=== PATIENT | male | born 1970 | race Caucasian/White ===

== ENCOUNTER 2023-03-29 19:47 | Inpatient (IN) | payer OTHER, SELFPAY ==
[2023-03-29 19:48] VITALS: BP 173/104; PULSE 82; RESP 16; TEMP 36.4; O2SAT 97; BMI 35.6
--- NOTE | 2023-03-29 20:05 | RAD_ITS ---
STUDY: X-RAY CHEST REASON FOR EXAM: Male, 52 years old. MEDICAL CLEARANCE TECHNIQUE: Single AP portable view of the chest. COMPARISON: None. FINDINGS: The lungs are clear and expanded. There is no demonstrated pleural abnormality. Normal size heart. Normal mediastinum and benton. Normal visualized pulmonary arteries. Normal visualized aortic arch and descending thoracic aorta. Normal visualized thoracic spine. Normal visualized ribs, clavicles, and shoulders. There is no demonstrated abnormality of the visualized soft tissue structures of the upper abdomen. RAD/Chest 1 View IMPRESSION: Normal x-ray examination of the chest. Electronically Signed: Guru Justin MD at 20:23 EDT ,
[2023-03-29 20:11] LABS: Basophil# 0.14 X10^3/uL; Basophil% 1.6 % (0-1); Eosinophil# 0.24 X10^3/uL; Eosinophils% 2.8 % (0-5); Hemoglobin 15.6 g/dL (13.0-16.5); Lymphocyte % 28.8 % (19-41); Mean Corp Hgb Conc 33.9 g/dL (32-36); Mean Corpuscular Hgb 32.6 pg (27.0-32.0); Mean Corpuscular Volume 96.2 fL (80-94); Mean Platelet Vol. 8.5 fl (6.2-12.0); Monocyte# 0.79 X10^3/uL; Monocyte% 9.1 % (0-10); NRBC Flagged by Analyzer 0 % (0-5); Neutrophil # 4.98 X10^3/uL (2.7-7.7); Neutrophil % 57.2 % (47-70); Platelet Count 403 K/mm3 (150-450); RBC Distribution Width CV 11.8 % (11.6-14.6); RBC Distribution Width SD 41.3 fl (35.1-43.9); Red Blood Count 4.78 M/mm3 (4.6-6.2); White Blood Count 8.7 K/mm3 (4.4-11.0)
[2023-03-29 20:26] LABS: Anion Gap 5 (5-15); BUN 18 mg/dL (7-18); BUN/Creat Ratio 14.6 RATIO (10-20); Calcium,Total 9.3 mg/dL (8.5-10.1); Chloride 109 mmol/L (98-107); Creatinine, Serum 1.23 mg/dL (0.70-1.30); EST Glomerular Filtration Rate 66 mL/min (>60); Est Glom Filt Rate - Afr Amer 79 mL/min (>60); Estimated Creatinine Clearance 67.97 ml/min; Glucose 98 mg/dL (74-106); Potassium 3.9 mmol/L (3.5-5.1); Sodium Level 138 mmol/L (136-145)
[2023-03-29 20:47] LABS: Alcohol, Blood (Medical)-Serum < 3.0 mg/dL
--- NOTE | 2023-03-29 22:07 | CT_ITS ---
STUDY: CT BRAIN WITHOUT CONTRAST REASON FOR EXAM: Male, 52 years old. weakness RADIATION DOSAGE (If Supplied By Facility): CTDIvol = ( 44.99 ) mGy, DLP = ( 812.98 ) mGycm TECHNIQUE: Transaxial CT imaging of the brain was performed without administration of intravenous contrast material. Individualized dose optimization techniques were used for this CT. COMPARISON: No relevant priors. FINDINGS: Normal soft tissue structures. Normal calvarium. Normal size ventricles and extra-axial spaces for the patient''s age. There are areas of decreased attenuation within the white matter tracts of the supratentorial brain, consistent with microvascular disease changes. There are bilateral lacunar infarcts of the basal ganglia and thalami. Normal brainstem. Normal cerebellum. There is no intracranial hemorrhage. There are no findings of an acute ischemic infarction. There is mucoperiosteal inflammatory disease of the paranasal sinuses consistent with mild chronic sinusitis. CT/Brain/Head without Contrast IMPRESSION: No acute abnormality. White matter disease and lacunar infarcts, both advanced for age. Suggest evaluating for hypertension. Electronically Signed: Guru Justin MD at 22:32 EDT ,
--- NOTE | 2023-03-29 22:11 | EKG12_ITS ---
Test Reason : DYSRHYTHMIA Blood Pressure : / mmHG Vent. Rate : 064 BPM Atrial Rate : 064 BPM P-R Int : 128 ms QRS Dur : 084 ms QT Int : 424 ms P-R-T Axes : 055 018 014 degrees QTc Int : 437 ms Normal sinus rhythm Normal ECG No previous ECGs available Confirmed by SKYLAR LINDSAY, DEMETRIO ([id number]), scientific publications editor STELLA SINGH ([id number]) on 03/31/2023 2:37:53 PM Referred By: TASNEEM Confirmed By:DEMETRIO CHENG MD
--- NOTE | 2023-03-29 22:39 | EX.ED.DYSGE1 ---
HPI History of Present Illness Chief Complaint: General Illness Narrative Narrative: 52-year-old male with reported history of hypertension presenting with difficulty finding words and speaking. He states this lasted for just a short duration at his house. He states that prior to this he was trying to cut [place] and was having trouble controlling his hand and cutting them into symmetrical slices. He is never had symptoms like this before. He states he has no history of stroke. He does not have any numbness or tingling. He has been otherwise healthy. He denies chest pain or shortness of breath. When this was happening [facility] Medical History History of CVA (cerebrovascular accident) HTN (hypertension) Tobacco use Medical History no medical history Home Medications lisinopril 40 mg tablet 40 mg PO DAILY ##30 11/07/16 [Rx Last Taken Unknown] Allergy/AdvReac Type Severity Reaction Status Date / Time No Known Allergies Allergy Verified 03/29/23 19:52 Surgical History no surgical history Social History Smoking Status: Current every day smoker tobacco type: cigarettes EXAM Physical Exam Const Vital Signs: 03/29/23 19:48 Temperature 97.6 F L Temperature Source Temporal Pulse Rate 82 Respiratory Rate 16 Blood Pressure 173/104 H Blood Pressure Mean 127 Pulse Ox 97 Oxygen Delivery Method Room Air MDM MDM MDM Narrative Medical decision making narrative: Patient presenting with symptoms of difficulty finding words and speaking for short duration in his kitchen tonight prior to the police showing up in his house to serve a warrant on him for not showing up for court. He states that he was having trouble using his right hand and cutting [place] before this and then noted he was having trouble getting words out and his tongue felt like it was not moving right. This is all resolved. Initially he was taken out of residential but they wanted him to be checked out and by the time he got here he had no symptoms. Patient reports no history of TIA or CVA. CBC and BMP were obtained and are fairly unremarkable. High-sensitivity opponent is 15. EKG normal sinus rhythm with a rate of 64 bpm without sign of ischemic change or dysrhythmia. Chest x-ray on my interpretation shows no acute process and radiologist services and agrees. CT of the brain was obtained which shows white matter disease and lacunar infarcts which are old. Patient reports no history of TIAs therefore I have concern that he likely had 1 today given injuries. Eyes discussed with the hospitalist and the patient will be admitted for further work-up. His NIH has remained 0 here throughout his stay. Impression: 1 TIA Lab Data Labs: Laboratory Results - last 24 hr 03/29/23 20:01 WBC 8.7 RBC 4.78 Hgb 15.6 Hct 46.0 MCV 96.2 H MCH 32.6 H MCHC 33.9 RDW Std Deviation 41.3 RDW Coeff of Shayy 11.8 Plt Count 403 MPV 8.5 Immature Gran % (Auto) 0.500 Neut % (Auto) 57.2 Lymph % (Auto) 28.8 [place] % (Auto) 9.1 Eos % (Auto) 2.8 Baso % (Auto) 1.6 H Absolute Neuts (auto) 5.0 Absolute Lymphs (auto) 2.50 Nucleated RBC % 0 Sodium 138 Potassium 3.9 Chloride 109 H Carbon Dioxide 24.0 Anion Gap 5 BUN 18 Creatinine 1.23 Estim Creat Clear Calc 67.97 Est GFR (MDRD) Af Amer 79 Est GFR (MDRD) Non-Af 66 BUN/Creatinine Ratio 14.6 Glucose 98 Calcium 9.3 Troponin I High Sens 15 Ethyl Alcohol < 3.0 Radiography Diagnostic Testing: Clinical Impression(s) from Imaging Studies Chest X-Ray 03/29/23 20:05 IMPRESSION: Normal x-ray examination of the chest. Electronically Signed: Guru Justin MD at 20:23 EDT , Brain CT 03/29/23 22:07 IMPRESSION: No acute abnormality. White matter disease and lacunar infarcts, both advanced for age. Suggest evaluating for hypertension. Electronically Signed: Guru Justin MD at 22:32 EDT , Discharge Plan Triage Chief Complaint: General Illness ED Provider: López Serrato Dx/Rx/DC Orders Primary Care Provider: Care Physician,No Primary
--- NOTE | 2023-03-29 22:47 | HP.PCM.HOS_ITS ---
HPI - General General Date of Admission: 03/29/23 Date of Service: 03/29/23 Chief Complaint: Transient aphasia, difficult hand coordination. HPI Narrative The patient is a 52 y/o M w/ PMHx: Polysubstance abuse (methamphetamine, cannabis), History of EtOH abuse, HTN, Tobacco use who presents to the [facility] ED on 03/29/23 with history of transient difficulty finding his words and speaking as well as intermittently having difficulty controlling his hands with difficulty slicing food with no symptoms like this previously and no prior history of a stroke denying any concurrent other focal weakness or paresthesias prompting eventual ED evaluation. Currently patient status has returned back to baseline. Patient had a warrant being served and had police show up to serve him when this was occuring prompting them to bring him in for evaluation. Patient does report significant skin changes to his bilateral plantar feet, right greater than left as well as atypical skin changes/lesions to the palmar surface of his hands. He does report that he is occasionally not changed his socks and had significant sweat to his feet with concern for athlete's foot. In the ED NIHSS 0; however, per discussion with patient his voice currently is still altered from his baseline. Work-up in the ED included T97.6, heart rate 82, BP 173/104, respiratory rate 16, 97% room air, CBC with WBC 8.7, hemoglobin 15.6, platelet 4 3 without marked shift, BMP unremarkable aside chloride 109, alcohol less than 3, chest x-ray with no acute cardiopulmonary findings, CT of the brain with white matter disease and lacunar infarcts both advanced for age with no acute intracranial findings otherwise, EKG SR without acute evidence of ischemia, negative SARS COVID rapid antigen, troponin pending upon requested evaluation of patient. In the ED patient administered full-strength aspirin therapy. [facility] Medical History History of CVA (cerebrovascular accident) HTN (hypertension) Obesity Polysubstance abuse Tobacco use Medical History no medical history Home Medications lisinopril 40 mg tablet 40 mg PO DAILY ##30 11/07/16 [Rx Last Taken Unknown] Allergy/AdvReac Type Severity Reaction Status Date / Time No Known Allergies Allergy Verified 03/29/23 19:52 Family History (Updated 03/30/23 @ 03:[address] Kelli Wilcox MD) Mother CVA (cerebral vascular accident) Hypertension Diabetes Father COVID-19 following COVID-19 illness. Surgical History (Updated 03/30/23 @ 03:[address] Kelli Wilcox MD) S/P nasal surgery Surgical History no surgical history Social History (Updated 03/30/23 @ 03:[address] Kelli Wilcox MD) household members: friend(s) Smoking Status: Current every day smoker tobacco type: cigarettes Smoking packs per day: 1 Smoking cigarettes per day: 20.0 alcohol intake: former details: Sober x 5 years. substance use type: marijuana and amphetamines ROS ROS Narrative Admission Review of Systems: CONSTITUTIONAL: No weight loss, fever, chills, + weakness or fatigue. HEENT: + Altered voice, dysarthria. Eyes: No visual loss, blurred vision, double vision or yellow sclerae. Ears, Nose, Throat: No hearing loss, sneezing, congestion, runny nose or sore throat. SKIN: + Significant bilateral lower extremity right greater than left pedal plantar skin breakdown, maceration especially between the toes concerning for fungal infection as well as possible superimposed bacterial infection, additionally bilateral hand, left greater than right palmar skin lesions with some cracking. CARDIOVASCULAR: No chest pain, chest pressure or chest discomfort, palpitations, edema, orthopnea, syncopal events. RESPIRATORY: No shortness of breath, cough or sputum, wheezing, hemoptysis. GASTROINTESTINAL: No anorexia, nausea, vomiting or diarrhea, abdominal pain, melena, BRBPR. GENITOURINARY: No dysuria, frequency, urgency or retention. NEUROLOGICAL: + Dysarthria, discoordination bilateral upper extremity, transient. No headache, dizziness, syncope, paralysis, ataxia, change in bowel or bladder control, seizure. MUSCULOSKELETAL: + muscle, back pain, joint pain or stiffness. HEMATOLOGIC: No anemia, bleeding or bruising. LYMPHATICS: No enlarged nodes. No history of splenectomy. PSYCHIATRIC: No history of depression or anxiety. ENDOCRINOLOGIC: No reports of sweating, cold or heat intolerance. No polyuria or polydipsia. ALLERGIES: No history of asthma, hives, eczema or rhinitis. Vital Signs Vital Signs Vital Signs: 03/29/23 19:48 Temperature 97.6 F L Temperature Source Temporal Pulse Rate 82 Respiratory Rate 16 Blood Pressure 173/104 H Blood Pressure Mean 127 Pulse Ox 97 Oxygen Delivery Method Room Air Weight Weight: 234 lb Body Mass Index (BMI) 35.6 Physical Exam Narrative Physical Examination: General: Awake, alert, oriented x 3 and cooperative, seated upright in the ED bed, fatigued otherwise no acute distress. Skin: Normal color, normal turgor, no icterus, no cyanosis except bilateral lower extremity right greater than left pedal plantar skin breakdown, maceration especially between the toes concerning for fungal infection as well as possible superimposed bacterial infection, additionally bilateral hand, left greater than right palmar skin lesions with some cracking. HEENT: AT/NC, EOMI, PERRLA, moderately dry MM, no carotid bruits or JVD noted. Lungs: Mildly diminished greater bases, appropriate effort, no rales, ronchi or wheezing. Heart: Currently regular rate and rhythm; no gallop, rub audible. Abdomen: Soft, obese, NTTP, ND, mildly hyperactive BS, no HSM. Extremities: No cyanosis, no clubbing, no marked pitting edema, see skin. Neurological: Patient awake, alert, oriented as noted, cognitive function intact; pupils equally reactive to light and accommodation, cranial nerves II- XII grossly normal, moving all 4 extremities, no focal deficits, strength moderately globally decreased, finger-nose and [id number] appropriate, still ongoing dysarthria from discussion with patient as he states he is still not at his baseline, equivocal Babinski. Psychiatric: Affect appears fatigued otherwise normal, no acute evidence of depressive or anxiety feelings. Results Lab / Micro Data 03/29/23 20:01 03/29/23 20:01 Labs: Laboratory Results - last 24 hr 03/29/23 20:01: WBC 8.7, RBC 4.78, Hgb 15.6, Hct 46.0, MCV 96.2 H, MCH 32.6 H, MCHC 33.9, RDW Std Deviation 41.3, RDW Coeff of Shayy 11.8, Plt Count 403, MPV 8.5, Immature Gran % (Auto) 0.500, Neut % (Auto) 57.2, Lymph % (Auto) 28.8, [place] % (Auto) 9.1, Eos % (Auto) 2.8, Baso % (Auto) 1.6 H, Absolute Neuts (auto) 5.0, Absolute Lymphs (auto) 2.50, Nucleated RBC % 0, Sodium 138, Potassium 3.9, Chloride 109 H, Carbon Dioxide 24.0, Anion Gap 5, BUN 18, Creatinine 1.23, Estim Creat Clear Calc 67.97, Est GFR (MDRD) Af Amer 79, Est GFR (MDRD) Non-Af 66, BUN/Creatinine Ratio 14.6, Glucose 98, Calcium 9.3, Ethyl Alcohol < 3.0 Micro: Microbiology 03/29/23 20:01 Nasal Secretion SARS-CoV-2 Antigen (Rapid) - Final Radiology Impression Chest X-Ray 03/29/23 20:05 IMPRESSION: Normal x-ray examination of the chest. Electronically Signed: Guru Justin MD at 20:23 EDT , Brain CT 03/29/23 22:07 IMPRESSION: No acute abnormality. White matter disease and lacunar infarcts, both advanced for age. Suggest evaluating for hypertension. Electronically Signed: Guru Justin MD at 22:32 EDT , Assessment & Plan Assessment/Plan (1) TIA (transient ischemic attack): PLAN: Plan The patient is a 52 y/o M w/ PMHx: Polysubstance abuse (methamphetamine, cannabis), History of EtOH abuse, HTN, Tobacco use who presents to the [facility] ED on 03/29/23 with history of transient difficulty finding his words and speaking as well as intermittently having difficulty controlling his hands with difficulty slicing food with no symptoms like this previously and no prior history of a stroke denying any concurrent other focal weakness or paresthesias prompting eventual ED evaluation. #1. Recent aphasia as well as difficulty with upper extremity coordination, transient with incidentally noted evidence of prior bilateral lacunar infarcts of the basal ganglia and thalami concerning for now Acute TIA/CVA: Will admit to PCU especially given evidence of prior infarcts advanced for age per radiology review with acute symptom onset with concern for recurrent TIA/CVA, will obtain MRI Brain, obtain CTA head and Neck, ECHO, PT/OT/Speech/Nutrition evaluation per protocol. Will allow permissive HTN, maintain on asa, add high-dose statin w/ AM FLP, fall precautions. Mag, TSH, FLP, HgbA1c requested. Maintain on fall and aspiration precautions. Once work-up obtained low threshold to obtain Neurology consultation. Given age pending other findings may need to consider also hypercoagulable panel but given history of polysubstance abuse certainly would contribute. #2. Hypertension: We will maintain permissive hypertension with parent agents p er stroke protocol as noted. Add back oral regimen once appropriate. #3. Tobacco Abuse: Encouraged cessation, inpatient consultation per RT, NR if desired. #4. Obesity: Weight loss and lifestyle changes encouraged. #5. History of EtOH abuse: Encourage continued sobriety. He notes he quit hea vy alcohol intake approximately 5 years prior to current presentation. #6. Polysubstance abuse: Patient with history of methamphetamine and cannabis usage with most recent usage approximately 4 to 5 weeks prior to current presentation but significant prior polysubstance use history as well. Given patient presentation and examination to be cautious we will obtain HIV, hepatitis as well as RPR which patient was amenable to. #7. Bilateral hands and pedal palmar rashes, suspect some overlying tinea pedis and possible superimposed bacterial component but concern for possible syphilis given history: Will maintain on topical antifungal as well as bacterial agents with RPR pending as noted. #8. DVT prophylaxis: Lovenox. #9. CODE STATUS: Full code. Admission Evaluation Time spent evaluating chart, patient history, patient evaluation, care planning and discussion with specialists: 75 minutes. Charges/Coding Visit Charges Inpatient E&M: 14922 Init Hosp L3
[2023-03-29 23:03] LABS: Troponin-I HS 15 pg/mL (3.0-78.0)
[2023-03-29] MEDS: Aspirin 81 MG TAB.CHEW 324 MG PO (23:36)
[2023-03-29 23:48] VITALS: BP 160/100; PULSE 80; RESP 15; TEMP 36.5; O2SAT 98
--- NOTE | 2023-03-29 23:55 | CT_ITS ---
We are attempting to reach an attending provider to discuss findings. An addendum with communication details will be sent when the communication is complete. INDICATION: Neuro deficit, acute, stroke suspected EXAMINATION: CT HEAD AND NECK WITH CONTRAST - CTA Head and Neck W/ Contrast Injection (and W/O Contrast Images if performed) TECHNIQUE: Routine carotid CT angiogram protocol was performed with IV contrast. In addition, images were obtained of the [place]. Sagittal and coronal reconstructed images and 3D reconstructions were reviewed. Individualized dose optimization techniques were used for this CT. IV contrast dosage and agent: 100 mL of Isovue-370. COMPARISON: Noncontrast head CT from 03/29/2023. FINDINGS: --CTA HEAD: Atherosclerotic plaques of the cavernous ICAs with mild to moderate stenosis on the right and mild stenosis on the left. No evidence of large vessel occlusion. No aneurysm. [place] anatomy is unremarkable. Mucosal thickening of the frontal, ethmoid and sphenoid sinuses. --CTA NECK: AORTIC ARCH AND BRANCHES: No significant stenosis of the visualized portions. RIGHT CCA: Mild atherosclerotic plaque with no significant stenosis. No dissection. RIGHT ICA: No significant stenosis. No dissection. LEFT CCA: Mild atherosclerotic plaque with no significant stenosis. No dissection. LEFT ICA: No significant stenosis. No dissection. RIGHT VERTEBRAL ARTERY: No significant stenosis. No dissection. LEFT VERTEBRAL ARTERY: No significant stenosis. No dissection. NECK SOFT TISSUES: Unremarkable. CT/STROKE CTA Head AND Neck W/Con IMPRESSION: 1. No evidence of flow-limiting stenosis or dissection of the bilateral carotid or vertebral arteries. 2. Atherosclerotic plaques of the bilateral cavernous internal carotid arteries with [id number] stenosis on the right and mild stenosis on the left. 3. No evidence of intracranial arterial large vessel occlusion or aneurysm. Electronically Signed: Amado Holden DO at 2:06 EDT ,
[2023-03-30 00:10] VITALS: BP 172/104; PULSE 64; RESP 18; TEMP 36.6; O2SAT 100
[2023-03-30 00:11] LABS: Magnesium 2.1 mg/dL (1.6-2.6); Phosphorus 4.2 mg/dL (2.5-4.9)
--- NOTE | 2023-03-30 00:15 | ECHOCS_ITS ---
Reason For Study: CVA Procedure This was a 2D Doppler, Color Flow transthoracic echocardiogram. Contrast injection was performed. Exam performed portable in patient room. Left Ventricle Normal LV size. Mild concentric left ventricular hypertrophy. Left ventricular systolic function is normal. The estimated ejection fraction is 65 %. Right Ventricle Normal right ventricle. Normal systolic function. Atria Normal left atrium. Normal right atrium. Bubble contrast study negative for right to left interatrial shunt. Mitral Valve The mitral valve is structurally normal. No prolapse or stenosis seen. No mitral valve insufficiency. Tricuspid Valve Normal tricuspid valve. Trivial tricuspid valve insufficiency. Aortic Valve Trisinus/trileaflet aortic valve. No aortic valve insufficiency. Pulmonic Valve The pulmonic valve is not well visualized. Great Vessels Normal aortic root. Pericardium/Pleural No pericardial effusion. Medication Performed a rapid injection of agitated mix of 9 cc saline and 1cc air to assess for atrial septal defect. Diluted definity 1ml given slow IV push to enhance endocardial definition. MMode/2D Measurements & Calculations LVIDd: 4.1 cm IVSd: 1.3 cm Ao root diam: 3.1 cm LVIDs: 2.7 cm LVPWd: 1.3 cm RVDd: 3.2 cm FS: 35.4 % LAV(MOD-bp): 31.1 ml LVAd ap4: 34.9 cm2 SV(MOD-sp4): 74.1 ml LAV(MOD-bp) Indexed: 14.8 ml/m2 LVLd ap4: 9.1 cm LAV(MOD-sp2): 32.4 ml EDV(MOD-sp4): 108.0 ml LAV(MOD-sp4): 29.6 ml EDV(sp4-el): 113.7 ml LVAs ap4: 16.2 cm2 LVLs ap4: 6.8 cm ESV(MOD-sp4): 33.9 ml ESV(sp4-el): 32.6 ml EF(MOD-sp4): 68.6 % EF(sp4-el): 71.3 % SV(sp4-el): 81.1 ml LA A4 area: 13.8 cm2 LA dimension(2D): 3.7 cm RA A4 area: 13.6 cm2 Time Measurements MV dec time: 0.31 sec Doppler Measurements & Calculations MV E max leonardo: 53.4 cm/sec Lat Peak E' Leonardo: 8.1 cm/sec Med Peak E' Leonardo: 5.9 cm/sec MV A max leonardo: 80.6 cm/sec E/E' lat: 6.6 E/E' med: 9.1 MV E/A: 0.66 MV dec slope: 170.2 cm/sec2 Ao V2 max: 169.4 cm/sec LV V1 max: 132.9 cm/sec Ao max P.5 mmHg LV V1 max P.1 mmHg Ao V2 mean: 130.3 cm/sec Ao mean P.2 mmHg Ao V2 VTI: 28.8 cm PA V2 max: 104.3 cm/sec TR max leonardo: 234.3 cm/sec TR max P.0 mmHg ECHO/Echo Complete W/ Contrast Interpretation Summary The estimated ejection fraction is 65 %. Mild concentric left ventricular hypertrophy. Bubble contrast study negative for right to left interatrial s Anterior MV leaflets Elongated,Thickened anterior Mitral chordae Correlate with clinical presentation and consider SCOTT evaluation if clinically indiated Contrast injection was performed. The study was technica rita difficult. Ordering Physician: Kelli Wilcox Performed By: Shawna Haas RDCS, RVT
--- NOTE | 2023-03-30 00:15 | MRI_ITS ---
We are attempting to reach an attending provider to discuss findings. An addendum with communication details will be sent when the communication is complete. INDICATION: CVA EXAMINATION: MRI - MR Brain W/O Contrast COMPARISON: Head CT previous day. Findings: Multisequence multiplanar MRI images of the brain with and without contrast. Included is diffusion-weighted series with corresponding ADC map which demonstrate heterogeneous small clustered foci of increased signal, measuring up to 16 mm, within the central inferior cerebellum consistent with restricted diffusion. Associated small wedge-shaped increased T2 and FLAIR signal in this region as well. There may be additional tiny focus of restricted diffusion within the right frontotemporal deep white matter, just caudal to the level of the centrum semiovale, on axial image 18 of series 4. There are multiple periventricular areas of increased T2 and FLAIR signal most consistent with chronic periventricular white matter ischemic changes, other white matter disease is less likely. Mild volume loss present. Midline anatomy and craniocervical junction appear unremarkable. No significant blooming artifact on gradient echo imaging. Vascular structures/flow-voids are unremarkable. Pansinus mucosal thickening. MRI/Brain without Contrast IMPRESSION: Right cerebellar restricted diffusion consistent with acute/subacute ischemia. Multiple periventricular areas of increased T2 and FLAIR signal most consistent with chronic periventricular white matter ischemic changes, other white matter disease is less likely. Electronically Signed: Domenic Barfield MD at 1:32 EDT ,
[2023-03-30 00:20] VITALS: BMI 32.9
[2023-03-30 01:22] LABS: HIV - WCH Non-Reactive (Nonreactive); Hepatitis B Surface Antibody Non-Reactive; Hepatitis B Surface Antigen Non-Reactive (Nonreactive); Hepatitis C Antibody Non-Reactive (Nonreactive); Syphilis Antibodies Non-reactive
[2023-03-30] MEDS: 0.9% Normal Saline 1,000 ML 100 ML IV (01:37)
[2023-03-30] MEDS: 0.9% Saline Lock 10 ML Syringe IV (01:41)
[2023-03-30] MEDS: Clotrimazole 1 APPLIC Tube TOPICAL ×3 (01:42→21:48)
[2023-03-30] MEDS: Mupirocin Ointment 22gm Tube 1 APPLIC TOPICAL ×3 (01:42→21:48)
[2023-03-30 02:48] VITALS: BMI 32.9
[2023-03-30 04:34] VITALS: BP 171/101; PULSE 79; RESP 18; TEMP 36.7; O2SAT 96
[2023-03-30 06:00] VITALS: BMI 32.9
[2023-03-30 07:31] LABS: Absolute Lymphocyte Count 2.21 X10^3/uL (0.83-4.51); Absolute Neutrophil Count 4.2 X10^3/uL (2.0-7.7); Basophil# 0.12 X10^3/uL; Basophil% 1.6 % (0-1); Eosinophil# 0.28 X10^3/uL; Eosinophils% 3.8 % (0-5); Hematocrit 45.9 % (40-54); Hemoglobin 15.3 g/dL (13.0-16.5); Lymphocyte # 2.21 X10^3/ul (0.83-4.51); Lymphocyte % 29.7 % (19-41); Mean Corp Hgb Conc 33.3 g/dL (32-36); Mean Corpuscular Hgb 32.5 pg (27.0-32.0); Mean Corpuscular Volume 97.5 fL (80-94); Mean Platelet Vol. 8.7 fl (6.2-12.0); Monocyte# 0.61 X10^3/uL; Monocyte% 8.2 % (0-10); NRBC Flagged by Analyzer 0 % (0-5); Neutrophil # 4.19 X10^3/uL (2.7-7.7); Neutrophil % 56.4 % (47-70); Platelet Count 388 K/mm3 (150-450); RBC Distribution Width CV 11.7 % (11.6-14.6); RBC Distribution Width SD 42.3 fl (35.1-43.9); Red Blood Count 4.71 M/mm3 (4.6-6.2); White Blood Count 7.4 K/mm3 (4.4-11.0)
[2023-03-30 07:44] VITALS: BP 150/80; PULSE 57; RESP 18; TEMP 36.8; O2SAT 99
[2023-03-30] MEDS: Enoxaparin 40 MG/0.4 ML Syringe SC (07:49)
[2023-03-30] MEDS: Aspirin 81 MG TAB.CHEW PO (07:49)
[2023-03-30 07:57] LABS: ALB/GLOB Ratio 0.8 RATIO (0.9-2.4); AST(SGOT) 17 U/L (15-37); Alanine Aminotransfer ALT/SGPT 18 U/L (16-61); Albumin, Serum 3.1 g/dL (3.2-5.0); Alkaline Phosphatase 53 U/L (45-117); Anion Gap 4 (5-15); BUN 12 mg/dL (7-18); BUN/Creat Ratio 12.4 RATIO (10-20); Calcium,Total 8.4 mg/dL (8.5-10.1); Chloride 108 mmol/L (98-107); Cholesterol 159 mg/dL (200); Creatinine, Serum 0.97 mg/dL (0.70-1.30); EST Glomerular Filtration Rate 87 mL/min (>60); Est Glom Filt Rate - Afr Amer 105 mL/min (>60); Estimated Creatinine Clearance 83.29 ml/min; Globulin 3.8 g/dL (2.2-4.2); Glucose 95 mg/dL (74-106); High Density Lipoprotein 49 mg/dL; Potassium 3.8 mmol/L (3.5-5.1); Protein, Total 6.9 g/dL (6.4-8.2); Sodium Level 138 mmol/L (136-145); Thyroid Stim Hormone (TSH) 2.01 uIU/mL (0.358-3.74); Triglycerides 184 mg/dL; Very Low Density Lipoprotein 37 mg/dL (5-40)
[2023-03-30 08:19] LABS: Hemoglobin A1c 5.4 % (3.8-5.6)
--- NOTE | 2023-03-30 08:29 | PCM.PN.HOSP ---
Reason for Visit Reason for Visit: Diagnoses Transient cerebral ischemic attack, unspecified (03/29/23) Subjective Subjective Follow-up for dizziness vertigo. Patient states he has generalized weakness. No one-sided weakness paresthesia/numbness tingling. Objective Data Objective Data Vital Signs: Vital Signs Temp Pulse Resp BP Pulse Ox O2 Del Method 98.2 F 57 L 18 150/80 H 99 Room Air 03/30/23 07:44 03/30/23 07:44 03/30/23 07:44 03/30/23 07:44 03/30/23 07:44 03/30/23 07:44 Oxygen Delivery Method Room Air Weight: 213 lb 6.519 oz Body Mass Index (BMI) 32.9 Intake & Output: Intake and Output for Last 24 Hours 03/28/23 03/29/23 03/30/23 23:59 23:59 23:59 Intake Total 220 / 220 Balance 220 / 220 Lab / Micro Data 03/30/23 06:50 03/30/23 06:50 Labs: Laboratory Results - last 24 hr 03/29/23 20:01: WBC 8.7, RBC 4.78, Hgb 15.6, Hct 46.0, MCV 96.2 H, MCH 32.6 H, MCHC 33.9, RDW Std Deviation 41.3, RDW Coeff of Shayy 11.8, Plt Count 403, MPV 8.5, Immature Gran % (Auto) 0.500, Neut % (Auto) 57.2, Lymph % (Auto) 28.8, Douglas % (Auto) 9.1, Eos % (Auto) 2.8, Baso % (Auto) 1.6 H, Absolute Neuts (auto) 5.0, Absolute Lymphs (auto) 2.50, Nucleated RBC % 0, Sodium 138, Potassium 3.9, Chloride 109 H, Carbon Dioxide 24.0, Anion Gap 5, BUN 18, Creatinine 1.23, Estim Creat Clear Calc 67.97, Est GFR (MDRD) Af Amer 79, Est GFR (MDRD) Non-Af 66, BUN/Creatinine Ratio 14.6, Glucose 98, Calcium 9.3, Phosphorus 4.2, Magnesium 2.1, Troponin I High Sens 15, Ethyl Alcohol < 3.0 03/30/23 00:00: Syphilis Total Ab Non-reactive, Hep Bs Antigen Non-Reactive, Hep Bs Antibody Non-Reactive, Hepatitis C Antibody Non-Reactive, HIV 1&2 Antibody Non-Reactive 03/30/23 06:50: WBC 7.4, RBC 4.71, Hgb 15.3, Hct 45.9, MCV 97.5 H, MCH 32.5 H, MCHC 33.3, RDW Std Deviation 42.3, RDW Coeff of Shayy 11.7, Plt Count 388, MPV 8.7, Immature Gran % (Auto) 0.300, Neut % (Auto) 56.4, Lymph % (Auto) 29.7, Douglas % (Auto) 8.2, Eos % (Auto) 3.8, Baso % (Auto) 1.6 H, Absolute Neuts (auto) 4.2, Absolute Lymphs (auto) 2.21, Nucleated RBC % 0, Sodium 138, Potassium 3.8, Chloride 108 H, Carbon Dioxide 26.0, Anion Gap 4 L, BUN 12, Creatinine 0.97, Estim Creat Clear Calc 83.29, Est GFR (MDRD) Af Amer 105, Est GFR (MDRD) Non-Af 87, BUN/Creatinine Ratio 12.4, Glucose 95, Hemoglobin A1c 5.4, Calcium 8.4 L, Total Bilirubin 0.40, AST 17, ALT 18, Alkaline Phosphatase 53, Total Protein 6.9, Albumin 3.1 L, Globulin 3.8, Albumin/Globulin Ratio 0.8 L Triglycerides 184, Cholesterol 159, LDL Cholesterol 73, VLDL Cholesterol 37, HDL Cholesterol 49, TSH 2.01 Micro: Microbiology 03/29/23 20:01 Nasal Secretion SARS-CoV-2 Antigen (Rapid) - Final Radiography Diagnostic Testing: Radiology Impression Chest X-Ray 03/29/23 20:05 IMPRESSION: Normal x-ray examination of the chest. Electronically Signed: Guru Justin MD at 20:23 EDT , Brain CT 03/29/23 22:07 IMPRESSION: No acute abnormality. White matter disease and lacunar infarcts, both advanced for age. Suggest evaluating for hypertension. Electronically Signed: Guru Justin MD at 22:32 EDT , Head/Neck CTA 03/29/23 23:55 IMPRESSION: 1. No evidence of flow-limiting stenosis or dissection of the bilateral carotid or vertebral arteries. 2. Atherosclerotic plaques of the bilateral cavernous internal carotid arteries with [id number] stenosis on the right and mild stenosis on the left. 3. No evidence of intracranial arterial large vessel occlusion or aneurysm. Electronically Signed: Amado Holden DO at 2:06 EDT , Physical Exam Narrative PatientSeen and examined. Having dizziness and photophobia. No nausea or vomiting. Mild vertigo. No fever, diarrhea or abdominal pain. Denies dysuria. General: Alert, Oriented x3, Cooperative. Obesity grade 1 BMI 32.9 kg/m? HEENT: Atraumatic, PERRLA, EOMI, Normocephalic. No nystagmus. Oral: Oral mucosa moist. No Gingival or Mucosal Lesions/ Ulcerations Neck: Supple, No JVD, Negative Carotid Bruits Lungs: Air entry diminished in bilateral lung bases. No crepitation/rhonchi Cardiovascular: Regular rate, Regular Rhythm, Normal S1, Normal S2, No murmurs Abdomen: Bowel Sounds Present, Soft, Non Tender, Non-Distended : Denies acute [place] symptoms. No renal angle tenderness. No suprapubic tenderness. Extremities: No edema, Capillary Refill Less than 3 Seconds Skin: No rashes, No breakdown Musculoskeletal: No Tenderness to Palpation of Joints or Extremities Neurological: Cranial nerves II-XII grossly intact, DTR 2+/4 and Symmetrical, Neuro grossly intact Psych/Mental Status: Affect. Assessment & Plan Assessment/Plan (1) TIA (transient ischemic attack): PLAN: Plan The patient is a 52 y/o M is admitted for evaluation of transient difficulty finding his words and speaking as well as intermittently having difficulty controlling his hands with difficulty slicing food. No previous symptoms. #1. Recent aphasia as well as difficulty with upper extremity coordination, vertigo and dizziness: Patient is being in PCU. MRI brain is pending. CT head shows bilateral lacunar infarcts of basal ganglia and thalami with normal brainstem and cerebellum. No ICH and no acute ischemic infarction. CTA head and neck does not show evidence of stenosis or dissection of bilateral carotid or vertebral arteries. Atherosclerotic plaque of bilateral cavernous ICA with mild to moderate stenosis on the right and mild stenosis on the left. Vastly improved from within normal limit. Serum magnesium and phosphorus in normal limit. TSH normal. On baby aspirin and high intensity statin. #2. Hypertension: maintain permissive hypertension with parent agents per stroke protocol as noted. Add back oral regimen once appropriate. #3. Tobacco Abuse: Encouraged cessation. On nicotine patch #4. Obesity: Weight loss and lifestyle changes encouraged. #5. History of EtOH abuse: Encourage continued sobriety. He notes he quit heavy alcohol intake approximately 5 years prior to current presentation. #6. Polysubstance abuse: Patient with history of methamphetamine and cannabis usage with most recent usage approximately 4 to 5 weeks prior to current presentation but significant prior polysubstance use history as well. Syphilis Total Ab Non-reactive, Hep Bs Antigen Non-Reactive, Hep Bs Antibody Non-Reactive, Hepatitis C Antibody Non-Reactive, HIV 1&2 Antibody Non-Reactive #7. Bilateral hands and pedal palmar rashes, suspect some overlying tinea pedis and possible superimposed bacterial component but concern for possible syphilis given history: on topical antifungal as well as bacterial agents #8. DVT prophylaxis: Lovenox. #9. CODE STATUS: Full code. Charges/Coding Visit Charges Inpatient E&M: 79615 Subs Hosp L2
--- NOTE | 2023-03-30 08:30 | DCINST_ITS ---
Discharge Instructions Follow Up Care Test Results: Test results from this visit will be discussed in further detail at your follow- up appointment, if applicable. Discharge Plan Admission Admit Date/Time: 03/29/23 22:49 Primary Reason for Your Visit: Right cerebellar acute/subacute ischemia. Attending Provider: Carlos Palomares Primary Care Provider: Sandra Medina Primary Consulting Providers: Kelli Wilcox Discharge Orders/Prescriptions Prescriptions: New atorvastatin 80 mg Tablet 40 mg PO QHS 30 Days Qty: 30 2RF clopidogrel 75 mg Tablet 75 mg PO DAILY 21 Days Qty: 21 0RF nicotine 21 mg/24 hr Patch 24 Hour 21 mg transdermal DAILY 28 Days Qty: 28 0RF mupirocin 2 % Ointment 1 applic topical BID 7 Days Qty: 15 0RF Protocol: *Topical Application Instructions APPLICATION INSTRUCTIONS: BL feet Rx Instructions: Apply on bilateral feet clotrimazole [Antifungal (clotrimazole)] 1 % Cream 1 applic topical BID 10 Days Qty: 45 0RF Protocol: *Topical Application Instructions APPLICATION INSTRUCTIONS: Bl feet Rx Instructions: Apply on bilateral feet aspirin 81 mg Tablet,Chewable 81 mg PO BREAKFAST 30 Days Qty: 30 2RF Changed lisinopril 40 MG tablet 20 mg PO DAILY 30 Days Qty: 30 2RF Rx Instructions: Start 20 mg daily and if blood pressure is still elevated more than 130 mmHg, increased to 40 mg daily. Referrals / Follow Up: Care Physician,No Primary [Primary Care Provider] - Disposition Disposition (needs filled in before D/C Order can be placed): Home, Self Care
--- NOTE | 2023-03-30 09:59 | CASEMGMT ---
Addendum entered by Monica Rapp 03/30/23 11:16: Social Work Mai from the financial department called again. She states that the type of [employer] insurance pt has is not recognized. She asked if pt has his card here, SW will ask pt. She states it appears it is for doctor visits, not accepted by the hospital. SW attempted to speak w/pt, he is now asleep. SW will try again. MUKUND Beverly Addendum entered by Monica Rapp 03/30/23 10:59: Social Work SW did let pt know that his insurance came up as active. MUKUND Beverly Original Note: Social Work SW met w/pt due to being listed as self pay and also history of substance abuse. SW spoke w/pt initially about his self pay status, pt states he has [employer], has had it since October 20, he states [facility] has the information. SW explained will call the financial dept to have them look into it. SW spoke w/pt about substance abuse history. Pt vague in speaking w/SW about this. Pt states he is not using at this time, states used meth 5 weeks ago. SW asked pt about counseling resources for the substance abuse. Pt declined any referrals for counseling resources at this time. Pt states he is able to quit on his own. Pt states it has more to do with where he lives. Pt states he is working on moving. 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 He states he also has a car he is going to sell and once he sells the car also, then he will move. One of the nurses came in to complete the ECHO, SW will follow up w/pt if needed. SALVADOR called the financial dept, confirmed pt does indeed have [employer] insurance. MUKUND Beverly
[2023-03-30 10:11] VITALS: BMI 32.9
--- NOTE | 2023-03-30 12:07 | WOUNDNOTE ---
wound photo: right foot
--- NOTE | 2023-03-30 12:08 | WOUNDNOTE ---
was asked to see patient for laceration to right hand and foot. there is a small cracked area noted to the right pinky finger. no redness or drainage noted. appears to be from dry skin. patient has what appears to be athlete's foot to bilateral feet. right being greater than left. washed feet with soap and water. pat dry. applied the Lotrimin cream as ordered. no need for wound care at this time. see photo.
[2023-03-30] MEDS: Acetaminophen 325 MG Tablet 650 MG PO (12:50)
--- NOTE | 2023-03-30 12:57 | CASEMGMT ---
Patient does not have a copy of his insurance card. SW e-mailed [facility] to see if they could follow up with patient. Manju POTTER
[2023-03-30 14:00] VITALS: BP 150/90; PULSE 73; RESP 18; TEMP 36.8; O2SAT 98
[2023-03-30] MEDS: LORazepam 2 MG/ML Syringe 0.5 MG IV (15:15)
[2023-03-30 20:00] VITALS: BP 155/94; PULSE 63; RESP 18; TEMP 36.6; O2SAT 98
[2023-03-30 20:09] VITALS: BMI 32.9
[2023-03-30] MEDS: Atorvastatin Calcium 80 MG Tablet PO (21:48)
--- NOTE | 2023-03-31 01:55 | PCM.HOSP.N ---
Hospitalist Note MRI brain resulted with Right cerebellar restricted diffusion consistent with acute/subacute ischemia. Multiple periventricular areas of increased T2 and FLAIR signal most consistent with chronic periventricular white matter ischemic changes, other white matter disease is less likely.
[2023-03-31 06:00] VITALS: BMI 32.4
[2023-03-31 06:20] VITALS: RESP 18; O2SAT 98
[2023-03-31] MEDS: Aspirin 81 MG TAB.CHEW PO (08:19)
[2023-03-31] MEDS: Clopidogrel Bisulfate 75 MG Tablet PO (08:19)
[2023-03-31 10:00] VITALS: BP 163/101; PULSE 66; RESP 16; TEMP 36.8; O2SAT 100
--- NOTE | 2023-03-31 10:30 | CASEMGMT ---
SW completed a PHQ 9 with patient as he had a Stroke. Patient scored a 9 which indicates mild depression. Patient declined resources as he has no transportation. SW did get transportation, Medicaid, [facility], Ekaterina Morrow, and counseling resources together and will give them to patient. Manju Blunt [employer]
[2023-03-31] MEDS: Enoxaparin 40 MG/0.4 ML Syringe SC (10:47)
[2023-03-31] MEDS: Acetaminophen 325 MG Tablet 650 MG PO (10:57)
--- NOTE | 2023-03-31 11:22 | DS.PCM_ITS ---
Providers Date of Admission: 03/29/23 Primary Care Physician: No Primary Care Phys Consultations 03/30/23 00:15 Consult: Onc/Wound/paperhanger Routine Comment: Reason For Visit: TIA Diagnosis Discharge Diagnosis (1) Acute ischemic stroke: Status: Acute Code(s): I63.9 - Cerebral infarction, unspecified Plan The patient is a 52 y/o M is admitted for evaluation of transient difficulty finding his words and speaking as well as intermittently having difficulty controlling his hands with difficulty slicing food. No previous symptoms. #1. Recent aphasia as well as difficulty with upper extremity coordination, vertigo and dizziness: Patient is being in PCU. MRI brain is pending. CT head shows bilateral lacunar infarcts of basal ganglia and thalami with normal brainstem and cerebellum. No ICH and no acute ischemic infarction. CTA head and neck does not show evidence of stenosis or dissection of bilateral carotid or vertebral arteries. Atherosclerotic plaque of bilateral cavernous ICA with mild to moderate stenosis on the right and mild stenosis on the left. Serum magnesium and phosphorus in normal limit. TSH normal. On baby aspirin and high intensity statin. 03/31: MRI brain shows right cerebral acute/subacute ischemia. Plavix added. SOC consult. 2D echo bubble contrast study negative for [id number] interatrial shunt. EF 65%. Patient is being discharged on aspirin Plavix and high intensity statin. Fasting profile within normal limit. Follow-up with n eurology in 2 weeks. #2. Hypertension: maintain permissive hypertension with parent agents per [facility] protocol as noted. Add back oral regimen once appropriate. 03/31: Blood pressure in permissive hypertensive range. Start lisinopril 20 mg daily for 3 to 4 days with daily monitoring of BP. If SBP persistently more than 130 mmHg, increased to 40 mg daily. #3. Tobacco Abuse: Encouraged cessation. On nicotine patch #4. Obesity: Weight loss and lifestyle changes encouraged. #5. History of EtOH abuse: Encourage continued sobriety. He notes he quit heavy alcohol intake approximately 5 years prior to current presentation. #6. Polysubstance abuse: Patient with history of methamphetamine and cannabis usage with most recent usage approximately 4 to 5 weeks prior to current presentation but significant prior polysubstance use history as well. Syphilis Total Ab Non-reactive, Hep Bs Antigen Non-Reactive, Hep Bs Antibody Non-Reactive, Hepatitis C Antibody Non-Reactive, HIV 1&2 Antibody Non-Reactive. U tox is ordered #7. Bilateral hands and pedal palmar rashes, suspect some overlying tinea pedis and possible superimposed bacterial component but concern for possible syphilis given history: on topical antifungal as well as bacterial agents Prescription given for mupirocin and Lotrimin cream. #8. DVT prophylaxis: Lovenox. #9. CODE STATUS: Full code. Discharge medication reconciliation done. Discharge follow-up instructions completed. Discharge process discussed with the patient and all questions were answered to patient's satisfaction. Total time spent, exact 35 minutes on discharge meds reconciliation, exami nation, coordination of care with nurses and ancillary staff, review of imaging and blood test and discussion with the patient on follow-up instructions. Medications at Discharge Home Medications aspirin 81 mg chewable tablet 81 mg PO BREAKFAST 30 days #30 tabs 03/31/23 atorvastatin 80 mg tablet 40 mg (1/2 x 80 mg) PO QHS 30 days #30 tabs 03/31/23 clopidogrel 75 mg tablet 75 mg PO DAILY 21 days #21 tabs 03/31/23 clotrimazole 1 % topical cream (Antifungal (clotrimazole)) 1 applic topical BID 10 days #45 grams 03/31/23 lisinopril 40 mg tablet 20 mg (1/2 x 40 mg) PO DAILY 30 days #30 TABLETS 03/31/23 mupirocin 2 % topical ointment 1 applic topical BID 7 days #15 grams 03/31/23 nicotine 21 mg/24 hr daily transdermal patch 21 mg transdermal DAILY 28 days #28 ea 03/31/23 Physical Exam Narrative PatientSeen and examined. Having dizziness and photophobia. No nausea or vomiting. Mild vertigo. No fever, diarrhea or abdominal pain. Denies dysuria. General: Alert, Oriented x3, Cooperative. Obesity grade 1 BMI 32.9 kg/m? HEENT: Atraumatic, PERRLA, EOMI, Normocephalic. No nystagmus. Oral: Oral mucosa moist. No Gingival or Mucosal Lesions/ Ulcerations Neck: Supple, No JVD, Negative Carotid Bruits Lungs: Air entry diminished in bilateral lung bases. No crepitation/rhonchi Cardiovascular: Regular rate, Regular Rhythm, Normal S1, Normal S2, No murmurs Abdomen: Bowel Sounds Present, Soft, Non Tender, Non-Distended : Denies acute [place] symptoms. No renal angle tenderness. No suprapubic tenderness. Extremities: No edema, Capillary Refill Less than 3 Seconds Skin: Bilateral feet/plantar aspect skin cracks/maceration mainly interdigital s pace history of fungal infection with superimposed bacterial infection. Similar infection. Bilateral hand palmar aspect.. Musculoskeletal: No Tenderness to Palpation of Joints or Extremities. ROM i ntact. Ataxia resolved. Neurological: Cranial nerves II-XII grossly intact, DTR 2+/4. NIH stroke scale 0. Language function intact. No dysarthria or dysphagia. Psych/Mental Status: Flat affect. Sometimes gets frustrated and angry. Weight / BMI Weight Weight: 210 lb 1.608 oz Body Mass Index (BMI) 32.4 ABG / Lab / Microbiology Data 03/30/23 06:50 03/30/23 06:50 Microbiology: Microbiology 03/29/23 20:01 Nasal Secretion SARS-CoV-2 Antigen (Rapid) - Final Radiography Diagnostic Testing: Radiology Impression Brain MRI 03/30/23 00:15 IMPRESSION: Right cerebellar restricted diffusion consistent with acute/subacute ischemia. Multiple periventricular areas of increased T2 and FLAIR signal most consistent with chronic periventricular white matter ischemic changes, other white matter disease is less likely. Electronically Signed: Domenic Barfield MD at 1:32 EDT , ADDENDUM: 03/31/23 0205 IMPRESSION: Right cerebellar restricted diffusion consistent with acute/subacute ischemia. Multiple periventricular areas of increased T2 and FLAIR signal most consistent with chronic periventricular white matter ischemic changes, other white matter disease is less likely. N.B. : The above Results were Read Back by Domenic Barfield MD to Kelli Wilcox MD, and understanding confirmed on 03/31/2023 01:58:05 (ET). Electronically Signed: Domenic Barfield MD at 1:32 EDT , ADDENDUM: 03/31/23 0206 IMPRESSION: undefined Echocardiogram 03/30/23 00:15 Interpretation Summary The estimated ejection fraction is 65 %. Mild concentric left ventricular hypertrophy. Bubble contrast study negative for right to left interatrial s Anterior MV leaflets Elongated,Thickened anterior Mitral chordae Correlate with clinical presentation and consider SCOTT evaluation if clinically indiated Contrast injection was performed. The study was technically difficult. Ordering Physician: Kelli Wilcox Performed By: Shawna Haas RDCS, RVT Meaningful Use Info Meaningful Use Diagnoses (Choose all that apply): Ischemic CVA CVA Therapy Assessed for PT,OT and/or ST?: Yes Ischemic Stroke Antithrombotic order at d/c?: Yes Dx of Atrial fib/flutter?: No Anticoagulant at discharge?: Yes Statins at discharge?: Yes Primary Dx Acute Ischemic CVA?: Yes IV thrombolytic ordered during stay?: No Reason IV thrombolytic not ordered: Medical Contraindication and Procedure not Indicated Discharge Plan Admission Admit Date/Time: 03/29/23 22:49 Primary Reason for Your Visit: Right cerebellar acute/subacute ischemia. Attending Provider: Carlos Palomares Primary Care Provider: Care Physician,No Primary Consulting Providers: Kelli Wilcox Discharge Orders/Prescriptions Prescriptions: New atorvastatin 80 mg Tablet 40 mg PO QHS 30 Days Qty: 30 2RF clopidogrel 75 mg Tablet 75 mg PO DAILY 21 Days Qty: 21 0RF nicotine 21 mg/24 hr Patch 24 Hour 21 mg transdermal DAILY 28 Days Qty: 28 0RF mupirocin 2 % Ointment 1 applic topical BID 7 Days Qty: 15 0RF Protocol: *Topical Application Instructions APPLICATION INSTRUCTIONS: BL feet Rx Instructions: Apply on bilateral feet clotrimazole [Antifungal (clotrimazole)] 1 % Cream 1 applic topical BID 10 Days Qty: 45 0RF Protocol: *Topical Application Instructions APPLICATION INSTRUCTIONS: Bl feet Rx Instructions: Apply on bilateral feet aspirin 81 mg Tablet,Chewable 81 mg PO BREAKFAST 30 Days Qty: 30 2RF Changed lisinopril 40 MG tablet 20 mg PO DAILY 30 Days Qty: 30 2RF Rx Instructions: Start 20 mg daily and if blood pressure is still elevated more than 130 mmHg, increased to 40 mg daily. Other Ambulatory Orders: 30 Day Event Recorder Preventi (Urgent) Timeframe: 1 Day Facility: [facility] - Location: Cardiovascular Services Ordered By: Dr. Carlos Palomares Referrals / Follow Up: Care Physician,No Primary [Primary Care Provider] - Disposition Disposition (needs filled in before D/C Order can be placed): Home, Self Care Charges/Coding Visit Charges Inpatient E&M: 90798 Disch Hosp >30min
--- NOTE | 2023-03-31 12:17 | CASEMGMT ---
SW did use [facility] prescription assistance program for patient. Manju POTTER
[2023-03-31] MEDS: Lisinopril 20 MG Tablet PO ×2 (12:36→15:17)
--- NOTE | 2023-03-31 12:37 | PN.HOSP_ITS ---
Reason for Visit Reason for Visit: Diagnoses Transient cerebral ischemic attack, unspecified (03/29/23) Subjective Subjective Follow up for cerebellar stroke Objective Data Objective Data Vital Signs: Vital Signs Temp Pulse Resp BP Pulse Ox O2 Del Method 98.2 F 66 16 163/101 H 100 Room Air 03/31/23 10:00 03/31/23 10:00 03/31/23 10:00 03/31/23 10:00 03/31/23 10:00 03/31/23 10:00 Oxygen Delivery Method Room Air Weight: 210 lb 1.608 oz Body Mass Index (BMI) 32.4 Intake & Output: Intake and Output for Last 24 Hours 03/29/23 03/30/23 03/31/23 23:59 23:59 23:59 Intake Total 1220 / 1440 220 / 220 Output Total 150 / 150 Balance 1220 / 1290 70 / 70 Lab / Micro Data 03/30/23 06:50 03/30/23 06:50 Micro: Microbiology 03/29/23 20:01 Nasal Secretion SARS-CoV-2 Antigen (Rapid) - Final Radiography Diagnostic Testing: Radiology Impression Brain MRI 03/30/23 00:15 IMPRESSION: Right cerebellar restricted diffusion consistent with acute/subacute ischemia. Multiple periventricular areas of increased T2 and FLAIR signal most consistent with chronic periventricular white matter ischemic changes, other white matter disease is less likely. Electronically Signed: Domenic Barfield MD at 1:32 EDT , ADDENDUM: 03/31/23 0205 IMPRESSION: Right cerebellar restricted diffusion consistent with acute/subacute ischemia. Multiple periventricular areas of increased T2 and FLAIR signal most consistent with chronic periventricular white matter ischemic changes, other white matter disease is less likely. N.B. : The above Results were Read Back by Domenic Barfield MD to Kelli Wilcox MD, and understanding confirmed on 03/31/2023 01:58:05 (ET). Electronically Signed: Domenic Barfield MD at 1:32 EDT , ADDENDUM: 03/31/23 0206 IMPRESSION: undefined Echocardiogram 03/30/23 00:15 Interpretation Summary The estimated ejection fraction is 65 %. Mild concentric left ventricular hypertrophy. Bubble contrast study negative for right to left interatrial s Anterior MV leaflets Elongated,Thickened anterior Mitral chordae Correlate with clinical presentation and consider SCOTT evaluation if clinically indiated Contrast injection was performed. The study was technically difficult. Ordering Physician: Kelli Wilcox Performed By: Shawna Haas, RDCS, RVT Physical Exam Narrative Patient is Seen and examined. Dizziness for the few resolved. No nausea or vomiting. Mild vertigo. No fever, diarrhea or abdominal pain. Denies dysuria. General: Alert, Oriented x3, Cooperative. Obesity grade 1 BMI 32.9 kg/m? HEENT: Atraumatic, PERRLA, EOMI, Normocephalic. No nystagmus. Oral: Oral mucosa moist. No Gingival or Mucosal Lesions/ Ulcerations Neck: Supple, No JVD, Negative Carotid Bruits Lungs: Air entry diminished in bilateral lung bases. No crepitation/rhonchi Cardiovascular: Regular rate, Regular Rhythm, Normal S1, Normal S2, No murmurs Abdomen: Bowel Sounds Present, Soft, Non Tender, Non-Distended : Denies acute Chloratet symptoms. No renal angle tenderness. No suprapubic tenderness. Extremities: No edema, Capillary Refill Less than 3 Seconds Skin: Bilateral feet/plantar aspect skin cracks/maceration mainly interdigital space history of fungal infection with superimposed bacterial infection. Similar infection. Bilateral hand palmar aspect. Musculoskeletal: No Tenderness to Palpation of Joints or Extremities. ROM intact. Ataxia resolved. Neurological: Cranial nerves II-XII grossly intact, DTR 2+/4. NIH stroke scale 0. Language function intact. No dysarthria or dysphagia. Psych/Mental Status: Flat affect. Sometimes gets frustrated and angry. Assessment & Plan Assessment/Plan (1) Acute ischemic stroke: PLAN: Plan The patient is a 52 y/o M is admitted for evaluation of transient difficulty finding his words and speaking as well as intermittently having difficulty controlling his hands with difficulty slicing food. No previous symptoms. #1. Recent aphasia as well as difficulty with upper extremity coordination, vertigo and dizziness: Patient is being in PCU. MRI brain is pending. CT head shows bilateral lacunar infarcts of basal ganglia and thalami with normal brainstem and cerebellum. No ICH and no acute ischemic infarction. CTA head and neck does not show evidence of stenosis or dissection of bilateral carotid or vertebral arteries. Atherosclerotic plaque of bilateral cavernous ICA with mild to moderate stenosis on the right and mild stenosis on the left. Serum magnesium and phosphorus in normal limit. TSH normal. On baby aspirin and high intensity statin. 03/31: MRI brain shows right cerebral acute/subacute ischemia. Plavix added. 2D echo bubble contrast study negative for [id number] interatrial shunt. EF 65%. Fasting profile within normal limit. SOC consult recommended SCOTT. 30- day event monitor. Also recommended multiple blood test including ESR, CRP, B12, homocystine, PT/INR, PTT and D-dimer. COVID-19 rapid antigen screen. A1c 5.4. Prediabetes and diabetes mellitus ruled out. #2. Hypertension: maintain permissive hypertension with parent agents per stroke protocol as noted. Add back oral regimen once appropriate. 03/31: Blood pressure in permissive hypertensive range. Start lisinopril 20 mg daily for 3 to 4 days with daily monitoring of BP. If SBP persistently more than 130 mmHg, increased to 40 mg daily. #3. Tobacco Abuse: Encouraged cessation. On nicotine patch #4. Obesity: Weight loss and lifestyle changes encouraged. #5. History of EtOH abuse: Encourage continued sobriety. He notes he quit heavy alcohol intake approximately 5 years prior to current presentation. #6. Polysubstance abuse: Patient with history of methamphetamine and cannabis usage with most recent usage approximately 4 to 5 weeks prior to current presentation but significant prior polysubstance use history as well. Syphilis Total Ab Non-reactive, Hep Bs Antigen Non-Reactive, Hep Bs Antibody Non-Reactive, Hepatitis C Antibody Non-Reactive, HIV 1&2 Antibody Non-Reactive. U tox is ordered #7. Bilateral hands and pedal palmar rashes, suspect some overlying tinea pedis and possible superimposed bacterial component but concern for possible syphilis given history: on topical antifungal as well as bacterial agents Prescription given for mupirocin and Lotrimin cream. #8. DVT prophylaxis: Lovenox. #9. CODE STATUS: Full code. Charges/Coding Visit Charges Inpatient E&M: 17228 Subs Hosp L2
[2023-03-31 14:00] VITALS: BP 167/89; PULSE 77; RESP 16; TEMP 36.5; O2SAT 98
[2023-03-31] MEDS: Mupirocin Ointment 22gm Tube 1 APPLIC TOPICAL ×2 (14:28→23:38)
[2023-03-31] MEDS: Clotrimazole 1 APPLIC Tube TOPICAL ×2 (14:29→23:38)
[2023-03-31 15:01] LABS: Erythrocyte Sedimentation Rate 15 mm/hr (0-20)
[2023-03-31 15:07] LABS: Prothrombin Time (Protime)PT. 13.1 SECONDS (11.7-14.9)
[2023-03-31 15:08] LABS: Partial Thromboplast Time 34.6 Seconds (24.1-36.2)
[2023-03-31] MEDS: Pantoprazole Sodium 40 MG Tablet PO (15:16)
[2023-03-31 16:00] VITALS: BMI 32.4
[2023-03-31 16:00] LABS: Vitamin B12 232 pg/mL (211-911)
[2023-03-31 16:13] LABS: CRP < 2.90 mg/L (0.0-3.0)
[2023-03-31] MEDS: Morphine 2 MG/ML Syringe IV (17:28)
[2023-03-31] MEDS: 0.9% Saline Lock 10 ML Syringe IV (17:29)
[2023-03-31 17:37] VITALS: BP 128/93; PULSE 64; RESP 18; TEMP 36.7; O2SAT 99
[2023-03-31 18:31] LABS: Amphetamine Urine VISTA POSITIVE (<1000 ng/mL); Barbiturate Urine VISTA NEGATIVE (< 200 ng/mL); Benzodiazepine Urine VISTA NEGATIVE (< 200 ng/mL); Cocaine Urine VISTA NEGATIVE (< 300 ng/mL); Ecstacy Urine VISTA NEGATIVE (< 500 ng/mL); Methadone Urine VISTA NEGATIVE (< 300 ng/mL); PCP Urine VISTA NEGATIVE (< 25 ng/mL); THC Urine VISTA NEGATIVE (< 50 ng/mL); Vista UDS pH Range 5
[2023-03-31] MEDS: LORazepam 0.5 MG Tablet PO (18:41)
[2023-03-31] MEDS: QUEtiapine 25 MG Tablet PO (18:59)
[2023-03-31 20:00] VITALS: BP 152/85; PULSE 64; RESP 18; TEMP 36.7; O2SAT 99
[2023-03-31] MEDS: Atorvastatin Calcium 80 MG Tablet PO (23:39)
[2023-04-01] VITALS: BP 135/88; PULSE 64; RESP 18; TEMP 36.6; O2SAT 98
[2023-04-01 03:11] VITALS: BMI 32.6
[2023-04-01 04:13] VITALS: BMI 32.6
[2023-04-01 04:16] VITALS: BP 130/86; PULSE 64; RESP 18; TEMP 36.6; O2SAT 98
[2023-04-01 08:15] VITALS: BP 146/122; PULSE 81; RESP 18; TEMP 36.7; O2SAT 99
[2023-04-01] MEDS: QUEtiapine 25 MG Tablet PO (08:35)
[2023-04-01] MEDS: Clopidogrel Bisulfate 75 MG Tablet PO (08:35)
[2023-04-01] MEDS: Clotrimazole 1 APPLIC Tube TOPICAL (08:36)
[2023-04-01] MEDS: Mupirocin Ointment 22gm Tube 1 APPLIC TOPICAL (08:36)
[2023-04-01] MEDS: Lisinopril 20 MG Tablet PO (08:36)
[2023-04-01] MEDS: Aspirin 81 MG TAB.CHEW PO (08:36)
[2023-04-01] MEDS: Pantoprazole Sodium 40 MG Tablet PO (08:37)
[2023-04-01 08:56] VITALS: O2SAT 99
--- NOTE | 2023-04-01 09:30 | DCINST_ITS ---
Discharge Instructions Follow Up Care Test Results: Test results from this visit will be discussed in further detail at your follow- up appointment, if applicable. Discharge Plan Admission Admit Date/Time: 03/31/23 14:40 Primary Reason for Your Visit: Right cerebellar acute/subacute ischemia. Attending Provider: Carlos Palomares Primary Care Provider: Care Physician,No Primary Consulting Providers: Kelli Wilcox Discharge Orders/Prescriptions Prescriptions: New atorvastatin 80 mg Tablet 40 mg PO QHS 30 Days Qty: 30 2RF clopidogrel 75 mg Tablet 75 mg PO DAILY 21 Days Qty: 21 0RF nicotine 21 mg/24 hr Patch 24 Hour 21 mg transdermal DAILY 28 Days Qty: 28 0RF mupirocin 2 % Ointment 1 applic topical BID 7 Days Qty: 15 0RF Protocol: *Topical Application Instructions APPLICATION INSTRUCTIONS: BL feet Rx Instructions: Apply on bilateral feet clotrimazole [Antifungal (clotrimazole)] 1 % Cream 1 applic topical BID 10 Days Qty: 45 0RF Protocol: *Topical Application Instructions APPLICATION INSTRUCTIONS: Bl feet Rx Instructions: Apply on bilateral feet aspirin 81 mg Tablet,Chewable 81 mg PO BREAKFAST 30 Days Qty: 30 2RF Changed lisinopril 40 MG tablet 20 mg PO DAILY 30 Days Qty: 30 2RF Rx Instructions: Start 20 mg daily and if blood pressure is still elevated more than 130 mmHg, increased to 40 mg daily. Referrals / Follow Up: Vikas Nye MD [Non-Staff -Ordering Privileges] - Within 2 Weeks (For RIGHT Cerebellar stroke) Care Physician,No Primary [Primary Care Provider] - Disposition Disposition (needs filled in before D/C Order can be placed): Home, Self Care
--- NOTE | 2023-04-01 10:10 | PCM.DC.SUM ---
Providers Date of Admission: 03/31/23 Date of Discharge: 04/01/23 Primary Care Physician: No Primary Care Phys Consultations 03/30/23 00:15 Consult: Onc/Wound/dietitian assistant Routine Comment: Reason For Visit: TIA Diagnosis Discharge Diagnosis (1) Acute ischemic stroke: Status: Acute Code(s): I63.9 - Cerebral infarction, unspecified Plan The patient is a 52 y/o M is admitted for evaluation of transient difficulty finding his words and speaking as well as intermittently having difficulty controlling his hands with difficulty slicing food. No previous symptoms. #1. Recent aphasia as well as difficulty with upper extremity coordination, vertigo and dizziness: Patient is being in PCU. MRI brain is pending. CT head shows bilateral lacunar infarcts of basal ganglia and thalami with normal brainstem and cerebellum. No ICH and no acute ischemic infarction. CTA head and neck does not show evidence of stenosis or dissection of bilateral carotid or vertebral arteries. Atherosclerotic plaque of bilateral cavernous ICA with mild to moderate stenosis on the right and mild stenosis on the left. Serum magnesium and phosphorus in normal limit. TSH normal. On baby aspirin and high intensity statin. 03/31: MRI brain shows right cerebral acute/subacute ischemia. Plavix added. 2D echo bubble contrast study negative for ktvny-do-bcei interatrial shunt. EF 65%. Fasting profile within normal limit. SOC consult recommended SCOTT. 30-day event monitor. Also recommended multiple blood test including ESR, CRP, B12, homocystine, PT/INR, PTT and D-dimer. COVID-19 rapid antigen screen. A1c 5.4. Prediabetes and diabetes mellitus ruled out. 04/01: Patient refused for SCOTT. Initially yesterday when I discussed about the procedure he agreed and then was rescheduled for today after talking to the auto service station attendant. Today he refused to me and patient's nurse, [place]. Patient is discharged home on medications as described in discharge instruction. Advised to follow-up with neurologist. #2. Hypertension: maintain permissive hypertension with parent agents per stroke protocol as noted. Add back oral regimen once appropriate. 03/31: Blood pressure in permissive hypertensive range. Start lisinopril 20 mg daily for 3 to 4 days with daily monitoring of BP. If SBP persistently more than 130 mmHg, increased to 40 mg daily. #3. Tobacco Abuse: Encouraged cessation. On nicotine patch #4. Obesity: Weight loss and lifestyle changes encouraged. #5. History of EtOH abuse: Encourage continued sobriety. He notes he quit heavy alcohol intake approximately 5 years prior to current presentation. #6. Polysubstance abuse: Patient with history of methamphetamine and cannabis usage with most recent usage approximately 4 to 5 weeks prior to current presentation but significant prior polysubstance use history as well. Syphilis Total Ab Non-reactive, Hep Bs Antigen Non-Reactive, Hep Bs Antibody Non-Reactive, Hepatitis C Antibody Non-Reactive, HIV 1&2 Antibody Non-Reactive. U tox is ordered #7. Bilateral hands and pedal palmar rashes, suspect some overlying tinea pedis and possible superimposed bacterial component but concern for possible syphilis given history: on topical antifungal as well as bacterial agents Prescription given for mupirocin and Lotrimin cream. #8. DVT prophylaxis: Lovenox. #9. CODE STATUS: Full code. Discharge medication reconciliation done. Discharge follow-up instructions completed. Discharge process discussed with the patient and all questions were answered to patient's satisfaction. Patient charged home with notification to law enforcement agency Total time spent, exact 35 minutes on discharge meds reconciliation, examination, coordination of care with nurses and ancillary staff, review of imaging and blood test and discussion with the patient on follow-up instructions. Medications at Discharge Home Medications aspirin 81 mg chewable tablet 81 mg PO BREAKFAST 30 days #30 tabs 03/31/23 atorvastatin 80 mg tablet 40 mg (1/2 x 80 mg) PO QHS 30 days #30 tabs 03/31/23 clopidogrel 75 mg tablet 75 mg PO DAILY 21 days #21 tabs 03/31/23 clotrimazole 1 % topical cream (Antifungal (clotrimazole)) 1 applic topical BID 10 days #45 grams 03/31/23 lisinopril 40 mg tablet 20 mg (1/2 x 40 mg) PO DAILY 30 days #30 TABLETS 03/31/23 mupirocin 2 % topical ointment 1 applic topical BID 7 days #15 grams 03/31/23 nicotine 21 mg/24 hr daily transdermal patch 21 mg transdermal DAILY 28 days #28 ea 03/31/23 Physical Exam Narrative Patient is Seen and examined. Dizziness for the few resolved. No nausea or vomiting. Vertigo resolved. No fever, diarrhea or abdominal pain. Denies dysuria. General: Alert, Oriented x3, Cooperative. Obesity grade 1 BMI 32.9 kg/m? HEENT: Atraumatic, PERRLA, EOMI, Normocephalic. No nystagmus. Oral: Oral mucosa moist. No Gingival or Mucosal Lesions/ Ulcerations Neck: Supple, No JVD, Negative Carotid Bruits Lungs: Air entry diminished in bilateral lung bases. No crepitation/rhonchi Cardiovascular: Regular rate, Regular Rhythm, Normal S1, Normal S2, No murmurs Abdomen: Bowel Sounds Present, Soft, Non Tender, Non-Distended : Denies acute Chloratet symptoms. No renal angle tenderness. No suprapubic tenderness. Extremities: No edema, Capillary Refill Less than 3 Seconds Skin: Bilateral feet/plantar aspect skin cracks/maceration mainly interdigital space history of fungal infection with superimposed bacterial infection. Similar infection. Bilateral hand palmar aspect. Musculoskeletal: No Tenderness to Palpation of Joints or Extremities. ROM intact. Ataxia resolved. Neurological: Cranial nerves II-XII grossly intact, DTR 2+/4. NIH stroke scale 0. Language function intact. No dysarthria or dysphagia. Psych/Mental Status: Flat affect. Patient is still gets frustrated. Patient understands the description/discussion ends after anxieties status has not been told. Weight / BMI Weight Weight: 211 lb 13.828 oz Body Mass Index (BMI) 32.6 ABG / Lab / Microbiology Data 03/30/23 06:50 03/30/23 06:50 Laboratory: Laboratory Results - last 24 hr 03/31/23 14:30: ESR 15, PT 13.1, INR 1.0, APTT 34.6, D-Dimer Quant (PE/DVT) 0.60 H*, C-React Prot Ext Range < 2.90, Vitamin B12 232 03/31/23 17:25: Urine Opiates Screen NEGATIVE, Urine Methadone Screen NEGATIVE, Ur Barbiturates Screen NEGATIVE, Ur Phencyclidine Scrn NEGATIVE, Ur Amphetamines Screen POSITIVE H, MDMA (Ecstasy) Screen NEGATIVE, U Benzodiazepines Scrn NEGATIVE, Urine Cocaine Screen NEGATIVE, U Cannabinoids Screen NEGATIVE, Ur Drug Screen Comment Microbiology: Microbiology 03/31/23 14:20 Nasal Secretion SARS-CoV-2 Antigen (Rapid) - Final 03/29/23 20:01 Nasal Secretion SARS-CoV-2 Antigen (Rapid) - Final Meaningful Use Info Meaningful Use Diagnoses (Choose all that apply): Ischemic CVA CVA Therapy Assessed for PT,OT and/or ST?: Yes Ischemic Stroke Antithrombotic order at d/c?: Yes Dx of Atrial fib/flutter?: No Statins at discharge?: Yes Primary Dx Acute Ischemic CVA?: Yes Discharge Plan Admission Admit Date/Time: 03/31/23 14:40 Primary Reason for Your Visit: Right cerebellar acute/subacute ischemia. Attending Provider: Carlos Palomares Primary Care Provider: Care Physician,No Primary Consulting Providers: Kelli Wilcox Discharge Orders/Prescriptions Prescriptions: New atorvastatin 80 mg Tablet 40 mg PO QHS 30 Days Qty: 30 2RF clopidogrel 75 mg Tablet 75 mg PO DAILY 21 Days Qty: 21 0RF nicotine 21 mg/24 hr Patch 24 Hour 21 mg transdermal DAILY 28 Days Qty: 28 0RF mupirocin 2 % Ointment 1 applic topical BID 7 Days Qty: 15 0RF Protocol: *Topical Application Instructions APPLICATION INSTRUCTIONS: BL feet Rx Instructions: Apply on bilateral feet clotrimazole [Antifungal (clotrimazole)] 1 % Cream 1 applic topical BID 10 Days Qty: 45 0RF Protocol: *Topical Application Instructions APPLICATION INSTRUCTIONS: Bl feet Rx Instructions: Apply on bilateral feet aspirin 81 mg Tablet,Chewable 81 mg PO BREAKFAST 30 Days Qty: 30 2RF Changed lisinopril 40 MG tablet 20 mg PO DAILY 30 Days Qty: 30 2RF Rx Instructions: Start 20 mg daily and if blood pressure is still elevated more than 130 mmHg, increased to 40 mg daily. Referrals / Follow Up: Vikas Nye MD [Non-Staff -Ordering Privileges] - Within 2 Weeks (For RIGHT Cerebellar stroke) Care Physician,No Primary [Primary Care Provider] - Disposition Disposition (needs filled in before D/C Order can be placed): Home, Self Care Charges/Coding Visit Charges Inpatient E&M: 66417 Disch Hosp >30min
--- NOTE | 2023-04-01 10:45 | CASEMGMT ---
[facility] Face to Face with patient for initial transition planning/care coordination assessment. RN PIA introduced self and role at [facility]. Patient lying in bed, alert and oriented. Patient willing to participate in assessment and is able to answer all questions appropriately. Care providers, pharmacy, and demographics verified. Patient wishes to discharge home, denies need for home health at this time. Patient states he has no further needs or concerns at this time. CM to follow for discharge planning needs that may arise. PCP: No PCP, list provided Specialists: none Preferred Pharmacy: [facility] Insurance: none Prescription Benefit: none Living Will/HPOA: none LNOK: none listed has roommate Living Arrangements: Patient lives with roommate in a 3rd story apartment. Patient states he is independent and able to ambulate stairs. Transportation: public transportation DME/HHC: Patient denies DME or previous HHC. Disposition Plan: Patient has active warrant and will be taken to [facility] at discharge. Mai VELASCO, RN, CM
== END 2023-04-01 11:19 | DRG 66 ==
LOC: ED 21:38 → PCU 22:55
PROVIDERS: Admitting Provider Family Medicine; Emergency Provider Student in an Organized Health Care Education/Training Program; Visit Provider Internal Medicine
DX: I63.89 Other cerebral infarction (principal); I67.82 Cerebral ischemia; R47.01 Aphasia; F12.10 Cannabis abuse, uncomplicated; A53.9 Syphilis, unspecified; B35.3 Tinea pedis; F15.10 Other stimulant abuse, uncomplicated; F17.210 Nicotine dependence, cigarettes, uncomplicated; I10 Essential (primary) hypertension; I65.23 Occlusion and stenosis of bilateral carotid arteries; E66.9 Obesity, unspecified; Z68.32 Body mass index [BMI] 32.0-32.9, adult; R27.8 Other lack of coordination; R29.700 NIHSS score 0; R29.703 NIHSS score 3; Z65.3 Problems related to other legal circumstances; Z79.899 Other long term (current) drug therapy; Z87.898 Personal history of other specified conditions
CPT/HCPCS: 36415; 70450; 70496; 70498; 70551; 71045; 80048; 80053; 80061; 80307; 82077; 82607; 83036; 83735; 84100; 84443; 84484; 85025; 85379; 85610; 85652; 85730; 86140; 86703; 86706; 86780; 86803; 87340; 87426; 87811; 92523; 93005; 93306; 94667; 94668; 97162; 97166; 99252; 99283; J7030; Q9957; Q9967; A4216; C8929; G0463

== ENCOUNTER 2023-05-12 21:46 | Inpatient (IN) | payer OTHER, SELFPAY ==
[2023-05-12 21:49] VITALS: BP 164/95; PULSE 63; RESP 25; TEMP 36.8; O2SAT 97
--- NOTE | 2023-05-12 21:55 | CT_ITS ---
We are attempting to reach an attending provider to discuss findings. An addendum with communication details will be sent when the communication is complete. INDICATION: Neuro deficit, acute, stroke suspected EXAMINATION: CT Head Stroke Protocol W/O Contrast Injection TECHNIQUE: Multiple axial images were obtained of the head without intravenous contrast. A radiation dose optimization technique was used for this scan. IV Contrast dosage and agent: None. COMPARISON: Head CT from 03/29/2023 FINDINGS: BRAIN PARENCHYMA: No intra- or extra-axial hemorrhage. No evidence of acute major territorial infarct. Chronic bilateral thalamic and gangliocapsular lacunar infarcts again noted. Stable bilateral deep and subcortical cerebral white matter lucencies. No intracranial mass effect or midline shift. Chronic cerebral involutional changes. CSF SPACES: Prominent cerebral sulci and extraaxial spaces secondary to involutional changes. No hydrocephalus. Basal cisterns are patent. CALVARIUM, SKULL BASE, PARANASAL SINUSES AND MASTOID AIR CELLS: Calvarium is intact. Scattered sinus mucosal thickening again noted. Mastoid air cells are well-pneumatized. ORBITS: No acute findings, as visualized. ASPECTS Score for Acute Strokes: 10 CT/STROKE Brain/Head without Cont IMPRESSION: Stable exam with chronic small vessel ischemic changes and cerebral atrophy. No definitive evidence of acute intracranial abnormality. MRI would be more sensitive for detection of superimposed acute ischemia in setting of chronic disease. Electronically Signed: Rock Lawler MD at 22:13 EDT ,
[2023-05-12 21:57] VITALS: BMI 28.0
--- NOTE | 2023-05-12 21:57 | CT_ITS ---
We are attempting to reach an attending provider to discuss findings. An addendum with communication details will be sent when the communication is complete. INDICATION: Neuro deficit, acute, stroke suspected EXAMINATION: CTA CAROTIDS AND BRAIN - CTA Head and Neck Stroke W/ Contrast (and W/O if performed) TECHNIQUE: Routine CTA of the head and neck was performed with post processing of the angiographic images for volumetric reconstructions. In addition, images were obtained of the [place]. Nascet criteria using the distal ICAs for comparison were used for evaluation of stenoses. 2-D and 3-D reconstructions were reviewed. A radiation dose optimization technique was used for this scan. IV Contrast dosage and agent: 100 cc [id number] COMPARISON: CTA head and neck from 03/30/2023 FINDINGS: --NECK: AORTIC ARCH AND BRANCHES: Atherosclerotic plaque with no aneurysm, dissection, occlusion or significant stenosis. RIGHT CCA: No occlusion, significant stenosis or dissection. RIGHT ICA: Mild atherosclerotic plaque proximally but no occlusion, significant stenosis or dissection. LEFT CCA: No occlusion, significant stenosis or dissection. LEFT ICA: Mild atherosclerotic plaque proximally but no occlusion, significant stenosis or dissection. RIGHT VERTEBRAL ARTERY: No occlusion, significant stenosis or dissection. LEFT VERTEBRAL ARTERY: No occlusion, significant stenosis or dissection. NECK SOFT TISSUES: No acute findings. LUNG APICES: Clear. BONES: No acute findings. --HEAD: --Anterior circulation: ICAs: Calcified plaque bilaterally but no occlusion or high-grade stenosis. ACAs: No significant stenosis at the visualized segments. ACOM: Present. MCAs: No significant stenosis at the visualized segments. --Posterior circulation: PCOMs: Not visualized. clinical sales consultant: No significant stenosis at the visualized segments. BASILAR ARTERY: No significant stenosis. VERTEBRAL ARTERIES: No significant stenosis at the intradural/visualized segments. No evidence of intracranial aneurysm or vascular malformation. CT/STROKE CTA Head AND Neck W/Con IMPRESSION: Stable exam. CTA head and neck with no acute arterial occlusive disease or other acute abnormality. Electronically Signed: Rock Lawler MD at 22:26 EDT ,
--- NOTE | 2023-05-12 21:59 | EX.ED.DYSGE1 ---
HPI History of Present Illness Chief Complaint: Stroke Alert Informant: patient and EMS Narrative Narrative: Was seen in the [facility] with EMS. Initial history was obtained. Evidently this patient was in an argument about 1516 hrs. ago because he was being evicted. He ended up having problems moving his right side and he feels like he has a lazy eye on the right. He has never had this. He looks to me and cannot lift his eyelid but then moments later he is looking both sides and lifting his eyelid well. Therefore his exam is a little bit variable. He is a very poor informant for history. He states he might of been on medicines but he has been out of all medicines for somewhere between 2 weeks and 2 months. He states one of them might of been Coumadin. He then states he has had prior strokes. But he does not know the details about it. He cannot tell me any other medicines that he was on. But he is not taking anything now. History is severely limited although the patient is awake alert and very verbal. He does not need intubation arrival. He has had history of strokes. We will initiate CT at this time. When he comes back from CT will find a room for him as we have no rooms open that we can initially see him in. When patient gets back to the room we talked to him. He actually started symptoms last night. He started with some binocular double vision. He also felt weak and tingly on his right side although that has improved is not back to baseline. He states it was making him fall. He now states he has been off his medicines for a few days. But before it was a few weeks. [facility] Medical History Acute ischemic stroke History of CVA (cerebrovascular accident) HTN (hypertension) Obesity Polysubstance abuse Tobacco use Home Medications aspirin 81 mg chewable tablet 81 mg PO BREAKFAST 30 days #30 tabs 03/31/23 [Rx Last Taken Unknown] atorvastatin 80 mg tablet 40 mg (1/2 x 80 mg) PO QHS 30 days #30 tabs 03/31/23 [Rx Last Taken Unknown] clopidogrel 75 mg tablet 75 mg PO DAILY 21 days #21 tabs 03/31/23 [Rx Last Taken Unknown] lisinopril 40 mg tablet 20 mg (1/2 x 40 mg) PO DAILY 30 days #30 TABLETS 03/31/23 [Rx Last Taken Unknown] Allergy/AdvReac Type Severity Reaction Status Date / Time erythromycin base Allergy Hives Verified 05/12/23 22:06 Family History Mother CVA (cerebral vascular accident) Hypertension Diabetes Father COVID-19 following COVID-19 illness. Surgical History S/P nasal surgery Social History household members: friend(s) Smoking Status: Current every day smoker tobacco type: cigarettes alcohol intake: former details: Sober x 5 years. substance use type: marijuana and amphetamines ROS ROS ED Constitutional Constitutional ED: Denies chills or fever(s) Eyes Eyes: Reports change in vision ENT ENT ED: Denies sore throat Cardiovascular Cardiovascular: Denies chest pain or palpitations Respiratory/Chest Respiratory/Chest: Denies cough or dyspnea Gastrointestinal Gastrointestinal: Denies nausea or vomiting Musculoskeletal Musculoskeletal: Denies arthralgias, back pain, myalgias or neck pain Integumentary Denies rash Neurologic Neurologic: Reports paresthesias and weakness; Denies headache(s) Endocrine Endocrinology: Denies polydipsia or polyuria Hematologic/Lymphatic Hematologic/Lymphatic: Denies easy bleeding or easy bruising Allergic/Immunologic Allergic/Immunologic ED: Denies urticaria EXAM Physical Exam Narrative Exam Narrative: Patient is awake alert. He is very verbal smooth voice. No dysarthria or aphasia. HEENT shows really no sign of asymmetry. Occasionally his eyelid will seem to droop but then it resolves. Eyes: Visual jay seem grossly intact but he states that there is double vision. It is hard for him to state if the vision side to side or up and down but it seems to lean side to side. But I do not see any deviation of the eyes or limitation of motion. 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 Neck is supple. Lungs are clear bilaterally and oxygen saturation is normal at 99% on room air showing no hypoxia. Heart is regular. It sounds to be in a normal rhythm. Rate is about 70. Abdomen soft nontender. Extremities show no trauma or tenderness Neurologic: Patient is awake alert appropriate no disorientation or confusion. He is able to hold his hands up for 10 seconds equally. He feels his right leg is weaker than the left but he is able to hold both of them up for 5 seconds. He states that the sensation on his right especially on his legs seems to be less but he is able to feel both sides and he responds to double simultaneous stimulation. He has an NIH of 1 at this time. Const Vital Signs: 05/12/23 21:49 05/12/23 22:01 05/12/23 22:08 Temperature 98.2 F 98.2 F Temperature Source Temporal Temporal Pulse Rate 63 Respiratory Rate 25 H Blood Pressure 164/95 H Blood Pressure Mean 118 Pulse Ox 97 Oxygen Delivery Method Room Air Room Air 05/12/23 22:19 05/12/23 22:30 05/12/23 23:00 Temperature Temperature Source Pulse Rate 62 55 L 75 Respiratory Rate 14 20 H 18 Blood Pressure 166/103 H 175/97 H 144/86 H Blood Pressure Mean 124 123 105 Pulse Ox 99 97 99 Oxygen Delivery Method Room Air Room Air Room Air 05/13/23 00:00 Temperature Temperature Source Pulse Rate 61 Respiratory Rate 16 Blood Pressure 130/83 H Blood Pressure Mean 98 Pulse Ox 98 Oxygen Delivery Method Room Air MDM MDM MDM Narrative Medical decision making narrative: I have discussed with the radiologist twice on the patient's CT of the head and his CTA. Both of these show no acute process although there are chronic changes. My independent interpretation of the patient's CT of the head initially showed no sign of bleed. I also discussed the case with neurologist who did a telemetry evaluation. With the symptoms having started last night, recent stroke, off the meds and low NIH and improvement they recommend not tPA at this time. As long as the CTA does not show any acute process the patient should be admitted here for further work-up and reinitiation of medications. Patient's ABC shows no acute abnormality. Patient's electrolytes show minimally high chloride which is not the cause of his symptoms and no other marked changes. Glucose is normal. Troponin is negative. Alcohol was negative. This was checked due to a history of this. But both myself and the nurse thought we had smelled odor consistent with this. This patient is high risk. He did have a stroke back in early March. He may have finished his 21 days of Plavix. But he has been off statin aspirin and lisinopril. He is having new symptoms. They are improved from yesterday. He has subtle relative weakness of the right lower extremity but he does not have a point on NIH for weakness as he is able to lift this up and firmly hold it for over 5 seconds. He does have some subtle sensory changes of the right lower extremity. But with his high risk, off medication, new symptoms he will be brought back in the hospital for further evaluation. On his last admission he was offered but refused SCOTT. Lab Data Attestation: I reviewed the patient's lab results. Labs: Laboratory Results - last 24 hr 05/12/23 22:12 WBC 6.2 RBC 4.43 L Hgb 14.1 Hct 41.4 MCV 93.5 MCH 31.8 MCHC 34.1 RDW Std Deviation 43.4 RDW Coeff of Shayy 12.5 Plt Count 283 MPV 8.7 Immature Gran % (Auto) 0.200 Neut % (Auto) 54.9 Lymph % (Auto) 29.7 [place] % (Auto) 9.3 Eos % (Auto) 4.1 Baso % (Auto) 1.8 H Absolute Neuts (auto) 3.4 Absolute Lymphs (auto) 1.83 Nucleated RBC % 0 PT 13.4 INR 1.0 APTT 30.6 Sodium 138 Potassium 4.0 Chloride 108 H Carbon Dioxide 27.0 Anion Gap 3 L BUN 18 Creatinine 1.30 Estim Creat Clear Calc 64.31 Est GFR (MDRD) Af Amer 74 Est GFR (MDRD) Non-Af 61 BUN/Creatinine Ratio 13.8 Glucose 106 Calcium 8.4 L Troponin I High Sens 10 Ethyl Alcohol < 3.0 Radiography Diagnostic Testing: Clinical Impression(s) from Imaging Studies Brain CT 05/12/23 21:55 IMPRESSION: Stable exam with chronic small vessel ischemic changes and cerebral atrophy. No definitive evidence of acute intracranial abnormality. MRI would be more sensitive for detection of superimposed acute ischemia in setting of chronic disease. Electronically Signed: Rock Lawler MD at 22:13 EDT , ADDENDUM: 05/12/232 IMPRESSION: Stable exam with chronic small vessel ischemic changes and cerebral atrophy. No definitive evidence of acute intracranial abnormality. MRI would be more sensitive for detection of superimposed acute ischemia in setting of chronic disease. N.B. : The above Results were Read Back by Rock Lawler MD to Markus Gilmore MD, and understanding confirmed on 05/12/2023 22:15:10 (ET). Electronically Signed: Rock Lawler MD at 22:13 EDT , Head/Neck CTA 05/12/23 21:57 IMPRESSION: Stable exam. CTA head and neck with no acute arterial occlusive disease or other acute abnormality. Electronically Signed: Rock Lawler MD at 22:26 EDT , ADDENDUM: 05/12/23 2235 IMPRESSION: Stable exam. CTA head and neck with no acute arterial occlusive disease or other acute abnormality. N.B. : The above Results were Read Back by Rock Lawler MD to Markus Gilmore MD, and understanding confirmed on 05/12/2023 22:28:45 (ET). Electronically Signed: Rock Lawler MD at 22:26 EDT , Chest X-Ray 05/12/23 22:35 IMPRESSION: Normal x-ray examination of the chest. Electronically Signed: Guru Justin MD at 22:58 EDT , Management Discussion w/another healthcare provider: Hospitalist and Bundle Helper Discharge Plan Triage Chief Complaint: Stroke Alert ED Provider: Markus Gilmore Dx/Rx/DC Orders Clinical Impression: Diplopia, Acute CVA (cerebrovascular accident), Poor compliance with medication, Numbness in right leg Prescriptions: No Action atorvastatin 80 mg Tablet 40 mg PO QHS 30 Days Qty: 30 2RF clopidogrel 75 mg Tablet 75 mg PO DAILY 21 Days Qty: 21 0RF aspirin 81 mg Tablet,Chewable 81 mg PO BREAKFAST 30 Days Qty: 30 2RF lisinopril 40 MG tablet 20 mg PO DAILY 30 Days Qty: 30 2RF Rx Instructions: Start 20 mg daily and if blood pressure is still elevated more than 130 mmHg, increased to 40 mg daily. Primary Care Provider: Care Physician,No Primary Referrals: Care Physician,No Primary [Primary Care Provider] - Disposition Disposition: Acute Care Hospital [facility]
[2023-05-12 22:01] VITALS: TEMP 36.8
[2023-05-12 22:05] VITALS: BMI 33.8
[2023-05-12 22:07] VITALS: BMI 33.8
[2023-05-12 22:19] VITALS: BP 166/103; PULSE 62; RESP 14; O2SAT 99
[2023-05-12 22:23] LABS: Absolute Lymphocyte Count 1.83 X10^3/uL (0.83-4.51); Absolute Neutrophil Count 3.4 X10^3/uL (2.0-7.7); Basophil# 0.11 X10^3/uL; Basophil% 1.8 % (0-1); Eosinophil# 0.25 X10^3/uL; Eosinophils% 4.1 % (0-5); Hematocrit 41.4 % (40-54); Hemoglobin 14.1 g/dL (13.0-16.5); Lymphocyte # 1.83 X10^3/ul (0.83-4.51); Lymphocyte % 29.7 % (19-41); Mean Corp Hgb Conc 34.1 g/dL (32-36); Mean Corpuscular Hgb 31.8 pg (27.0-32.0); Mean Corpuscular Volume 93.5 fL (80-94); Mean Platelet Vol. 8.7 fl (6.2-12.0); Monocyte# 0.57 X10^3/uL; Monocyte% 9.3 % (0-10); NRBC Flagged by Analyzer 0 % (0-5); Neutrophil # 3.39 X10^3/uL (2.7-7.7); Neutrophil % 54.9 % (47-70); Platelet Count 283 K/mm3 (150-450); RBC Distribution Width CV 12.5 % (11.6-14.6); RBC Distribution Width SD 43.4 fl (35.1-43.9); Red Blood Count 4.43 M/mm3 (4.6-6.2); White Blood Count 6.2 K/mm3 (4.4-11.0)
[2023-05-12 22:30] VITALS: BP 175/97; PULSE 55; RESP 20; O2SAT 97
[2023-05-12 22:32] LABS: Prothrombin Time (Protime)PT. 13.4 SECONDS (11.7-14.9)
[2023-05-12 22:33] LABS: Partial Thromboplast Time 30.6 Seconds (24.1-36.2)
--- NOTE | 2023-05-12 22:35 | RAD_ITS ---
STUDY: X-RAY CHEST REASON FOR EXAM: Male, 52 years old. Neuro deficit, acute, stroke suspected TECHNIQUE: Single AP portable view of the chest. COMPARISON: 03/29/2023. FINDINGS: The lungs are clear and expanded. There is no demonstrated pleural abnormality. Normal size heart. Normal mediastinum and benton. Normal visualized pulmonary arteries. Normal visualized aortic arch and descending thoracic aorta. Normal visualized thoracic spine. Normal visualized ribs, clavicles, and shoulders. There is no demonstrated abnormality of the visualized soft tissue structures of the upper abdomen. RAD/Chest 1 View IMPRESSION: Normal x-ray examination of the chest. Electronically Signed: Guru Justin MD at 22:58 EDT ,
[2023-05-12 22:36] LABS: Alcohol, Blood (Medical)-Serum < 3.0 mg/dL
--- NOTE | 2023-05-12 22:40 | ED.RN ---
NIHSS DISCONTINUED PER ED .
[2023-05-12 22:41] LABS: Anion Gap 3 (5-15); BUN 18 mg/dL (7-18); BUN/Creat Ratio 13.8 RATIO (10-20); Calcium,Total 8.4 mg/dL (8.5-10.1); Chloride 108 mmol/L (98-107); EST Glomerular Filtration Rate 61 mL/min (>60); Est Glom Filt Rate - Afr Amer 74 mL/min (>60); Estimated Creatinine Clearance 64.31 ml/min; Glucose 106 mg/dL (74-106); Sodium Level 138 mmol/L (136-145); Troponin-I HS 10 pg/mL (3.0-78.0)
[2023-05-12 23:00] VITALS: BP 144/86; PULSE 75; RESP 18; O2SAT 99
[2023-05-13] VITALS (11 sets, daily range): BP systolic 129–145; BP diastolic 74–97; PULSE 53–72; RESP 14–18; TEMP 36.2–37.1; O2SAT 95–99; BMI 28.0
[2023-05-13] MEDS: Aspirin 325 MG Tablet PO (00:47)
--- NOTE | 2023-05-13 00:53 | MRI_ITS ---
We are attempting to reach an attending provider to discuss findings. An addendum with communication details will be sent when the communication is complete. EXAM: MR HEAD WITHOUT INTRAVENOUS CONTRAST CLINICAL INDICATION: Stroke TECHNIQUE: Multiplanar and multisequence MR images of the brain were obtained without intravenous contrast. COMPARISON: MRI brain without contrast 03/30/2023. FINDINGS: BRAIN AND EXTRA-AXIAL SPACES: Small dot of diffusion restriction in the right posterior putamen is confirmed on ADC map. This is also visible on the T2 FLAIR sequence and consistent with subacute ischemic infarct. T2 FLAIR hyperintensity foci in the white matter of both cerebral hemispheres are unchanged. No intra- or extra-axial hemorrhage. No intracranial mass or mass effect. Posterior fossa structures are unremarkable. Ventricles are appropriate for age. No hydrocephalus. Basal cisterns are patent. No other diffusion restriction throughout the brain parenchyma. SELLA: Unremarkable. Normal sella turcica, pituitary gland, infundibular stalk, optic chiasm and hypothalamus. AUDITORY SYSTEM: Unremarkable. The internal auditory canals are patent. BONES/JOINTS: Unremarkable. No discrete lytic or blastic abnormalities. SINUSES: Unremarkable as visualized. Clear. MASTOID AIR CELLS: Unremarkable as visualized. Clear. ORBITS: Unremarkable as visualized. Both globes, extraocular muscles, optic nerves and retrobulbar fat appear unremarkable. VASCULATURE: Unremarkable as visualized. Normal flow voids in the major intracranial circulation. MRI/Brain without Contrast IMPRESSION: 1. Subacute lacunar ischemic infarct in the right posterior putamen, new since 03/30/2023. 2. Previous subacute ischemic infarct in the inferior semilunar lobule of the right cerebellar hemisphere has resolved. In its place is a tiny old lacunar cystic infarct. 3. Chronic white matter ischemic changes in both cerebral hemispheres are unchanged. Electronically Signed: Alfredo Be MD at 14:29 EDT ,
--- NOTE | 2023-05-13 00:53 | RAD_ITS ---
INDICATION: R shoulder pain EXAMINATION/TECHNIQUE: X-RAY - RIGHT XR Shoulder Min 2 Views: AP and scapular Y views COMPARISON: None. FINDINGS: SOFT TISSUES: No significant soft tissue swelling. No radiopaque foreign body detected. BONES/JOINTS: No acute fracture or subluxation. Normal alignment. Acromioclavicular joint space narrowing and mild osteophytosis. No suspicious osseous lesion observed. RAD/Shoulder min 2 Views IMPRESSION: Right acromioclavicular osteoarthrosis Electronically Signed: Rock Lawler MD at 2:10 EDT ,
--- NOTE | 2023-05-13 00:54 | HP.PCM.HOS_ITS ---
HPI - General General Date of Admission: 05/13/23 Date of Service: 05/13/23 Chief Complaint: Right-sided weakness/paresthesias/diplopia HPI Narrative PALOMO CRAWLEY, is a 52 M who presented to the emergency department at [facility] with a chief complaint of diplopia, right-sided weakness and paresthesias that is worse from previous. The patient was recently admitted here from 03/29/2023 through 04/01/2023 for right-sided weakness and paresthesias as well as balance issues. He states that he has had ongoing weakness but his paresthesias and weakness got worse today and he had new onset of diplopia. He was seen by neuro and they recommended discharging him on aspirin and Plavix for 21 days and then continuing aspirin after. Patient completed his Plavix approximately 2 weeks ago but had stopped his aspirin as well. SCOTT was recommended at that time however the patient refused. Patient tells me in the emergency department that he was taken away by the police just before his SCOTT was to be done and that is why it was not performed however it appears he was discharged to the police as there was a warrant out for his arrest. Patient is a smoker and had previously smoked 3 packs a day and is currently smoking 1 pack a day. His compliance has been questionable with all of his medications. His exam on presentation has been inconsistent for both the emergency department physician and myself. NIH is 1 for sensory changes. Vital signs on presentation showed temperature of 98.2, heart rate 63, blood pressure was 164/95 with repeat at 130/95, respiratory rate has been between 14 and 25 and pulse ox is 97% on room air. His CBC was unremarkable. Coags were normal. Chemistry panel was unremarkable. Troponin was normal. Ethyl alcohol was less than 3. CT of the brain showed a stable exam with chronic small vessel ischemic changes and cerebral atrophy. CTA was unremarkable for any stenosis or LVO. Chest x-ray is unremarkable. EKG shows normal sinus rhythm without any ST-T wave changes concerning for acute ischemia. Stroke team was called on arrival and work-up was pursued in the emergency dep artment. Stroke neurologist evaluated the patient recommended further work-up for stroke/TIA. [facility] Medical History Acute ischemic stroke History of CVA (cerebrovascular accident) HTN (hypertension) Obesity Polysubstance abuse Tobacco use Home Medications aspirin 81 mg chewable tablet 81 mg PO BREAKFAST 30 days #30 tabs 07/13/23 [Rx Last Taken Unknown] atorvastatin 80 mg tablet 40 mg (1/2 x 80 mg) PO QHS 30 days #30 tabs 03/31/23 [Rx Last Taken Unknown] clopidogrel 75 mg tablet 75 mg PO DAILY 21 days #21 tabs 03/31/23 [Rx Last Taken Unknown] lisinopril 40 mg tablet 20 mg (1/2 x 40 mg) PO DAILY 30 days #30 TABLETS 03/31/23 [Rx Last Taken Unknown] Allergy/AdvReac Type Severity Reaction Status Date / Time erythromycin base Allergy Hives Verified 05/12/23 22:06 Family History Mother CVA (cerebral vascular accident) Hypertension Diabetes Father COVID-19 following COVID-19 illness. Surgical History S/P nasal surgery Social History household members: friend(s) Smoking Status: Current every day smoker tobacco type: cigarettes alcohol intake: former details: Sober x 5 years. substance use type: marijuana and amphetamines ROS Constitutional Constitutional: Denies anorexia, change in weight, chills, fatigue, fever(s), malaise, night sweats, weakness or other Eyes Eyes: Reports blurry vision and double vision; Denies change in eye color, change in vision, discharge from eye(s), erythema, eye pain, loss of vision or other ENT HEENT: Denies abnormal hearing, dysphagia, ear pain, epistaxis, headache(s), hearing loss, nasal congestion, nasal discharge, post nasal drip, sinus pressure, sore throat or other Cardiovascular Cardiovascular: Denies chest pain, claudication, dyspnea on exertion, edema, lightheadedness, orthopnea, palpitations, paroxysmal nocturnal dyspnea, rapid heart rate, syncope or other Respiratory/Chest Respiratory/Chest: Denies cough, dyspnea, excessive phlegm production, hemoptysis, productive cough, shortness of breath at rest, shortness of breath with exertion, wheezing or other Gastrointestinal Gastrointestinal: Denies abdominal pain, coffee ground emesis, constipation, diarrhea, dyspepsia, hematemesis, hematochezia, loose stools, melena, nausea, vomiting or other Genitourinary Genitourinary: Denies burning urination, difficulty urinating, dysuria, hematuria, nocturia, urinary frequency, urinary hesitancy, urinary incontinence, urinary urgency or other Musculoskeletal Musculoskeletal: Reports joint pain Neurologic Neurologic: Reports focal weakness and paresthesias; Denies abnormal gait, abnormal speech, confusion, disequilibrium, dizziness, headache(s), numbness, seizure-like activity, seizures, syncope, tingling, tremor(s) or other Psychiatric Psychiatric: Denies anxiety, depression, homicidal ideation, suicidal ideation or other Endocrine Endocrinology: Denies change in body appearance, cold intolerance, excessive sweating, heat intolerance, polydipsia, polyuria or other Hematologic/Lymphatic Hematologic/Lymphatic: Denies anemia, easy bleeding, easy bruising, lymphadenopathy or other Allergic/Immunologic Allergic/Immunologic: Denies rhinitis, hives, eczemia, asthma or other Vital Signs Vital Signs Vital Signs: 05/12/23 21:49 05/12/23 22:01 05/12/23 22:08 Temperature 98.2 F 98.2 F Temperature Source Temporal Temporal Pulse Rate 63 Respiratory Rate 25 H Blood Pressure 164/95 H Blood Pressure Mean 118 Pulse Ox 97 Oxygen Delivery Method Room Air Room Air 05/12/23 22:19 05/12/23 22:30 05/12/23 23:00 Temperature Temperature Source Pulse Rate 62 55 L 75 Respiratory Rate 14 20 H 18 Blood Pressure 166/103 H 175/97 H 144/86 H Blood Pressure Mean 124 123 105 Pulse Ox 99 97 99 Oxygen Delivery Method Room Air Room Air Room Air 05/13/23 00:00 05/13/23 00:40 Temperature 98.0 F Temperature Source Temporal Pulse Rate 61 53 L Respiratory Rate 16 16 Blood Pressure 130/83 H 130/95 H Blood Pressure Mean 98 106 Pulse Ox 98 98 Oxygen Delivery Method Room Air Room Air Weight Weight: 101 kg Body Mass Index (BMI) 33.8 Physical Exam Const alert, oriented x3, no apparent distress and well nourished Constitutional Narrative: Obese, agitated, middle-aged, white male, sitting up in bed, appears comfortable and nontoxic however patient is extremely agitated General Appearance: cooperative HEENT normocephalic, head/scalp atraumatic, hearing grossly normal bilaterally and hakan st oral mucous membranes HEENT Narrative: Dentition is poor, Mallampati is 2, no thrush Eyes PERRL, EOMs intact bilaterally and conjunctivae normal Eyes Narrative: No scleral icterus, no visual field cut Neck no lymphadenopathy and supple Neck Narrative: Trachea midline, no thyroid enlarged Resp normal respiratory effort, no retractions and no use of accessory muscles Resp Narrative: Diffusely diminished but clear Auscultation: Negative for crackles, rhonchi or wheezes Cardio regular rate, regular rhythm, S1 normal heart sound, S2 normal heart sound, no murmurs, no rub, no gallops and no clicks GI normal to inspection, nondistended, normoactive bowel sounds, soft to palpation and non-tender Extremity no clubbing, cyanosis or edema Neuro oriented x3, CN's II-XII intact bilaterally, moves all extremities and no focal motor deficits Neuro Narrative: Patient reports that he feels that his arm and leg are weak however he can move them in sustained position without any signs of weakness, reports paresthesias in right lower extremity with palpation Speech: speech normal Psych Psych Narrative: Extremely agitated Results Lab / Micro Data Attestation: I reviewed the patient's lab results. 05/12/23 22:12 05/12/23 22:12 Labs: Laboratory Results - last 24 hr 05/12/23 22:12: WBC 6.2, RBC 4.43 L, Hgb 14.1, Hct 41.4, MCV 93.5, MCH 31.8, MCHC 34.1, RDW Std Deviation 43.4, RDW Coeff of Shayy 12.5, Plt Count 283, MPV 8.7, Immature Gran % (Auto) 0.200, Neut % (Auto) 54.9, Lymph % (Auto) 29.7, [place] % (Auto) 9.3, Eos % (Auto) 4.1, Baso % (Auto) 1.8 H, Absolute Neuts (auto) 3.4, Absolute Lymphs (auto) 1.83, Nucleated RBC % 0, PT 13.4, INR 1.0, APTT 30.6, Sodium 138, Potassium 4.0, Chloride 108 H, Carbon Dioxide 27.0, Anion Gap 3 L, BUN 18, Creatinine 1.30, Estim Creat Clear Calc 64.31, Est GFR (MDRD) Af Amer 74, Est GFR (MDRD) Non-Af 61, BUN/Creatinine Ratio 13.8, Glucose 106, Calcium 8.4 L, Troponin I High Sens 10, Ethyl Alcohol < 3.[address] 05/12/23 21:55 IMPRESSION: Stable exam with chronic small vessel ischemic changes and cerebral atrophy. No definitive evidence of acute intracranial abnormality. MRI would be more sensitive for detection of superimposed acute ischemia in setting of chronic disease. Electronically Signed: Rock Lawler MD at 22:13 EDT , ADDENDUM: 05/12/23 2222 IMPRESSION: Stable exam with chronic small vessel ischemic changes and cerebral atrophy. No definitive evidence of acute intracranial abnormality. MRI would be more sensitive for detection of superimposed acute ischemia in setting of chronic disease. N.B. : The above Results were Read Back by Rock Lawler MD to Markus Gilmore MD, and understanding confirmed on 05/12/2023 22:15:10 (ET). Electronically Signed: Rock Lawler MD at 22:13 EDT , Head/Neck CTA 05/12/23 21:57 IMPRESSION: Stable exam. CTA head and neck with no acute arterial occlusive disease or other acute abnormality. Electronically Signed: Rock Lawler MD at 22:26 EDT , ADDENDUM: 05/12/23 2235 IMPRESSION: Stable exam. CTA head and neck with no acute arterial occlusive disease or other acute abnormality. N.B. : The above Results were Read Back by Rock Lawler MD to Markus Gilmore MD, and understanding confirmed on 05/12/2023 22:28:45 (ET). Electronically Signed: Rock Lawler MD at 22:26 EDT , Chest X-Ray 05/12/23 22:35 IMPRESSION: Normal x-ray examination of the chest. Electronically Signed: Guru Justin MD at 22:58 EDT , Assessment & Plan Assessment/Plan (1) Numbness in right leg: (2) Weakness of right arm: (3) Right shoulder pain: (4) Right leg weakness: (5) Diplopia: (6) Poor compliance with medication: PLAN: Plan Diplopia/right-sided weakness/paresthesias -Exam for diplopia and right-sided weakness was inconsistent -Check MRI -Stroke order set with NIH is -Restart home aspirin and Plavix -SCOTT as patient states he is now agreeable -No need to repeat surface echo or A1c/lipids as he previously had this done just over 1 month ago -Continue home statin -Check tox screen -Continue home lisinopril for blood pressure control -Strongly encouraged improved compliance with medication -PT/OT consultation Right shoulder pain -Check x-rays -Seems musculoskeletal -As needed Tylenol available Hypertension -Continue home lisinopril Hyperlipidemia -Continue atorvastatin Tobacco abuse -Recommend cessation -Nicotine patch available History of methamphetamine/THC abuse -Alcohol screen is unremarkable -Check tox screen DVT prophylaxis -Lovenox CODE STATUS -Full code Charges/Coding Visit Charges Inpatient E&M: 63346 Init Hosp L2
[2023-05-13 05:38] LABS: Absolute Lymphocyte Count 2.12 X10^3/uL (0.83-4.51); Absolute Neutrophil Count 4.6 X10^3/uL (2.0-7.7); Basophil# 0.09 X10^3/uL; Basophil% 1.2 % (0-1); Eosinophil# 0.17 X10^3/uL; Eosinophils% 2.3 % (0-5); Hematocrit 45.3 % (40-54); Hemoglobin 15.7 g/dL (13.0-16.5); Lymphocyte # 2.12 X10^3/ul (0.83-4.51); Lymphocyte % 28.5 % (19-41); Mean Corp Hgb Conc 34.7 g/dL (32-36); Mean Corpuscular Hgb 32.7 pg (27.0-32.0); Mean Corpuscular Volume 94.4 fL (80-94); Mean Platelet Vol. 8.7 fl (6.2-12.0); Monocyte% 6.7 % (0-10); NRBC Flagged by Analyzer 0 % (0-5); Neutrophil # 4.55 X10^3/uL (2.7-7.7); Neutrophil % 61.2 % (47-70); Platelet Count 320 K/mm3 (150-450); RBC Distribution Width CV 12.6 % (11.6-14.6); RBC Distribution Width SD 43.7 fl (35.1-43.9); White Blood Count 7.4 K/mm3 (4.4-11.0)
[2023-05-13 06:12] LABS: Anion Gap 5 (5-15); BUN 16 mg/dL (7-18); BUN/Creat Ratio 15.1 RATIO (10-20); Calcium,Total 8.8 mg/dL (8.5-10.1); Chloride 107 mmol/L (98-107); Cholesterol 167 mg/dL (200); Creatinine, Serum 1.06 mg/dL (0.70-1.30); EST Glomerular Filtration Rate 78 mL/min (>60); Est Glom Filt Rate - Afr Amer 94 mL/min (>60); Estimated Creatinine Clearance 81.52 ml/min; Glucose 110 mg/dL (74-106); High Density Lipoprotein 54 mg/dL; Magnesium 2.2 mg/dL (1.6-2.6); Phosphorus 3.1 mg/dL (2.5-4.9); Potassium 3.9 mmol/L (3.5-5.1); Sodium Level 139 mmol/L (136-145); Triglycerides 145 mg/dL; Very Low Density Lipoprotein 29 mg/dL (5-40)
--- NOTE | 2023-05-13 09:00 | PCM.PN.HOSP ---
Reason for Visit Reason for Visit: Diagnoses Diplopia (05/13/23) Pain in right shoulder (05/13/23) Anesthesia of skin (05/13/23) Other symptoms and signs involving the musculoskeletal system (05/13/23) Patient's other noncompliance with medication regimen for other reason (05/13/23) Subjective Subjective Patient is a 52-year-old gentleman admitted with diplopia right-sided weakness as well as paresthesia. Patient had apparently been on admission in mid March with similar presentation. MRI of the head obtained demonstrated some acute lacunar ischemic infarct in the right posterior putamen. Admitted to monitored bed for further management Objective Data Objective Data Vital Signs: Vital Signs Temp Pulse Resp BP Pulse Ox O2 Del Method 98.1 F 69 16 131/74 H 95 Room Air 05/13/23 06:00 05/13/23 06:00 05/13/23 06:00 05/13/23 06:00 05/13/23 08:41 05/13/23 08:41 Oxygen Delivery Method Room Air Weight: 86 kg Body Mass Index (BMI) 28.0 Intake & Output: Intake and Output for Last 24 Hours 05/11/23 05/12/23 05/13/23 23:59 23:59 23:59 Intake Total 110 / 110 Balance 110 / 110 Lab / Micro Data 05/13/23 05:13 05/13/23 05:13 Labs: Laboratory Results - last 24 hr 05/12/23 22:12: WBC 6.2, RBC 4.43 L, Hgb 14.1, Hct 41.4, MCV 93.5, MCH 31.8, MCHC 34.1, RDW Std Deviation 43.4, RDW Coeff of Shayy 12.5, Plt Count 283, MPV 8.7, Immature Gran % (Auto) 0.200, Neut % (Auto) 54.9, Lymph % (Auto) 29.7, [place] % (Auto) 9.3, Eos % (Auto) 4.1, Baso % (Auto) 1.8 H, Absolute Neuts (auto) 3.4, Absolute Lymphs (auto) 1.83, Nucleated RBC % 0, PT 13.4, INR 1.0, APTT 30.6, Sodium 138, Potassium 4.0, Chloride 108 H, Carbon Dioxide 27.0, Anion Gap 3 L, BUN 18, Creatinine 1.30, Estim Creat Clear Calc 64.31, Est GFR (MDRD) Af Amer 74, Est GFR (MDRD) Non-Af 61, BUN/Creatinine Ratio 13.8, Glucose 106, Calcium 8.4 L, Troponin I High Sens 10, Ethyl Alcohol < 3.0 05/13/23 05:13: WBC 7.4, RBC 4.80, Hgb 15.7, Hct 45.3, MCV 94.4 H, MCH 32.7 H, MCHC 34.7, RDW Std Deviation 43.7, RDW Coeff of Shayy 12.6, Plt Count 320, MPV 8.7, Immature Gran % (Auto) 0.100, Neut % (Auto) 61.2, Lymph % (Auto) 28.5, [place] % (Auto) 6.7, Eos % (Auto) 2.3, Baso % (Auto) 1.2 H, Absolute Neuts (auto) 4.6, Absolute Lymphs (auto) 2.12, Nucleated RBC % 0, Sodium 139, Potassium 3.9, Chloride 107, Carbon Dioxide 27.0, Anion Gap 5, BUN 16, Creatinine 1.06, Estim Creat Clear Calc 81.52, Est GFR (MDRD) Af Amer 94, Est GFR (MDRD) Non-Af 78, BUN/Creatinine Ratio 15.1, Glucose 110 H, Calcium 8.8, Phosphorus 3.1, Magnesium 2.2, Triglycerides 145, Cholesterol 167, LDL Cholesterol 84, VLDL Cholesterol 29, HDL Cholesterol 54 Radiography Diagnostic Testing: Radiology Impression Brain CT 05/12/23 21:55 IMPRESSION: Stable exam with chronic small vessel ischemic changes and cerebral atrophy. No definitive evidence of acute intracranial abnormality. MRI would be more sensitive for detection of superimposed acute ischemia in setting of chronic disease. Electronically Signed: Rock Lawler MD at 22:13 EDT , ADDENDUM: 05/12/233 IMPRESSION: Stable exam with chronic small vessel ischemic changes and cerebral atrophy. No definitive evidence of acute intracranial abnormality. MRI would be more sensitive for detection of superimposed acute ischemia in setting of chronic disease. N.B. : The above Results were Read Back by Rock Lawler MD to Markus Gilmore MD, and understanding confirmed on 05/12/2023 22:15:10 (ET). Electronically Signed: Rock Lawler MD at 22:13 EDT , Head/Neck CTA 05/12/23 21:57 IMPRESSION: Stable exam. CTA head and neck with no acute arterial occlusive disease or other acute abnormality. Electronically Signed: Rock Lawler MD at 22:26 EDT , ADDENDUM: 05/12/23 2235 IMPRESSION: Stable exam. CTA head and neck with no acute arterial occlusive disease or other acute abnormality. N.B. : The above Results were Read Back by Rock Lawler MD to Markus Gilmore MD, and understanding confirmed on 05/12/2023 22:28:45 (ET). Electronically Signed: Rock Lawler MD at 22:26 EDT , Chest X-Ray 05/12/23 22:35 IMPRESSION: Normal x-ray examination of the chest. Electronically Signed: Guru Justin MD at 22:58 EDT , Shoulder X-Ray 05/13/23 00:53 IMPRESSION: Right acromioclavicular osteoarthrosis Electronically Signed: Rock Lawler MD at 2:10 EDT , Physical Exam Narrative GENERAL: cooperative HEENT: Atraumatic; normocephalic EYES; Anicteric, Normal Conjunctiva NECK; supple, normal thyroid, RESPIRATORY: Diminished to auscultation CARDIOVASCULAR: Regular S1 S2, GI: soft, normoactive bowel sounds, : No Renal angle tenderness; EXTREMITIES: No edema, no clubbing, MUSCULOSKELETAL: no muscle wasting NEURO: Awake; no lateralizing signs. SKIN: No Rash PSYCH; Flat affect Assessment & Plan Assessment/Plan (1) CVA (cerebral vascular accident): PLAN: Plan Patient is a 52-year-old gentleman admitted with diplopia right-sided weakness as well as paresthesia. Patient had apparently been on admission in mid March with similar presentation. MRI of the head obtained demonstrated some acute lacunar ischemic infarct in the right posterior putamen. Admitted to monitored bed for further management 1. Acute CVA Patient presented with diplopia, paresthesias as well as subjective right-sided weakness. MRI of the head obtained demonstrated some acute lacunar ischemic infarct in the right posterior putamen. Patient admitted to monitored bed started on dual antiplatelet therapy with aspirin and Plavix in addition to statin therapy. Given the recurrent nature of his symptoms SCOTT ordered subsequent eval. Scheduled to be performed on 05/16/2023 2. Hypertension - Blood pressure controlled, home medications continued with dose adjustment as needed 3. Dyslipidemia -Patient is on statin therapy, continued at home dose 4. Tobacco dependence - Counseled on cessation, offered nicotine patch for tobacco cravings 5. History of polysubstance abuse ? Including THC and methamphetamine counseled on cessation 6. DVT prophylaxis - On enoxaparin Time spent in the patient's overall evaluation,decision-making process, review of diagnostic data, adjustment of management, discussion with other providers, nursing nursing and ancillary staff involved in patient's care documentation, 50 minutes Charges/Coding Visit Charges Inpatient E&M: 25145 [place] [id number]
[2023-05-13] MEDS: Acetaminophen 325 MG Tablet 650 MG PO (09:05)
[2023-05-13] MEDS: LORazepam 2 MG/ML Syringe 1 MG IV (09:32)
[2023-05-13] MEDS: Enoxaparin 40 MG/0.4 ML Syringe SC (09:33)
[2023-05-13] MEDS: Clopidogrel Bisulfate 75 MG Tablet PO (09:33)
[2023-05-13] MEDS: Aspirin 81 MG TAB.CHEW PO (09:33)
[2023-05-13] MEDS: Lisinopril 20 MG Tablet PO (09:33)
--- NOTE | 2023-05-13 12:06 | CASEMGMT ---
Social Work Referral source: SDOH triggered. Patient is homeless. This hospital social worker to patient room to complete assessment, patient sleeping and would not wake up to this hospital social worker prompting. Social Work to continue to follow. Medina HARE, MUKUND
--- NOTE | 2023-05-13 14:53 | CASEMGMT ---
Social Work See attached assessment for complete details on SDOH assessment. Patient reports to now believe to be homeless but then states I am not sure. This social work specialist inquired if patient has a plan for after being discharge from the hospital. Patient states plan to call patient brother and hope he will help me out when patient is discharged from the hospital. This social work specialist inquired if patient would like this social work specialist to reach out to [facility] to see if there are any open beds, patient states no I don't think so. Patient continues to talk about social stressors and not getting along with people. Patient states that roommate and patient are not getting along and are getting evicted. This social work specialist offered to call [facility] again, patient declined. This social work specialist provided local resources for patient. Patient states to have no support, but then declines for this social work specialist to explore options for local resources for patient. Patient laying in bed and not making eye contact the whole conversation. Patient appears to have limited motivation to engage in conversation with this social work specialist. This social work specialist provided active listening and support as much as possible throughout conversation. Patient open to this social work specialist providing resources. Patient declining for this social work specialist to make any referrals. Medina Ross MSW, MUKUND
--- NOTE | 2023-05-13 15:57 | NURSING ---
Pt rested and nurse into see and replace tele monitor due to his cussing and frustration with monitor and leads. Pt is not wanting it replaced. Dr. Allen paged and was notified that staff need to chart on his refusals with care and monitoring. Nurse return again to assess pt and inform him of the need for him to be on the tele monitor pt states I dont want it I don't care if i fucking . Pt refuses all care and assessments at this time. States ' I just want to fucking sleep and no one bother me
[2023-05-13] MEDS: Atorvastatin Calcium 40 MG Tablet PO (22:15)
[2023-05-14 00:25] VITALS: BMI 28.0
[2023-05-14 02:36] VITALS: BP 131/86; PULSE 70; RESP 18; TEMP 36.4; O2SAT 97
--- NOTE | 2023-05-14 08:50 | PCM.PN.HOSP ---
Reason for Visit Reason for Visit: Diagnoses Diplopia (05/13/23) Cerebral infarction, unspecified (05/13/23) Pain in right shoulder (05/13/23) Anesthesia of skin (05/13/23) Other symptoms and signs involving the musculoskeletal system (05/13/23) Patient's other noncompliance with medication regimen for other reason (05/13/23) Subjective Subjective Patient seen no change in condition plans for patient to undergo SCOTT on 05/16/2023 Objective Data Objective Data Vital Signs: Vital Signs Temp Pulse Resp BP Pulse Ox O2 Del Method 97.6 F L 70 18 131/86 H 97 Room Air 05/14/23 02:36 05/14/23 02:36 05/14/23 02:36 05/14/23 02:36 05/14/23 02:36 05/14/23 04:55 Oxygen Delivery Method Room Air Weight: 86 kg Body Mass Index (BMI) 28.0 Intake & Output: Intake and Output for Last 24 Hours 05/12/23 05/13/23 05/14/23 23:59 23:59 23:59 Intake Total 1060 / 1060 Balance 1060 / 1060 Medical Nutrition Assessment Dietitian: Malnutrition Criteria Met Start: 05/13/23 15:50 Freq: Status: Active Protocol: Document 05/13/23 15:50 ANAI (Rec: 05/13/23 15:50 ANAI [id number]) Nutrition Malnutrition Evidence of Malnutrition Exists Yes Malnutrition (severe): Acute Illness/Injury,Social/ Behavioral/Environmental Evidenced By Suboptimal Energy Intake ( Severe),Weight Loss (Severe) Clinical Problem Acute Disease or Injury Related Malnutrition Etiology related to inadequate energy intake Signs/Symptoms as evidenced by 8% unintended wt loss and pt meeting <50% of est nutritional needs x 1 mo. Status Active Problem Recommendation Dietitian Recommendations/Changes Continue Cardiac diet as ordered Will order 8 oz Ensure Plus High Protein w/ meals tid for increased nutrition if consumed. Lab / Micro Data 05/13/23 05:13 05/13/23 05:13 Radiography Diagnostic Testing: Radiology Impression Brain MRI 05/13/23 00:53 IMPRESSION: 1. Subacute lacunar ischemic infarct in the right posterior putamen, new since 03/30/2023. 2. Previous subacute ischemic infarct in the inferior semilunar lobule of the right cerebellar hemisphere has resolved. In its place is a tiny old lacunar cystic infarct. 3. Chronic white matter ischemic changes in both cerebral hemispheres are unchanged. Electronically Signed: Alfredo Be MD at 14:29 EDT , ADDENDUM: 05/13/23 1511 IMPRESSION: 1. Subacute lacunar ischemic infarct in the right posterior putamen, new since 03/30/2023. 2. Previous subacute ischemic infarct in the inferior semilunar lobule of the right cerebellar hemisphere has resolved. In its place is a tiny old lacunar cystic infarct. 3. Chronic white matter ischemic changes in both cerebral hemispheres are unchanged. N.B. : The above Results were Read Back by Alfredo Be MD to Erlinda Lawler RN, and understanding confirmed on 05/13/2023 15:04:48 (ET). Electronically Signed: Alfredo Be MD at 14:29 EDT , Physical Exam Narrative GENERAL: cooperative HEENT: Atraumatic; normocephalic EYES; Anicteric, Normal Conjunctiva NECK; supple, normal thyroid, RESPIRATORY: Diminished to auscultation CARDIOVASCULAR: Regular S1 S2, GI: soft, normoactive bowel sounds, : No Renal angle tenderness; EXTREMITIES: No edema, no clubbing, MUSCULOSKELETAL: no muscle wasting NEURO: Awake; no lateralizing signs. SKIN: No Rash PSYCH; Flat affect Assessment & Plan Assessment/Plan (1) CVA (cerebral vascular accident): PLAN: Plan Patient is a 52-year-old gentleman admitted with diplopia right-sided weakness as well as paresthesia. Patient had apparently been on admission in mid March with similar presentation. MRI of the head obtained demonstrated some acute lacunar ischemic infarct in the right posterior putamen. Admitted to monitored bed for further management 1. Acute CVA Patient presented with diplopia, paresthesias as well as subjective right-sided weakness. MRI of the head obtained demonstrated some acute lacunar ischemic infarct in the right posterior putamen. Patient admitted to monitored bed started on dual antiplatelet therapy with aspirin and Plavix in addition to statin therapy. Given the recurrent nature of his symptoms SCOTT ordered subsequent eval. Scheduled to be performed on 05/16/2023 2. Hypertension - Blood pressure controlled, home medications continued with dose adjustment as needed 3. Dyslipidemia -Patient is on statin therapy, continued at home dose 4. Tobacco dependence - Counseled on cessation, offered nicotine patch for tobacco cravings 5. History of polysubstance abuse ? Including THC and methamphetamine counseled on cessation 6. DVT prophylaxis - On enoxaparin Time spent in the patient's overall evaluation,decision-making process, review of diagnostic data, adjustment of management, discussion with other providers, nursing nursing and ancillary staff involved in patient's care documentation, 35 minutes Charges/Coding Visit Charges Inpatient E&M: 70315 Subs Hosp L2
[2023-05-14 10:29] VITALS: BP 178/93; PULSE 75; RESP 16; TEMP 36.7; O2SAT 100
[2023-05-14] MEDS: Lisinopril 20 MG Tablet PO (10:32)
[2023-05-14] MEDS: Acetaminophen 325 MG Tablet 650 MG PO ×2 (10:32→17:09)
[2023-05-14] MEDS: Aspirin 81 MG TAB.CHEW PO (10:33)
[2023-05-14] MEDS: Enoxaparin 40 MG/0.4 ML Syringe SC (10:33)
[2023-05-14] MEDS: Clopidogrel Bisulfate 75 MG Tablet PO (10:33)
[2023-05-14 15:03] VITALS: BP 139/91; PULSE 63; RESP 16; TEMP 36.4; O2SAT 98
[2023-05-14 17:00] VITALS: BMI 28.0
[2023-05-14] MEDS: oxyCODONE 5 MG Tablet PO (17:09)
[2023-05-14 17:15] VITALS: BP 125/85; PULSE 58; RESP 16; TEMP 36.1; O2SAT 98
[2023-05-14 20:42] VITALS: BMI 28.0
[2023-05-14 21:00] VITALS: BMI 28.0
[2023-05-14] MEDS: Atorvastatin Calcium 40 MG Tablet PO (22:12)
[2023-05-14 23:15] VITALS: BP 132/86; PULSE 60; RESP 16; TEMP 37.1; O2SAT 98
[2023-05-15] MEDS: oxyCODONE 5 MG Tablet PO ×4 (00:52→20:05)
--- NOTE | 2023-05-15 07:55 | PCM.PN.HOSP ---
Reason for Visit Reason for Visit: Diagnoses Diplopia (05/13/23) Cerebral infarction, unspecified (05/13/23) Pain in right shoulder (05/13/23) Anesthesia of skin (05/13/23) Other symptoms and signs involving the musculoskeletal system (05/13/23) Patient's other noncompliance with medication regimen for other reason (05/13/23) Subjective Subjective Patient was placed on Oxy IR for right shoulder pain. Patient appears depressed and tearful this AM. Objective Data Objective Data Vital Signs: Vital Signs Temp Pulse Resp BP Pulse Ox O2 Del Method 98.8 F 60 16 132/86 H 98 Room Air 05/14/23 23:15 05/14/23 23:15 05/14/23 23:15 05/14/23 23:15 05/14/23 23:15 05/15/23 03:51 Oxygen Delivery Method Room Air Weight: 86 kg Body Mass Index (BMI) 28.0 Intake & Output: Intake and Output for Last 24 Hours 05/13/23 05/14/23 05/15/23 23:59 23:59 23:59 Intake Total 1060 / 1060 240 / 240 Balance 1060 / 1060 240 / 240 Medical Nutrition Assessment Dietitian: Malnutrition Criteria Met Start: 05/13/23 15:50 Freq: Status: Active Protocol: Document 05/13/23 15:50 ANAI (Rec: 05/13/23 15:50 ANAI [id number]) Nutrition Malnutrition Evidence of Malnutrition Exists Yes Malnutrition (severe): Acute Illness/Injury,Social/ Behavioral/Environmental Evidenced By Suboptimal Energy Intake ( Severe),Weight Loss (Severe) Clinical Problem Acute Disease or Injury Related Malnutrition Etiology related to inadequate energy intake Signs/Symptoms as evidenced by 8% unintended wt loss and pt meeting <50% of est nutritional needs x 1 mo. Status Active Problem Recommendation Dietitian Recommendations/Changes Continue Cardiac diet as ordered Will order 8 oz Ensure Plus High Protein w/ meals tid for increased nutrition if consumed. Lab / Micro Data 05/13/23 05:13 05/13/23 05:13 Physical Exam Narrative GENERAL: cooperative HEENT: Atraumatic; normocephalic EYES; Anicteric, Normal Conjunctiva NECK; supple, normal thyroid, RESPIRATORY: Diminished to auscultation CARDIOVASCULAR: Regular S1 S2, GI: soft, normoactive bowel sounds, : No Renal angle tenderness; EXTREMITIES: No edema, no clubbing, MUSCULOSKELETAL: no muscle wasting NEURO: Awake; no lateralizing signs. SKIN: No Rash PSYCH; Flat affect Assessment & Plan Assessment/Plan (1) CVA (cerebral vascular accident): PLAN: Plan Patient is a 52-year-old gentleman admitted with diplopia right-sided weakness as well as paresthesia. Patient had apparently been on admission in mid March with similar presentation. MRI of the head obtained demonstrated some acute lacunar ischemic infarct in the right posterior putamen. Admitted to monitored bed for further management 1. Acute CVA Patient presented with diplopia, paresthesias as well as subjective right-sided weakness. MRI of the head obtained demonstrated some acute lacunar ischemic infarct in the right posterior putamen. Patient admitted to monitored bed started on dual antiplatelet therapy with aspirin and Plavix in addition to statin therapy. Given the recurrent nature of his symptoms SCOTT ordered subsequent eval. Scheduled to be performed on 05/16/2023 2. Hypertension - Blood pressure controlled, home medications continued with dose adjustment as needed 3. Dyslipidemia -Patient is on statin therapy, continued at home dose 4. Tobacco dependence - Counseled on cessation, offered nicotine patch for tobacco cravings 5. History of polysubstance abuse ? Including THC and methamphetamine counseled on cessation 6. DVT prophylaxis - On enoxaparin 7. Depression ? Patient started on SSRI Time spent in the patient's overall evaluation,decision-making process, review of diagnostic data, adjustment of management, discussion with other providers, nursing nursing and ancillary staff involved in patient's care documentation, 35 minutes Charges/Coding Visit Charges Inpatient E&M: 07125 Subs Hosp L2
[2023-05-15 08:56] VITALS: BP 137/98; PULSE 52; RESP 16; TEMP 36.8; O2SAT 99
[2023-05-15] MEDS: Lisinopril 20 MG Tablet PO (09:03)
[2023-05-15] MEDS: Clopidogrel Bisulfate 75 MG Tablet PO (09:04)
[2023-05-15] MEDS: Enoxaparin 40 MG/0.4 ML Syringe SC (09:04)
[2023-05-15] MEDS: Aspirin 81 MG TAB.CHEW PO (09:04)
[2023-05-15] MEDS: Escitalopram Oxalate 10 MG Tablet PO (09:12)
[2023-05-15 10:55] VITALS: O2SAT 94
[2023-05-15] MEDS: Acetaminophen 325 MG Tablet 650 MG PO ×2 (13:12→20:06)
[2023-05-15 13:17] VITALS: BP 134/83; PULSE 57; RESP 16; TEMP 36.7; O2SAT 97
[2023-05-15 14:15] VITALS: BMI 28.0
[2023-05-15 17:52] VITALS: BP 142/99; PULSE 62; RESP 16; TEMP 36.7; O2SAT 97
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
[2023-05-15] MEDS: Atorvastatin Calcium 40 MG Tablet PO (20:05)
[2023-05-15] MEDS: MELATONIN 3 MG TABLET PO (20:05)
[2023-05-15 22:15] VITALS: BP 145/90; PULSE 57; RESP 18; TEMP 36.7; O2SAT 97
[2023-05-15 23:10] VITALS: BMI 28.0
[2023-05-16] MEDS: oxyCODONE 5 MG Tablet PO ×4 (01:57→22:01)
[2023-05-16] MEDS: Acetaminophen 325 MG Tablet 650 MG PO ×4 (01:58→21:14)
[2023-05-16] MEDS: tiZANidine HCl 2 MG Tablet 4 MG PO ×2 (02:45→14:31)
[2023-05-16 04:15] VITALS: BP 140/90; PULSE 58; RESP 18; TEMP 36.6; O2SAT 98
[2023-05-16 10:15] VITALS: BP 175/104; PULSE 63; RESP 18; TEMP 36.3; O2SAT 98
[2023-05-16] MEDS: Enoxaparin 40 MG/0.4 ML Syringe SC (11:58)
[2023-05-16] MEDS: Lisinopril 20 MG Tablet PO (11:59)
[2023-05-16] MEDS: Escitalopram Oxalate 10 MG Tablet PO (11:59)
[2023-05-16] MEDS: Aspirin 81 MG TAB.CHEW PO (11:59)
[2023-05-16] MEDS: Clopidogrel Bisulfate 75 MG Tablet PO (11:59)
[2023-05-16 14:30] VITALS: BP 128/95; PULSE 68; RESP 18; TEMP 36.7; O2SAT 98
[2023-05-16 15:32] VITALS: BMI 28.0
--- NOTE | 2023-05-16 16:28 | PCM.PROGNOTE ---
Subjective Subjective Patient seen and examined. He was quite grumpy because he said the staff at the nurse's station had been laughing and talking, and that upset him. He was also upset because he claimed nobody had told him he had to be nPO for the SCOTT today. Also, he said he was upset he may have a sore throat after the SCOTT. He still having blurred vision in both eyes and states is better when he covers 1 eye. He denies any numbness or tingling or any weakness in any extremity. Review of systems otherwise negative. Objective Data Objective Data Vital Signs: Vital Signs Temp Pulse Resp BP Pulse Ox O2 Del Method 98.0 F 68 18 128/95 H 98 Room Air 05/16/23 14:30 05/16/23 14:30 05/16/23 14:30 05/16/23 14:30 05/16/23 14:30 05/16/23 15:28 Oxygen Delivery Method Room Air Weight: 189 lb 9.561 oz Body Mass Index (BMI) 28.0 Intake & Output: Intake and Output for Last 24 Hours 05/14/23 05/15/23 05/16/23 23:59 23:59 23:59 Intake Total 240 / 240 720 / 720 120 / 120 Balance 240 / 240 720 / 720 120 / 120 Medical Nutrition Assessment Dietitian: Malnutrition Criteria Met Start: 05/13/23 15:50 Freq: Status: Active Protocol: Document 05/13/23 15:50 SLA (Rec: 05/13/23 15:50 [facility] [id number]) Nutrition Malnutrition Evidence of Malnutrition Exists Yes Malnutrition (severe): Acute Illness/Injury,Social/ Behavioral/Environmental Evidenced By Suboptimal Energy Intake ( Severe),Weight Loss (Severe) Clinical Problem Acute Disease or Injury Related Malnutrition Etiology related to inadequate energy intake Signs/Symptoms as evidenced by 8% unintended wt loss and pt meeting <50% of est nutritional needs x 1 mo. Status Active Problem Recommendation Dietitian Recommendations/Changes Continue Cardiac diet as ordered Will order 8 oz Ensure Plus High Protein w/ meals tid for increased nutrition if consumed. Lab / Micro Data 05/13/23 05:13 05/13/23 05:13 Physical Exam Const alert, oriented x3 and no apparent distress General Appearance: cooperative HEENT normocephalic, head/scalp atraumatic, moist oral mucous membranes and oropharynx normal Neck no lymphadenopathy and supple Lymph Lymphatic: no lymphadenopathy noted and no lymphedema noted Resp normal respiratory effort, normal air movement and clear to auscultation bilaterally Cardio regular rate, regular rhythm, S1 normal heart sound, S2 normal heart sound and no murmurs GI normal to inspection, nondistended, normoactive bowel sounds, soft to palpation, non-tender and non-distended Extremity normal capillary refill, no clubbing, cyanosis or edema and no calf tenderness Skin General Skin Exam: no breakdown and turgor normal Neuro no focal motor deficits, no sensory deficits noted and deep tendon reflexes 2+ bilaterally Neuro Narrative: bilateral blurred vision and diplopia. other cranial nerves intact bilaterally Psych thought process normal and cooperative Assessment & Plan Assessment/Plan (1) CVA (cerebral vascular accident): QUALIFIERS: CVA mechanism: unspecified Qualified Code(s): I63.9 - Cerebral infarction, unspecified PLAN: #Acute recurrent CVA He was admitted with complaint of diplopia and paresthesias as well as right-sided weakness. MRI of the brain showed acute lacunar ischemic infarcts in the right posterior putamen Patient did have an acute CVA in March 2023 as well. There is concern that this could be an embolic phenomenon. SCOTT ordered. Cardiology reviewed him and reviewed his previous echo from March 2020. Did not think that he needed a SCOTT because he had had a TTE which showed negative bubble study. Cardiology recommended 30-day event monitor. On aspirin and Plavix as well as high intensity statin. Will ask neurology to review him in light of his recurrent CVA and concern for an embolic phenomenon to see if he should be started on an anticoagulant now. #Hypertension:on lisinopril #Hyperlipidemia: On statin #Nicotine dependence: Counseled to quit. On nicotine patch. #History of polysubstance abuse: Uses marijuana and methamphetamine. Counseled to quit. DVT prophylaxis: Lovenox Charges/Coding Visit Charges Inpatient E&M: 22138 Subs Hosp L2
[2023-05-16 20:28] VITALS: BP 132/85; PULSE 57; RESP 18; TEMP 36.6; O2SAT 98
[2023-05-16] MEDS: Atorvastatin Calcium 40 MG Tablet PO (21:14)
[2023-05-16 21:15] VITALS: BMI 28.0
[2023-05-16 22:00] VITALS: BP 141/87; PULSE 64; RESP 18; TEMP 36.3; O2SAT 97
[2023-05-17 02:55] VITALS: BP 149/89; PULSE 56; RESP 18; TEMP 36.4; O2SAT 100
[2023-05-17] MEDS: oxyCODONE 5 MG Tablet PO ×4 (03:12→22:28)
[2023-05-17 03:30] VITALS: BMI 28.0
[2023-05-17 06:41] LABS: Absolute Lymphocyte Count 2.15 X10^3/uL (0.83-4.51); Absolute Neutrophil Count 3.4 X10^3/uL (2.0-7.7); Basophil# 0.12 X10^3/uL; Basophil% 1.8 % (0-1); Eosinophil# 0.27 X10^3/uL; Eosinophils% 4.1 % (0-5); Hematocrit 46.8 % (40-54); Hemoglobin 16.5 g/dL (13.0-16.5); Lymphocyte # 2.15 X10^3/ul (0.83-4.51); Lymphocyte % 32.8 % (19-41); Mean Corp Hgb Conc 35.3 g/dL (32-36); Mean Corpuscular Hgb 32.5 pg (27.0-32.0); Mean Corpuscular Volume 92.3 fL (80-94); Mean Platelet Vol. 8.6 fl (6.2-12.0); Monocyte# 0.65 X10^3/uL; Monocyte% 9.9 % (0-10); NRBC Flagged by Analyzer 0 % (0-5); Neutrophil # 3.35 X10^3/uL (2.7-7.7); Neutrophil % 51.1 % (47-70); Platelet Count 309 K/mm3 (150-450); RBC Distribution Width CV 12.7 % (11.6-14.6); RBC Distribution Width SD 43.1 fl (35.1-43.9); Red Blood Count 5.07 M/mm3 (4.6-6.2); White Blood Count 6.6 K/mm3 (4.4-11.0)
[2023-05-17 07:01] LABS: Anion Gap 3 (5-15); BUN 18 mg/dL (7-18); BUN/Creat Ratio 20.5 RATIO (10-20); Calcium,Total 8.7 mg/dL (8.5-10.1); Chloride 108 mmol/L (98-107); Creatinine, Serum 0.88 mg/dL (0.70-1.30); EST Glomerular Filtration Rate 97 mL/min (>60); Est Glom Filt Rate - Afr Amer 117 mL/min (>60); Estimated Creatinine Clearance 98.19 ml/min; Glucose 96 mg/dL (74-106); Potassium 4.4 mmol/L (3.5-5.1); Sodium Level 139 mmol/L (136-145)
[2023-05-17 08:26] VITALS: BP 144/94; PULSE 57; RESP 16; TEMP 36.7; O2SAT 97
[2023-05-17] MEDS: Enoxaparin 40 MG/0.4 ML Syringe SC (08:48)
[2023-05-17] MEDS: Lisinopril 20 MG Tablet PO (08:49)
[2023-05-17] MEDS: tiZANidine HCl 2 MG Tablet 4 MG PO (08:49)
[2023-05-17] MEDS: Clopidogrel Bisulfate 75 MG Tablet PO (08:49)
[2023-05-17] MEDS: Aspirin 81 MG TAB.CHEW PO (08:50)
[2023-05-17] MEDS: Escitalopram Oxalate 10 MG Tablet PO (08:50)
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
[2023-05-17 13:48] VITALS: BP 143/83; PULSE 61; RESP 16; TEMP 36.6; O2SAT 97
[2023-05-17] MEDS: amLODIPine 10 MG Tablet PO (13:53)
[2023-05-17] MEDS: Acetaminophen 325 MG Tablet 650 MG PO ×2 (13:54→22:27)
--- NOTE | 2023-05-17 15:22 | PHA.DC.MC.R ---
Pharmacy [facility] Pharmacy Service has performed discharge medication reconciliation and counseling for this patient. The patient was counseled on the following discharge medications and changes in medications for homegoing were reviewed. 1. NORVASC The Reason for Use, instructions for use, and potential side effects were reviewed for all new medications. The patient's questions regarding all of their medications were answered. The patient was able to verbally demonstrate an understanding of their discharge medications. The patient's discharge medication list was reviewed for discrepancies and discrepancies were resolved. Patient was counselled by Swathi Cerda PharmD Candidate Medications at Discharge Home Medications aspirin 81 mg chewable tablet 81 mg PO BREAKFAST 30 days #30 tabs 03/31/23 atorvastatin 80 mg tablet 40 mg (1/2 x 80 mg) PO QHS 30 days #30 tabs 03/31/23 clopidogrel 75 mg tablet 75 mg PO DAILY 21 days #21 tabs 03/31/23 lisinopril 40 mg tablet 20 mg (1/2 x 40 mg) PO DAILY 30 days #30 TABLETS 03/31/23 amlodipine 10 mg tablet 10 mg PO DAILY #30 tabs 05/17/23
--- NOTE | 2023-05-17 15:27 | CASEMGMT ---
Patient has order for discharge. RN CM reviewed therapy notes, recommending outpatient therapy. Script received. [facility] CM in to discuss needs at discharge. Patient would like to decide later if he wants to attend outpatient therapy. Script provided to patient with [employer] information. Patient had no further questions or concerns.
[2023-05-17 17:00] VITALS: BMI 28.0
[2023-05-17 17:57] VITALS: BP 137/69; PULSE 58; RESP 16; TEMP 36.7; O2SAT 98
[2023-05-17 21:00] VITALS: BMI 28.0
[2023-05-17 21:30] VITALS: BP 141/74; PULSE 67; RESP 16; TEMP 36.8; O2SAT 97
[2023-05-17] MEDS: MELATONIN 3 MG TABLET PO (22:27)
[2023-05-17] MEDS: Atorvastatin Calcium 40 MG Tablet PO (22:27)
[2023-05-18] MEDS: oxyCODONE 5 MG Tablet PO (02:53)
[2023-05-18 03:22] VITALS: BMI 28.0
[2023-05-18 03:30] VITALS: BP 137/71; PULSE 65; RESP 16; TEMP 36.7; O2SAT 96
[2023-05-18 06:53] VITALS: BP 134/79; PULSE 64; RESP 18; TEMP 36.7; O2SAT 96
--- NOTE | 2023-05-19 16:13 | PCM.HOSP.N ---
Hospitalist Note Notified by nursing that patient did not receive a prescription for aspirin, Plavix, atorvastatin and lisinopril. I reviewed his records and patient did have a prescription for those back in March when he presented. He apparently told the nurse that he spoke to the progressive care unit that he does not have a primary care doctor. Also like the patient has not had this refilled. Will send prescription sent in for 21 days of clopidogrel as recommended by neurology, 30 days of lisinopril and atorvastatin. Aspirin is [id number] so that would not require prescription. Patient will need to get established with a primary care doctor.
== END 2023-05-18 06:30 | disposition home or self-care (01) | DRG 64 ==
LOC: ED 05-13 00:31 → PCU 05-13 01:43
PROVIDERS: Admitting Provider Internal Medicine; Emergency Provider Emergency Medicine; Visit Provider Student in an Organized Health Care Education/Training Program
DX: I63.431 Cerebral infarction due to embolism of right posterior cerebral artery (principal); E43 Unspecified severe protein-calorie malnutrition; G81.91 Hemiplegia, unspecified affecting right dominant side; F15.10 Other stimulant abuse, uncomplicated; I10 Essential (primary) hypertension; F32.A Depression, unspecified; F12.10 Cannabis abuse, uncomplicated; E78.5 Hyperlipidemia, unspecified; H53.2 Diplopia; F17.210 Nicotine dependence, cigarettes, uncomplicated; M25.511 Pain in right shoulder; R29.701 NIHSS score 1; R29.6 Repeated falls; Z65.3 Problems related to other legal circumstances; Z91.148 Patient's other noncompliance with medication regimen for other reason; Z68.28 Body mass index [BMI] 28.0-28.9, adult; Z79.02 Long term (current) use of antithrombotics/antiplatelets; Z79.82 Long term (current) use of aspirin; Z79.899 Other long term (current) drug therapy; Z86.73 Personal history of transient ischemic attack (TIA), and cerebral infarction without residual deficits; Z82.3 Family history of stroke
CPT/HCPCS: 36415; 70450; 70496; 70498; 70551; 71045; 73030; 80048; 80061; 82077; 83735; 84100; 84484; 85025; 85610; 85730; 93005; 94668; 97110; 97162; 97166; 97530; 97535; 97802; 97803; 99285; Q9967; A4216

== ENCOUNTER 2023-05-23 10:47 | Emergency (ER) | payer SELFPAY ==
[2023-05-23 10:47] VITALS: BP 148/102; PULSE 89; RESP 14; TEMP 36.2; O2SAT 99; BMI 29.6
--- NOTE | 2023-05-23 11:07 | RAD_ITS ---
EXAM: XR LEFT HAND COMPLETE, 3 OR MORE VIEWS CLINICAL INDICATION: 5th finger pain TECHNIQUE: Frontal, lateral and oblique views of the left hand. COMPARISON: No relevant prior studies available. FINDINGS: BONES/JOINTS: Complete dislocation of the left fifth PIP joint. No sclerotic or destructive changes observed. No obvious acute fracture lines. SOFT TISSUES: Unremarkable. No soft tissue swelling or gas. No radiopaque foreign body. RAD/Finger(s) Min 2 Views IMPRESSION: Complete dislocation of the left fifth PIP joint without obvious acute fracture lines. Electronically Signed: Alfredo Be MD at 11:44 EDT ,
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
[2023-05-23] MEDS: Lidocaine 1% (20 ml mdv) 20 ML Vial 5 ML INFILT (11:45)
--- NOTE | 2023-05-23 13:00 | RAD_ITS ---
EXAM: XR LEFT HAND COMPLETE, 3 OR MORE VIEWS CLINICAL INDICATION: post reduction TECHNIQUE: Frontal, lateral and oblique views of the left hand. COMPARISON: 05/23/2023 at 11:15 AM. FINDINGS: BONES/JOINTS: Successful closed reduction of the dislocated left fifth PIP joint. No sclerotic or destructive changes observed. No visible acute fractures. SOFT TISSUES: Unremarkable. No soft tissue swelling or gas. No radiopaque foreign body. RAD/Finger(s) Min 2 Views IMPRESSION: Successful closed reduction of the dislocated left fifth PIP joint and no visible acute fractures. Electronically Signed: Alfredo Be MD at 15:02 EDT ,
== END 2023-05-23 13:19 | disposition home or self-care (01) ==
PROVIDERS: Emergency Provider Emergency Medicine; Visit Provider Emergency Medicine
DX: S63.257A Unspecified dislocation of left little finger, initial encounter (principal); M25.511 Pain in right shoulder; F12.90 Cannabis use, unspecified, uncomplicated; F17.210 Nicotine dependence, cigarettes, uncomplicated; G89.29 Other chronic pain; Y04.8XXA Assault by other bodily force, initial encounter; Z86.73 Personal history of transient ischemic attack (TIA), and cerebral infarction without residual deficits
CPT/HCPCS: 73140; 99283

== ENCOUNTER 2024-01-25 09:45 | Observation (INO) | payer MEDICAID, SELFPAY ==
[2024-01-25] VITALS (7 sets, daily range): BP systolic 94–136; BP diastolic 60–90; PULSE 50–58; RESP 16–18; TEMP 36.4–36.7; O2SAT 98–100; BMI 34.0; BMI 33.5
--- NOTE | 2024-01-25 10:05 | RAD_ITS ---
STUDY: X-RAY CHEST REASON FOR EXAM: Male, 53 years old. Neuro deficit, acute, stroke suspected TECHNIQUE: Single AP portable view of the chest. COMPARISON: Comparison is made with prior chest radiograph dated May 12, 2023. FINDINGS: EKG electrodes are seen. The lungs are clear and expanded. There is no demonstrated pleural abnormality. Normal size heart. Normal mediastinum and benton. Normal visualized pulmonary arteries. Normal visualized aortic arch and descending thoracic aorta. Normal visualized thoracic spine. Normal visualized ribs, clavicles, and shoulders. There is no demonstrated abnormality of the visualized soft tissue structures of the upper abdomen. RAD/Chest 1 View IMPRESSION: Normal x-ray examination of the chest. Electronically Signed: Baltazar Rees MD at 11:26 EDT ,
--- NOTE | 2024-01-25 10:05 | EKG12_ITS ---
Test Reason : Blood Pressure : / mmHG Vent. Rate : 052 BPM Atrial Rate : 052 BPM P-R Int : 148 ms QRS Dur : 082 ms QT Int : 410 ms P-R-T Axes : 046 023 011 degrees QTc Int : 381 ms Sinus bradycardia Otherwise normal ECG Confirmed by SKYLAR LINDSAY, DEMETRIO ([id number]), order editor TASIA PETIT ([id number]) on 01/26/2024 10:13:25 AM Referred By: Confirmed By:DEMETRIO CHENG MD
--- NOTE | 2024-01-25 10:06 | ED.VIS.STROK ---
HPI History of Present Illness Chief Complaint: Dizziness Narrative Narrative: 53-year-old male presenting with dizziness. He states he has had dizziness since he had a stroke and he states that it occurs every morning. It usually goes away after couple hours. Yesterday the patient states he woke up at 8:00 and he had his typical dizziness but noted later in the day sometime he was having trouble word finding and difficulty talking. He also reports that both of his hands felt numb. He states that he was trying to get up the stairs which he usually does not have an issue doing but was using his whole upper body strength to pull himself up the stairs and by the time he got was on the top he was very short of breath. He denies having chest pain. No coughing or fevers. He states that today he called his neurologist at [place] and was told to come to the ER. Today he is dizzy and he states he feels as if he is having trouble finding his words although he is talking clearly and without slurred speech. He appears to be talking appropriately. Denies headache. [facility] Medical History Acute ischemic stroke CVA (cerebral vascular accident) Diplopia History of CVA (cerebrovascular accident) HTN (hypertension) Numbness in right leg Obesity Polysubstance abuse Poor compliance with medication Right leg weakness Right shoulder pain Tobacco use Weakness of right arm Home Medications amlodipine 10 mg tablet 10 mg PO DAILY BLOOD PRESSURE #30 tabs 05/17/23 [Rx Last Taken Unknown] aspirin 81 mg tablet,delayed release 81 mg PO DAILY HEART HEALTH 01/25/24 [History Last Taken 01/25/24] atorvastatin 80 mg tablet 80 mg PO QHS CHOLESTEROL 01/25/24 [History Last Taken Unknown] lisinopril 40 mg tablet 40 mg PO DAILY BLOOD PRESSURE 01/25/24 [History Last Taken 01/25/24] Allergy/AdvReac Type Severity Reaction Status Date / Time erythromycin base Allergy Hives Verified 01/25/24 09:46 Family History Mother CVA (cerebral vascular accident) Hypertension Diabetes Father COVID-19 following COVID-19 illness. Surgical History S/P nasal surgery Social History household members: friend(s) Smoking Status: Current every day smoker tobacco type: cigarettes alcohol intake: former details: Sober x 5 years. substance use type: marijuana and amphetamines ROS ROS ED Constitutional Constitutional ED: Denies chills, fever(s) or sweats Eyes Eyes: Denies blurry vision or change in vision ENT ENT ED: Denies ear pain or sore throat Cardiovascular Cardiovascular: Denies chest pain, palpitations or racing heartbeat Respiratory/Chest Respiratory/Chest: Reports dyspnea and dyspnea on exertion; Denies cough or sputum Gastrointestinal Gastrointestinal: Denies abdominal pain, constipation, diarrhea, nausea or vomiting Genitourinary Genitourinary ED: Denies dysuria, hematuria or urinary frequency Musculoskeletal Musculoskeletal: Denies arthralgias, myalgias or neck pain Integumentary Denies abscess, Abrasions or rash Neurologic Neurologic: Reports paresthesias RUE and LUE; Denies headache(s) or weakness Psychiatric Psychiatric: Denies anxiety, depression, suicidal ideation or suicidal thoughts Endocrine Endocrinology: Denies polydipsia or polyuria EXAM Physical Exam Const Vital Signs: 01/25/24 09:46 01/25/24 09:50 Temperature 98.1 F Temperature Source Oral Pulse Rate 55 L Respiratory Rate 17 Respiratory Effort Normal Non-Labored Blood Pressure 136/89 H Blood Pressure Mean 104 Pulse Ox 100 Oxygen Delivery Method Room Air Positive well nourished General Appearance ED: NAD HEENT Reports moist mucous membranes Eyes Eyes Narrative: Negative [place]-Hallpike. Neck no lymphadenopathy Chest Wall inspection of chest normal Resp normal respiratory effort and clear to auscultation bilaterally Auscultation: Negative for rales, rhonchi or wheezes Extremity normal to inspection Neuro oriented x3 and CN's II-XII intact bilaterally Sensorium / Orientation: alert Motor Exam: strength 5/5 throughout Psych mental status grossly normal Skin no wounds NIHSS NIHSS Initial: 1a Level of Consciousness: 0 1b LOC Questions (Score 2 if aphasic/stupor): 0 1c LOC Commands (Only score 1st attempt): 0 2 Best Gaze (If aphasic, use reflexive mvmts.): 0 3 Visual: 0 4 Facial Palsy: 0 5 Motor Arm Right (UN = amputation/fusion): 0 5 Motor Arm Left: 0 6 Motor Leg Right: 0 6 Motor Leg Left: 0 7 Limb ataxia (Only + if out of proportion): 0 8 Sensory (Aphasia/stupor=0 or 1, coma=2): 1 9 Best Language: 0 10 Dysarthria (mute, coma=2, intubated=UN): 0 11 Extinction and Inattention (only scored if +): 0 Total Score: 1 MDM MDM MDM Narrative Medical decision making narrative: Patient presenting with concern for TIA yesterday as he called his neurologist was referred to the ER. He states he has dizziness every day but yesterday it lasted longer and he had some word finding issues as well as some tingling in his bilateral hands. In addition to this he had shortness of breath and tried to climb stairs. Differential includes stroke, TIA, intracranial hemorrhage, ACS, CHF, pneumonia, dehydration, anemia, electrolyte abnormalities, his NIH stroke scale score is only 1 for the numbness in the right hand which is also not new and he states usually gets his left hand more than his right hand however his right hand appears to be more numb today. He is not in the window for tPA and his NIH stroke scale score is low. He states that he had an MRI 3 months ago and saw his neurologist and was told he has had multiple TIAs. Patient initially stated he was doing better after his strokes but has had some regression even doing that his physical therapy which he states he is still doing. CBC shows normal white blood cell count at 6.3. Hemoglobin 16.1. Platelets are normal at 281. PT and INR are normal. Renal function electrolytes within normal limits. High-sensitivity troponin is 5. BNP 11.1. Chest x-ray my interpretation shows no acute cardiopulmonary process. Radiologist interprets this and agrees. EKG on my interpretation shows a sinus bradycardia at 50 bpm without sign of ischemic change. I did not find a source for the patient's shortness of breath today. I am concerned he had a TIA. I discussed the patient with the hospitalist for admission. Impression: 1. TIA 2. Dyspnea Lab Data Attestation: I reviewed the patient's lab results. Labs: Laboratory Results - last 24 hr 01/25/24 01/25/24 10:00 10:20 WBC 6.3 RBC 4.99 Hgb 16.1 Hct 48.0 MCV 96.2 H MCH 32.3 H MCHC 33.5 RDW Std Deviation 44.9 H RDW Coeff of Shayy 12.7 Plt Count 281 MPV 8.8 Immature Gran % (Auto) 0.200 Neut % (Auto) 58.3 Lymph % (Auto) 25.7 [place] % (Auto) 11.2 H Eos % (Auto) 3.3 Baso % (Auto) 1.3 H Absolute Neuts (auto) 3.7 Absolute Lymphs (auto) 1.61 Nucleated RBC % 0 PT 13.2 INR 1.0 APTT 27.2 Sodium 135 L Potassium 4.3 Chloride 106 Carbon Dioxide 26.0 Anion Gap 3 L BUN 13 Creatinine 1.07 Estim Creat Clear Calc 89.37 Est GFR (MDRD) Af Amer 93 Est GFR (MDRD) Non-Af 77 BUN/Creatinine Ratio 12.1 Glucose 95 Calcium 9.2 Troponin I High Sens 5 B-Natriuretic Peptide 11.1 Radiography Diagnostic Testing: Clinical Impression(s) from Imaging Studies Chest X-Ray 01/25/24 10:05 IMPRESSION: Normal x-ray examination of the chest. Electronically Signed: Baltazar Rees MD at 11:26 EDT , Head/Neck CTA 01/25/24 10:40 IMPRESSION: Atherosclerotic plaque formation at the origin of the right internal carotid artery causing between 50 and 69% narrowing. Mild atherosclerotic plaque formation at the origin of the left internal carotid artery causing less than 50% stenosis. Electronically Signed: Baltazar Rees MD at 11:18 EDT , Discharge Plan Triage Chief Complaint: Dizziness ED Provider: López Serrato Dx/Rx/DC Orders Prescriptions: No Action amlodipine 10 mg Tablet 10 mg PO DAILY Qty: 30 2RF Patient Comments: PT STATES THAT THEY ARE UNSURE IF THEY ARE SUPPOSED TO BE TAKING THIS MEDICATION AT THIS TIME ( OF 01/25/24) aspirin 81 mg tablet,delayed release (DR/EC) 81 mg PO DAILY lisinopril 40 MG tablet 40 mg PO DAILY atorvastatin 80 mg Tablet 80 mg PO QHS Patient Comments: PT STATES THEY THINK THEY ARE SUPPOSED TO BE ON THIS BUT ARE UNSURE OF WHEN THEY LAST HAD THIS MEDICATION 9AS OF 01/25/24) Primary Care Provider: Scottie Yusuf Referrals: Care Physician,No Primary [Non-Staff] -
[2024-01-25 10:39] LABS: Absolute Lymphocyte Count 1.61 X10^3/uL (0.83-4.51); Absolute Neutrophil Count 3.7 X10^3/uL (2.0-7.7); Basophil# 0.08 X10^3/uL; Basophil% 1.3 % (0-1); Eosinophil# 0.21 X10^3/uL; Eosinophils% 3.3 % (0-5); Hemoglobin 16.1 g/dL (13.0-16.5); Lymphocyte # 1.61 X10^3/ul (0.83-4.51); Lymphocyte % 25.7 % (19-41); Mean Corp Hgb Conc 33.5 g/dL (32-36); Mean Corpuscular Hgb 32.3 pg (27.0-32.0); Mean Corpuscular Volume 96.2 fL (80-94); Mean Platelet Vol. 8.8 fl (6.2-12.0); Monocyte% 11.2 % (0-10); NRBC Flagged by Analyzer 0 % (0-5); Neutrophil # 3.66 X10^3/uL (2.7-7.7); Neutrophil % 58.3 % (47-70); Platelet Count 281 K/mm3 (150-450); RBC Distribution Width CV 12.7 % (11.6-14.6); RBC Distribution Width SD 44.9 fl (35.1-43.9); Red Blood Count 4.99 M/mm3 (4.6-6.2); White Blood Count 6.3 K/mm3 (4.4-11.0)
--- NOTE | 2024-01-25 10:40 | CT_ITS ---
STUDY: CTA HEAD AND NECK WITH CONTRAST REASON FOR EXAM: Male, 53 years old. Neuro deficit, acute, stroke suspected RADIATION DOSAGE (If Supplied By Facility): CTDIvol = ( 29.73 ) mGy, DLP = ( 1576.12 ) mGycm TECHNIQUE: CT angiography was performed with a multi-detector CT scanner. Data acquisition was obtained from the skull base through the vertex following intravenous administration of IV 100mL [id number]-370. MIP images were reconstructed from the axial data set. Post-processing of the angiographic images was performed, with multiplanar reformation and 3D reconstruction. Individualized dose optimization techniques were used for this CT. COMPARISON: Comparison is made with prior study dated May 12, 2023. FINDINGS: Normal bilateral petrous carotid arteries. There is calcified plaque formation of the right cavernous carotid artery, without a cross-sectional luminal stenosis. There is calcified plaque formation of the left cavernous carotid artery, without a cross-sectional luminal stenosis. Normal right A1 segments of the anterior cerebral artery. Normal left A1 segments of the anterior cerebral artery. Normal intact anterior communicating artery (ACOM). Normal bilateral A2 segments of the anterior cerebral arteries. Normal right M1 and M2 segments of the middle cerebral arteries, with a normal M1 bifurcation. Normal left M1 and M2 segments of the middle cerebral arteries, with a normal M1 bifurcation. Normal right posterior communicating artery (PCOM). Normal left posterior communicating artery (PCOM). Normal bilateral vertebral arteries. Normal basilar artery with a normal basilar bifurcation. The visualized bilateral superior cerebellar (SCA) arteries are normal. Normal bilateral P1, P2 and visualized P3 segments of the posterior cerebral arteries. There is no demonstrated aneurysm of the [place]. Mild degree of cerebral atrophy. Partial opacification of the ethmoid sinuses bilaterally. Mucosal thickening along the anterior medial aspect of the right sphenoid sinus. AORTIC ARCH: There is atherosclerotic calcific plaque formation of the aortic arch and great vessels arising from the aortic arch, without a hemodynamically significant stenosis. There is a normal origin of the brachiocephalic, left common carotid, and left subclavian arteries. RIGHT CAROTID ARTERIES: Normal right common carotid artery (CCA). Normal right common carotid bulb. There is moderate atherosclerotic plaque formation of the origin of the right internal carotid artery with an estimated stenosis of 50-69% stenosis. Normal visualized cervical portion of the right internal carotid artery. Normal origin of the right external carotid artery (ECA). LEFT CAROTID ARTERIES: Normal left common carotid artery (CCA). Normal left common carotid bulb. There is mild atherosclerotic plaque formation of the origin of the left internal carotid artery with less than 50% cross sectional diameter stenosis. Normal visualized cervical portion of the left internal carotid artery. Normal origin of the left external carotid artery (ECA). VERTEBRAL ARTERIES: Normal bilateral vertebral arteries. CT/CTA Head AND Neck W/ Contrast IMPRESSION: Atherosclerotic plaque formation at the origin of the right internal carotid artery causing between 50 and 69% narrowing. Mild atherosclerotic plaque formation at the origin of the left internal carotid artery causing less than 50% stenosis. Electronically Signed: Baltazar Rees MD at 11:18 EDT ,
[2024-01-25 10:43] LABS: Prothrombin Time (Protime)PT. 13.2 SECONDS (11.7-14.9)
[2024-01-25 10:44] LABS: Partial Thromboplast Time 27.2 Seconds (24.1-36.2)
[2024-01-25 10:54] LABS: Anion Gap 3 (5-15); BUN 13 mg/dL (7-18); BUN/Creat Ratio 12.1 RATIO (10-20); Calcium,Total 9.2 mg/dL (8.5-10.1); Chloride 106 mmol/L (98-107); Creatinine, Serum 1.07 mg/dL (0.70-1.30); EST Glomerular Filtration Rate 77 mL/min (>60); Est Glom Filt Rate - Afr Amer 93 mL/min (>60); Estimated Creatinine Clearance 89.37 ml/min; Glucose 95 mg/dL (74-106); Potassium 4.3 mmol/L (3.5-5.1); Sodium Level 135 mmol/L (136-145); Troponin-I HS 5 pg/mL (3.0-78.0)
[2024-01-25 11:23] LABS: BNP,B-Type NATRIURETIC PEPTIDE 11.1 pg/mL (0-100)
--- NOTE | 2024-01-25 13:30 | PCM.HP.STD ---
[facility] - General General Date of Admission: 01/25/24 Date of Service: 01/25/24 Chief Complaint: dizziness. HPI Narrative PALOMO CRAWLEY, is a 53 M who presents with dizziness. Since the patient's prior stroke, he has been having dizziness when he wakes in the morning. That resolves after period of time. Yesterday, he had more protracted dizziness that did not arturo until the evening and persisted until today. He notified his neurology office who directed him to the emergency room. Patient said that yesterday he was having some paresthesias in his hands. Said that he occasionally has paresthesias in his left hand after an injury to that but not in his right hand. Patient has had a history of stroke which she states that he had dizziness with those events as well. [facility] Medical History Acute ischemic stroke CVA (cerebral vascular accident) Diplopia History of CVA (cerebrovascular accident) HTN (hypertension) Numbness in right leg Obesity Polysubstance abuse Poor compliance with medication Right leg weakness Right shoulder pain Tobacco use Weakness of right arm Home Medications amlodipine 10 mg tablet 10 mg PO DAILY BLOOD PRESSURE #30 tabs 05/17/23 [Rx Last Taken Unknown] aspirin 81 mg tablet,delayed release 81 mg PO DAILY HEART HEALTH 01/25/24 [History Last Taken 01/25/24] atorvastatin 80 mg tablet 80 mg PO QHS CHOLESTEROL 01/25/24 [History Last Taken Unknown] lisinopril 40 mg tablet 40 mg PO DAILY BLOOD PRESSURE 01/25/24 [History Last Taken 01/25/24] Allergy/AdvReac Type Severity Reaction Status Date / Time erythromycin base Allergy Hives Verified 01/25/24 09:46 Family History Mother CVA (cerebral vascular accident) Hypertension Diabetes Father COVID-19 following COVID-19 illness. Surgical History S/P nasal surgery Social History household members: friend(s) Smoking Status: Current every day smoker tobacco type: cigarettes alcohol intake: former details: Sober x 5 years. substance use type: marijuana and amphetamines ROS ROS Narrative All review of systems were negative except as mentioned above in the history of present illness and the other review of systems. Vital Signs Vital Signs Vital Signs: 01/25/24 09:46 01/25/24 09:50 01/25/24 12:39 Temperature 36.7 C Temperature Source Oral Pulse Rate 55 L 53 L Respiratory Rate 17 17 Respiratory Effort Normal Non-Labored Blood Pressure 136/89 H 132/81 H Blood Pressure Mean 104 98 Pulse Ox 100 100 Oxygen Delivery Method Room Air Room Air Weight Weight: 98.7 kg Body Mass Index (BMI) 34.0 Physical Exam Const alert and no apparent distress HEENT normocephalic, head/scalp atraumatic, hearing grossly normal bilaterally and moist oral mucous membranes Eyes PERRL and EOMs intact bilaterally Eyes Narrative: Right lateral nystagmus that fatigued. Neck no lymphadenopathy, supple and no carotid bruits Resp normal respiratory effort, no retractions, no use of accessory muscles and clear to auscultation bilaterally Cardio regular rate, regular rhythm, S1 normal heart sound and S2 normal heart sound GI normal to inspection, nondistended, normoactive bowel sounds, soft to palpation, non-tender and non-distended Extremity normal to inspection and full ROM Neuro Sensorium / Orientation: awake and alert Psych affect normal Results Lab / Micro Data Attestation: I reviewed the patient's lab results. 01/25/24 10:20 01/25/24 10:20 Labs: Laboratory Results - last 24 hr 01/25/24 10:00: PT 13.2, INR 1.0, APTT 27.2 01/25/24 10:20: WBC 6.3, RBC 4.99, Hgb 16.1, Hct 48.0, MCV 96.2 H, MCH 32.3 H, MCHC 33.5, RDW Std Deviation 44.9 H, RDW Coeff of Shayy 12.7, Plt Count 281, MPV 8.8, Immature Gran % (Auto) 0.200, Neut % (Auto) 58.3, Lymph % (Auto) 25.7, Bell % (Auto) 11.2 H, Eos % (Auto) 3.3, Baso % (Auto) 1.3 H, Absolute Neuts (auto) 3.7, Absolute Lymphs (auto) 1.61, Nucleated RBC % 0, Sodium 135 L, Potassium 4.3, Chloride 106, Carbon Dioxide 26.0, Anion Gap 3 L, BUN 13, Creatinine 1.07, Estim Creat Clear Calc 89.37, Est GFR (MDRD) Af Amer 93, Est GFR (MDRD) Non-Af 77, BUN/Creatinine Ratio 12.1, Glucose 95, Calcium 9.2, Troponin I High Sens 5, B-Natriuretic Peptide 11.1 EKG Initial EKG: Attestation: I personally reviewed and interpreted this EKG as follows: EKG Rhythm Intrepretation: Sinus Rhythm Imaging Radiology Impression Chest X-Ray 01/25/24 10:05 IMPRESSION: Normal x-ray examination of the chest. Electronically Signed: Baltazar Rees MD at 11:26 EDT , Head/Neck CTA 01/25/24 10:40 IMPRESSION: Atherosclerotic plaque formation at the origin of the right internal carotid artery causing between 50 and 69% narrowing. Mild atherosclerotic plaque formation at the origin of the left internal carotid artery causing less than 50% stenosis. Electronically Signed: Baltazar Rees MD at 11:18 EDT , Assessment & Plan Assessment/Plan (1) Dizziness: PLAN: Plan Dizziness recurrent CVA v BPPV complete CVA work up with MRI brain (premedicate with lorazepam) continue ASA, atorvastatin PRN meclizine Right carotid stenosis 50-69% on CTA from 01/25/2024. Had been mild on 05/12/2023. Continue medical mgmt. Follow up with vascular surgery as outpt. HTN: hold lisinopril and amlopidine for 24 hours Tobacco abuse: nicotine patch VTE prophylaxis: LMWH. Charges/Coding Visit Charges Inpatient E&M: 49600 Init Hosp L3
--- NOTE | 2024-01-25 13:39 | ECHOCS_ITS ---
Reason For Study: TIA/CVA Procedure This was a 2D Doppler, Color Flow transthoracic echocardiogram. The study was technically difficult. Contrast injection was performed. Exam performed portable in patient room. Left Ventricle Normal LV size. Mild concentric left ventricular hypertrophy. The left ventricular ejection fraction is 65 %. No evidence for diastolic dysfunction. Right Ventricle Normal right ventricle. Atria The left and right atria are normal. Mitral Valve Trivial mitral valve insufficiency. Tricuspid Valve Trivial tricuspid valve insufficiency. Unable to estimate RV systolic pressure due to insufficient tricuspid regurgitant envelope. Aortic Valve The aortic valve is not well visualized in the short axis view. No aortic valve stenosis or regurgitation. Pulmonic Valve The pulmonic valve is not well visualized. Great Vessels The aortic root is not well visualized. Pericardium/Pleural No pericardial effusion. Medication Diluted definity 2ml given slow IV push to enhance endocardial definition. MMode/2D Measurements & Calculations LVIDd: 4.9 cm IVSd: 1.3 cm LAV(MOD-bp): 45.3 ml LVIDs: 3.1 cm LVPWd: 0.79 cm FS: 36.6 % LAV(MOD-bp) Indexed: 21.8 ml/m2 LAV(MOD-sp2): 55.7 ml LAV(MOD-sp4): 34.4 ml SV(MOD-sp4): 73.9 ml SV(sp4-el): 75.3 ml LVAd ap4: 38.4 cm2 LVLd ap4: 9.5 cm EDV(MOD-sp4): 128.1 ml EDV(sp4-el): 132.0 ml LVAs ap4: 22.1 cm2 LVLs ap4: 7.3 cm ESV(MOD-sp4): 54.3 ml ESV(sp4-el): 56.6 ml EF(MOD-sp4): 57.6 % EF(sp4-el): 57.1 % LA dimension(2D): 2.9 cm LA A4 area: 14.6 cm2 RA A4 area: 19.8 cm2 Time Measurements MV dec time: 0.29 sec Doppler Measurements & Calculations MV E max leonarod: 61.2 cm/sec Lat Peak E' Leonardo: 12.6 cm/sec Med Peak E' Leonardo: 9.7 cm/sec MV A max leonardo: 55.9 cm/sec E/E' lat: 4.9 E/E' med: 6.3 MV E/A: 1.1 MV V2 max: 74.6 cm/sec MV dec slope: 213.7 cm/sec2 Ao V2 max: 154.4 cm/sec MV max P.2 mmHg Ao max P.6 mmHg MV V2 mean: 37.3 cm/sec Ao V2 mean: 107.4 cm/sec MV mean P.72 mmHg Ao mean P.2 mmHg MV V2 VTI: 39.3 cm Ao V2 VTI: 29.7 cm AV (velocity ratio): 1.1 LV V1 max: 130.9 cm/sec LV V1 max P.9 mmHg LV V1 mean P.8 mmHg LV V1 mean: 90.9 cm/sec LV V1 VTI: 32.2 cm ECHO/Echo Complete W/ Contrast Interpretation Summary Mild concentric left ventricular hypertrophy. The left ventricular ejection fraction is 65 %. Technically difficult study. Ordering Physician: Kristian Burnham Referring Physician: CARLA ARREOLA Performed By: Brandy Schwab RCS
--- NOTE | 2024-01-25 13:39 | MRI_ITS ---
STUDY: MRI BRAIN WITHOUT CONTRAST REASON FOR EXAM: Male, 53 years old. Dizziness TECHNIQUE: Standardized multiplanar fat and water weighted pulse sequences were obtained. COMPARISON: May 13, 2023 FINDINGS: Normal size of the ventricles and extra-axial spaces for the patient''s age. There are multiple white matter hyperintensities, distributed throughout the deep white matter tracts of the cerebral hemispheres, consistent with moderate chronic white matter ischemic or demyelinating changes. Normal bilateral basal ganglia. Normal thalami. There is no extra-axial fluid accumulation. Normal flow voids within the major intracranial circulation suggesting patency by spin echo criteria. Normal sella turcica, pituitary gland, infundibular stalk, optic chiasm and hypothalamus. Normal tectal plate and pineal gland. There are chronic white matter ischemic changes of the [place]. The midbrain and medulla are otherwise normal. Normal cerebellum. Normal basal cisterns. Normal bilateral temporal bones. Normal bilateral internal auditory canals. No demonstrated orbital abnormality, within the constraints of a routine brain study. There is mild mucosal thickening of the visualized paranasal sinuses. Normal calvarium and skull base. Normal visualized soft tissue structures. Normal visualized upper cervical spine. MRI/Brain without Contrast IMPRESSION: Involutional changes of the brain, as described above. Electronically Signed: Timbo Castrejon MD at 18:40 EDT ,
[2024-01-25] MEDS: LORazepam 1 MG Tablet PO (14:17)
[2024-01-25] MEDS: Atorvastatin Calcium 80 MG Tablet PO (22:00)
[2024-01-26 03:30] VITALS: BP 90/60; PULSE 60; RESP 16; TEMP 36.6; O2SAT 99
[2024-01-26 05:30] VITALS: BP 100/64; PULSE 56; RESP 16; TEMP 36.6; O2SAT 99
[2024-01-26 07:44] VITALS: O2SAT 99
[2024-01-26 08:37] LABS: Cholesterol 208 mg/dL (200); High Density Lipoprotein 42 mg/dL; Triglycerides 137 mg/dL; Very Low Density Lipoprotein 27 mg/dL (5-40)
[2024-01-26 08:54] VITALS: BP 89/62; PULSE 53; RESP 14; TEMP 36.7; O2SAT 98
[2024-01-26] MEDS: Aspirin E.C. 81 MG Tablet PO (09:01)
[2024-01-26] MEDS: Enoxaparin 40 MG/0.4 ML Syringe SC (09:02)
[2024-01-26] MEDS: Acetaminophen 325 MG Tablet 650 MG PO ×2 (09:04→15:44)
--- NOTE | 2024-01-26 11:52 | STROKE.CONS ---
Assessment and Plan: Stroke Assessment/Plan PALOMO CRAWLEY, is a 53 year old ambidextrous male smoker with history of prior ischemic stroke x 2 (03/2023 MRI DWI + cerebellar infarct, 04/2023 MRI DWI + right BG infarct) with residual dizziness and HTN who presents with worsening dizziness since 01/24/2024. He presented to [facility]. Initial NIHSS-1. CTA head/neck shows 50-59% LIZ stenosis. MRI brain DWI negative. Neurological examination shows nonfocal exam, NIHSS-0. ASSESSMENT/PLAN: Intermittent vertigo Patient ruled out for new stroke with negative MRI brain. Could represent unmasking vs peripheral vertigo. Continue home Asa/lipitor for stroke prevention. Referral for outpatient vestibular therapy. Follow-up with neurologist as outpatient. Recommendations discussed with primary physician who was in the room. HPI Consult Data Date of Consult: 01/26/24 HPI Narrative HPI Narrative: PALOMO CRAWLEY, is a 53 year old ambidextrous male with history of prior ischemic stroke x 2 (03/2023 MRI DWI + cerebellar infarct, 04/2023 MRI DWI + right BG infarct) with residual dizziness who presents with worsening dizziness. Patient reports since his stroke, for the last several months, he has daily morning dizziness (vertigo) that usually self resolves. On 01/24/2024 the dizziness did not resolve and lasted to evening. He also felt his walking was worse (stumbling) with the dizziness. He called his neurologist who sent him to [facility]. Initial NIHSS-1. CTA head/neck shows 50-59% LIZ stenosis. He was admitted. This morning he feels back to baseline. This morning BP 89/71. [facility] Medical History Acute ischemic stroke CVA (cerebral vascular accident) Diplopia History of CVA (cerebrovascular accident) HTN (hypertension) Numbness in right leg Obesity Polysubstance abuse Poor compliance with medication Right leg weakness Right shoulder pain Tobacco use Weakness of right arm Home Medications amlodipine 10 mg tablet 10 mg PO DAILY BLOOD PRESSURE #30 tabs 05/17/23 [Rx Last Taken Unknown] aspirin 81 mg tablet,delayed release 81 mg PO DAILY HEART HEALTH 01/25/24 [History Last Taken 01/25/24] atorvastatin 80 mg tablet 80 mg PO QHS CHOLESTEROL 01/25/24 [History Last Taken Unknown] lisinopril 40 mg tablet 40 mg PO DAILY BLOOD PRESSURE 01/25/24 [History Last Taken 01/25/24] Allergy/AdvReac Type Severity Reaction Status Date / Time erythromycin base Allergy Hives Verified 01/25/24 09:46 Family History Mother CVA (cerebral vascular accident) Hypertension Diabetes Father COVID-19 following COVID-19 illness. Surgical History S/P nasal surgery Social History household members: friend(s) Smoking Status: Current every day smoker tobacco type: cigarettes alcohol intake: former details: Sober x 5 years. substance use type: marijuana and amphetamines Vital Signs Vital Signs Vital Signs: 01/25/24 12:39 01/25/24 13:32 01/25/24 13:46 Temperature 97.6 F L 97.6 F L Temperature Source Temporal Pulse Rate 53 L 52 L 50 L Respiratory Rate 17 16 18 Respiratory Effort Respiratory Depth Respiratory Pattern Blood Pressure 132/81 H 102/90 H 121/71 H Blood Pressure Mean 98 94 87 Blood Pressure Source Monitor Blood Pressure Position Semi-Fowlers Blood Pressure Location Right Arm Pulse Ox 100 100 100 Oxygen Delivery Method Room Air Room Air 01/25/24 14:10 01/25/24 15:13 01/25/24 16:42 Temperature 97.6 F L Temperature Source Temporal Pulse Rate 58 L Respiratory Rate 18 Respiratory Effort Normal Non-Labored Respiratory Depth Normal Respiratory Pattern Normal Blood Pressure 118/80 Blood Pressure Mean 92 Blood Pressure Source Monitor Blood Pressure Position Semi-Fowlers Blood Pressure Location Left Arm Pulse Ox 100 98 Oxygen Delivery Method Room Air Room Air Room Air 01/25/24 21:56 01/25/24 22:00 01/26/24 03:30 Temperature 97.7 F L 98 F Temperature Source Oral Oral Pulse Rate 56 L 60 Respiratory Rate 16 16 Respiratory Effort Normal Non-Labored Respiratory Depth Normal Respiratory Pattern Normal Blood Pressure 94/60 90/60 Blood Pressure Mean 71 70 Blood Pressure Source Monitor Blood Pressure Position Semi-Fowlers Blood Pressure Location Right Arm Pulse Ox 98 99 Oxygen Delivery Method Room Air Room Air Room Air 01/26/24 05:30 01/26/24 08:54 01/26/24 07:44 Temperature 98 F 98.1 F Temperature Source Oral Oral Pulse Rate 56 L 53 L Respiratory Rate 16 14 Respiratory Effort Respiratory Depth Respiratory Pattern Blood Pressure 100/64 89/62 L Blood Pressure Mean 76 71 Blood Pressure Source Monitor Monitor Blood Pressure Position Supine Semi-Fowlers Blood Pressure Location Right Arm Left Arm Pulse Ox 99 98 99 Oxygen Delivery Method Room Air Room Air Room Air 01/26/24 08:55 Temperature Temperature Source Pulse Rate Respiratory Rate Respiratory Effort Normal Non-Labored Respiratory Depth Normal Respiratory Pattern Normal Blood Pressure Blood Pressure Mean Blood Pressure Source Blood Pressure Position Blood Pressure Location Pulse Ox Oxygen Delivery Method Room Air Weight Weight: 97 kg Body Mass Index (BMI) 33.5 NIHSS NIHSS Nursing Documentation NIHSS Nursing Documentation: NIH Stroke Scale Start: 01/25/24 09:51 Freq: Status: Discharge Protocol: Activity Type Activity Date Activity User E-sign Co-sign Detail Recorded Client Recorded Date Recorded By Document 01/25/24 09:52 DK Desktop 01/25/24 09:52 DKM 01/25/24 09:52 NIH Stroke Scale [NIHSS] A score of 0 is normal or asymptomatic . Total possible score is 42. Inpatient: RN or Physician to activate a stroke alert for onset of new stroke symptoms or with NIHSS increase >/= 3 points. Following change in neurological status, NIHSS will be performed per physician order or more frequently PRN. -1a. Level of Consciousness Alert; keenly responsive -1b. LOC Questions Answers BOTH questions correctly. -1c. LOC Commands Performs both tasks correctly . -2. Best Gaze Normal -3. Visual No visual loss -4. Facial Palsy Normal symmetrical movements -5a. Left Arm No drift; arm holds 90 (or 45 ) degrees for full 10 seconds -5b. Right Arm No drift; arm holds 90 (or 45 ) degrees for full 10 seconds -6a. Left Leg No drift; leg holds 30-degree position for full 5 seconds -7. Limb Ataxia Absent -8. Sensory Normal; no sensory loss -9. Best Language No aphasia; normal -10. Dysarthria Normal -11. Extinction and Inattention No abnormality -Total 0 Query Text:A score of 0 is normal or asymptomatic. Total possible score is 42 . ED: Notify Physician for NIHSS increase by > / = 3 points. Inpatient: RN or Physician to activate a stroke alert for NIHSS increase of > / = 3 points. NIHSS: Ischemic Stroke/TIA Start: 01/25/24 13:39 Text: For PCU Patients: NIH and Neuro Check every 4 Status: Complete hours, PRN and with change in RN caregiver. Freq: [id number] Protocol: Activity Type Activity Date Activity User E-sign Co-sign Detail Recorded Client Recorded Date Recorded By Document 01/25/24 16:42 KS Desktop 01/25/24 16:42 KS 01/25/24 16:42 -1a. Level of Consciousness Alert; keenly responsive -1b. LOC Questions Answers BOTH questions correctly. -1c. LOC Commands Performs both tasks correctly . -2. Best Gaze Normal -3. Visual No visual loss -4. Facial Palsy Normal symmetrical movements -5a. Left Arm No drift; arm holds 90 (or 45 ) degrees for full 10 seconds -5b. Right Arm No drift; arm holds 90 (or 45 ) degrees for full 10 seconds -6a. Left Leg No drift; leg holds 30-degree position for full 5 seconds -6b. Right Leg No drift; leg holds 30-degree position for full 5 seconds -7. Limb Ataxia Absent -8. Sensory Normal; no sensory loss -9. Best Language No aphasia; normal -10. Dysarthria Normal -11. Extinction and Inattention No abnormality -Total 0 Query Text:A score of 0 is normal or asymptomatic. Total possible score is 42 . ED: Notify Physician for NIHSS increase by > / = 3 points. Inpatient: RN or Physician to activate a stroke alert for NIHSS increase of > / = 3 points. Coma Scale [Assess] -Eye Opening Spontaneous -Motor Obeys Commands -Verbal Oriented [Total] -Coma Scale Total 15 NIHSS 1a. Level of Consciousness: Alert; keenly responsive 1b. LOC Questions: Answers BOTH questions correctly. 1c. LOC Commands: Performs both tasks correctly. 2. Best Gaze: Normal 3. Visual: No visual loss 4. Facial Palsy: Normal symmetrical movements 5a. Left Arm: No drift; arm holds 90 (or 45) degrees for full 10 seconds 5b. Right Arm: No drift; arm holds 90 (or 45) degrees for full 10 seconds 6a. Left Leg: No drift; leg holds 30-degree position for full 5 seconds 6b. Right Leg: No drift; leg holds 30-degree position for full 5 seconds 7. Limb Ataxia: Absent 8. Sensory: Normal; no sensory loss 9. Best Language: No aphasia; normal 10. Dysarthria: Normal 11. Extinction and Inattention: No abnormality Total: 0 Physical Exam Neuro Neuro Narrative: Neurological examination: General: The patient appears nutritionally appropriate, well-groomed, and appears comfortable in no acute distress. Mental Status:? The patient?s mental status was normal including orientation.? Language was intact.? Cranial nerves:? Visual jay full, and extra-ocular motion was intact. Face motion were symmetric.? Bilateral shoulder shrug was intact. Tongue was midline. There was no dysarthria. Motor: Normal strength and tone in all four extremities. No pronator drift. Sensation: Intact light touch bilaterally.? Coordination:? Bilateral finger to nose was normal.? There was no dysmetria. Gait:? deferred Lab / Micro Data 01/25/24 10:20 01/25/24 10:20 Labs: Laboratory Results - last 24 hr 01/26/24 06:30: Triglycerides 137, Cholesterol 208 H, LDL Cholesterol 139 H, VLDL Cholesterol 27, HDL Cholesterol 42 Imaging Radiology Impression Brain MRI 01/25/24 13:39 IMPRESSION: Involutional changes of the brain, as described above. Electronically Signed: Timbo Castrejon MD at 18:40 EDT , Active Medications Active Medications Active Medications: Current Medications Generic Name Dose Route Start Last Admin Trade Name Freq PRN Reason Stop Dose Admin Acetaminophen 650 mg 01/25/24 13:39 01/26/24 09:04 Acetaminophen 325 Mg Tablet PO 650 mg Q6H PRN PRN Administration Pain 1-10 Or Fever>100.7 Aspirin 81 mg 01/26/24 08:00 01/26/24 09:01 Aspirin E.C. 81 Mg Tablet PO 81 mg DAILYCM RAYA Administration Atorvastatin Calcium 80 mg 01/25/24 22:00 01/25/24 22:00 Atorvastatin Calcium 80 Mg Tablet PO 80 mg QHS RAYA Administration Enoxaparin Sodium 40 mg 01/26/24 10:00 01/26/24 09:02 Enoxaparin 40 Mg/0.4 Ml Syringe SC 40 mg DAILY ARYA Administration Sodium Chloride 500 mls @ 15 mls/hr 01/25/24 13:41 IV PRN PRN Blood Transfusion Sodium Chloride 250 mls @ 15 mls/hr 01/25/24 13:41 IV .[id number] PRN Additional IVPB Infusion Sodium Chloride 250 mls @ 15 mls/hr 01/25/24 13:41 IV .[id number] PRN Saline Flush Meclizine HCl 12.5 mg 01/25/24 13:39 Meclizine 12.5 Mg Tablet PO TID PRN PRN DIZZINESS Nicotine 21 mg 01/26/24 10:00 01/26/24 09:02 Nicotine 21 Mg Patch TD 21 mg DAILY RAYA Administration Ondansetron HCl 4 mg 01/25/24 13:39 Ondansetron 4 Mg/2 Ml Vial IV Q8H PRN PRN NAUSEA/VOMITING Sodium Chloride 10 - 40 ml 01/25/24 13:41 0.9% Saline Lock 10 Ml Syringe IV UD PRN SALINE FLUSH
[2024-01-26 12:16] VITALS: BP 106/75; BP 115/82; BP 117/79; PULSE 50; PULSE 53; PULSE 54
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
--- NOTE | 2024-01-26 13:46 | CASEMGMT ---
Addendum entered by Susanne Carrera 01/26/24 17:12: Script was provided to pt for OP PT/vestibular therapy and instructed on use. Original Note: [facility] NOTE: PT/OT evals reviewed. PT recommends additional therapy, OT states no additional therapy needed. [facility] to room. Introduced self and role. Pt sitting up in bed. Pt states he has been going to OP PT in [place] for a couple of months and has one more therapy session remaining, although he does not feel he has reached his baseline yet and he would like to continue w/more OP PT appts. [facility] advised him to inform PT about this @ his next appt so they can re-eval and look into seeing if more PT sessions can get approved. He voices understanding. He states he is also supposed to be starting OP OT tomorrow @ [place] for his thumb and plans to cancel that if he is not discharged by time of the appt. He states his roommate will be able to take him home @ discharge and denies having other discharge planning needs/concerns. He states he sees a neurologist in [place]. Pt would like to get any new medications @ discharge from [facility] retail pharmacy. [employer] updated. Kristan VELASCO RN, CM
--- NOTE | 2024-01-26 14:58 | CHAPLAIN ---
Type of Pastoral Visit _x__ Initial Visit ___ Follow-up Visit ___ On-call Visit ___ General Patient Visit ___ Spiritual Assessment ___ Family Conference ___ Bereavement ___ Rapid Response ___ Code Blue ___ Other (describe below) Pastoral Care Referral From _x__ Patient ___ Family ___ Nurse ___ Physician ___ Machine Stripper Cutter ___ Automotive Brake Technician ___ Other (describe below) Sacrament/Intervention _x__ Active listening ___ Anointing ___ Sikh ___ Bereavement ___ Communion ___ Ruht exploration ___ _x__ Life review _x__ Prayer ___ Reconciliation ___ Sacrament of Sick _x__ Supportive presence ___ Wedding ___ Other (describe below) Pastoral Comments patient began by complaining about the wrong food items on lunch tray and how the same thing happened for breakfast; pt then launches into a long review of grievances by people in his recent life and how he is dependent on others now for living arrangements; pt believes he may lose possession of his vehicles and expresses anxiety and worry; pt believes that maybe his life issues have contributed to his physical illness; pt apologizes for his angry tone and frustrations but is given permission to be expressive and talk through his disappointments and frustrations; turned the discussion to what he counts as positives in his life and how he can find support, hope, and peace; pt admits that he has turned away from any spiritual life as an adult; offer to pray for pt and he becomes tearful; as prayer is given the patient weeps; time of silent supportive presence given and assurance of care,
--- NOTE | 2024-01-26 14:59 | PCM.DC.SUM ---
Providers Date of Admission: 01/25/24 Primary Care Physician: Dr. Carla Arreola MD Consultations 01/25/24 13:39 Consult: Tele-Neurology Routine Consulting Provider: [facility] Reason for Consult: Acute Ischemic Stroke/TIA EMERGENT Consult: No MD Notified: Yes Date Notified: 01/25/24 Time Notified: 12:37 Method of Notification: ED Physician Initiated Nursing Unit Staff Notify [facility] of Tele-Neurology Consult: Yes Reason For Visit: TIA Diagnosis Discharge Diagnosis (1) Dizziness: Status: Acute Code(s): R42 - Dizziness and giddiness Plan Dizziness Secondary to BPPV MRI of the brain was negative for stroke. continue ASA, atorvastatin PRN meclizine Recommend patient follow-up with vestibular rehab. Patient had orthostatic vital signs and his blood pressure did drop with standing only 11 points. Heart rate remained stable. So does not appear the patient is orthostatic but would recommend holding off on his lisinopril and amlodipine for now. Right carotid stenosis 50-69% on CTA from 01/25/2024. Had been mild on 05/12/2023. Continue medical mgmt. Follow up with vascular surgery as outpt. HTN: hold lisinopril and amlopidine for 24 hours Tobacco abuse: nicotine patch VTE prophylaxis: LMWH. Medications at Discharge Home Medications aspirin 81 mg tablet,delayed release 81 mg PO DAILY [facility] 01/25/24 atorvastatin 80 mg tablet 80 mg PO QHS CHOLESTEROL #30 tabs 01/26/24 meclizine 12.5 mg tablet 12.5 mg PO TID PRN PRN Dizziness #30 tabs 01/26/24 Hospital Course Operations None Summary of Care Provided Minutes Spent on Discharge: 40 Hospital Course: Patient presents with dizziness particular when he wakes up which has been ongoing since his stroke but that was more pronounced over the past couple days so he sought attention. Patient underwent a stroke workup that was unremarkable with exception of bilateral carotid stenosis more prominent on the right. That was not felt to be contributing to his dizziness but rather likely due to benign paroxysmal positional vertigo. Patient can take Meclizine as needed and is recommend follow-up with vestibular rehab. Blood pressure has been on the lower of normal and continue to hold his amlodipine and lisinopril moving forward. Patient will be resumed back on his atorvastatin as he does have hypercholesterolemia. This will need to be treated aggressively given his history of stroke. Physical Exam Const alert and no apparent distress General Appearance: cooperative and comfortable HEENT normocephalic and head/scalp atraumatic Extremity normal to inspection Weight / BMI Weight Weight: 97 kg Body Mass Index (BMI) 33.5 ABG / Lab / Microbiology Data 01/25/24 10:20 01/25/24 10:20 Laboratory: Laboratory Results - last 24 hr 01/26/24 06:30: Triglycerides 137, Cholesterol 208 H, LDL Cholesterol 139 H, VLDL Cholesterol 27, HDL Cholesterol 42 Radiography Diagnostic Testing: Radiology Impression Brain MRI 01/25/24 13:39 IMPRESSION: Involutional changes of the brain, as described above. Electronically Signed: Timbo Castrejon MD at 18:40 EDT , Echocardiogram 01/25/24 13:39 Interpretation Summary Mild concentric left ventricular hypertrophy. The left ventricular ejection fraction is 65 %. Technically difficult study. Ordering Physician: Kristian Burnham Referring Physician: CARLA ARREOLA Performed By: Brandy Schwab RCS D/C Instructions Discharge Diet: Low fat / Low cholesterol Meaningful Use Info Meaningful Use Meaningful Use Diagnoses (Choose all that apply): None applicable Ischemic Stroke Statin Dosing Therapy Reference: STATIN DOSE THERAPY REFERENCE: * Patients > 75 years receive moderate or high dose statin therapy. * Patients 75 years or YOUNGER should receive HIGH intensity statin dose unless contraindicated. You will be required to document reason for non-treatment if statin daily dose does not meet guidelines. HIGH DOSE STATIN THERAPY DAILY Atorvastatin > than or = to 40 mg Rosuvastatin > than or = to 20 mg Amlodipine + Atorvastatin > than or = to 2.5/40 mg Ezetimibe + Simvastatin 10/80 mg Simvastatin 80mg Discharge Plan Admission Admit Date/Time: 01/25/24 12:03 Primary Reason for Your Visit: Vertigo Attending Provider: Kristian Burnham Primary Care Provider: Carla Arreola Consulting Providers: Wander Jamil; Nathanael Wilson; Kimberly Kauffman; Andria Zarate; Kimberlee Cox; Moshe Bragg; Olivia Palmer; Froy Penaloza; Nasir Webb; Hyun Schmitz; Adis Duffy; Petrona Tillman; Irene See; Garettsondra Tommie; Markus Polanco; Radha Lugo; Ayo Deluca; Amy Santos; Aj Tran Instructions Additional Instructions / Restrictions: You had vertigo. Your MRI did not show stroke. So treatment for vertigo is certainly at gets better on its own but you can take meclizine (also known as Antivert) to help with the symptoms. The meclizine does not fix the problem but it can make it more tolerable. I would recommend that you follow-up with physical therapy for vestibular rehab which can help with vertigo. In the process of doing your neurology workup it was noted also that you have some carotid stenosis (narrowing of your carotid arteries, which are in your neck) on both sides. The left side is mild more so on the right side. Nothing to do about that at this point in time other than the medication you are taking but I would recommend that you follow-up with a vascular surgeon in the next several months just to keep tabs on that. Your blood pressure here has been on the lower side so I am going to recommend that you stop your lisinopril and amlodipine for the time being. Discharge Orders/Prescriptions Prescriptions: New meclizine 12.5 mg Tablet 12.5 mg PO TID PRN PRN (Reason: Dizziness) Qty: 30 0RF Continued aspirin 81 mg tablet,delayed release (DR/EC) 81 mg PO DAILY Changed atorvastatin 80 mg Tablet 80 mg PO QHS Qty: 30 0RF Discontinued amlodipine 10 mg Tablet 10 mg PO DAILY Qty: 30 2RF Patient Comments: PT STATES THAT THEY ARE UNSURE IF THEY ARE SUPPOSED TO BE TAKING THIS MEDICATION AT THIS TIME ( OF 01/25/24) lisinopril 40 MG tablet 40 mg PO DAILY Other Ambulatory Orders: Physical Therapy Evaluation (Routine) Location: None Selected Ordered By: Dr. Kristian Burnham Referrals / Follow Up: [facility] [Provider Group] - Within 3 Months Carla Arreola MD [Primary Care Provider] - Within 2 Weeks Care Physician,No Primary [Non-Staff] - Disposition Disposition (needs filled in before D/C Order can be placed): Home, Self Care Charges/Coding Visit Charges Inpatient E&M: 28364 Disch Hosp >30min
--- NOTE | 2024-01-26 16:12 | CASEMGMT ---
Patient is being discharged. Per RN patient does not have a ride home. [facility] and scheduled a ride home for patient. SALVADOR was informed that Lianna will be at [facility] to supervisor opening and picking patient. The confirmation number is [id number]. SALVADOR let patient know that SW arranged transportation with his insurance. Patient stated he got a ride home. SALVADOR called [facility] back and canceled the trip. Manju POTTER
[2024-01-26 16:23] VITALS: BMI 33.5
== END 2024-01-26 15:09 | disposition home or self-care (01) ==
LOC: ED 10:17 → PCU 01-26 08:25
PROVIDERS: Emergency Provider Student in an Organized Health Care Education/Training Program; PCP Family Medicine
DX: H81.10 Benign paroxysmal vertigo, unspecified ear (principal); I10 Essential (primary) hypertension; F17.210 Nicotine dependence, cigarettes, uncomplicated; Z79.82 Long term (current) use of aspirin; R06.00 Dyspnea, unspecified; I69.322 Dysarthria following cerebral infarction; Z79.899 Other long term (current) drug therapy; E66.9 Obesity, unspecified; Z68.34 Body mass index [BMI] 34.0-34.9, adult; I65.21 Occlusion and stenosis of right carotid artery; E78.00 Pure hypercholesterolemia, unspecified
CPT/HCPCS: 36415; 70496; 70498; 70551; 71045; 80048; 80061; 83880; 84484; 85025; 85610; 85730; 93005; 93306; 94762; 96372; 97162; 97166; 99221; 99285; 99406; Q9957; Q9967; A4216; C8929; G0378

== ENCOUNTER 2024-04-02 13:40 | Observation (INO) | payer MEDICAID, SELFPAY ==
[2024-04-02] VITALS (24 sets, daily range): BP systolic 84–127; BP diastolic 56–86; PULSE 48–84; RESP 14–55; TEMP 36.2–37; O2SAT 95–100; BMI 34.9; BMI 33.3
--- NOTE | 2024-04-02 14:16 | CT_ITS ---
STUDY: CT BRAIN WITHOUT CONTRAST REASON FOR EXAM: Male, 53 years old. Neuro deficit, acute, stroke suspected RADIATION DOSAGE (If Supplied By Facility): CTDIvol = ( 44.99 ) mGy, DLP = ( 762.36 ) mGycm TECHNIQUE: Transaxial CT imaging of the brain was performed without administration of intravenous contrast material. Individualized dose optimization techniques were used for this CT. COMPARISON: Comparison is made with prior study May 12, 2023. FINDINGS: Normal soft tissue structures. Normal calvarium. Normal size ventricles and extra-axial spaces for the patient''s age. There are areas of decreased attenuation within the white matter tracts of the supratentorial brain, consistent with microvascular disease changes. Normal basal ganglia and thalami. Normal brainstem. Normal cerebellum. There is no intracranial hemorrhage. There are no findings of an acute ischemic infarction. Partial opacification of the ethmoid sinuses bilaterally. Because of thickening of the right sphenoid sinus. CT/Brain/Head without Contrast IMPRESSION: Chronic involutional changes of the brain. Electronically Signed: Baltzaar Rees MD at 14:49 EDT ,
--- NOTE | 2024-04-02 14:16 | EKG12_ITS ---
Test Reason : CP Blood Pressure : / mmHG Vent. Rate : 051 BPM Atrial Rate : 051 BPM P-R Int : 156 ms QRS Dur : 090 ms QT Int : 428 ms P-R-T Axes : 041 026 018 degrees QTc Int : 394 ms Sinus bradycardia Low voltage QRS Borderline ECG Confirmed by DEE LINDSAY, GUILLERMINA ([id number]), editor managing director TASIA PETIT ([id number]) on 04/04/2024 9:59:10 AM Referred By: Confirmed By:CHEYANNE PRICE MD
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
[2024-04-02] MEDS: 0.9% Normal Saline (1000mL) 1,000 ML 100 ML IV (14:30)
[2024-04-02 14:31] LABS: Absolute Lymphocyte Count 2.82 X10^3/uL (0.83-4.51); Absolute Neutrophil Count 5.6 X10^3/uL (2.0-7.7); Basophil# 0.13 X10^3/uL; Basophil% 1.4 % (0-1); Eosinophil# 0.32 X10^3/uL; Eosinophils% 3.3 % (0-5); Hemoglobin 15.8 g/dL (13.0-16.5); Lymphocyte # 2.82 X10^3/ul (0.83-4.51); Lymphocyte % 29.3 % (19-41); Mean Corp Hgb Conc 34.3 g/dL (32-36); Mean Corpuscular Hgb 32.4 pg (27.0-32.0); Mean Corpuscular Volume 94.3 fL (80-94); Mean Platelet Vol. 9.5 fl (6.2-12.0); Monocyte# 0.75 X10^3/uL; Monocyte% 7.8 % (0-10); NRBC Flagged by Analyzer 0 % (0-5); Neutrophil # 5.56 X10^3/uL (2.7-7.7); Neutrophil % 57.9 % (47-70); Platelet Count 338 K/mm3 (150-450); RBC Distribution Width CV 12.7 % (11.6-14.6); RBC Distribution Width SD 44.4 fl (35.1-43.9); Red Blood Count 4.88 M/mm3 (4.6-6.2); White Blood Count 9.6 K/mm3 (4.4-11.0)
--- NOTE | 2024-04-02 14:35 | RAD_ITS ---
STUDY: X-RAY CHEST REASON FOR EXAM: Male, 53 years old. Neuro deficit, acute, stroke suspected TECHNIQUE: Single AP portable view of the chest. COMPARISON: Comparison is made with prior study of January 25, 2024. FINDINGS: EKG electrodes are seen. The lungs are clear and expanded. There is no demonstrated pleural abnormality. Normal size heart. Normal mediastinum and benton. Normal visualized pulmonary arteries. Normal visualized aortic arch and descending thoracic aorta. Normal visualized thoracic spine. Normal visualized ribs, clavicles, and shoulders. Small hiatal hernia. RAD/Chest 1 View IMPRESSION: No acute abnormality is seen. Electronically Signed: Baltazar Rees MD at 14:50 EDT ,
[2024-04-02 14:42] LABS: International Normalized Ratio 1.1; Partial Thromboplast Time 27.3 Seconds (24.1-36.2); Prothrombin Time (Protime)PT. 14.4 SECONDS (11.7-14.9)
[2024-04-02 14:57] LABS: Anion Gap 10 (5-15); BUN 16 mg/dL (7-18); BUN/Creat Ratio 14.3 RATIO (10-20); Calcium,Total 9.3 mg/dL (8.5-10.1); Chloride 107 mmol/L (98-107); Creatinine, Serum 1.12 mg/dL (0.70-1.30); EST Glomerular Filtration Rate 73 mL/min (>60); Est Glom Filt Rate - Afr Amer 88 mL/min (>60); Estimated Creatinine Clearance 86.46 ml/min; Glucose 120 mg/dL (74-106); Potassium 3.5 mmol/L (3.5-5.1); Sodium Level 138 mmol/L (136-145); Troponin-I HS 6 pg/mL (3.0-78.0)
--- NOTE | 2024-04-02 15:32 | ED.RN ---
I CALLED LAB ABOUT PROLONGED ETOH LAB READ TIME, SPOKE W/ FELIX. THEY ARE RUNNING IT NOW. THE TUBE WAS MISPLACED PER CABLE INSTALLER REPAIRER
[2024-04-02 15:43] LABS: Bacteria 0 SEEN /hpf (None Seen); Red Blood Cells-Urine 0 SEEN /hpf (0-5); Squamous Epithelial Cells - UA 0 SEEN /hpf (0-5)
[2024-04-02 15:46] LABS: Color, Urine Yellow (Yellow); Glucose, Dipstick Normal (Normal); Ketone-Dipstick 5 mg/dl (Negative); Leukocyte Esterase-Dipstick 25 /ul (Negative); Nitrite-Dipstick Negative (Negative); Occult Blood-Urine Negative /ul (Negative); Protein-Dipstick 30 mg/dl (Negative); Specific Gravity, Urine 1.015 (1.002-1.030); Urine Bilirubin Dipstick Negative (Negative); Urine Clarity Clear (Clear); Urine Urobilinogen Normal (Normal)
[2024-04-02 15:49] LABS: Alcohol, Blood (Medical)-Serum < 3.0 mg/dL
[2024-04-02 16:00] LABS: Mucous, Urine 1+ /hpf (<or=2+); White Blood Cells 0-5 SEEN /hpf (0-5)
[2024-04-02 16:50] LABS: Amphetamine Urine VISTA NEGATIVE (<1000 ng/mL); Barbiturate Urine VISTA NEGATIVE (< 200 ng/mL); Benzodiazepine Urine VISTA NEGATIVE (< 200 ng/mL); Cocaine Urine VISTA NEGATIVE (< 300 ng/mL); Ecstacy Urine VISTA NEGATIVE (< 500 ng/mL); Methadone Urine VISTA NEGATIVE (< 300 ng/mL); PCP Urine VISTA NEGATIVE (< 25 ng/mL); THC Urine VISTA NEGATIVE (< 50 ng/mL); Vista UDS pH Range 5
[2024-04-02] MEDS: Aspirin 325 MG Tablet PO (17:12)
--- NOTE | 2024-04-02 17:43 | CT_ITS ---
EXAM: CT ANGIOGRAPHY HEAD AND NECK WITH INTRAVENOUS CONTRAST CLINICAL INDICATION: L sided weakness TECHNIQUE: [place] [employer] [place]/head and neck CT angiography protocol performed with intravenous contrast. This CT exam was performed using one or more of the following dose reduction techniques: automated exposure control, adjustment of the mA and/or kV according to patient size, and/or use of iterative reconstruction technique. MIP reconstructed images were created and reviewed. CONTRAST: IV 100mL [id number] COMPARISON: No relevant prior studies available. FINDINGS: HEAD: RIGHT ANTERIOR CEREBRAL ARTERY: Unremarkable. No occlusion or significant stenosis. Anterior communicating artery is present. No aneurysm. RIGHT MIDDLE CEREBRAL ARTERY: Unremarkable. No occlusion or significant stenosis. No aneurysm. RIGHT POSTERIOR CEREBRAL ARTERY: Unremarkable. No occlusion or significant stenosis. No aneurysm. RIGHT INTRACRANIAL INTERNAL CAROTID ARTERY: Unremarkable. No significant stenosis. No dissection or occlusion. RIGHT INTRACRANIAL VERTEBRAL ARTERY: Unremarkable. No significant stenosis. No dissection or occlusion. LEFT ANTERIOR CEREBRAL ARTERY: Unremarkable. No occlusion or significant stenosis. No aneurysm. LEFT MIDDLE CEREBRAL ARTERY: Unremarkable. No occlusion or significant stenosis. No aneurysm. LEFT POSTERIOR CEREBRAL ARTERY: Unremarkable. No occlusion or significant stenosis. No aneurysm. LEFT INTRACRANIAL INTERNAL CAROTID ARTERY: Unremarkable. No significant stenosis. No dissection or occlusion. LEFT INTRACRANIAL VERTEBRAL ARTERY: Unremarkable. No significant stenosis. No dissection or occlusion. BASILAR ARTERY: Unremarkable. No occlusion or significant stenosis. No aneurysm. OTHER VASCULATURE: No vascular malformation. NECK: RIGHT COMMON CAROTID ARTERY: Unremarkable. No significant stenosis. No dissection or occlusion. RIGHT EXTRACRANIAL INTERNAL CAROTID ARTERY: Unremarkable. No significant stenosis. No dissection or occlusion. RIGHT EXTERNAL CAROTID ARTERY: Unremarkable. No occlusion. RIGHT EXTRACRANIAL VERTEBRAL ARTERY: Unremarkable. No significant stenosis. No dissection or occlusion. LEFT COMMON CAROTID ARTERY: Unremarkable. No significant stenosis. No dissection or occlusion. LEFT EXTRACRANIAL INTERNAL CAROTID ARTERY: Unremarkable. No significant stenosis. No dissection or occlusion. LEFT EXTERNAL CAROTID ARTERY: Unremarkable. No occlusion. LEFT EXTRACRANIAL VERTEBRAL ARTERY: Unremarkable. No significant stenosis. No dissection or occlusion. BRACHIOCEPHALIC AND SUBCLAVIAN ARTERIES: Unremarkable as visualized. No occlusion or significant stenosis. LUNG APICES: Unremarkable as visualized. HEAD and NECK: BONES/JOINTS: Unremarkable. No discrete lytic or blastic abnormalities. SOFT TISSUES: Unremarkable. CAROTID STENOSIS REFERENCE USING NASCET CRITERIA: % ICA stenosis = (1 - narrowest ICA diameter/diameter of distal cervical ICA) x 100. Mild - <50% stenosis. Moderate - 50-69% stenosis. Severe - 70-94% stenosis. Near occlusion - 95-99% stenosis. Occluded - 100% stenosis. CT/CTA Head AND Neck W/ Contrast IMPRESSION: Negative CTA carotid and CTA brain. Electronically Signed: Royal Clifford MD at 19:19 EDT ,
--- NOTE | 2024-04-02 17:52 | ECHOCS_ITS ---
Reason For Study: CVA/TIA Procedure This was a 2D Doppler, Color Flow transthoracic echocardiogram. Contrast injection was performed. Previous NEGATIVE Bubble study done (03/2023). Exam performed portable in patient room. Left Ventricle Normal LV size. The estimated ejection fraction is 65 %. No evidence for diastolic dysfunction. No regional wall motion abnormalities noted. Right Ventricle Normal RV size. Normal systolic function. Atria Normal left atrium. Normal right atrium. No doppler evidence for ASD. Mitral Valve There is no mitral valve stenosis. No mitral valve insufficiency. Tricuspid Valve There is no tricuspid stenosis. Trivial tricuspid valve insufficiency. Pulmonary artery systolic pressure is 25 mmHg. Aortic Valve Trisinus/trileaflet aortic valve. There is no aortic stenosis. No aortic valve insufficiency. Pulmonic Valve There is no pulmonic valvular stenosis. No pulmonic valve insufficiency. Great Vessels Normal aortic root. Pericardium/Pleural No pericardial effusion. Medication Diluted definity 2ml given slow IV push to enhance endocardial definition. MMode/2D Measurements & Calculations LVIDd: 5.0 cm IVSd: 1.4 cm Ao root diam: 3.0 cm LVIDs: 3.3 cm LVPWd: 0.90 cm LA dimension: 4.1 cm RVDd: 4.2 cm FS: 34.6 % LAV(MOD-bp): 64.5 ml LVAd ap4: 34.5 cm2 SV(MOD-sp4): 68.6 ml LAV(MOD-bp) Indexed: 31.1 ml/m2 LVLd ap4: 8.9 cm LAV(MOD-sp2): 61.0 ml EDV(MOD-sp4): 108.8 ml LAV(MOD-sp4): 57.9 ml EDV(sp4-el): 113.8 ml LVAs ap4: 18.6 cm2 LVLs ap4: 7.2 cm ESV(MOD-sp4): 40.1 ml ESV(sp4-el): 40.8 ml EF(MOD-sp4): 63.1 % EF(sp4-el): 64.1 % SV(sp4-el): 72.9 ml LA A4 area: 21.0 cm2 RA A4 area: 20.1 cm2 Time Measurements MV dec time: 0.25 sec Doppler Measurements & Calculations MV E max leonardo: 68.4 cm/sec Lat Peak E' Leonardo: 13.6 cm/sec Med Peak E' Leonardo: 10.8 cm/sec MV A max leonardo: 71.0 cm/sec E/E' lat: 5.0 E/E' med: 6.3 MV E/A: 0.96 MV V2 max: 92.6 cm/sec MV P1/2t max leonardo: 92.6 cm/sec Ao V2 max: 174.4 cm/sec MV max P.4 mmHg MV P1/2t: 97.9 msec Ao max P.2 mmHg MV V2 mean: 48.2 cm/sec Ao V2 mean: 115.9 cm/sec MV mean P.1 mmHg MV dec slope: 277.0 cm/sec2 Ao mean P.2 mmHg MV V2 VTI: 34.4 cm MVA(P1/2t): 2.2 cm2 Ao V2 VTI: 35.3 cm LV V1 max: 151.4 cm/sec PA V2 max: 118.4 cm/sec TR max leonardo: 287.6 cm/sec LV V1 max P.2 mmHg PA max PG (full): 3.0 mmHg TR max P.1 mmHg PA V2 mean: 73.2 cm/sec PA mean PG (full): 1.2 mmHg ECHO/Echo Complete W/ Contrast Interpretation Summary The estimated ejection fraction is 65 %. No evidence for diastolic dysfunction. Ordering Physician: Polina Santos Performed By: Lucian Foster RCS
--- NOTE | 2024-04-02 17:53 | HP.PCM.HOS_ITS ---
HPI - General General Date of Admission: 04/02/24 Date of Service: 04/02/24 Chief Complaint: Left arm paresthesias and weakness HPI Narrative PALOMO CRAWLEY, is a 53 M who presented to the emergency department at [facility] on 04/02/2024 with left-sided paresthesias and arm weakness in his left arm. He has a history of stroke and TIA remotely. 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 He indicated he had been feeling fine previously. He indicated he then became diaphoretic and nauseated and did not really recall much of the ride back. He stated he felt like he was in and out of consciousness. They stopped at a fire station on the way home and reported that his arm felt limp and numb for about 10 minutes. At the time of arrival his symptoms had resolved and his NIH was 0. He does have a history of tobacco abuse and currently still smoking however is cut back from 3 packs of cigarettes daily to about half a pack daily. He also has a history of methamphetamine abuse which she states he has not used in about a year and alcohol abuse which she is reported it has been at least a year or longer since he had a drink. He had a recent admission here for some dizziness and was evaluated with an echocardiogram however bubble study was not done at that time and an MRI which showed remote infarct but no acute event. By the time I evaluated emergency department he was completely back to baseline. He states he is compliant with his home medications. Vital signs on presentation showed temperature of 97.2, heart rate 52, blood pressure 119/80, pulse ox was 98% on room air. His CBC was completely unremarkable. His coags were normal. Chemistry panel was unremarkable other than a glucose of 120. We obtained a hemoglobin A1c and it was 5.4. Troponin was 6. He had recent lipid panel done on 01/26/2024 and showed a total cholesterol of 2 8/LDL 139/HDL 42 and triglyceride level of 137. He is on atorvastatin 80 daily for this. His UA was unremarkable. Toxicology screen was obtained and was negative for alcohol and any other substances. CT of the brain showed only chronic emotional changes. Chest x-ray was unremarkable. EKG was unremarkable and showed no acute findings. CTA of the head and neck was unremarkable. PFSH Medical History Extensor tendon rupture of hand CVA (cerebral vascular accident) Right leg weakness Right shoulder pain Weakness of right arm Numbness in right leg Poor compliance with medication Diplopia Acute ischemic stroke Polysubstance abuse Obesity Tobacco use HTN (hypertension) History of CVA (cerebrovascular accident) Home Medications ?Medication ?Instructions ?Recorded ?Last Taken ?Type aspirin 81 mg tablet,delayed 81 mg PO DAILY HEART HEALTH 01/25/24 04/02/24 History release atorvastatin 80 mg tablet 80 mg PO QHS CHOLESTEROL #30 tabs 01/26/24 04/02/24 Rx buspirone 5 mg tablet 5 mg PO TID 04/02/24 04/02/24 History lisinopril 20 mg tablet 20 mg PO DAILY 04/02/24 04/02/24 History Allergy/AdvReac Type Severity Reaction Status Date / Time erythromycin base Allergy Hives Verified 04/02/24 13:47 Family History Mother CVA (cerebral vascular accident) Hypertension Diabetes Father COVID-19 following COVID-19 illness. Surgical History S/P nasal surgery Social History household members: friend(s) Smoking Status: Current every day smoker tobacco type: cigarettes alcohol intake: former details: Sober x 5 years. substance use type: marijuana and amphetamines ROS Constitutional Constitutional: Reports other Details: Diaphoresis ; Denies anorexia, change in weight, chills, fatigue, fever(s), malaise, night sweats or weakness Eyes Eyes: Denies blurry vision, change in eye color, change in vision, discharge from eye(s), double vision, erythema, eye pain, loss of vision or other ENT HEENT: Denies abnormal hearing, dysphagia, ear pain, epistaxis, headache(s), hearing loss, nasal congestion, nasal discharge, post nasal drip, sinus pressure, sore throat or other Cardiovascular Cardiovascular: Denies chest pain, claudication, dyspnea on exertion, edema, lightheadedness, orthopnea, palpitations, paroxysmal nocturnal dyspnea, rapid heart rate, syncope or other Respiratory/Chest Respiratory/Chest: Denies cough, dyspnea, excessive phlegm production, hemoptysis, productive cough, shortness of breath at rest, shortness of breath with exertion, wheezing or other Gastrointestinal Gastrointestinal: Reports nausea; Denies abdominal pain, coffee ground emesis, constipation, diarrhea, dyspepsia, hematemesis, hematochezia, loose stools, melena, vomiting or other Genitourinary Genitourinary: Denies burning urination, difficulty urinating, dysuria, hematuria, nocturia, urinary frequency, urinary hesitancy, urinary incontinence, urinary urgency or other Musculoskeletal Musculoskeletal: Denies arthralgias, back pain, joint pain, joint stiffness, joint swelling, myalgias, neck pain or other Neurologic Neurologic: Reports focal weakness and paresthesias; Denies abnormal gait, abnormal speech, confusion, disequilibrium, dizziness, headache(s), numbness, seizure-like activity, seizures, syncope, tingling, tremor(s) or other Psychiatric Psychiatric: Reports anxiety; Denies depression, homicidal ideation, suicidal ideation or other Endocrine Endocrinology: Denies change in body appearance, cold intolerance, excessive sweating, heat intolerance, polydipsia, polyuria or other Hematologic/Lymphatic Hematologic/Lymphatic: Denies anemia, easy bleeding, easy bruising, lymphadenopathy or other Allergic/Immunologic Allergic/Immunologic: Denies rhinitis, hives, eczemia, asthma or other Vital Signs Vital Signs Vital Signs: 04/02/24 13:44 04/02/24 14:08 04/02/24 14:15 Temperature 97.2 F L Temperature Source Temporal Pulse Rate 52 L 56 L 64 Respiratory Rate 16 14 19 H Blood Pressure 119/80 84/56 L Blood Pressure Mean 93 65 Pulse Ox 98 96 97 Oxygen Delivery Method Room Air 04/02/24 14:16 04/02/24 14:30 04/02/24 14:45 Temperature Temperature Source Pulse Rate 55 L 60 Respiratory Rate 14 16 Blood Pressure 104/72 99/69 Blood Pressure Mean 83 79 Pulse Ox 99 98 Oxygen Delivery Method Room Air Room Air Room Air 04/02/24 14:45 04/02/24 14:47 04/02/24 15:00 Temperature Temperature Source Pulse Rate 64 53 L Respiratory Rate 19 H 16 Blood Pressure 99/69 109/75 Blood Pressure Mean 81 86 Pulse Ox 95 97 Oxygen Delivery Method Room Air 04/02/24 15:00 04/02/24 15:02 04/02/24 15:15 Temperature Temperature Source Pulse Rate 56 L 53 L 53 L Respiratory Rate 17 18 18 Blood Pressure 109/75 106/75 106/77 Blood Pressure Mean 87 85 86 Pulse Ox 99 97 96 Oxygen Delivery Method Room Air 04/02/24 15:30 04/02/24 15:30 04/02/24 15:36 Temperature Temperature Source Pulse Rate 52 L 72 Respiratory Rate 16 31 H Blood Pressure 101/70 100/66 Blood Pressure Mean 80 77 Pulse Ox 98 Oxygen Delivery Method Room Air 04/02/24 15:45 04/02/24 16:00 04/02/24 16:00 Temperature Temperature Source Pulse Rate 50 L 54 L Respiratory Rate 55 H 16 17 Blood Pressure 101/65 105/65 105/70 Blood Pressure Mean 76 78 81 Pulse Ox 98 98 98 Oxygen Delivery Method Room Air Room Air 04/02/24 16:30 04/02/24 17:00 04/02/24 17:00 Temperature 98.6 F Temperature Source Pulse Rate 57 L 54 L 84 Respiratory Rate 18 19 H 19 H Blood Pressure 96/57 L 117/72 117/72 Blood Pressure Mean 70 87 87 Pulse Ox 99 96 98 Oxygen Delivery Method Room Air Room Air Weight Weight: 101.2 kg Body Mass Index (BMI) 34.9 Physical Exam Const alert, oriented x3, no apparent distress and well nourished; Negative for average body habitus or healthy appearing Constitutional Narrative: Obese, middle-aged, white male, sitting up in bed in the emergency department, appears comfortable, nontoxic, does appear older than stated age General Appearance: cooperative HEENT normocephalic, head/scalp atraumatic, hearing grossly normal bilaterally and moist oral mucous membranes HEENT Narrative: Edentulous, Mallampati 2, no thrush Eyes PERRL, EOMs intact bilaterally and conjunctivae normal Eyes Narrative: No scleral icterus Neck no lymphadenopathy and supple Neck Narrative: Trachea midline, no thyroid enlargement Resp normal respiratory effort, no retractions, no use of accessory muscles and clear to auscultation bilaterally Resp Narrative: Diminished diffusely but clear Auscultation: Negative for rales, rhonchi or wheezes Cardio regular rate, regular rhythm, S1 normal heart sound, S2 normal heart sound, no murmurs, no rub, no gallops and no clicks GI normal to inspection, nondistended, normoactive bowel sounds, soft to palpation and non-tender Extremity no clubbing, cyanosis or edema Neuro oriented x3, CN's II-XII intact bilaterally, moves all extremities and no focal motor deficits Speech: speech normal Psych affect normal Psych Narrative: Pleasant, eye contact is good, patient interacts appropriately, slightly agitated due to nicotine Results Lab / Micro Data 04/02/24 13:45 04/02/24 13:45 Labs: Laboratory Results - last 24 hr 04/02/24 13:45: WBC 9.6, RBC 4.88, Hgb 15.8, Hct 46.0, MCV 94.3 H, MCH 32.4 H, MCHC 34.3, RDW Std Deviation 44.4 H, RDW Coeff of Shayy 12.7, Plt Count 338, MPV 9.5, Immature Gran % (Auto) 0.300, Neut % (Auto) 57.9, Lymph % (Auto) 29.3, [place] % (Auto) 7.8, Eos % (Auto) 3.3, Baso % (Auto) 1.4 H, Absolute Neuts (auto) 5.6, Absolute Lymphs (auto) 2.82, Nucleated RBC % 0, PT 14.4, INR 1.1, APTT 27.3, Sodium 138, Potassium 3.5, Chloride 107, Carbon Dioxide 21.0, Anion Gap 10, BUN 16, Creatinine 1.12, Estim Creat Clear Calc 86.46, Est GFR (MDRD) Af Amer 88, Est GFR (MDRD) Non-Af 73, BUN/Creatinine Ratio 14.3, Glucose 120 H, Calcium 9.3, Troponin I High Sens 6 04/02/24 15:20: Ethyl Alcohol < 3.0 04/02/24 15:29: Urine Color Yellow, Urine Clarity Clear, Urine pH 6.0, Ur Specific [place] 1.015, Urine Protein 30 H, Urine Glucose (UA) Normal, Urine Ketones 5 H, Urine Occult Blood Negative, Urine Nitrite Negative, Urine Bilirubin Negative, Urine Urobilinogen Normal, Ur Leukocyte Esterase 25 H, Urine RBC 0 SEEN, Urine WBC 0-5 SEEN, Ur Squamous Epith Cells 0 SEEN, Urine Bacteria 0 SEEN, Urine Mucus 1+, Urine Opiates Screen NEGATIVE, Urine Methadone Screen NEGATIVE, Ur Barbiturates Screen NEGATIVE, Ur Phencyclidine Scrn NEGATIVE, Ur Amphetamines Screen NEGATIVE, MDMA (Ecstasy) Screen NEGATIVE, U Benzodiazepines Scrn NEGATIVE, Urine Cocaine Screen NEGATIVE, U Cannabinoids Screen NEGATIVE, Ur Drug Screen Comment Imaging Radiology Impression Brain CT 04/02/24 14:16 IMPRESSION: Chronic involutional changes of the brain. Electronically Signed: Baltazar Rees MD at 14:49 EDT , Chest X-Ray 04/02/24 14:35 IMPRESSION: No acute abnormality is seen. Electronically Signed: Baltazar Rees MD at 14:50 EDT , Assessment & Plan Assessment/Plan (1) Arm paresthesia, left: (2) Left arm weakness: (3) Hyperglycemia: PLAN: Plan Linezolid for UTI Zyvox for -CT head unremarkable -CTA head and neck unremarkable -Check MRI -Premedication ordered with Ativan 30 minutes prior to procedure -Patient with recent lipids showing a total cholesterol 208/HDL 42/LDL 139/triglycerides 137 -Continue atorvastatin -Continue aspirin -Hold lisinopril and allow for some permissive hypertension with as needed medications available for blood pressure parameters based on stroke order set -Will check echocardiogram since no bubble study was noted on previous exam -NIH as per protocol with current NIH is 0 -Neurology consult pending Hyperglycemia -Patient without history of diabetes -A1c obtained and 5.4 History of stroke/TIA -Continue aspirin -Risk factor modification Essential hypertension -Hold home lisinopril and allow for permissive hypertension at this point -PRNs available -Restart lisinopril when appropriate Hyperlipidemia -Continue home atorvastatin Anxiety -Continue home buspirone Tobacco abuse -Patient has cut down but still is smoking about half a pack of cigarettes a day -Previously was using 3 packs of cigarettes daily -Nicotine patch available -Recommend cessation History of methamphetamine abuse/alcohol abuse -Patient has been sober from alcohol for 5 years and methamphetamines for at least 1 year -Toxicology and alcohol negative DVT prophylaxis -Subcu Lovenox daily CODE STATUS -Full code as verified at admission Charges/Coding Visit Charges Inpatient E&M: 18880 Init Hosp L2
[2024-04-02 20:09] LABS: Hemoglobin A1c 5.4 % (3.8-5.6)
[2024-04-02] MEDS: busPIRone 5 MG Tablet PO (22:21)
[2024-04-02] MEDS: Atorvastatin Calcium 80 MG Tablet PO (22:21)
[2024-04-03] VITALS (13 sets, daily range): BP systolic 96–133; BP diastolic 69–93; PULSE 48–64; RESP 14–18; TEMP 36.6–36.8; O2SAT 93–99; BMI 33.3
[2024-04-03 06:07] LABS: Absolute Lymphocyte Count 2.51 X10^3/uL (0.83-4.51); Absolute Neutrophil Count 4.2 X10^3/uL (2.0-7.7); Basophil% 1.3 % (0-1); Eosinophil# 0.36 X10^3/uL; Eosinophils% 4.6 % (0-5); Hematocrit 43.7 % (40-54); Hemoglobin 14.7 g/dL (13.0-16.5); Lymphocyte # 2.51 X10^3/ul (0.83-4.51); Lymphocyte % 31.7 % (19-41); Mean Corp Hgb Conc 33.6 g/dL (32-36); Mean Corpuscular Hgb 32.4 pg (27.0-32.0); Mean Corpuscular Volume 96.3 fL (80-94); Mean Platelet Vol. 9.2 fl (6.2-12.0); Monocyte# 0.77 X10^3/uL; Monocyte% 9.7 % (0-10); NRBC Flagged by Analyzer 0 % (0-5); Neutrophil # 4.15 X10^3/uL (2.7-7.7); Neutrophil % 52.4 % (47-70); Platelet Count 303 K/mm3 (150-450); RBC Distribution Width CV 12.8 % (11.6-14.6); RBC Distribution Width SD 45.3 fl (35.1-43.9); Red Blood Count 4.54 M/mm3 (4.6-6.2); White Blood Count 7.9 K/mm3 (4.4-11.0)
[2024-04-03 06:36] LABS: ALB/GLOB Ratio 1.1 RATIO (0.9-2.4); AST(SGOT) 10 U/L (15-37); Alanine Aminotransfer ALT/SGPT 23 U/L (16-61); Albumin, Serum 3.4 g/dL (3.2-5.0); Alkaline Phosphatase 44 U/L (45-117); Anion Gap 5 (5-15); BUN 13 mg/dL (7-18); BUN/Creat Ratio 13.6 RATIO (10-20); Calcium,Total 8.5 mg/dL (8.5-10.1); Chloride 110 mmol/L (98-107); Creatinine, Serum 0.95 mg/dL (0.70-1.30); EST Glomerular Filtration Rate 88 mL/min (>60); Est Glom Filt Rate - Afr Amer 106 mL/min (>60); Estimated Creatinine Clearance 99.59 ml/min; Glucose 102 mg/dL (74-106); Magnesium 1.9 mg/dL (1.6-2.6); Phosphorus 3.4 mg/dL (2.5-4.9); Potassium 3.8 mmol/L (3.5-5.1); Protein, Total 6.4 g/dL (6.4-8.2); Sodium Level 139 mmol/L (136-145)
[2024-04-03] MEDS: busPIRone 5 MG Tablet PO ×4 (06:51→21:23)
--- NOTE | 2024-04-03 07:30 | PN.HOSP_ITS ---
Reason for Visit Reason for Visit: Diagnoses Paresthesia of skin (04/02/24) Other symptoms and signs involving the musculoskeletal system (04/02/24) Hyperglycemia, unspecified (04/02/24) Subjective Subjective Said he was in a car and felt really hot and sweaty and diaphoretic. Loss consciousness and when he came to he was in the fire station and someone with sternal rubbing him stating that he could not open his eyes. He does not recall any, unilateral weakness. Objective Data Objective Data Vital Signs: Vital Signs Temp Pulse Resp BP Pulse Ox O2 Del Method 36.6 C 48 L 16 106/86 H 99 Room Air 04/03/24 06:00 04/03/24 06:00 04/03/24 06:00 04/03/24 06:00 04/03/24 06:00 04/03/24 06:00 Oxygen Delivery Method Room Air Weight: 96.6 kg Body Mass Index (BMI) 33.3 Intake & Output: Intake and Output for Last 24 Hours 04/01/24 04/02/24 04/03/24 23:59 23:59 23:59 Intake Total 800 / 1125 1650 / 1650 Balance 800 / 1125 1650 / 1650 Lab / Micro Data 04/03/24 05:36 04/03/24 05:36 Labs: Laboratory Results - last 24 hr 04/02/24 13:45: WBC 9.6, RBC 4.88, Hgb 15.8, Hct 46.0, MCV 94.3 H, MCH 32.4 H, MCHC 34.3, RDW Std Deviation 44.4 H, RDW Coeff of Shayy 12.7, Plt Count 338, MPV 9.5, Immature Gran % (Auto) 0.300, Neut % (Auto) 57.9, Lymph % (Auto) 29.3, [place] % (Auto) 7.8, Eos % (Auto) 3.3, Baso % (Auto) 1.4 H, Absolute Neuts (auto) 5.6, Absolute Lymphs (auto) 2.82, Nucleated RBC % 0, PT 14.4, INR 1.1, APTT 27.3, Sodium 138, Potassium 3.5, Chloride 107, Carbon Dioxide 21.0, Anion Gap 10, BUN 16, Creatinine 1.12, Estim Creat Clear Calc 86.46, Est GFR (MDRD) Af Amer 88, Est GFR (MDRD) Non-Af 73, BUN/Creatinine Ratio 14.3, Glucose 120 H, Hemoglobin A1c 5.4, Calcium 9.3, Troponin I High Sens 6 04/02/24 15:20: Ethyl Alcohol < 3.0 04/02/24 15:29: Urine Color Yellow, Urine Clarity Clear, Urine pH 6.0, Ur Specific [place] 1.015, Urine Protein 30 H, Urine Glucose (UA) Normal, Urine Ketones 5 H, Urine Occult Blood Negative, Urine Nitrite Negative, Urine Bilirubin Negative, Urine Urobilinogen Normal, Ur Leukocyte Esterase 25 H, Urine RBC 0 SEEN, Urine WBC 0-5 SEEN, Ur Squamous Epith Cells 0 SEEN, Urine Bacteria 0 SEEN, Urine Mucus 1+, Urine Opiates Screen NEGATIVE, Urine Methadone Screen NEGATIVE, Ur Barbiturates Screen NEGATIVE, Ur Phencyclidine Scrn NEGATIVE, Ur Amphetamines Screen NEGATIVE, MDMA (Ecstasy) Screen NEGATIVE, U Benzodiazepines Scrn NEGATIVE, Urine Cocaine Screen NEGATIVE, U Cannabinoids Screen NEGATIVE, Ur Drug Screen Comment 04/03/24 05:36: WBC 7.9, RBC 4.54 L, Hgb 14.7, Hct 43.7, MCV 96.3 H, MCH 32.4 H, MCHC 33.6, RDW Std Deviation 45.3 H, RDW Coeff of Shayy 12.8, Plt Count 303, MPV 9.2, Immature Gran % (Auto) 0.300, Neut % (Auto) 52.4, Lymph % (Auto) 31.7, [place] % (Auto) 9.7, Eos % (Auto) 4.6, Baso % (Auto) 1.3 H, Absolute Neuts (auto) 4.2, Absolute Lymphs (auto) 2.51, Nucleated RBC % 0, Sodium 139, Potassium 3.8, C hloride 110 H, Carbon Dioxide 24.0, Anion Gap 5, BUN 13, Creatinine 0.95, Estim Creat Clear Calc 99.59, Est GFR (MDRD) Af Amer 106, Est GFR (MDRD) Non-Af 88, BUN/Creatinine Ratio 13.6, Glucose 102, Calcium 8.5, Phosphorus 3.4, Magnesium 1.9, Total Bilirubin 0.60, AST 10 L, ALT 23, Alkaline Phosphatase 44 L, Total Protein 6.4, Albumin 3.4, Globulin 3.0, Albumin/Globulin Ratio 1.1 Radiography Diagnostic Testing: Radiology Impression Brain CT 04/02/24 14:16 IMPRESSION: Chronic involutional changes of the brain. Electronically Signed: Baltazar Rees MD at 14:49 EDT , Chest X-Ray 04/02/24 14:35 IMPRESSION: No acute abnormality is seen. Electronically Signed: Baltazar Rees MD at 14:50 EDT , Head/Neck CTA 04/02/24 17:43 IMPRESSION: Negative CTA carotid and CTA brain. Electronically Signed: Royal Clifford MD at 19:19 EDT , Physical Exam Const alert and no apparent distress HEENT head/scalp atraumatic and moist oral mucous membranes Resp normal respiratory effort, no retractions, no use of accessory muscles and clear to auscultation bilaterally Cardio regular rate, regular rhythm, S1 normal heart sound and S2 normal heart sound GI normal to inspection, nondistended, normoactive bowel sounds and soft to palpation Extremity normal to inspection Neuro Sensorium / Orientation: awake and alert Assessment & Plan Assessment/Plan (1) Arm paresthesia, left: (2) Left arm weakness: (3) Hyperglycemia: PLAN: Plan Syncope * It was noted the patient had some left-sided weakness but from the patient's description that he was confused with this. Is unclear as patient had no demonstratable weakness when he presented here but this was when he was at the fire station. Unclear if this is actually true left-sided weakness or if he was just so profoundly confused and unable to follow commands properly. * CT head unremarkable, CTA head and neck unremarkable. Check MRI brain (Premedication ordered with lorazepam). * Reviewed the patient's telemetry and showed that he had a SARS-CoV-2 is in regards to his QRSs last about 2.5 seconds. There were P waves noted. Is unclear if that was just compensatory or not. I have asked for cardiology to see and for their insight. Previous to that, patient was bradycardic but since then has been in the 70s. * Continue atorvastatin, Continue aspirin * Will check echocardiogram since no bubble study was noted on previous exam * Neurology consult pending Chronic conditions: * Essential hypertension: Hold home lisinopril and allow for permissive hypertension at this point. Restart lisinopril when appropriate * Hyperlipidemia. Continue home atorvastatin * Anxiety. Continue home buspirone * Tobacco abuse-Patient has cut down but still is smoking about half a pack of cigarettes a day-Previously was using 3 packs of cigarettes daily-Nicotine patch available-Recommend cessation * History of methamphetamine abuse/alcohol abuse-Patient has been sober from alcohol for 5 years and methamphetamines for at least 1 year-Toxicology and alcohol negative DVT prophylaxis-Subcu Lovenox daily Full Code. Charges/Coding Visit Charges Inpatient E&M: 55841 Subs Hosp L3
[2024-04-03] MEDS: Aspirin E.C. 81 MG Tablet PO (09:39)
[2024-04-03] MEDS: Enoxaparin 40 MG/0.4 ML Syringe SC (09:39)
[2024-04-03] MEDS: 0.9% Saline Lock 10 ML Syringe IV (09:41)
--- NOTE | 2024-04-03 11:00 | CASEMGMT ---
Social Work As per admitting RN, pt does not have LW/POA and declined further information at this time. MUKUND [place]
--- NOTE | 2024-04-03 12:15 | CON.PCM.NE_ITS ---
Assessment and Plan: Stroke Assessment/Plan PALOMO CRAWLEY is a 53 M with a history of stroke, HTN, HLD who presents for evaluation of tranesient weakness and paresthesias in the left upper extremity. Not a TNK or IR candidate. Likely had a TIA. Neurological examination shows nonfocal examination Neuroimaging shows normal CT, CTA. Plan 1. MRI Brain. If unable to tolerate can do repeat CT 2. Continue ASA, statin 3. Smoking cessation 4. 30 Day cardiac event monitor upon discharge 4. Aggressive control of stroke risk factors Thanks for the consultation. I spent 75 minutes in evaluation and management of this patient. HPI Consult Data Date of Consult: 04/03/24 HPI Narrative HPI Narrative: PALOMO CRAWLEY, is a 53 M who resented to the emergency department at [facility] on 04/02/2024 with left-sided paresthesias and arm weakness in his left arm. He has a history of prior ischemic stroke x 2 (03/2023 MRI DWI + cerebellar infarct, 04/2023 MRI DWI + right BG infarct) and TIA remotely. 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 He indicated he had been feeling fine previously. He indicated he then became diaphoretic and nauseated and did not really recall much of the ride back. He stated he felt like he was in and out of consciousness. They stopped at a fire station on the way home and reported that his arm felt limp and numb for about 10 minutes. At the time of arrival his symptoms had resolved and his NIH was 0. He does have a history of tobacco abuse and currently still smoking however is cut back from 3 packs of cigarettes daily to about half a pack daily. He also has a history of methamphetamine abuse which she states he has not used in about a year and alcohol abuse which she is reported it has been at least a year or longer since he had a drink. He had a recent admission here for some dizziness and was evaluated with an echocardiogram however bubble study was not done at that time and an MRI which showed remote infarct but no acute event. By the time I evaluated emergency department he was completely back to baseline. He states he is compliant with his home medications. hemoglobin A1c and it was 5.4. Recent lipid panel LDL 139 He is on atorvastatin [address] of the brain showed only chronic emotional changes. Chest x-ray was unremarkable. EKG was unremarkable and showed no acute findings. CTA of the head and neck was unremarkable. ECHO: EF 65% PFSH Medical History Extensor tendon rupture of hand CVA (cerebral vascular accident) Right leg weakness Right shoulder pain Weakness of right arm Numbness in right leg Poor compliance with medication Diplopia Acute ischemic stroke Polysubstance abuse Obesity Tobacco use HTN (hypertension) History of CVA (cerebrovascular accident) Home Medications ?Medication ?Instructions ?Recorded ?Last Taken ?Type aspirin 81 mg tablet,delayed 81 mg PO DAILY [facility] 01/25/24 04/02/24 History release atorvastatin 80 mg tablet 80 mg PO QHS CHOLESTEROL #30 tabs 01/26/24 04/02/24 Rx buspirone 5 mg tablet 5 mg PO TID 04/02/24 04/02/24 History lisinopril 20 mg tablet 20 mg PO DAILY 04/02/24 04/02/24 History Allergy/AdvReac Type Severity Reaction Status Date / Time erythromycin base Allergy Hives Verified 04/02/24 13:47 Family History Mother CVA (cerebral vascular accident) Hypertension Diabetes Father COVID-19 following COVID-19 illness. Surgical History S/P nasal surgery Social History household members: friend(s) Smoking Status: Current some day smoker tobacco type: cigarettes alcohol intake: former details: Sober x 5 years. substance use type: marijuana and amphetamines Vital Signs Vital Signs Vital Signs: 04/02/24 13:44 04/02/24 14:08 04/02/24 14:15 Temperature 97.2 F L Temperature Source Temporal Pulse Rate 52 L 56 L 64 Pulse Strength Respiratory Rate 16 14 19 H Blood Pressure 119/80 84/56 L Blood Pressure Mean 93 65 Blood Pressure Source Blood Pressure Position Blood Pressure Location Pulse Ox 98 96 97 Oxygen Delivery Method Room Air 04/02/24 14:16 04/02/24 14:30 04/02/24 14:45 Temperature Temperature Source Pulse Rate 55 L 60 Pulse Strength Respiratory Rate 14 16 Blood Pressure 104/72 99/69 Blood Pressure Mean 83 79 Blood Pressure Source Blood Pressure Position Blood Pressure Location Pulse Ox 99 98 Oxygen Delivery Method Room Air Room Air Room Air 04/02/24 14:45 04/02/24 14:47 04/02/24 15:00 Temperature Temperature Source Pulse Rate 64 53 L Pulse Strength Respiratory Rate 19 H 16 Blood Pressure 99/69 109/75 Blood Pressure Mean 81 86 Blood Pressure Source Blood Pressure Position Blood Pressure Location Pulse Ox 95 97 Oxygen Delivery Method Room Air 04/02/24 15:00 04/02/24 15:02 04/02/24 15:15 Temperature Temperature Source Pulse Rate 56 L 53 L 53 L Pulse Strength Respiratory Rate 17 18 18 Blood Pressure 109/75 106/75 106/77 Blood Pressure Mean 87 85 86 Blood Pressure Source Blood Pressure Position Blood Pressure Location Pulse Ox 99 97 96 Oxygen Delivery Method Room Air 04/02/24 15:30 04/02/24 15:30 04/02/24 15:36 Temperature Temperature Source Pulse Rate 52 L 72 Pulse Strength Respiratory Rate 16 31 H Blood Pressure 101/70 100/66 Blood Pressure Mean 80 77 Blood Pressure Source Blood Pressure Position Blood Pressure Location Pulse Ox 98 Oxygen Delivery Method Room Air 04/02/24 15:45 04/02/24 16:00 04/02/24 16:00 Temperature Temperature Source Pulse Rate 50 L 54 L Pulse Strength Respiratory Rate 55 H 16 17 Blood Pressure 101/65 105/65 105/70 Blood Pressure Mean 76 78 81 Blood Pressure Source Blood Pressure Position Blood Pressure Location Pulse Ox 98 98 98 Oxygen Delivery Method Room Air Room Air 04/02/24 16:30 04/02/24 17:00 04/02/24 17:00 Temperature 98.6 F Temperature Source Pulse Rate 57 L 54 L 84 Pulse Strength Respiratory Rate 18 19 H 19 H Blood Pressure 96/57 L 117/72 117/72 Blood Pressure Mean 70 87 87 Blood Pressure Source Blood Pressure Position Blood Pressure Location Pulse Ox 99 96 98 Oxygen Delivery Method Room Air Room Air 04/02/24 17:30 04/02/24 18:00 04/02/24 18:30 Temperature Temperature Source Pulse Rate 48 L 52 L 50 L Pulse Strength Respiratory Rate 16 16 16 Blood Pressure 117/76 110/70 127/81 H Blood Pressure Mean 89 83 96 Blood Pressure Source Blood Pressure Position Blood Pressure Location Pulse Ox 98 97 97 Oxygen Delivery Method Room Air Room Air Room Air 04/02/24 19:20 04/02/24 19:35 04/02/24 19:50 Temperature 98.1 F 98 F 98.1 F Temperature Source Oral Oral Oral Pulse Rate 48 L 54 L 49 L Pulse Strength Respiratory Rate 18 18 16 Blood Pressure 108/86 H 107/78 108/77 Blood Pressure Mean 93 87 87 Blood Pressure Source Monitor Monitor Monitor Blood Pressure Position Semi-Fowlers Semi-Fowlers Semi-Fowlers Blood Pressure Location Right Arm Right Arm Right Arm Pulse Ox 100 100 100 Oxygen Delivery Method Room Air Room Air Room Air 04/02/24 20:05 04/02/24 20:32 04/02/24 22:00 Temperature 97.9 F 97.9 F 97.9 F Temperature Source Oral Oral Oral Pulse Rate 56 L 55 L 55 L Pulse Strength Respiratory Rate 16 18 15 Blood Pressure 115/76 112/77 112/77 Blood Pressure Mean 89 88 88 Blood Pressure Source Monitor Monitor Monitor Blood Pressure Position Semi-Fowlers Semi-Fowlers Semi-Fowlers Blood Pressure Location Right Arm Right Arm Right Arm Pulse Ox 99 99 99 Oxygen Delivery Method Room Air Room Air Room Air 04/03/24 00:32 04/03/24 01:43 04/03/24 02:20 Temperature 98 F 98 F Temperature Source Oral Oral Pulse Rate 55 L 56 L 56 L Pulse Strength Respiratory Rate 16 14 Blood Pressure 96/69 102/69 Blood Pressure Mean 78 80 Blood Pressure Source Monitor Monitor Blood Pressure Position Semi-Fowlers Semi-Fowlers Blood Pressure Location Right Arm Right Arm Pulse Ox 99 99 Oxygen Delivery Method Room Air Room Air 04/03/24 04:00 04/03/24 06:00 04/03/24 08:00 Temperature 98 F 97.9 F 97.9 F Temperature Source Oral Oral Temporal Pulse Rate 53 L 48 L 56 L Pulse Strength Respiratory Rate 14 16 18 Blood Pressure 97/70 106/86 H 111/76 Blood Pressure Mean 79 92 87 Blood Pressure Source Monitor Monitor Monitor Blood Pressure Position Semi-Fowlers Semi-Fowlers Semi-Fowlers Blood Pressure Location Right Arm Right Arm Right Arm Pulse Ox 99 99 99 Oxygen Delivery Method Room Air Room Air Room Air 04/03/24 08:00 04/03/24 10:00 Temperature 97.9 F Temperature Source Temporal Pulse Rate 56 L Pulse Strength Normal (2+) Respiratory Rate 18 Blood Pressure 111/76 Blood Pressure Mean 87 Blood Pressure Source Monitor Blood Pressure Position Semi-Fowlers Blood Pressure Location Right Arm Pulse Ox 99 Oxygen Delivery Method Room Air Weight Weight: 96.6 kg Body Mass Index (BMI) 33.3 EEG Results Procedure Details EEG Procedure Details: PALOMO CRAWLEY is a 53 year old M with a past medical history of , who presents for evaluation of Electroencephalogram on DATE at TIME NIHSS NIHSS Nursing Documentation NIHSS Nursing Documentation: NIHSS: Ischemic Stroke/TIA Start: 04/02/24 19:20 Text: For ICU Patients: NIH sroke scale at Status: Active presentation and every 2 hours or with change in RN caregiver Freq: Q4H Protocol: Activity Type Activity Date Activity User E-sign Co-sign Detail Recorded Client Recorded Date Recorded By Document 04/03/24 08:00 BS desktop 04/03/24 11:00 BS 04/03/24 08:00 NIH Stroke Scale [NIHSS] A score of 0 is normal or asymptomatic . Total possible score is 42. Inpatient: RN or Physician to activate a stroke alert for onset of new stroke symptoms or with NIHSS increase >/= 3 points. Following change in neurological status, NIHSS will be performed per physician order or more frequently PRN. -1a. Level of Consciousness Alert; keenly responsive -1b. LOC Questions Answers BOTH questions correctly. -1c. LOC Commands Performs both tasks correctly . -2. Best Gaze Normal -3. Visual No visual loss -4. Facial Palsy Normal symmetrical movements -5a. Left Arm No drift; arm holds 90 (or 45 ) degrees for full 10 seconds -5b. Right Arm No drift; arm holds 90 (or 45 ) degrees for full 10 seconds -6a. Left Leg No drift; leg holds 30-degree position for full 5 seconds -6b. Right Leg No drift; leg holds 30-degree position for full 5 seconds -7. Limb Ataxia Absent -8. Sensory Normal; no sensory loss -9. Best Language No aphasia; normal -10. Dysarthria Normal -11. Extinction and Inattention No abnormality -Total 0 Query Text:A score of 0 is normal or asymptomatic. Total possible score is 42 . ED: Notify Physician for NIHSS increase by > / = 3 points. Inpatient: RN or Physician to activate a stroke alert for NIHSS increase of > / = 3 points. Coma Scale [Assess] -Eye Opening Spontaneous -Motor Obeys Commands -Verbal Oriented [Total] -Coma Scale Total 15 NIHSS: Ischemic Stroke/TIA Start: 04/02/24 19:20 Text: For PCU Patients: NIH and Neuro Check every 4 Status: Active hours, PRN and with change in RN caregiver. Freq: [id number] Protocol: Activity Type Activity Date Activity User E-sign Co-sign Detail Recorded Client Recorded Date Recorded By Document 04/03/24 06:00 GRV [id number] 04/03/24 06:40 GRV 04/03/24 06:00 NIH Stroke Scale [NIHSS] A score of 0 is normal or asymptomatic . Total possible score is 42. Inpatient: RN or Physician to activate a stroke alert for onset of new stroke symptoms or with NIHSS increase >/= 3 points. Following change in neurological status, NIHSS will be performed per physician order or more frequently PRN. -1a. Level of Consciousness Alert; keenly responsive -1b. LOC Questions Answers BOTH questions correctly. -1c. LOC Commands Performs both tasks correctly . -2. Best Gaze Normal -3. Visual No visual loss -4. Facial Palsy Normal symmetrical movements -5a. Left Arm No drift; arm holds 90 (or 45 ) degrees for full 10 seconds -5b. Right Arm No drift; arm holds 90 (or 45 ) degrees for full 10 seconds -6a. Left Leg No drift; leg holds 30-degree position for full 5 seconds -6b. Right Leg No drift; leg holds 30-degree position for full 5 seconds -7. Limb Ataxia Absent -8. Sensory Normal; no sensory loss -9. Best Language No aphasia; normal -10. Dysarthria Normal -11. Extinction and Inattention No abnormality -Total 0 Query Text:A score of 0 is normal or asymptomatic. Total possible score is 42 . ED: Notify Physician for NIHSS increase by > / = 3 points. Inpatient: RN or Physician to activate a stroke alert for NIHSS increase of > / = 3 points. Coma Scale [Assess] -Eye Opening Spontaneous -Motor Obeys Commands -Verbal Oriented [Total] -Coma Scale Total 15 NIHSS 1a. Level of Consciousness: Alert; keenly responsive 1b. LOC Questions: Answers BOTH questions correctly. 1c. LOC Commands: Performs both tasks correctly. 2. Best Gaze: Normal 3. Visual: No visual loss 4. Facial Palsy: Normal symmetrical movements 5a. Left Arm: No drift; arm holds 90 (or 45) degrees for full 10 seconds 5b. Right Arm: No drift; arm holds 90 (or 45) degrees for full 10 seconds 6a. Left Leg: No drift; leg holds 30-degree position for full 5 seconds 6b. Right Leg: No drift; leg holds 30-degree position for full 5 seconds 7. Limb Ataxia: Absent 8. Sensory: Normal; no sensory loss 9. Best Language: No aphasia; normal 10. Dysarthria: Normal 11. Extinction and Inattention: No abnormality Total: 0 Physical Exam HEENT Head and Scalp: atraumatic Eyes EOMs intact bilaterally Resp normal respiratory effort Neuro Neuro Narrative: Awake, alert, oriented X3 Cranial nerves: 2-12 intact Motor: Power 5/5 Sensory: intact No ataxia Lab / Micro Data 04/03/24 05:36 04/03/24 05:36 Labs: Laboratory Results - last 24 hr 04/02/24 13:45: WBC 9.6, RBC 4.88, Hgb 15.8, Hct 46.0, MCV 94.3 H, MCH 32.4 H, MCHC 34.3, RDW Std Deviation 44.4 H, RDW Coeff of Shayy 12.7, Plt Count 338, MPV 9.5, Immature Gran % (Auto) 0.300, Neut % (Auto) 57.9, Lymph % (Auto) 29.3, [place] % (Auto) 7.8, Eos % (Auto) 3.3, Baso % (Auto) 1.4 H, Absolute Neuts (auto) 5.6, Absolute Lymphs (auto) 2.82, Nucleated RBC % 0, PT 14.4, INR 1.1, APTT 27.3, Sodium 138, Potassium 3.5, Chloride 107, Carbon Dioxide 21.0, Anion Gap 10, BUN 16, Creatinine 1.12, Estim Creat Clear Calc 86.46, Est GFR (MDRD) Af Amer 88, Est GFR (MDRD) Non-Af 73, BUN/Creatinine Ratio 14.3, Glucose 120 H, Hemoglobin A1c 5.4, Calcium 9.3, Troponin I High Sens 6 04/02/24 15:20: Ethyl Alcohol < 3.0 07/15/24 15:29: Urine Color Yellow, Urine Clarity Clear, Urine pH 6.0, Ur Specific [place] 1.015, Urine Protein 30 H, Urine Glucose (UA) Normal, Urine Ketones 5 H, Urine Occult Blood Negative, Urine Nitrite Negative, Urine Bilirubin Negative, Urine Urobilinogen Normal, Ur Leukocyte Esterase 25 H, Urine RBC 0 SEEN, Urine WBC 0-5 SEEN, Ur Squamous Epith Cells 0 SEEN, Urine Bacteria 0 SEEN, Urine Mucus 1+, Urine Opiates Screen NEGATIVE, Urine Methadone Screen NEGATIVE, Ur Barbiturates Screen NEGATIVE, Ur Phencyclidine Scrn NEGATIVE, Ur Amphetamines Screen NEGATIVE, MDMA (Ecstasy) Screen NEGATIVE, U Benzodiazepines Scrn NEGATIVE, Urine Cocaine Screen NEGATIVE, U Cannabinoids Screen NEGATIVE, Ur Drug Screen Comment 04/03/24 05:36: WBC 7.9, RBC 4.54 L, Hgb 14.7, Hct 43.7, MCV 96.3 H, MCH 32.4 H, MCHC 33.6, RDW Std Deviation 45.3 H, RDW Coeff of Shayy 12.8, Plt Count 303, MPV 9.2, Immature Gran % (Auto) 0.300, Neut % (Auto) 52.4, Lymph % (Auto) 31.7, [place] % (Auto) 9.7, Eos % (Auto) 4.6, Baso % (Auto) 1.3 H, Absolute Neuts (auto) 4.2, Absolute Lymphs (auto) 2.51, Nucleated RBC % 0, Sodium 139, Potassium 3.8, C hloride 110 H, Carbon Dioxide 24.0, Anion Gap 5, BUN 13, Creatinine 0.95, Estim Creat Clear Calc 99.59, Est GFR (MDRD) Af Amer 106, Est GFR (MDRD) Non-Af 88, BUN/Creatinine Ratio 13.6, Glucose 102, Calcium 8.5, Phosphorus 3.4, Magnesium 1.9, Total Bilirubin 0.60, AST 10 L, ALT 23, Alkaline Phosphatase 44 L, Total Protein 6.4, Albumin 3.4, Globulin 3.0, Albumin/Globulin Ratio 1.1 Imaging Radiology Impression Brain CT 04/02/24 14:16 IMPRESSION: Chronic involutional changes of the brain. Electronically Signed: Baltazar Rees MD at 14:49 EDT , Chest X-Ray 04/02/24 14:35 IMPRESSION: No acute abnormality is seen. Electronically Signed: Baltazar Rees MD at 14:50 EDT , Head/Neck CTA 04/02/24 17:43 IMPRESSION: Negative CTA carotid and CTA brain. Electronically Signed: Royal Clifford MD at 19:19 EDT , Active Medications Active Medications Active Medications: Current Medications Generic Name Dose Route Start Last Admin Trade Name Freq PRN Reason Stop Dose Admin Acetaminophen 650 mg 04/02/24 19:20 Acetaminophen 325 Mg Tablet PO Q4H PRN PRN Pain 1-10 Or Fever>99.6 Albuterol Sulfate 2.5 mg 04/02/24 19:20 Albuterol 2.5 Mg/3 Ml Vial.Neb. INHALATION Q2H PRN PRN SOB &/OR WHEEZING Aspirin 81 mg 04/03/24 10:00 04/03/24 09:39 Aspirin E.C. 81 Mg Tablet PO 81 mg DAILY RAYA Administration Atorvastatin Calcium 80 mg 04/02/24 22:00 04/02/24 22:21 Atorvastatin Calcium 80 Mg Tablet PO 80 mg QHS RAYA Administration Buspirone HCl 5 mg 04/02/24 22:00 04/03/24 06:51 Buspirone 5 Mg Tablet PO 5 mg TID RAYA Administration Enoxaparin Sodium 40 mg 04/03/24 10:00 04/03/24 09:39 Enoxaparin 40 Mg/0.4 Ml Syringe SC 40 mg DAILY RAYA Administration Hydralazine HCl 5 mg 04/02/24 19:20 Hydralazine 20 Mg/Ml Vial IV 04/03/24 19:20 Q30M PRN maintain BP parameters with HR <60 Sodium Chloride 250 mls @ 15 mls/hr 04/02/24 20:25 IV .[id number] PRN Additional IVPB Infusion Sodium Chloride 250 mls @ 15 mls/hr 04/02/24 20:25 IV .[id number] PRN Saline Flush Lorazepam 0.5 mg 04/03/24 09:00 Lorazepam 0.5 Mg Tablet PO X1 PRN X1 PRN MRI Nicotine 21 mg 04/03/24 10:00 04/02/24 20:34 Nicotine 21 Mg Patch TD 21 mg DAILY RAYA Administration Ondansetron HCl 4 mg 04/02/24 19:20 Ondansetron 4 Mg/2 Ml Vial IV Q8H PRN PRN NAUSEA/VOMITING Senna/Docusate Sodium 2 tablet 04/02/24 19:20 Senna/Docusate Sodium 1 Tablet PO BID PRN PRN Constipation Sodium Chloride 10 - 40 ml 04/02/24 20:25 04/03/24 09:41 0.9% Saline Lock 10 Ml Syringe IV 20 ml UD PRN Administration SALINE FLUSH
--- NOTE | 2024-04-03 14:00 | MRI_ITS ---
STUDY: MRI BRAIN WITHOUT CONTRAST REASON FOR EXAM: Male, 53 years old. stroke TECHNIQUE: Standardized multiplanar fat and water weighted pulse sequences were obtained. COMPARISON: None. FINDINGS: There is mild cerebral atrophy with widening of the extra-axial spaces and ventricular dilatation. There are a limited number of small white matter hyperintensities, distributed throughout the deep white matter tracts of the cerebral hemispheres, consistent with mild chronic white matter ischemic changes. There is no evidence for recent intracranial ischemia or other cause of cytotoxic edema on diffusion weighted imaging (DWI). Normal T2* images of the brain without demonstrated susceptibility artifact. There is no demonstrated hemosiderin stain. Normal bilateral basal ganglia. Normal thalami. There is no extra-axial fluid accumulation. Normal flow voids within the major intracranial circulation suggesting patency by spin echo criteria. Normal sella turcica, pituitary gland, infundibular stalk, optic chiasm and hypothalamus. Normal tectal plate and pineal gland. Normal midbrain, jakob and medulla. Normal cerebellum. Normal basal cisterns. Normal bilateral temporal bones. Normal bilateral internal auditory canals. No demonstrated orbital abnormality, within the constraints of a routine brain study. There is mucoperiosteal inflammatory disease of the paranasal sinuses consistent with mild chronic sinusitis. Normal calvarium and skull base. Normal visualized soft tissue structures. Normal visualized upper cervical spine. MRI/Brain without Contrast IMPRESSION: Involutional changes of the brain, as described above. No acute infarct. Electronically Signed: Manuel Mueller MD at 16:20 EDT ,
[2024-04-03] MEDS: LORazepam 0.5 MG Tablet PO (14:07)
[2024-04-03] MEDS: Pantoprazole Sodium 40 MG Tablet PO (14:33)
--- NOTE | 2024-04-03 16:06 | PCM.CONS.C ---
Assessment & Plan Assessment/Plan (1) Near syncope: PLAN: Does not appear cardiac at this time going by patient's vitals when he was having symptoms and was in the fire department. He does give history of orthostatic hypotension. Possible that patient was volume depleted. (2) Atrial tachycardia: PLAN: Brief episode. At this point we are not able to start him on a beta-daisha due to resting sinus bradycardia. Discussed sleep study with the patient. Patient did not tolerate it in the past. Will monitor on telemetry. (3) Sinus bradycardia: PLAN: Will try to walk patient on the treadmill (regular stress test or submaximal stress test) to check for chronotropic incompetence. HPI Consult Data Date of Consult: 04/03/24 HPI Narrative Reason for Consultation: Sinus bradycardia, abnormal telemetry, near syncope HPI Narrative: PALOMO CRAWLEY, is a 53 M with history of TIAs, stroke who had gone out with his friend. When he tried to get out of the car after reaching the destination he felt profusely diaphoretic, lightheaded and weak. His friend helped him back into the car and drove to the nearest fire department. He was then brought to the emergency room. When he was evaluated in the fire department he was still having altered mental status, was pale and diaphoretic. His heart rate was in the high 40s to low 50s. His blood pressure was between 90-100 systolic. Patient was given IV fluids and started feeling better. He has not had any further near syncopal events while in the hospital. Telemetry revealed episodes of sinus bradycardia with a heart rate in the 40s and 1 episode of what appears to be about 6 beats of atrial tachycardia followed by conversion to sinus rhythm. At the time of conversion there were 3 atrial beats that were not followed by ventricular response. This happened at around 4:20 AM and patient was asymptomatic at that time. When I mentioned that he may need event monitoring, patient mentions that he has 3 monitors at home but does not know who ordered them for him and has not used them. Upon mentioning that someone can bring it here and we can teach him, patient states that there is no one at home who can bring the monitors to him at this time. Review of systems: All systems reviewed. All else is negative except that in [facility] Medical History Extensor tendon rupture of hand CVA (cerebral vascular accident) Right leg weakness Right shoulder pain Weakness of right arm Numbness in right leg Poor compliance with medication Diplopia Acute ischemic stroke Polysubstance abuse Obesity Tobacco use HTN (hypertension) History of CVA (cerebrovascular accident) Home Medications ?Medication ?Instructions ?Recorded ?Last Taken ?Type aspirin 81 mg tablet,delayed 81 mg PO DAILY [facility] 01/25/24 04/02/24 History release atorvastatin 80 mg tablet 80 mg PO QHS CHOLESTEROL #30 tabs 01/26/24 04/02/24 Rx buspirone 5 mg tablet 5 mg PO TID 04/02/24 04/02/24 History lisinopril 20 mg tablet 20 mg PO DAILY 04/02/24 04/02/24 History Allergy/AdvReac Type Severity Reaction Status Date / Time erythromycin base Allergy Hives Verified 04/02/24 13:47 Family History Mother CVA (cerebral vascular accident) Hypertension Diabetes Father COVID-19 following COVID-19 illness. Surgical History S/P nasal surgery Social History household members: friend(s) Smoking Status: Current every day smoker tobacco type: cigarettes alcohol intake: former details: Sober x 5 years. substance use type: marijuana and amphetamines Physical Exam Const alert and oriented x3 HEENT normocephalic Eyes no scleral icterus Resp normal respiratory effort Cardio regular rate Skin no rashes or lesions noted Psych mental status grossly normal Risk Stratification Risk Stratification Applicable: No Charges/Coding Visit Charges Inpatient E&M: 88673 Init Hosp L2 Objective Data Vital Signs: Vital Signs Temp Pulse Resp BP Pulse Ox O2 Del Method 97.8 F 54 L 18 112/70 99 Room Air 04/03/24 14:00 04/03/24 14:00 04/03/24 14:00 04/03/24 14:00 04/03/24 14:00 04/03/24 14:00 Oxygen Delivery Method Room Air Weight: 212 lb 15.465 oz Body Mass Index (BMI) 33.3 Intake & Output: Intake and Output for Last 24 Hours 04/01/24 04/02/24 04/03/24 23:59 23:59 23:59 Intake Total 800 / 1125 1650 / 1650 Balance 800 / 1125 1650 / 1650 Lab / Micro Data 04/03/24 05:36 04/03/24 05:36 Labs: Laboratory Results - last 24 hr 04/02/24 13:45: Hemoglobin A1c 5.4 04/02/24 15:29: Urine Opiates Screen NEGATIVE, Urine Methadone Screen NEGATIVE, Ur Barbiturates Screen NEGATIVE, Ur Phencyclidine Scrn NEGATIVE, Ur Amphetamines Screen NEGATIVE, MDMA (Ecstasy) Screen NEGATIVE, U Benzodiazepines Scrn NEGATIVE, Urine Cocaine Screen NEGATIVE, U Cannabinoids Screen NEGATIVE 04/03/24 05:36: WBC 7.9, RBC 4.54 L, Hgb 14.7, Hct 43.7, MCV 96.3 H, MCH 32.4 H, MCHC 33.6, RDW Std Deviation 45.3 H, RDW Coeff of Shayy 12.8, Plt Count 303, MPV 9.2, Immature Gran % (Auto) 0.300, Neut % (Auto) 52.4, Lymph % (Auto) 31.7, Chilton % (Auto) 9.7, Eos % (Auto) 4.6, Baso % (Auto) 1.3 H, Absolute Neuts (auto) 4.2, Absolute Lymphs (auto) 2.51, Nucleated RBC % 0, Sodium 139, Potassium 3.8, Chloride 110 H, Carbon Dioxide 24.0, Anion Gap 5, BUN 13, Creatinine 0.95, Estim Creat Clear Calc 99.59, Est GFR (MDRD) Af Amer 106, Est GFR (MDRD) Non-Af 88, BUN/Creatinine Ratio 13.6, Glucose 102, Calcium 8.5, Phosphorus 3.4, Magnesium 1.9, Total Bilirubin 0.60, AST 10 L, ALT 23, Alkaline Phosphatase 44 L, Total Protein 6.4, Albumin 3.4, Globulin 3.0, Albumin/Globulin Ratio 1.1 Cardiology Labs/Tests 04/02/24 13:45: Hemoglobin A1c 5.4 04/03/24 05:36: WBC 7.9, RBC 4.54 L, Hgb 14.7, Hct 43.7, MCV 96.3 H, MCH 32.4 H, MCHC 33.6, Plt Count 303, MPV 9.2, Immature Gran % (Auto) 0.300, Neut % (Auto) 52.4, Lymph % (Auto) 31.7, Chilton % (Auto) 9.7, Eos % (Auto) 4.6, Baso % (Auto) 1.3 H, Absolute Neuts (auto) 4.2, Nucleated RBC % 0, Sodium 139, Potassium 3.8, Chloride 110 H, Carbon Dioxide 24.0, Anion Gap 5, BUN 13, Creatinine 0.95, Est GFR (MDRD) Af Amer 106, Est GFR (MDRD) Non-Af 88, BUN/Creatinine Ratio 13.6, Glucose 102, Calcium 8.5, Phosphorus 3.4, Magnesium 1.9, Total Bilirubin 0.60 Rhythm: EKG: ECHO: Stress Test: Cardiac Cath: PCI: CT Surgery: Holter monitor: EPS: PPM: CXR: Chest CT Scan: Radiography Diagnostic Testing: Radiology Impression Head/Neck CTA 04/02/24 17:43 IMPRESSION: Negative CTA carotid and CTA brain. Electronically Signed: Royal Clifford MD at 19:19 EDT , Echocardiogram 04/02/24 17:52 Interpretation Summary The estimated ejection fraction is 65 %. No evidence for diastolic dysfunction. Ordering Physician: Polina Santos Performed By: Lucian Foster RCS
--- NOTE | 2024-04-03 17:15 | NURSING ---
This RN took over patient care at this time.
[2024-04-03] MEDS: Atorvastatin Calcium 80 MG Tablet PO (21:23)
[2024-04-04 02:36] VITALS: BMI 33.3
[2024-04-04 03:20] VITALS: BP 117/80; PULSE 51; RESP 14; TEMP 36.5; O2SAT 96
--- NOTE | 2024-04-04 05:55 | EKG12_ITS ---
Test Reason : AM EKG Blood Pressure : / mmHG Vent. Rate : 047 BPM Atrial Rate : 047 BPM P-R Int : 150 ms QRS Dur : 084 ms QT Int : 422 ms P-R-T Axes : 044 039 014 degrees QTc Int : 373 ms Sinus bradycardia Otherwise normal ECG When compared with ECG of 02-APR-2024 13:45, MANUAL COMPARISON REQUIRED, DATA IS UNCONFIRMED Confirmed by DEE LINDSAY, GUILLERMINA ([id number]), art editor STELLA SINGH ([id number]) on 04/05/2024 10:38:30 A M Referred By: Confirmed By:CHEYANNE PRICE MD
[2024-04-04 06:54] VITALS: O2SAT 95
[2024-04-04] MEDS: Pantoprazole Sodium 40 MG Tablet PO (10:31)
[2024-04-04] MEDS: Aspirin E.C. 81 MG Tablet PO (10:31)
[2024-04-04 10:40] VITALS: BP 128/76; PULSE 50; RESP 16; TEMP 36.7; O2SAT 100
--- NOTE | 2024-04-04 12:12 | CASEMGMT ---
SW did not complete a PHQ 9 as per physician patient did not have a Stroke or TIA. Manju POTTER
--- NOTE | 2024-04-04 12:19 | STROKE.CONS ---
Assessment and Plan: Stroke Assessment/Plan PALOMO CRAWLEY is a 53 M with a history of stroke, HTN, HLD who presents for evaluation of tranesient weakness and paresthesias in the left upper extremity. Not a TNK or IR candidate. Likely had a TIA like symptoms from syncope Neurological examination shows nonfocal examination Neuroimaging shows normal CT, CTA, MRI. Plan 1.. Continue ASA, statin 2. Smoking cessation 3. 30 Day cardiac event monitor upon discharge 4. Aggressive control of stroke risk factors 5. Management of bradycardia and hypotension per cardiology Thanks for the consultation. I spent 35 minutes in evaluation and management of this patient. HPI Consult Data Date of Consult: 04/04/24 HPI Narrative HPI Narrative: PALOMO CRAWLEY, is a 53 M who presents to the emergency department at [facility] on 04/02/2024 with left-sided paresthesias and arm weakness in his left arm. He has a history of prior ischemic stroke x 2 (03/2023 MRI DWI + cerebellar infarct, 04/2023 MRI DWI + right BG infarct) and TIA remotely. 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 He indicated he had been feeling fine previously. He indicated he then became diaphoretic and nauseated and did not really recall much of the ride back. He stated he felt like he was in and out of consciousness. They stopped at a fire station on the way home and reported that his arm felt limp and numb for about 10 minutes. At the time of arrival his symptoms had resolved and his NIH was 0. He does have a history of tobacco abuse and currently still smoking however is cut back from 3 packs of cigarettes daily to about half a pack daily. He also has a history of methamphetamine abuse which she states he has not used in about a year and alcohol abuse which she is reported it has been at least a year or longer since he had a drink. He had a recent admission here for some dizziness and was evaluated with an echocardiogram however bubble study was not done at that time and an MRI which showed remote infarct but no acute event. By the time I evaluated emergency department he was completely back to baseline. He states he is compliant with his home medications. hemoglobin A1c and it was 5.4. Recent lipid panel LDL 139 He is on atorvastatin [address] of the brain showed only chronic emotional changes. Chest x-ray was unremarkable. EKG was unremarkable and showed no acute findings. CTA of the head and neck was unremarkable. ECHO: EF 65% MRI brain negative [facility] Medical History Extensor tendon rupture of hand CVA (cerebral vascular accident) Right leg weakness Right shoulder pain Weakness of right arm Numbness in right leg Poor compliance with medication Diplopia Acute ischemic stroke Polysubstance abuse Obesity Tobacco use HTN (hypertension) History of CVA (cerebrovascular accident) Home Medications ?Medication ?Instructions ?Recorded ?Last Taken ?Type aspirin 81 mg tablet,delayed 81 mg PO DAILY [facility] 01/25/24 04/02/24 History release atorvastatin 80 mg tablet 80 mg PO QHS CHOLESTEROL #30 tabs 01/26/24 04/02/24 Rx buspirone 5 mg tablet 5 mg PO TID 04/02/24 04/02/24 History lisinopril 20 mg tablet 20 mg PO DAILY 04/02/24 04/02/24 History Allergy/AdvReac Type Severity Reaction Status Date / Time erythromycin base Allergy Hives Verified 04/02/24 13:47 Family History Mother CVA (cerebral vascular accident) Hypertension Diabetes Father COVID-19 following COVID-19 illness. Surgical History S/P nasal surgery Social History household members: friend(s) Smoking Status: Current every day smoker tobacco type: cigarettes alcohol intake: former details: Sober x 5 years. substance use type: marijuana and amphetamines Vital Signs Vital Signs Vital Signs: 04/03/24 14:00 04/03/24 16:00 04/03/24 18:10 Temperature 97.8 F 97.8 F 98.2 F Temperature Source Temporal Temporal Oral Pulse Rate 54 L 64 60 Pulse Strength Respiratory Rate 18 18 18 Respiratory Effort Respiratory Depth Respiratory Pattern Blood Pressure 112/70 112/76 126/81 H Blood Pressure Mean 84 88 96 Blood Pressure Source Monitor Monitor Monitor Blood Pressure Position Semi-Fowlers Semi-Fowlers Semi-Fowlers Blood Pressure Location Right Arm Right Arm Right Arm Pulse Ox 99 96 97 Oxygen Delivery Method Room Air Room Air Room Air 04/03/24 20:09 04/03/24 21:21 04/03/24 22:00 Temperature 98.2 F Temperature Source Temporal Pulse Rate 54 L Pulse Strength Normal (2+) Respiratory Rate 16 Respiratory Effort Respiratory Depth Respiratory Pattern Blood Pressure 133/93 H Blood Pressure Mean 106 Blood Pressure Source Monitor Blood Pressure Position Semi-Fowlers Blood Pressure Location Right Arm Pulse Ox 97 98 Oxygen Delivery Method Room Air Room Air 04/03/24 22:00 04/04/24 03:20 04/04/24 09:00 Temperature 97.7 F L Temperature Source Temporal Pulse Rate 51 L Pulse Strength Respiratory Rate 14 Respiratory Effort Normal Non-Labored Normal Non-Labored Respiratory Depth Normal Normal Respiratory Pattern Normal Normal Blood Pressure 117/80 Blood Pressure Mean 92 Blood Pressure Source Monitor Blood Pressure Position Semi-Fowlers Blood Pressure Location Right Arm Pulse Ox 96 Oxygen Delivery Method Room Air Room Air Room Air 04/04/24 10:40 Temperature 98.1 F Temperature Source Temporal Pulse Rate 50 L Pulse Strength Respiratory Rate 16 Respiratory Effort Respiratory Depth Respiratory Pattern Blood Pressure 128/76 H Blood Pressure Mean 93 Blood Pressure Source Monitor Blood Pressure Position Semi-Fowlers Blood Pressure Location Right Forearm Pulse Ox 100 Oxygen Delivery Method Room Air Weight Weight: 96.6 kg Body Mass Index (BMI) 33.3 EEG Results Procedure Details EEG Procedure Details: PALOMO CRAWLEY is a 53 year old M with a past medical history of , who presents for evaluation of Electroencephalogram on DATE at TIME NIHSS NIHSS Nursing Documentation NIHSS Nursing Documentation: NIHSS: Ischemic Stroke/TIA Start: 04/02/24 19:20 Text: For ICU Patients: NIH sroke scale at Status: Complete presentation and every 2 hours or with change in RN caregiver Freq: Q4H Protocol: Activity Type Activity Date Activity User E-sign Co-sign Detail Recorded Client Recorded Date Recorded By Document 04/03/24 16:00 BS desktop 04/03/24 19:52 BS 04/03/24 16:00 NIH Stroke Scale [NIHSS] A score of 0 is normal or asymptomatic . Total possible score is 42. Inpatient: RN or Physician to activate a stroke alert for onset of new stroke symptoms or with NIHSS increase >/= 3 points. Following change in neurological status, NIHSS will be performed per physician order or more frequently PRN. -1a. Level of Consciousness Alert; keenly responsive -1b. LOC Questions Answers BOTH questions correctly. -1c. LOC Commands Performs both tasks correctly . -2. Best Gaze Normal -3. Visual No visual loss -4. Facial Palsy Normal symmetrical movements -5a. Left Arm No drift; arm holds 90 (or 45 ) degrees for full 10 seconds -5b. Right Arm No drift; arm holds 90 (or 45 ) degrees for full 10 seconds -6a. Left Leg No drift; leg holds 30-degree position for full 5 seconds -6b. Right Leg No drift; leg holds 30-degree position for full 5 seconds -7. Limb Ataxia Absent -8. Sensory Normal; no sensory loss -9. Best Language No aphasia; normal -10. Dysarthria Normal -11. Extinction and Inattention No abnormality -Total 0 Query Text:A score of 0 is normal or asymptomatic. Total possible score is 42 . ED: Notify Physician for NIHSS increase by > / = 3 points. Inpatient: RN or Physician to activate a stroke alert for NIHSS increase of > / = 3 points. Coma Scale [Assess] -Eye Opening Spontaneous -Motor Obeys Commands -Verbal Oriented [Total] -Coma Scale Total 15 NIHSS: Ischemic Stroke/TIA Start: 04/02/24 19:20 Text: For PCU Patients: NIH and Neuro Check every 4 Status: Complete hours, PRN and with change in RN caregiver. Freq: [id number] Protocol: Activity Type Activity Date Activity User E-sign Co-sign Detail Recorded Client Recorded Date Recorded By Document 04/03/24 06:00 GRV [id number] 04/03/24 06:40 GRV 04/03/24 06:00 NIH Stroke Scale [NIHSS] A score of 0 is normal or asymptomatic . Total possible score is 42. Inpatient: RN or Physician to activate a stroke alert for onset of new stroke symptoms or with NIHSS increase >/= 3 points. Following change in neurological status, NIHSS will be performed per physician order or more frequently PRN. -1a. Level of Consciousness Alert; keenly responsive -1b. LOC Questions Answers BOTH questions correctly. -1c. LOC Commands Performs both tasks correctly . -2. Best Gaze Normal -3. Visual No visual loss -4. Facial Palsy Normal symmetrical movements -5a. Left Arm No drift; arm holds 90 (or 45 ) degrees for full 10 seconds -5b. Right Arm No drift; arm holds 90 (or 45 ) degrees for full 10 seconds -6a. Left Leg No drift; leg holds 30-degree position for full 5 seconds -6b. Right Leg No drift; leg holds 30-degree position for full 5 seconds -7. Limb Ataxia Absent -8. Sensory Normal; no sensory loss -9. Best Language No aphasia; normal -10. Dysarthria Normal -11. Extinction and Inattention No abnormality -Total 0 Query Text:A score of 0 is normal or asymptomatic. Total possible score is 42 . ED: Notify Physician for NIHSS increase by > / = 3 points. Inpatient: RN or Physician to activate a stroke alert for NIHSS increase of > / = 3 points. Coma Scale [Assess] -Eye Opening Spontaneous -Motor Obeys Commands -Verbal Oriented [Total] -Coma Scale Total 15 NIHSS 1a. Level of Consciousness: Alert; keenly responsive 1b. LOC Questions: Answers BOTH questions correctly. 1c. LOC Commands: Performs both tasks correctly. 2. Best Gaze: Normal 3. Visual: No visual loss 4. Facial Palsy: Normal symmetrical movements 5a. Left Arm: No drift; arm holds 90 (or 45) degrees for full 10 seconds 5b. Right Arm: No drift; arm holds 90 (or 45) degrees for full 10 seconds 6a. Left Leg: No drift; leg holds 30-degree position for full 5 seconds 6b. Right Leg: No drift; leg holds 30-degree position for full 5 seconds 7. Limb Ataxia: Absent 8. Sensory: Normal; no sensory loss 9. Best Language: No aphasia; normal 10. Dysarthria: Normal 11. Extinction and Inattention: No abnormality Total: 0 Lab / Micro Data 04/03/24 05:36 04/03/24 05:36 Imaging Radiology Impression Echocardiogram 04/02/24 17:52 Interpretation Summary The estimated ejection fraction is 65 %. No evidence for diastolic dysfunction. Ordering Physician: Polina Santos Performed By: Lucian Foster RCS Brain MRI 04/03/24 14:00 IMPRESSION: Involutional changes of the brain, as described above. No acute infarct. Electronically Signed: Manuel Mueller MD at 16:20 EDT , Active Medications Active Medications Active Medications: Current Medications Generic Name Dose Route Start Last Admin Trade Name Freq PRN Reason Stop Dose Admin Acetaminophen 650 mg 04/02/24 19:20 Acetaminophen 325 Mg Tablet PO Q4H PRN PRN Pain 1-10 Or Fever>99.6 Albuterol Sulfate 2.5 mg 04/02/24 19:20 Albuterol 2.5 Mg/3 Ml Vial.Neb. INHALATION Q2H PRN PRN SOB &/OR WHEEZING Aspirin 81 mg 04/03/24 10:00 04/04/24 10:31 Aspirin E.C. 81 Mg Tablet PO 81 mg DAILY RAYA Administration Atorvastatin Calcium 80 mg 04/02/24 22:00 04/03/24 21:23 Atorvastatin Calcium 80 Mg Tablet PO 80 mg QHS RAYA Administration Buspirone HCl 5 mg 04/02/24 22:00 04/03/24 21:23 Buspirone 5 Mg Tablet PO 5 mg TID RAYA Administration Enoxaparin Sodium 40 mg 04/03/24 10:00 04/03/24 09:39 Enoxaparin 40 Mg/0.4 Ml Syringe SC 40 mg DAILY RAYA Administration Sodium Chloride 250 mls @ 15 mls/hr 04/02/24 20:25 IV .[id number] PRN Additional IVPB Infusion Sodium Chloride 250 mls @ 15 mls/hr 04/02/24 20:25 IV .[id number] PRN Saline Flush Lorazepam 0.5 mg 04/03/24 09:00 04/03/24 14:07 Lorazepam 0.5 Mg Tablet PO 0.5 mg X1 PRN Administration X1 PRN MRI Nicotine 21 mg 04/03/24 10:00 04/04/24 10:31 Nicotine 21 Mg Patch TD 21 mg DAILY RAYA Administration Ondansetron HCl 4 mg 04/02/24 19:20 Ondansetron 4 Mg/2 Ml Vial IV Q8H PRN PRN NAUSEA/VOMITING Pantoprazole Sodium 40 mg 04/03/24 14:10 04/04/24 10:31 Pantoprazole Sodium 40 Mg Tablet PO 40 mg DAILY RAYA Administration Senna/Docusate Sodium 2 tablet 04/02/24 19:20 Senna/Docusate Sodium 1 Tablet PO BID PRN PRN Constipation Sodium Chloride 10 - 40 ml 04/02/24 20:25 04/03/24 09:41 0.9% Saline Lock 10 Ml Syringe IV 20 ml UD PRN Administration SALINE FLUSH
[2024-04-04 14:00] VITALS: BMI 33.3
[2024-04-04] MEDS: Enoxaparin 40 MG/0.4 ML Syringe SC (14:01)
[2024-04-04] MEDS: busPIRone 5 MG Tablet PO ×2 (14:02→21:06)
[2024-04-04 14:31] VITALS: BMI 33.3
--- NOTE | 2024-04-04 14:43 | STRESSREP ---
Stress Test Report Date: 04/04/2024 Procedure: Exercise tolerance test Indications: To assess chronotropic incompetence Consent: Per the patient Procedure: The patient exercised on a Scot protocol for 48 seconds achieving a peak heart rate of 71 bpm (42% predicted maximal heart rate) with a peak blood pressure 130/72 mmHg and a peak MET capacity of approximately 3.8 MET's. The baseline ECG demonstrated sinus bradycardia. The peak exercise ECG demonstrated normal sinus rhythm. [There were no cardiac dysrhythmias pretest, during exercise, or recovery]. The functional capacity was considered significantly decreased. The patient had no complaint of chest discomfort during exercise or recovery. The examination was discontinued secondary to dizziness. Treadmill exercise test was stopped after 48 seconds as patient felt dizzy and felt like he was about to pass out. His heart rate had gone up to 71 bpm. Due to dizziness the test was stopped and patient was moved to his bed. His blood pressure immediately after the test was 74/50 and it came up to 118/80 after a few minutes. Patient had orthostatic drop in blood pressure. His blood pressure in the lying position was 118/80, heart rate was 54, sitting blood pressure was 104/70 with a heart rate of 56 and standing blood pressure was 92/58 with a heart rate of 54. Impression: 1. Test was stopped after 48 seconds as patient became dizzy with drop in blood pressure. His heart rate went from 50 bpm to 71 bpm at peak exercise 2. Patient had orthostatic drop in blood pressure as described above. This note was generated with [employer] software. It may contain incorrect words, spelling, and punctuation that were not noted in checking the note before signing.
--- NOTE | 2024-04-04 15:36 | NURSING ---
therapy came to [facility] after working with pt and concerned over pt comments of possible suicide ideation. discharge planner bethany and miguel wilhelm in to talk with pt further to see if needs suicide precautions and or crisis eval.
[2024-04-04 16:00] VITALS: BP 128/79; PULSE 53; RESP 19; TEMP 36.3; O2SAT 97
[2024-04-04] MEDS: 0.9% Normal Saline (1000mL) 1,000 ML 100 ML IV ×2 (16:00→23:30)
--- NOTE | 2024-04-04 16:07 | CASEMGMT ---
SYRUP MIXER HELPER notified SW that patient expressed that he wants to . SW is familiar with patient from previous visits. SW met with patient. Introduced self and role at [facility]. Patient was lying in the hospital bed with blinds closed so room was dark. SW explained to patient that SW was informed he expressed he wants to . Patient's response was, Doesn't everyone have those thoughts sometimes? SALVADOR then told patient SW was going to ask him some questions and patient was okay with this. SW completed the [place]-Suicide Severity Rating Scale with patient. Patient did answer yes to wishing you were and that he has had thoughts of killing himself. Patient then answered no to thinking about how he would do it, he denied having thoughts and that he had intention on acting on them, and he has never started to work out or worked out details of how he would kill himself. Patient denied ever doing anything, started anything, or prepared to do anything to end his life. Patient continued to express frustration with his life. Patient repeatedly said no one ever helps him. Patient is convinced that no one cares about anyone else. Patient resides in a house with several other people. Patient does not pay rent as he has no income so his landlord expects him to do things to pay for his stay. Per patient he cleans the whole house, buys the food, and cooks all of the meals. Patient feels he is doing way more than what he should be doing and that is why he ended up in the hospital. Patient does not feel appreciated for what he does at the home. Patient is convinced that what is going on with him medically is not natural it is from other people's lack of help and causing him stress. 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 Patient has a semi that he is trying to sell. Several people have offered to help him sell the semi, but no one has done anything. Patient has applied for disability with some company un [place]. Patient said he has not been able to talk with anyone from the company. Patient said there was a lady from [employer] for [place] [employer] that tried to help him contact the agency. Patient is frustrated that he has no income and cannot get his disability to go through. Patient was seeing a counselor at [facility], but he did not feel this was helpful. Patient said he does not believe in medication helping with mental health. Patient also stated he does not know if talking about the issues actually helps him or makes him more agitated. Patient does admit he has an anger problem, but it is only because of what other people do to him. Patient said he is just in a bad mood. He was upset because he couldn't eat for so long and he didn't get his medication. SW asked patient if SW can do anything for him right now to help him relax. Patient told SW no. SW did tell patient if he would like to talk again he is welcome to ask for SW. Patient again said he doesn't know if it helps to talk or if it makes him more upset. At this time SW does not feel patient needs a sitter. SW will check back in with patient tomorrow as he is not being discharged today. SALVADOR updated foam charger and physician. Manju Blunt MSW TARIQ
--- NOTE | 2024-04-04 16:35 | PCM.PN.CARD ---
Subjective Subjective Patient is stable. He had an exercise stress test today to evaluate for chronotropic incompetence. Please see the results of the stress test for details. He walked only for 48 seconds and became dizzy. His blood pressure dropped to the 70s systolic. After his blood pressure returned to baseline orthostatic blood pressure measurements were performed and patient had orthostatic drop in systolic blood pressure. His heart rate remained in the 50s. During the stress test his heart rate went up to 71 bpm. Patient states that in the prior admission his lisinopril was held as he was having dizziness and low blood pressure. His blood pressure apparently then went up significantly. Currently his lisinopril is on hold. Objective Data Vital Signs: Vital Signs Temp Pulse Resp BP Pulse Ox O2 Del Method 98.1 F 50 L 16 128/76 H 100 Room Air 04/04/24 10:40 04/04/24 10:40 04/04/24 10:40 04/04/24 10:40 04/04/24 10:40 04/04/24 14:00 Oxygen Delivery Method Room Air Weight: 212 lb 15.465 oz Body Mass Index (BMI) 33.3 Intake & Output: Intake and Output for Last 24 Hours 04/02/24 04/03/24 04/04/24 23:59 23:59 23:59 Intake Total 800 / 1125 2790 / 3050 680 / 680 Balance 800 / 1125 2790 / 3050 680 / 680 Lab / Micro Data 04/03/24 05:36 04/03/24 05:36 Cardiology Labs/Tests Rhythm: EKG: ECHO: Stress Test: Cardiac Cath: PCI: CT Surgery: Holter monitor: EPS: PPM: CXR: Chest CT Scan: Physical Exam Const alert and oriented x3 HEENT normocephalic Eyes no scleral icterus Resp normal respiratory effort Cardio regular rate Assessment & Plan Assessment/Plan (1) Near syncope: PLAN: Patient has orthostatic hypotension. Recommend continuing to hold lisinopril. Check orthostatic vitals again tomorrow. If patient continues to have orthostatic hypotension then we may have to start him on midodrine at a low dose. If patient does not have orthostatic hypotension tomorrow and if his blood pressure goes up over 160 mmHg systolic then we can consider starting him on low-dose amlodipine to see if he responds better to this than the lisinopril. (2) Sinus bradycardia: (3) Atrial tachycardia: Charges/Coding Visit Charges Inpatient E&M: 68597 Subs Hosp L2
--- NOTE | 2024-04-04 16:52 | PCM.PN.HOSP ---
Subjective Subjective Had a stress test today however it had to be stopped in less than a minute due to dizziness. He was found to be orthostatic. He also endorsed some feelings of worthlessness so he was evaluated by social work for possible crisis Objective Data Objective Data Vital Signs: Vital Signs Temp Pulse Resp BP Pulse Ox O2 Del Method 98.1 F 50 L 16 128/76 H 100 Room Air 04/04/24 10:40 04/04/24 10:40 04/04/24 10:40 04/04/24 10:40 04/04/24 10:40 04/04/24 14:00 Oxygen Delivery Method Room Air Weight: 212 lb 15.465 oz Body Mass Index (BMI) 33.3 Intake & Output: Intake and Output for Last 24 Hours 04/03/24 04/04/24 04/05/24 03:59 03:59 03:59 Intake Total 2124 1725 / 1725 420 / 420 Balance 2124 1725 / 1725 420 / 420 Lab / Micro Data 04/03/24 05:36 04/03/24 05:36 Physical Exam Narrative General: Alert, Oriented x3, Cooperative, No apparent distress HEENT: Atraumatic, PERRLA, EOMI, Normocephalic Oral: Moist Mucosa Neck: Supple, No JVD Lungs: Diminished, Normal air movement, No rhonchi, No wheeze, No rales Cardiovascular: Regular rate, Regular Rhythm, Normal S1, Normal S2, No murmurs Abdomen: Soft, Non Tender, Non-Distended, No Hepato-splenomegaly Extremities: No edema, Capillary Refill Less than 3 Seconds Skin: No rashes, No breakdown Musculoskeletal: No Tenderness to Palpation of Joints or Extremities Neurological: No focal neurological deficits, Motor Exam 5/5 strength throughout, Sensory exam intact to light touch and pain Psych/Mental Status: Normal Affect, Appropriate Assessment & Plan Assessment/Plan (1) Arm paresthesia, left: (2) Left arm weakness: (3) Hyperglycemia: PLAN: Plan 1. Syncope with orthostatic hypotension ? Initially thought to possibly be due to CVA however MRI was unremarkable ? He did have abnormal telemetry was post to have a stress test today however he only walked for about 48 seconds before having dizziness and was found to be orthostatic ? Will start him on IV fluids as he states that he does not drink water and when this all happened he was working outside in staying hydrated or eating very well ? Appreciate cardiology's assistance will recheck orthostatic vital signs in the morning 2. Essential HTN/HLD ? Continue to hold his home lisinopril given his hypotension ? Continue with Lipitor and aspirin ? Echo with an EF of 65% and no diastolic dysfunction ? Will monitor make adjustments as necessary 3. Anxiety/depression ? He was endorsing feelings of hopelessness and worthlessness today no suicidal ideation but he made passive statements that it would be okay if he were to the psychosocial rehabilitation counselor ? Discussed with social work about the possible need for crisis though he is not a self-harm risk at the moment ? Continue with Nancy would benefit from outpatient mental health though he has significant financial concerns as he states that his disability has not gone through yet going on 9 months DVT: Lovenox Charges/Coding Visit Charges Inpatient E&M: 58846 Subs Hosp L2
[2024-04-04 21:00] VITALS: BP 108/77; PULSE 54; RESP 18; TEMP 36.6; O2SAT 98
[2024-04-04] MEDS: diazePAM 2 MG Tablet PO (21:06)
[2024-04-04] MEDS: Atorvastatin Calcium 80 MG Tablet PO (21:06)
[2024-04-05] MEDS: busPIRone 5 MG Tablet PO ×2 (04:51→13:15)
[2024-04-05 05:00] VITALS: BP 113/86; BP 117/72; BP 125/68; PULSE 45; PULSE 46; PULSE 50; PULSE 54; RESP 18; TEMP 37; O2SAT 99
[2024-04-05 07:32] LABS: Anion Gap 5 (5-15); BUN 10 mg/dL (7-18); BUN/Creat Ratio 9.5 RATIO (10-20); Calcium,Total 8.7 mg/dL (8.5-10.1); Chloride 109 mmol/L (98-107); Creatinine, Serum 1.05 mg/dL (0.70-1.30); EST Glomerular Filtration Rate 78 mL/min (>60); Est Glom Filt Rate - Afr Amer 95 mL/min (>60); Estimated Creatinine Clearance 90.11 ml/min; Glucose 104 mg/dL (74-106); Sodium Level 141 mmol/L (136-145)
[2024-04-05 09:42] VITALS: BP 133/79; PULSE 53; RESP 18; TEMP 36.4; O2SAT 100
[2024-04-05] MEDS: Morphine 2 MG/ML Syringe IV (09:44)
[2024-04-05] MEDS: Enoxaparin 40 MG/0.4 ML Syringe SC (09:45)
[2024-04-05] MEDS: Pantoprazole Sodium 40 MG Tablet PO (09:46)
[2024-04-05] MEDS: Aspirin E.C. 81 MG Tablet PO (09:46)
[2024-04-05] MEDS: 0.9% Normal Saline (1000mL) 1,000 ML 100 ML IV (09:46)
--- NOTE | 2024-04-05 10:09 | CASEMGMT ---
SW called crisis at [facility] and they would be able to do a well check on patient since he does not have a working phone. SW met with patient. Patient's blind was again closed so room was dark. Patient seemed a little more positive today, but still frustrated and feeling trapped in his situation. Patient apologized for yesterday stating he was in a bad mood. SW reassured patient he does not need to apologize. SW approached him and asked how he was doing so he was just letting SW know how he was doing. Patient is aware he is being discharged today. SW asked patient if he would like SW to try and get a hold of someone in [place] regarding his disability. Patient was accepting of SW's help. Patient stated the name of the agency is, [employer]. Patient did sign a release of information for Social Work. SW also asked patient if he would be open to SW having someone from the crisis team at [facility] come out to his home and check on him. Patient was agreeable to this also. SW had patient sign a release for [facility]. SALVADOR called [facility] and left a voice mail for team 4 at extension [phone]. SW spoke with patient letting him know this information. SW asked patient if he would be open to someone from [facility] coming and talking with him while he is in the hospital. Patient was okay with this. SW notified physician, RN, and supercharger repair supervisor. SW also called crisis and made the referral as well as faxed information. Patient stated he will need a ride home. SALVADOR can check with [facility] van depending on d/c time and patient's insurance. Manju POTTER
--- NOTE | 2024-04-05 11:48 | CASEMGMT ---
Jillian from crisis is at [facility] to talk with patient. Manju Blunt PATIENT TRANSPORTER MANUAL MACHINIST
--- NOTE | 2024-04-05 13:18 | PCM.DC ---
Discharge Instructions Diet Discharge Diet: Low fat / Low cholesterol Activity Discharge Activity: Return to Normal Activity Dressing / Incision Call your doctor if you observe: Fever of 101 or Higher, Shortness of breath, Dizziness, Fainting spells, Swelling in the ankles, Chest pain and Increased palpitations (irregular heartbeat) Follow Up Care Test Results: Test results from this visit will be discussed in further detail at your follow-up appointment, if applicable. Discharge Plan Admission Admit Date/Time: 04/02/24 17:45 Attending Provider: Jose Frances Primary Care Provider: Scottie Yusuf Consulting Providers: Wander Jamil; Nathanael Wilson; Kimberly Kauffman; Andria Zarate; Kimberlee Cox; Moshe Bragg; Olivia Palmer; Froy Penaloza; Nasir Webb; Yeison Kearns; Hyun Schmitz; Adis Duffy; Petrona Tillmna; Irene See; Genevieve Bajwa; Markus Polanco; Radha Lugo; Ayo Deluca; Amy Santos; Aj Tran; Polina Santos; Burak Landers; Kristian Burnham Discharge Orders/Prescriptions Prescriptions: Continued buspirone 5 mg tablet 5 mg PO TID aspirin 81 mg tablet,delayed release (DR/EC) 81 mg PO DAILY atorvastatin 80 mg Tablet 80 mg PO QHS Qty: 30 0RF Held lisinopril 20 mg tablet 20 mg PO DAILY Hold Instructions: Resume on 04/08/24. Referrals / Follow Up: Scottie Yusuf MD [Primary Care Provider] - Within 1 Week Disposition Disposition (needs filled in before D/C Order can be placed): Home, Self Care
--- NOTE | 2024-04-05 13:55 | CASEMGMT ---
SALVADOR called [facility] hospital van and they had no availability today. SALVADOR called patient's insurance and arranged for patient to get picked up at 230 at main entrance. SALVADOR notified ELECTRIC LOCOMOTIVE CRANE OPERATOR and foam charger. RN was unavailable. Jillian from crisis completed a safety plan with patient and she will also go see patient at his home next week. This was passed along to the physician, RN, and foam charger. Manju Blunt SOCIOLOGY TEACHER TARIQ
[2024-04-05 14:00] VITALS: BP 107/76; PULSE 56; RESP 18; TEMP 36.7; O2SAT 99
--- NOTE | 2024-04-05 14:19 | PHA.DC.MR.R ---
Pharmacy [place] Med Reconciliation Pharmacy Service has performed discharge medication reconciliation for this patient. No new medications at time of discharge. Medications reviewed are from previously reported home medications. The patient's discharge medication list was reviewed for discrepancies and discrepancies were resolved. Medications at Discharge Home Medications aspirin 81 mg tablet,delayed release 81 mg PO DAILY HEART HEALTH 01/25/24 atorvastatin 80 mg tablet 80 mg PO QHS CHOLESTEROL #30 tabs 01/26/24 buspirone 5 mg tablet 5 mg PO TID anxiety 04/02/24 lisinopril 20 mg tablet 20 mg PO DAILY blood pressure 04/02/24
--- NOTE | 2024-04-05 15:04 | DS.PCM_ITS ---
Providers Date of Admission: 04/02/24 Primary Care Physician: Dr. Scottie Yusuf MD Consultations 04/02/24 19:20 Consult: Tele-Neurology Routine Consulting Provider: [facility] Reason for Consult: Acute Ischemic Stroke/TIA EMERGENT Consult: No Notified: Yes Date Notified: 04/02/24 Time Notified: 17:47 Method of Notification: Answering Service Nursing Unit Staff Notify [facility] of Tele-Neurology Consult: Yes 04/03/24 10:15 Consult: Cardiology Routine Consulting Provider: Burak Landers Reason for Consult: sinus bradycardia, pause, syncope. EMERGENT Consult: No Notified: Yes Date Notified: 04/03/24 Time Notified: 10:15 Method of Notification: Verbal Reason For Visit: L UE WEAKNESS, PARASTHESIAS Diagnosis Discharge Diagnosis (1) Arm paresthesia, left: Status: Acute Code(s): R20.2 - Paresthesia of skin (2) Left arm weakness: Status: Acute Code(s): R29.898 - Other symptoms and signs involving the musculoskeletal system (3) Hyperglycemia: Status: Acute Code(s): R73.9 - Hyperglycemia, unspecified Medications at Discharge Home Medications aspirin 81 mg tablet,delayed release 81 mg PO DAILY HEART HEALTH 01/25/24 atorvastatin 80 mg tablet 80 mg PO QHS CHOLESTEROL #30 tabs 01/26/24 buspirone 5 mg tablet 5 mg PO TID anxiety 04/02/24 lisinopril 20 mg tablet 20 mg PO DAILY blood pressure 04/02/24 Hospital Course Operations None Procedures 2-D Echocardiogram (The estimated ejection fraction is 65 %. No evidence for diastolic dysfunction.) and Stress test (Terminated early for orthostatic hypotension) Summary of Care Provided Minutes Spent on Discharge: 37 Hospital Course: Per HPI: PALOMO CRAWLEY, is a 53 M who presented to the emergency department at [facility] on 04/02/2024 with left-sided paresthesias and arm weakness in his left arm. He has a history of stroke and TIA remotely. 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 He indicated he had been feeling fine previously. He indicated he then became diaphoretic and nauseated and did not really recall much of the ride back. He stated he felt like he was in and out of consciousness. They stopped at a fire station on the way home and reported that his arm felt limp and numb for about 10 minutes. At the time of arrival his symptoms had resolved and his NIH was 0. He does have a history of tobacco abuse and currently still smoking however is cut back from 3 packs of cigarettes daily to about half a pack daily. He also has a history of methamphetamine abuse which she states he has not used in about a year and alcohol abuse which she is reported it has been at least a year or longer since he had a drink. He had a recent admission here for some dizziness and was evaluated with an echocardiogram however bubble study was not done at that time and an MRI which showed remote infarct but no acute event. By the time I evaluated emergency department he was completely back to baseline. He states he is compliant with his home medications. Vital signs on presentation showed temperature of 97.2, heart rate 52, blood pressure 119/80, pulse ox was 98% on room air. His CBC was completely unremarkable. His coags were normal. Chemistry panel was unremarkable other than a glucose of 120. We obtained a hemoglobin A1c and it was 5.4. Troponin was 6. He had recent lipid panel done on 01/26/2024 and showed a total cholesterol of 2 8/LDL 139/HDL 42 and triglyceride level of 137. He is on atorvastatin 80 daily for this. His UA was unremarkable. Toxicology screen was obtained and was negative for alcohol and any other substances. CT of the brain showed only chronic emotional changes. Chest x-ray was unremarkable. EKG was unremarkable and showed no acute findings. CTA of the head and neck was unremarkable. Hospital Course: 1. Syncope with orthostatic hypotension ? Initially thought to possibly be due to CVA however MRI was unremarkable ? He did have abnormal telemetry was post to have a stress test today however he only walked for about 48 seconds before having dizziness and was found to be orthostatic ? Will start him on IV fluids as he states that he does not drink water and when this all happened he was working outside in staying hydrated or eating very well ? Appreciate cardiology's assistance will recheck orthostatic vital signs in the morning ? He is feeling much better today and without any dizziness after IV fluids. Orthostatic vital signs were negative this morning I discussed with him the plan for discharge today he feels understanding of the risk benefits of going home and would like to go home today. Will hold his lisinopril for couple of days until he can get his p.o. intake back on track. 2. Essential HTN/HLD ? Continue to hold his home lisinopril given his hypotension ? Continue with Lipitor and aspirin ? Echo with an EF of 65% and no diastolic dysfunction ? Will monitor make adjustments as necessary 3. Anxiety/depression ? He was endorsing feelings of hopelessness and worthlessness today no suicidal ideation but he made passive statements that it would be okay if he were to the marriage and family social worker ? Discussed with social work about the possible need for crisis though he is not a self-harm risk at the moment ? Continue with Nancy would benefit from outpatient mental health though he has significant financial concerns as he states that his disability has not gone through yet going on 9 months ? He was evaluated by crisis and they will follow-up with him as an outpatient for his mental health Physical Exam Narrative General: Alert, Oriented x3, Cooperative, No apparent distress HEENT: Atraumatic, PERRLA, EOMI, Normocephalic Oral: Moist Mucosa Neck: Supple, No JVD Lungs: Diminished, Normal air movement, No rhonchi, No wheeze, No rales Cardiovascular: Regular rate, Regular Rhythm, Normal S1, Normal S2, No murmurs Abdomen: Soft, Non Tender, Non-Distended, No Hepato-splenomegaly Extremities: No edema, Capillary Refill Less than 3 Seconds Skin: No rashes, No breakdown Musculoskeletal: No Tenderness to Palpation of Joints or Extremities Neurological: No focal neurological deficits, Motor Exam 5/5 strength throughout, Sensory exam intact to light touch and pain Psych/Mental Status: Normal Affect, Appropriate Weight / BMI Weight Weight: 212 lb 15.465 oz Body Mass Index (BMI) 33.3 ABG / Lab / Microbiology Data 04/03/24 05:36 04/05/24 06:41 Laboratory: Laboratory Results - last 24 hr 04/05/24 06:41: Sodium 141, Potassium 4.0, Chloride 109 H, Carbon Dioxide 27.0, Anion Gap 5, BUN 10, Creatinine 1.05, Estim Creat Clear Calc 90.11, Est GFR (MDRD) Af Amer 95, Est GFR (MDRD) Non-Af 78, BUN/Creatinine Ratio 9.5 L, Glucose 104, Calcium 8.7 D/C Instructions Discharge Diet: Low fat / Low cholesterol Call your doctor if you observe: Fever of 101 or Higher, Shortness of breath, Dizziness, Fainting spells, Swelling in the ankles, Chest pain and Increased palpitations (irregular heartbeat) Meaningful Use Info Meaningful Use Meaningful Use Diagnoses (Choose all that apply): None applicable Ischemic Stroke Statin Dosing Therapy Reference: STATIN DOSE THERAPY REFERENCE: * Patients > 75 years receive moderate or high dose statin therapy. * Patients 75 years or YOUNGER should receive HIGH intensity statin dose unless contraindicated. You will be required to document reason for non-treatment if statin daily dose does not meet guidelines. HIGH DOSE STATIN THERAPY DAILY Atorvastatin > than or = to 40 mg Rosuvastatin > than or = to 20 mg Amlodipine + Atorvastatin > than or = to 2.5/40 mg Ezetimibe + Simvastatin 10/80 mg Simvastatin 80mg Discharge Plan Admission Admit Date/Time: 04/02/24 17:45 Attending Provider: Jose Frances Primary Care Provider: Scottie Yusuf Consulting Providers: Wander Jamil; Nathanael Wilson; Kimberly Kauffman; Andria Zaraet; Kimberlee Cox; Moshe Bragg; Olivia Palmre; Froy Penaloza; Nasir Webb; Yeison Kearns; Hyun Schmitz; Adis Duffy; Petrona Tillman; Irene See; Genevieve Bajwa; Markus Polanco; Radha Lugo; Ayo Deluca; Amy Santos; Aj Tran; Polina Santos; Burak Landers; Kristian Burnham Discharge Orders/Prescriptions Prescriptions: Continued buspirone 5 mg tablet 5 mg PO TID aspirin 81 mg tablet,delayed release (DR/EC) 81 mg PO DAILY atorvastatin 80 mg Tablet 80 mg PO QHS Qty: 30 0RF Held lisinopril 20 mg tablet 20 mg PO DAILY Hold Instructions: Resume on 04/08/24. Referrals / Follow Up: Scottie Yusuf MD [Primary Care Provider] - Within 1 Week Disposition Disposition (needs filled in before D/C Order can be placed): Home, Self Care Charges/Coding Visit Charges Inpatient E&M: 35884 Disch Hosp >30min
== END 2024-04-05 14:21 | disposition home or self-care (01) ==
LOC: ED 14:58 → PCU 04-03 06:52
PROVIDERS: Admitting Provider Internal Medicine; Emergency Provider Student in an Organized Health Care Education/Training Program; PCP Family Medicine; Visit Provider Family Medicine
DX: I95.1 Orthostatic hypotension (principal); Z79.82 Long term (current) use of aspirin; R29.898 Other symptoms and signs involving the musculoskeletal system; R00.1 Bradycardia, unspecified; F41.9 Anxiety disorder, unspecified; Z86.73 Personal history of transient ischemic attack (TIA), and cerebral infarction without residual deficits; R73.9 Hyperglycemia, unspecified; R11.0 Nausea; I10 Essential (primary) hypertension; F17.210 Nicotine dependence, cigarettes, uncomplicated; R20.2 Paresthesia of skin; E78.5 Hyperlipidemia, unspecified; Z79.899 Other long term (current) drug therapy; R06.02 Shortness of breath; F32.A Depression, unspecified
CPT/HCPCS: 36415; 70450; 70496; 70498; 70551; 71045; 80048; 80053; 80307; 81001; 82077; 83036; 83735; 84100; 84484; 85025; 85610; 85730; 93005; 93017; 93306; 94668; 94762; 96361; 96372; 96374; 97110; 97162; 97166; 97530; 97802; 99221; 99285; 99406; J7030; Q9957; Q9967; A4216; C8929; G0378

== ENCOUNTER 2024-06-10 09:06 | Observation (INO) | payer MEDICAID, SELFPAY ==
[2024-06-10] VITALS (13 sets, daily range): BP systolic 108–141; BP diastolic 61–81; PULSE 47–60; RESP 15–18; TEMP 36.3–36.8; O2SAT 96–99; BMI 33.5; BMI 34.2
--- NOTE | 2024-06-10 09:26 | CT_ITS ---
STUDY: CT BRAIN WITHOUT CONTRAST REASON FOR EXAM: Male, 53 years old. Neuro deficit, acute, stroke suspected RADIATION DOSAGE (If Supplied By Facility): CTDIvol = ( ) mGy, DLP = ( ) mGycm TECHNIQUE: Transaxial CT imaging of the brain was performed without administration of intravenous contrast material. Individualized dose optimization techniques were used for this CT. COMPARISON: MRI brain from 04/03/2024. CT from 04/02/2024 FINDINGS: Normal soft tissue structures. Normal calvarium. Normal size ventricles and extra-axial spaces for the patient''s age. There are areas of decreased attenuation within the white matter tracts of the supratentorial brain, consistent with microvascular disease changes. Normal basal ganglia and thalami. Normal brainstem. Normal cerebellum. There is no intracranial hemorrhage. There are no findings of an acute ischemic infarction. Normal visualized paranasal sinuses. ASPECTS Score for Acute Strokes: 10 CT/STROKE Brain/Head without Cont IMPRESSION: Chronic involutional changes of the brain. No acute hemorrhage or significant interval change N.B. : The above Results were Read Back by Tanvir Harris MD to Josiah Chow MD, and understanding confirmed on 06/10/2024 09:40:09 (ET). Electronically Signed: Tanvir Harris MD at 9:41 EDT ,
--- NOTE | 2024-06-10 09:26 | EKG12_ITS ---
Test Reason : WEAKNESS Blood Pressure : / mmHG Vent. Rate : 048 BPM Atrial Rate : 048 BPM P-R Int : 160 ms QRS Dur : 086 ms QT Int : 414 ms P-R-T Axes : 064 060 039 degrees QTc Int : 369 ms Sinus bradycardia Otherwise normal ECG Confirmed by Jeffery Tai ([id number]), editor farm journal TASIA PETIT ([id number]) on 06/12/2024 9:26:47 AM Referred By: TB Confirmed By:Jeffery Tai
--- NOTE | 2024-06-10 09:27 | CT_ITS ---
STUDY: CTA HEAD AND NECK WITH CONTRAST REASON FOR EXAM: Male, 53 years old. Neuro deficit, acute, stroke suspected RADIATION DOSAGE (If Supplied By Facility): CTDIvol = ( 21.33 ) mGy, DLP = ( 810.13 ) mGycm TECHNIQUE: CT angiography was performed with a multi-detector CT scanner. Data acquisition was obtained from the skull base through the vertex following intravenous administration of IV 100mL [id number]-[id number]. MIP images were reconstructed from the axial data set. Post-processing of the angiographic images was performed, with multiplanar reformation and 3D reconstruction. Individualized dose optimization techniques were used for this CT. COMPARISON: No relevant priors. FINDINGS: Normal bilateral petrous carotid arteries. Normal right cavernous carotid artery with a normal supraclinoid bifurcation. Normal left cavernous carotid artery with a normal supraclinoid bifurcation. Normal right A1 segments of the anterior cerebral artery. Normal left A1 segments of the anterior cerebral artery. Normal intact anterior communicating artery (ACOM). Normal bilateral A2 segments of the anterior cerebral arteries. Normal right M1 and M2 segments of the middle cerebral arteries, with a normal M1 bifurcation. Normal left M1 and M2 segments of the middle cerebral arteries, with a normal M1 bifurcation. Normal right posterior communicating artery (PCOM). Normal left posterior communicating artery (PCOM). Normal bilateral vertebral arteries. Normal basilar artery with a normal basilar bifurcation. The visualized bilateral superior cerebellar (SCA) arteries are normal. Normal bilateral P1, P2 and visualized P3 segments of the posterior cerebral arteries. There is no demonstrated aneurysm of the [place]. There is no demonstrated abnormality of the visualized brain. AORTIC ARCH: Normal visualized aortic arch. Normal origins of the brachiocephalic, left common carotid, and left subclavian arteries. RIGHT CAROTID ARTERIES: Normal right common carotid artery (CCA). There is mild atherosclerotic plaque formation with minimal narrowing of the right carotid bulb. Normal origin of the right internal carotid (ICA) artery without a hemodynamically significant stenosis. Normal visualized cervical portion of the right internal carotid artery. Normal origin of the right external carotid artery (ECA). LEFT CAROTID ARTERIES: Normal left common carotid artery (CCA). There is mild atherosclerotic plaque formation with minimal narrowing of the left carotid bulb. Normal origin of the left internal carotid (ICA) artery without a hemodynamically significant stenosis. Normal visualized cervical portion of the left internal carotid artery. Normal origin of the left external carotid artery (ECA). VERTEBRAL ARTERIES: Normal bilateral vertebral arteries. No suspicious enhancing lesion, no airway narrowing or deviation. CT/STROKE CTA Head AND Neck W/Con IMPRESSION: Normal CTA Head and neck with contrast. N.B. : The above Results were Read Back by Tanvir Harris MD to Josiah Chow, , , and understanding confirmed on 06/10/2024 10:01:54 (ET). Electronically Signed: Tanvir Harris MD at 10:02 EDT ,
--- NOTE | 2024-06-10 09:37 | NURSING ---
STROKE ALERT 0928
--- NOTE | 2024-06-10 09:41 | EDS_ITS ---
HPI History of Present Illness Chief Complaint: Weakness Narrative Narrative: Patient is a 53-year-old male with past medical history of CVA, right leg weakness, diplopia, hypertension, tobacco use who presented to the emergency department with a chief complaint of tongue numbness, right lower extremity weakness as well as inability to walk today. Patient states that yesterday his roommate in the afternoon told him that he was dragging his right leg he states that he did not think anything of this prior to his roommate saying something but noted that after this discussion he noted that he was walking abnormally from self as he does usually walk with a limp but this was changed. He states that today he noted that he had tongue and mouth numbness and tingling as well as difficulty with getting up and walking. He states that he stood up and attempted to walk he states that he fell backwards into his bed. He states that he attempt to get up again he states that he struggled with this eventually was able to get up but had significant difficulty. He states that his legs feel very heavy and weak and noted that he had bilateral lower extremity shaking as well with this. Patient that his roommate is sick currently with some respiratory symptoms which she notes that he has as of cough as well. Patient denies any alcohol use, drug use states that he does still smoke. [facility] Medical History Extensor tendon rupture of hand CVA (cerebral vascular accident) Right leg weakness Right shoulder pain Weakness of right arm Numbness in right leg Poor compliance with medication Diplopia Acute ischemic stroke Polysubstance abuse Obesity Tobacco use HTN (hypertension) History of CVA (cerebrovascular accident) Home Medications ?Medication ?Instructions ?Recorded ?Last Taken ?Type aspirin 81 mg tablet,delayed 81 mg PO DAILY HEART HEALTH 01/25/24 06/10/24 History release buspirone 5 mg tablet 5 mg PO TID anxiety 04/02/24 06/10/24 History lisinopril 20 mg tablet 20 mg PO DAILY blood pressure 04/02/24 06/10/24 History atorvastatin 80 mg tablet 80 mg PO DAILY CHOLESTEROL 06/10/24 06/10/24 History omeprazole magnesium 20 mg 20 mg PO DAILY 06/10/24 06/10/24 History tablet,delayed release (Prilosec OTC) Allergy/AdvReac Type Severity Reaction Status Date / Time erythromycin base Allergy Hives Verified 06/10/24 09:12 Family History Mother CVA (cerebral vascular accident) Hypertension Diabetes Father COVID-19 following COVID-19 illness. Surgical History S/P nasal surgery Social History household members: friend(s) Smoking Status: Current every day smoker tobacco type: cigarettes alcohol intake: former details: Sober x 5 years. substance use type: marijuana and amphetamines ROS ROS ED ROS Narrative Constitutional: Denies fevers, chills, headaches, lightness, dizziness Eyes: Denies any new changes in vision states that he has residual deficits from his previous stroke Cardiovascular: Denies chest pain or palpitations Respiratory: Complains of cough denies shortness of breath or wheezing Abdomen: Denies abdominal pain nausea vomit diarrhea : Denies any urinary symptoms Neurological: Complains of numbness in his tongue as well as his bilateral lower extremities as noted above and complains of generalized weakness in his legs Skin: Denies rashes lesions EXAM Physical Exam Narrative Exam Narrative: General: Patient lying in bed rest comfortably did not appear to be in acute distress Head: Atraumatic, normocephalic Eyes: PERRL bilateral, EOMI bilateral, no conjunctival injection noted Neck: Soft, supple and trachea midline Cardiovascular: Regular rate and rhythm no murmurs gallops rubs noted Respiratory: Clear to auscultation bilaterally Abdomen: Soft, nondistended, nontender to palpation Extremities: +4/5 strength noted in the bilateral upper extremities, radial pulses +2/4 in the bilateral extremities, +3/5 strength noted in the bilateral lower extremities, no pedal edema on exam, DP pulses +2/4 in the bilateral lower extremities Neurological: Patient following commands knew that he was at [facility] there is 2023. Patient completed finger-nose test and [id number] test bilaterally, NIH is 3 GCS 15 Skin: Warm, dry, intact Const Vital Signs: 06/10/24 09:06 06/10/24 09:11 06/10/24 09:45 Temperature 97.4 F L Temperature Source Oral Pulse Rate 49 L Respiratory Rate 16 Respiratory Effort Normal Non-Labored Respiratory Pattern Normal Blood Pressure 124/80 H Blood Pressure Mean 94 Pulse Ox 98 Oxygen Delivery Method Room Air Room Air 06/10/24 09:45 06/10/24 09:56 06/10/24 09:58 Temperature 97.5 F L Temperature Source Oral Pulse Rate 49 L 47 L 48 L Respiratory Rate 17 17 16 Respiratory Effort Respiratory Pattern Blood Pressure 141/65 H 119/80 124/80 H Blood Pressure Mean 90 93 94 Pulse Ox 99 99 99 Oxygen Delivery Method Room Air Room Air Room Air 06/10/24 10:26 06/10/24 10:27 Temperature Temperature Source Pulse Rate 47 L 48 L Respiratory Rate 18 18 Respiratory Effort Respiratory Pattern Blood Pressure 108/80 108/80 Blood Pressure Mean 89 89 Pulse Ox 99 97 Oxygen Delivery Method Room Air Room Air MDM MDM MDM Narrative Medical decision making narrative: Patient is a 53-year-old male who presented to the emergency department with chief complaint of numbness and tingling in his mouth feels like he got shot with Novocain as well as right lower extremity weakness started yesterday and then progressed today with left lower extremity weakness. Patient blood work performed here on the differential diagnose includes but not limited to ischemic stroke, large vessel occlusion, hemorrhagic stroke, COVID, UTI, generalized weakness. Once workup is obtained reviewed he will be reevaluated. Patient is not a tenecteplase candidate as last known well is unknown his symptoms per the patient seem to start sometime yesterday afternoon although he is not sure exactly when his symptoms started as his roommate pointed out that he had been dragging his right lower extremity more than he normally does. Patient CBC reviewed showed no evidence leukocytosis white blood count normal at 7.5, hemoglobin stable at 16.2, platelet count normal at 298. Patient's INR normal at 1, sodium normal 140, potassium normal at 4, creatinine was normal at 1.10. Patient troponin normal at 8 with EKG reviewed showed sinus bradycardia with a rate of 48 bpm. Patient's urinalysis did not reveal any evidence of i nfection. Patient's CT head and brain without contrast reviewed and showed chronic involutional changes of the brain no acute hemorrhage or significant interval change noted. Patient's CTA head and neck reviewed and showed no acute evidence of large vessel occlusion. Patient's chest x-ray reviewed showed no acute cardiopulmonary processes. Did discuss the case with telehealth neurologist at [facility] Dr. Duffy who states that he may have a right frontal lobe cortical infarct and recommending admission for further stroke workup. No acute intervention at this point time per him. Discussed case with hospitalist Dr. Buitrago who accept patient for admission. Patient was notified that he be admitted with all question concerns answered bedside. Critical care time 35 minutes Lab Data Labs: Laboratory Results - last 24 hr 06/10/24 06/10/24 09:15 10:35 WBC 7.5 RBC 4.87 Hgb 16.2 Hct 47.2 MCV 96.9 H MCH 33.3 H MCHC 34.3 RDW Std Deviation 45.3 H RDW Coeff of Shayy 12.7 Plt Count 298 MPV 9.0 Immature Gran % (Auto) 0.100 Neut % (Auto) 59.0 Lymph % (Auto) 26.5 [place] % (Auto) 8.7 Eos % (Auto) 4.5 Baso % (Auto) 1.2 H Absolute Neuts (auto) 4.4 Absolute Lymphs (auto) 1.98 Nucleated RBC % 0 PT 13.6 INR 1.0 APTT 25.4 Sodium 140 Potassium 4.0 Chloride 107 Carbon Dioxide 28.0 Anion Gap 5 BUN 12 Creatinine 1.10 Estim Creat Clear Calc 86.23 Est GFR (MDRD) Af Amer 90 Est GFR (MDRD) Non-Af 74 BUN/Creatinine Ratio 10.9 Glucose 104 Calcium 9.6 Troponin I High Sens 8 Urine Color Yellow Urine Clarity Clear Urine pH 7.0 Ur Specific [place] 1.005 Urine Protein 15 H Urine Glucose (UA) Normal Urine Ketones Negative Urine Occult Blood Negative Urine Nitrite Negative Urine Bilirubin Negative Urine Urobilinogen Normal Ur Leukocyte Esterase Negative Urine RBC 0 SEEN Urine WBC 0 SEEN Ur Squamous Epith Cells 0 SEEN Urine Bacteria 0 SEEN Urine Mucus 0 SEEN Radiography Diagnostic Testing: Clinical Impression(s) from Imaging Studies Brain CT 06/10/24 09:26 IMPRESSION: Chronic involutional changes of the brain. No acute hemorrhage or significant interval change N.B. : The above Results were Read Back by Tanvir Harris MD to Josiah Chow MD, and understanding confirmed on 06/10/2024 09:40:09 (ET). Electronically Signed: Tanvir Harris MD at 9:41 EDT , ADDENDUM: 06/10/24 0948 IMPRESSION: Chronic involutional changes of the brain. No acute hemorrhage or significant interval change N.B. : The above Results were Read Back by Tanvir Harris MD to Josiah Chow MD, and understanding confirmed on 06/10/2024 09:40:09 (ET). Electronically Signed: Tanvir Harris MD at 9:41 EDT , Head/Neck CTA 06/10/24 09:27 IMPRESSION: Normal CTA Head and neck with contrast. N.B. : The above Results were Read Back by Tanvir Harris MD to Josiah Chow, DO, and understanding confirmed on 06/10/2024 10:01:54 (ET). Electronically Signed: Tanvir Harris MD at 10:02 EDT , ADDENDUM: 06/10/24 1009 IMPRESSION: Normal CTA Head and neck with contrast. N.B. : The above Results were Read Back by Tanvir Harris MD to Josiah Chow, DO, and understanding confirmed on 06/10/2024 10:01:54 (ET). Electronically Signed: Tanvir Harris MD at 10:02 EDT , Chest X-Ray 06/10/24 10:15 IMPRESSION: No acute pulmonary process Electronically Signed: Tanvir Harris MD at 10:46 EDT , Discharge Plan Triage Chief Complaint: Weakness ED Provider: Josiah Chow Dx/Rx/DC Orders Clinical Impression: Right leg weakness, CVA (cerebrovascular accident) Primary Care Provider: Scottie Yusuf
[2024-06-10] MEDS: 0.9% Normal Saline (1000mL) 1,000 ML 999 ML IV (09:51)
[2024-06-10 09:53] LABS: Absolute Lymphocyte Count 1.98 X10^3/uL (0.83-4.51); Absolute Neutrophil Count 4.4 X10^3/uL (2.0-7.7); Basophil# 0.09 X10^3/uL; Basophil% 1.2 % (0-1); Eosinophil# 0.34 X10^3/uL; Eosinophils% 4.5 % (0-5); Hematocrit 47.2 % (40-54); Hemoglobin 16.2 g/dL (13.0-16.5); Lymphocyte # 1.98 X10^3/ul (0.83-4.51); Lymphocyte % 26.5 % (19-41); Mean Corp Hgb Conc 34.3 g/dL (32-36); Mean Corpuscular Hgb 33.3 pg (27.0-32.0); Mean Corpuscular Volume 96.9 fL (80-94); Monocyte# 0.65 X10^3/uL; Monocyte% 8.7 % (0-10); NRBC Flagged by Analyzer 0 % (0-5); Neutrophil # 4.41 X10^3/uL (2.7-7.7); Platelet Count 298 K/mm3 (150-450); RBC Distribution Width CV 12.7 % (11.6-14.6); RBC Distribution Width SD 45.3 fl (35.1-43.9); Red Blood Count 4.87 M/mm3 (4.6-6.2); White Blood Count 7.5 K/mm3 (4.4-11.0)
--- NOTE | 2024-06-10 09:53 | ED.RN ---
Pt continues to complain about BL arm and leg weakness. NIH 1 for facial numbness. Stroke alert not called initially due to negative CINN from squad and BL extremity weakness.
[2024-06-10 10:00] LABS: Prothrombin Time (Protime)PT. 13.6 SECONDS (11.7-14.9)
[2024-06-10 10:01] LABS: Partial Thromboplast Time 25.4 Seconds (24.1-36.2)
[2024-06-10 10:10] LABS: Anion Gap 5 (5-15); BUN 12 mg/dL (7-18); BUN/Creat Ratio 10.9 RATIO (10-20); Calcium,Total 9.6 mg/dL (8.5-10.1); Chloride 107 mmol/L (98-107); EST Glomerular Filtration Rate 74 mL/min (>60); Est Glom Filt Rate - Afr Amer 90 mL/min (>60); Estimated Creatinine Clearance 86.23 ml/min; Glucose 104 mg/dL (74-106); Sodium Level 140 mmol/L (136-145); Troponin-I HS 8 pg/mL (3.0-78.0)
--- NOTE | 2024-06-10 10:15 | RAD_ITS ---
STUDY: X-RAY CHEST REASON FOR EXAM: Male, 53 years old. Chest pain/pressure TECHNIQUE: Single AP portable view of the chest. COMPARISON: 04/02/2024 FINDINGS: EKG leads overlie the chest The lungs are clear and expanded. There is no demonstrated pleural abnormality. Normal size heart. Normal mediastinum and [place]. Normal visualized pulmonary arteries. Normal visualized aortic arch and descending thoracic aorta. Normal visualized thoracic spine. Normal visualized ribs, clavicles, and shoulders. There is no demonstrated abnormality of the visualized soft tissue structures of the upper abdomen. RAD/Chest 1 View IMPRESSION: No acute pulmonary process Electronically Signed: Tanvir Harris MD at 10:46 EDT ,
[2024-06-10 10:41] LABS: Bacteria 0 SEEN /hpf (None Seen); Mucous, Urine 0 SEEN /hpf (<or=2+); Red Blood Cells-Urine 0 SEEN /hpf (0-5); Squamous Epithelial Cells - UA 0 SEEN /hpf (0-5); White Blood Cells 0 SEEN /hpf (0-5)
[2024-06-10 10:55] LABS: Color, Urine Yellow (Yellow); Glucose, Dipstick Normal (Normal); Ketone-Dipstick Negative (Negative); Leukocyte Esterase-Dipstick Negative /ul (Negative); Nitrite-Dipstick Negative (Negative); Occult Blood-Urine Negative /ul (Negative); Protein-Dipstick 15 mg/dl (Negative); Specific Gravity, Urine 1.005 (1.002-1.030); Urine Bilirubin Dipstick Negative (Negative); Urine Clarity Clear (Clear); Urine Urobilinogen Normal (Normal)
--- NOTE | 2024-06-10 11:05 | HP.PCM.HOS_ITS ---
HPI - General General Date of Admission: 06/10/24 Date of Service: 06/10/24 Chief Complaint: RLE weakness and tongue numbness HPI Narrative PALOMO CRAWLEY, is a 53 M who presented to [facility] ED on 06/10/2024 with right lower extremity weakness and tongue numbness. Patient has remote history of stroke with mild right lower extremity weakness. He typically walks with a limp but apparently has remained noted that his limp was worsening yesterday. Patient then noticed tongue and mouth numbness/tingling and worsening right lower extremity weakness. He was unable to get up and walk due to the weakness and fell back in bed when he tried, so he called EMS and they brought him in for further evaluation. Patient notes that his remain is sick currently with some respiratory symptoms. Patient himself does not have any respiratory symptoms or other infectious symptoms. Patient is a current smoker but denies any alcohol use or other drug use. CT brain and CTA head/neck were unremarkable. Per ED physician, he appeared mildly dry on exam with borderline low blood pressures and labs were slightly hemoconcentrated. Was given a 1 L IV fluid bolus in the ED with some improvement. Given concern for stroke, hospitalist was then contacted for admission. On my encounter, patient was sitting up comfortably in bed and in no acute distress. Nurse was completing orthostatics for him when I saw him. Patient told me the same story that he had told the ER physician and stated that his right leg continued to feel weaker than his normal. He denied any other acute pain or discomfort. Stated the tongue numbness was similar to this morning. No other acute concerns at this time. On chart review, patient was hospitalized here for stroke rule outs in January and March of this year. MRI brain has been negative each time. In March, patient was noted to have persistent sinus bradycardia and there was concern that inappropriate chronotropic response could be contributing to his symptoms. Treadmill stress test was attempted but patient only completed 48 seconds of this and became very dizzy and lightheaded. He was found to have positive orthostatics at that time. He was given significant IV fluid resuscitation and orthostatic vitals the next day were negative. He did continue to have sinus bradycardia on discharge. Was discharged on lisinopril 20 mg daily at that time. [facility] Medical History Extensor tendon rupture of hand CVA (cerebral vascular accident) Right leg weakness Right shoulder pain Weakness of right arm Numbness in right leg Poor compliance with medication Diplopia Acute ischemic stroke Polysubstance abuse Obesity Tobacco use HTN (hypertension) History of CVA (cerebrovascular accident) Home Medications ?Medication ?Instructions ?Recorded ?Last Taken ?Type aspirin 81 mg tablet,delayed 81 mg PO DAILY HEART HEALTH 01/25/24 06/10/24 History release buspirone 5 mg tablet 5 mg PO TID anxiety 04/02/24 06/10/24 History lisinopril 20 mg tablet 20 mg PO DAILY blood pressure 04/02/24 06/10/24 History atorvastatin 80 mg tablet 80 mg PO DAILY CHOLESTEROL 06/10/24 06/10/24 History omeprazole magnesium 20 mg 20 mg PO DAILY 06/10/24 06/10/24 History tablet,delayed release (Prilosec OTC) Allergy/AdvReac Type Severity Reaction Status Date / Time erythromycin base Allergy Hives Verified 06/10/24 09:12 Family History Mother CVA (cerebral vascular accident) Hypertension Diabetes Father COVID-19 following COVID-19 illness. Surgical History S/P nasal surgery Social History household members: friend(s) Smoking Status: Current every day smoker tobacco type: cigarettes alcohol intake: former details: Sober x 5 years. substance use type: marijuana and amphetamines ROS Constitutional Constitutional: Reports fatigue; Denies chills or fever(s) Eyes Eyes: Denies change in vision Cardiovascular Cardiovascular: Denies chest pain Respiratory/Chest Respiratory/Chest: Denies shortness of breath at rest Gastrointestinal Gastrointestinal: Denies abdominal pain Genitourinary Genitourinary: Denies dysuria Musculoskeletal Musculoskeletal: Denies arthralgias or myalgias Neurologic Neurologic: Reports focal weakness and numbness; Denies dizziness or headache(s) Vital Signs Vital Signs Vital Signs: 06/10/24 09:06 06/10/24 09:11 06/10/24 09:45 Temperature 97.4 F L Temperature Source Oral Pulse Rate 49 L Respiratory Rate 16 Respiratory Effort Normal Non-Labored Respiratory Pattern Normal Blood Pressure 124/80 H Blood Pressure Mean 94 Pulse Ox 98 Oxygen Delivery Method Room Air Room Air 06/10/24 09:45 06/10/24 09:56 06/10/24 09:58 Temperature 97.5 F L Temperature Source Oral Pulse Rate 49 L 47 L 48 L Respiratory Rate 17 17 16 Respiratory Effort Respiratory Pattern Blood Pressure 141/65 H 119/80 124/80 H Blood Pressure Mean 90 93 94 Pulse Ox 99 99 99 Oxygen Delivery Method Room Air Room Air Room Air 06/10/24 10:26 06/10/24 10:27 Temperature Temperature Source Pulse Rate 47 L 48 L Respiratory Rate 18 18 Respiratory Effort Respiratory Pattern Blood Pressure 108/80 108/80 Blood Pressure Mean 89 89 Pulse Ox 99 97 Oxygen Delivery Method Room Air Room Air Weight Weight: 97.1 kg Body Mass Index (BMI) 33.5 Physical Exam Const alert, oriented x3 and no apparent distress Constitutional Narrative: Middle-age male, appears older than stated age, fatigued and unkempt appearing, flat affect, otherwise sitting up comfortably in bed, answering questions appropriately, in no acute distress. General Appearance: cooperative and comfortable HEENT normocephalic, head/scalp atraumatic, hearing grossly normal bilaterally, nasal mucous membranes and turbinates normal and moist oral mucous membranes Eyes PERRL, EOMs intact bilaterally and conjunctivae normal Neck full ROM Chest inspection of chest normal Resp normal respiratory effort, normal air movement, no use of accessory muscles and clear to auscultation bilaterally Cardio no murmurs and peripheral pulses 2+ throughout Cardio Narrative: Bradycardic, regular rhythm. GI normal to inspection, nondistended, normoactive bowel sounds, soft to palpation, non-tender and non-distended Back/Spine normal ROM Extremity normal to inspection and no pedal edema Skin no rashes or lesions noted Neuro oriented x3 and moves all extremities Neuro Narrative: Mild right lower extremity weakness noted. No other concerning findings. Sensorium / Orientation: awake and alert Speech: speech normal Psych mental status grossly normal Results Lab / Micro Data 06/10/24 09:15 06/10/24 09:15 Labs: Laboratory Results - last 24 hr 06/10/24 09:15: WBC 7.5, RBC 4.87, Hgb 16.2, Hct 47.2, MCV 96.9 H, MCH 33.3 H, MCHC 34.3, RDW Std Deviation 45.3 H, RDW Coeff of Shayy 12.7, Plt Count 298, MPV 9.0, Immature Gran % (Auto) 0.100, Neut % (Auto) 59.0, Lymph % (Auto) 26.5, [place] % (Auto) 8.7, Eos % (Auto) 4.5, Baso % (Auto) 1.2 H, Absolute Neuts (auto) 4.4, Absolute Lymphs (auto) 1.98, Nucleated RBC % 0, PT 13.6, INR 1.0, APTT 25.4, Sodium 140, Potassium 4.0, Chloride 107, Carbon Dioxide 28.0, Anion Gap 5, BUN 12, Creatinine 1.10, Estim Creat Clear Calc 86.23, Est GFR (MDRD) Af Amer 90, Est GFR (MDRD) Non-Af 74, BUN/Creatinine Ratio 10.9, Glucose 104, Calcium 9.6, Troponin I High Sens 8 06/10/24 10:35: Urine Color Yellow, Urine Clarity Clear, Urine pH 7.0, Ur Specific [place] 1.005, Urine Protein 15 H, Urine Glucose (UA) Normal, Urine Ketones Negative, Urine Occult Blood Negative, Urine Nitrite Negative, Urine Bilirubin Negative, Urine Urobilinogen Normal, Ur Leukocyte Esterase Negative, Urine RBC 0 SEEN, Urine WBC 0 SEEN, Ur Squamous Epith Cells 0 SEEN, Urine Bacteria 0 SEEN, Urine Mucus 0 SEEN Micro: Microbiology 06/10/24 09:51 Mucosa - Nose SARS-CoV-2, Influenza & RSV (PCR) - Final Imaging Radiology Impression Brain CT 06/10/24 09:26 IMPRESSION: Chronic involutional changes of the brain. No acute hemorrhage or significant interval change N.B. : The above Results were Read Back by Tanvir Harris MD to Josiah Chow MD, and understanding confirmed on 06/10/2024 09:40:09 (ET). Electronically Signed: Tanvir Harris MD at 9:41 EDT , ADDENDUM: 06/10/24 0948 IMPRESSION: Chronic involutional changes of the brain. No acute hemorrhage or significant interval change N.B. : The above Results were Read Back by Tanvir Harris MD to Josiah Chow MD, and understanding confirmed on 06/10/2024 09:40:09 (ET). Electronically Signed: Tanvir Harris MD at 9:41 EDT , Head/Neck CTA 06/10/24 09:27 IMPRESSION: Normal CTA Head and neck with contrast. N.B. : The above Results were Read Back by Tanvir Harris MD to Josiah Chow DO, and understanding confirmed on 06/10/2024 10:01:54 (ET). Electronically Signed: Tanvir Harris MD at 10:02 EDT , ADDENDUM: 06/10/24 1009 IMPRESSION: Normal CTA Head and neck with contrast. N.B. : The above Results were Read Back by Tanvir Harris MD to Josiah Chow DO, and understanding confirmed on 06/10/2024 10:01:54 (ET). Electronically Signed: Tanvir Harris MD at 10:02 EDT , Chest X-Ray 06/10/24 10:15 IMPRESSION: No acute pulmonary process Electronically Signed: Tanvir Harris MD at 10:46 EDT , Assessment & Plan Assessment/Plan (1) Right leg weakness: (2) Sinus bradycardia: PLAN: Plan Patient is a 53-year-old male who presented to [facility] ED on 06/10/2024 with strokelike symptoms. 1. Worsening RLE weakness and tongue numbness, CVA rule out; history of stroke/TIA ? Admit under observation status to PCU. Neurology consulted. Orders placed per stroke protocol order set. Notably this is patient's third stroke workup since January. Workups in January and March were unremarkable. Had cardiac workup in March and will pursue that further as noted below. CT brain and CTA head/neck negative. MRI brain ordered. Echo in March was unremarkable, no need for repeat. PT/OT/case management consulted. Lipid panel ordered. Continue home aspirin and statin. 2. Sinus bradycardia ? Persistent sinus bradycardia in 40s to low 50s. Had treadmill stress test done in March to assess chronotropic response but patient discontinued after less than a minute due to dizziness; was found to have positive orthostatics. Improved with IV fluid resuscitation, negative orthostatics the next day. Discussed with Dr. Landers with Cardiology on 06/10 and will repeat treadmill stress test on 06/11. 3. Anxiety/depression ? Noted during previous hospitalization in March that he was endorsing feelings of hopelessness and worthlessness. No suicidal ideation but he apparently made passive statements that would be okay if he were to the high school social science teacher. Crisis evaluated at that time and recommended outpatient follow-up but he was okay for discharge home. Will have social work see the patient tomorrow. Continue home BuSpar. 4. Hypertension, recent history of orthostatic hypotension ? On home lisinopril 20 mg daily. Noted to have positive orthostatics during previous admission in March. Lisinopril was held during the hospitalization but was restarted shortly after discharge. Blood pressure borderline low in ED today. Orthostatic vitals however were negative. Holding home lisinopril for now. Chronic medical conditions: ? Obesity: BMI 34 on admit. Complicates hospital course, care and prognosis. ? Tobacco abuse: Nicotine patch provided per patient request. Strongly encouraged cessation. ? History of methamphetamine abuse and alcohol abuse: UDS and alcohol level negative on admit back in March. Patient denies any alcohol or drug use on this admission. Encouraged continued cessation. DVT prophylaxis: SCDs CODE STATUS: Full code, verified Expected disposition: Home, 1 to 2 days Total clinical time spent by myself addressing the patient's medical issues, reviewing all the data, and collaborating with patient's care team: 55 minutes. Charges/Coding Visit Charges Inpatient E&M: 09533 Init Hosp L2
[2024-06-10] MEDS: busPIRone 5 MG Tablet PO ×2 (14:25→22:12)
[2024-06-10] MEDS: Atorvastatin Calcium 80 MG Tablet PO (22:12)
[2024-06-10] MEDS: 0.9% Saline Lock 10 ML Syringe IV (22:13)
[2024-06-11] VITALS (10 sets, daily range): BP systolic 98–117; BP diastolic 64–79; PULSE 48–59; RESP 13–19; TEMP 36.1–36.5; O2SAT 93–98; BMI 34.2
[2024-06-11 05:55] LABS: Hematocrit 46.3 % (40-54); Hemoglobin 15.6 g/dL (13.0-16.5); Mean Corp Hgb Conc 33.7 g/dL (32-36); Mean Corpuscular Hgb 32.6 pg (27.0-32.0); Mean Corpuscular Volume 96.9 fL (80-94); Mean Platelet Vol. 9.1 fl (6.2-12.0); Platelet Count 278 K/mm3 (150-450); RBC Distribution Width CV 12.6 % (11.6-14.6); RBC Distribution Width SD 45.7 fl (35.1-43.9); Red Blood Count 4.78 M/mm3 (4.6-6.2)
--- NOTE | 2024-06-11 05:55 | EKG12_ITS ---
Test Reason : AM EKG Blood Pressure : / mmHG Vent. Rate : 047 BPM Atrial Rate : 047 BPM P-R Int : 156 ms QRS Dur : 086 ms QT Int : 436 ms P-R-T Axes : 050 041 022 degrees QTc Int : 385 ms Sinus bradycardia Otherwise normal ECG When compared with ECG of 10-JUN-2024 09:14, MANUAL COMPARISON REQUIRED, DATA IS UNCONFIRMED Confirmed by Jeffery Tai ([id number]), assistant editor STELLA SINGH ([id number]) on 06/11/2024 1:24:29 PM Referred By: Confirmed By:Jeffery Tai
[2024-06-11] MEDS: Aspirin E.C. 81 MG Tablet PO (06:12)
[2024-06-11] MEDS: busPIRone 5 MG Tablet PO ×3 (06:12→20:38)
[2024-06-11 06:47] LABS: Anion Gap 8 (5-15); BUN 10 mg/dL (7-18); BUN/Creat Ratio 10.5 RATIO (10-20); Calcium,Total 8.9 mg/dL (8.5-10.1); Chloride 109 mmol/L (98-107); Creatinine, Serum 0.95 mg/dL (0.70-1.30); EST Glomerular Filtration Rate 88 mL/min (>60); Est Glom Filt Rate - Afr Amer 106 mL/min (>60); Estimated Creatinine Clearance 100.98 ml/min; Glucose 102 mg/dL (74-106); Potassium 4.2 mmol/L (3.5-5.1); Sodium Level 141 mmol/L (136-145)
[2024-06-11 07:07] LABS: Cholesterol 113 mg/dL (200); High Density Lipoprotein 50 mg/dL; Triglycerides 88 mg/dL; Very Low Density Lipoprotein 18 mg/dL (5-40)
--- NOTE | 2024-06-11 09:58 | PCM.CONS.C ---
Assessment & Plan Assessment/Plan (1) Sinus bradycardia: PLAN: Patient's heart rate when hospitalized here in March and then again this admission has been in the 40 to 50 bpm range. The patient is on no significant rate modulating drugs. The patient tried to walk a treadmill in March and only went 48 seconds due to orthostatic changes. At this point time the patient is weaker than he was back in March. The patient will be evaluated by physical therapy and then have him ambulate in the halls while monitored. If we are unable to document bradycardia induced symptoms consideration may be given for implanting a loop recorder to document and correlate his bradycardia with symptoms in the home environment. If with ambulation his heart rate falls or fails to increase then this would be considered an indication for possible permanent pacemaker implantation. (2) Right leg weakness: PLAN: Patient reports that his right lower extremity weakness increases when he is bradycardic and creates an ambulatory issues for him. (3) Near syncope: PLAN: The patient denies any samir syncope but does report that he was so weak with his low heart rate he was unable to really get out of bed and had to slide down the stairs to get to the lower level of his house yesterday. I am not certain that this qualifies as near syncope there he denies any other samir near syncopal spells. PLAN: Plan 1. Determine chronotropic competence by ambulating in the halls in a monitored environment. 2. If unable to document and correlate bradycardia with symptoms would consider implanting a loop recorder. This will need to be done in the ambulatory setting. 3. We will follow-up with you in the next 24 hours as we need to get him up and ambulating and rule out orthostatic issues as well as prove his chronotropic competence. HPI Consult Data Date of Consult: 06/11/24 HPI Narrative Reason for Consultation: Bradycardia HPI Narrative: PALOMO CRAWLEY, is a 53 M who presents presents with increasing weakness and inability to ambulate. The patient has a history of chronic right lower extremity weakness secondary to a remote CVA. He was also evaluated in January 2024 in March 2024 at [facility] for possible TIA/CVAs which were ruled out. The patient now returns with progressive bilateral hand numbness and weakness in his arms as well as bilateral lower extremity weakness right much worse than the left. The patient is able to tell when his heart rate gets in the 40s by a change in his strength and ability to move around. This actually was correlated in the emergency department on this admission. Since admission the patient's heart rates been in the mid to upper 40s in sinus rhythm. He has a previous history of bradycardia down into the 30s at times he denies any samir syncope. He does have what appears to be dizziness and near syncope but has also been documented be orthostatic at those times. With fluid hydration his symptoms resolved in March but he remained bradycardic in the upper 40s. The patient denies any chest pain denies any history of cardiac events. Echocardiogram done April 03, 2024 showed normal LV function ejection fraction of 65% normal right-sided heart structures and no significant valvular heart disease with a pulmonary artery pressure estimated 25. [facility] Medical History Extensor tendon rupture of hand CVA (cerebral vascular accident) Right leg weakness Right shoulder pain Weakness of right arm Numbness in right leg Poor compliance with medication Diplopia Acute ischemic stroke Polysubstance abuse Obesity Tobacco use HTN (hypertension) History of CVA (cerebrovascular accident) Home Medications ?Medication ?Instructions ?Recorded ?Last Taken ?Type aspirin 81 mg tablet,delayed 81 mg PO DAILY HEART HEALTH 01/25/24 06/10/24 History release buspirone 5 mg tablet 5 mg PO TID anxiety 04/02/24 06/10/24 History lisinopril 20 mg tablet 20 mg PO DAILY blood pressure 04/02/24 06/10/24 History atorvastatin 80 mg tablet 80 mg PO DAILY CHOLESTEROL 06/10/24 06/10/24 History omeprazole magnesium 20 mg 20 mg PO DAILY 06/10/24 06/10/24 History tablet,delayed release (Prilosec OTC) Allergy/AdvReac Type Severity Reaction Status Date / Time erythromycin base Allergy Hives Verified 06/10/24 09:12 Family History Mother CVA (cerebral vascular accident) Hypertension Diabetes Father COVID-19 following COVID-19 illness. Surgical History S/P nasal surgery Social History household members: friend(s) Smoking Status: Current every day smoker tobacco type: cigarettes alcohol intake: former details: Sober x 5 years. substance use type: marijuana and amphetamines ROS Constitutional Constitutional: Reports as per HPI Eyes Eyes: Reports systems reviewed and no addt'l complaints, except as documented ENT HEENT: Reports systems reviewed and no addt'l complaints, except as documented Cardiovascular Cardiovascular: Reports as per HPI Respiratory/Chest Respiratory/Chest: Reports systems reviewed and no addt'l complaints, except as documented Gastrointestinal Gastrointestinal: Reports systems reviewed and no addt'l complaints, except as documented Genitourinary Genitourinary: Reports systems reviewed and no addt'l complaints, except as documented Musculoskeletal Musculoskeletal: Reports as per HPI Integumentary Integumentary: Reports systems reviewed and no addt'l complaints, except as documented Neurologic Neurologic: Reports as per HPI Psychiatric Psychiatric: Reports systems reviewed and no addt'l complaints, except as documented Endocrine Endocrinology: Reports systems reviewed and no addt'l complaints, except as documented Hematologic/Lymphatic Hematologic/Lymphatic: Reports systems reviewed and no addt'l complaints, except as documented Allergic/Immunologic Allergic/Immunologic: Reports systems reviewed and no addt'l complaints, except as documented Physical Exam Narrative Patient examined resting flat in bed. Const alert and oriented x3 HEENT normocephalic Eyes EOMs intact bilaterally Neck no JVD and no carotid bruits Chest inspection of chest normal Resp normal respiratory effort and clear to auscultation bilaterally Cardio Rate: bradycardia Rhythm: regular rhythm Heart Sounds: S1 normal and S2 normal; Negative for click, gallop, murmur or rub Bruits: Negative for carotid bruit Peripheral Pulses: pulses 2+ throughout GI normal to inspection, nondistended, normoactive bowel sounds Extremity no pedal edema Skin no rashes or lesions noted Psych mental status grossly normal Risk Stratification Risk Stratification Applicable: No Charges/Coding Visit Charges Inpatient E&M: 80498 Init Hosp L3 Objective Data Vital Signs: Vital Signs Temp Pulse Resp BP Pulse Ox O2 Del Method 97.6 F L 50 L 16 101/73 97 Room Air 06/11/24 05:59 06/11/24 05:59 06/11/24 05:59 06/11/24 05:59 06/11/24 05:59 06/11/24 05:59 Oxygen Delivery Method Room Air Weight: 219 lb Body Mass Index (BMI) 34.2 Intake & Output: Intake and Output for Last 24 Hours 06/09/24 06/10/24 06/11/24 23:59 23:59 23:59 Intake Total 1000 / 1250 250 / 250 Balance 1000 / 1250 250 / 250 Lab / Micro Data Attestation: I reviewed the patient's lab results. 06/11/24 05:20 06/11/24 05:20 Labs: Laboratory Results - last 24 hr 06/10/24 09:15: PT 13.6, INR 1.0, APTT 25.4, Sodium 140, Potassium 4.0, Chloride 107, Carbon Dioxide 28.0, Anion Gap 5, BUN 12, Creatinine 1.10, Estim Creat Clear Calc 86.23, Est GFR (MDRD) Af Amer 90, Est GFR (MDRD) Non-Af 74, BUN/Creatinine Ratio 10.9, Glucose 104, Calcium 9.6, Troponin I High Sens 8, TSH 1.030 06/10/24 10:35: Urine Color Yellow, Urine Clarity Clear, Urine pH 7.0, Ur Specific [place] 1.005, Urine Protein 15 H, Urine Glucose (UA) Normal, Urine Ketones Negative, Urine Occult Blood Negative, Urine Nitrite Negative, Urine Bilirubin Negative, Urine Urobilinogen Normal, Ur Leukocyte Esterase Negative, Urine RBC 0 SEEN, Urine WBC 0 SEEN, Ur Squamous Epith Cells 0 SEEN, Urine Bacteria 0 SEEN, Urine Mucus 0 SEEN 06/11/24 05:20: WBC 8.0, RBC 4.78, Hgb 15.6, Hct 46.3, MCV 96.9 H, MCH 32.6 H, MCHC 33.7, RDW Std Deviation 45.7 H, RDW Coeff of Shayy 12.6, Plt Count 278, MPV 9.1, Sodium 141, Potassium 4.2, Chloride 109 H, Carbon Dioxide 24.0, Anion Gap 8, BUN 10, Creatinine 0.95, Estim Creat Clear Calc 100.98, Est GFR (MDRD) Af Amer 106, Est GFR (MDRD) Non-Af 88, BUN/Creatinine Ratio 10.5, Glucose 102, Calcium 8.9, Triglycerides 88, Cholesterol 113, LDL Cholesterol 45, VLDL Cholesterol 18, HDL Cholesterol 50 Micro: Microbiology 06/10/24 09:51 Mucosa - Nose SARS-CoV-2, Influenza & RSV (PCR) - Final Rhythm Strip Rhythm Strip: Sinus Rhythm Rate: 45 Cardiology Labs/Tests 06/10/24 09:15: PT 13.6, INR 1.0, APTT 25.4, Sodium 140, Potassium 4.0, Chloride 107, Carbon Dioxide 28.0, Anion Gap 5, BUN 12, Creatinine 1.10, Est GFR (MDRD) Af Amer 90, Est GFR (MDRD) Non-Af 74, BUN/Creatinine Ratio 10.9, Glucose 104, Calcium 9.6 06/10/24 10:35: Urine Color Yellow, Urine Clarity Clear, Urine pH 7.0, Ur Specific [place] 1.005, Urine Protein 15 H, Urine Glucose (UA) Normal, Urine Ketones Negative, Urine Occult Blood Negative, Urine Nitrite Negative, Urine Bilirubin Negative, Urine Urobilinogen Normal, Ur Leukocyte Esterase Negative, Urine RBC 0 SEEN, Urine WBC 0 SEEN 06/11/24 05:20: WBC 8.0, RBC 4.78, Hgb 15.6, Hct 46.3, MCV 96.9 H, MCH 32.6 H, MCHC 33.7, Plt Count 278, MPV 9.1, Sodium 141, Potassium 4.2, Chloride 109 H, Carbon Dioxide 24.0, Anion Gap 8, BUN 10, Creatinine 0.95, Est GFR (MDRD) Af Amer 106, Est GFR (MDRD) Non-Af 88, BUN/Creatinine Ratio 10.5, Glucose 102, Calcium 8.9, Triglycerides 88, Cholesterol 113, LDL Cholesterol 45, VLDL Cholesterol 18, HDL Cholesterol 50 Rhythm: EKG: ECHO: Stress Test: Cardiac Cath: PCI: CT Surgery: Holter monitor: EPS: PPM: CXR: Chest CT Scan: Radiography Diagnostic Testing: Radiology Impression Head/Neck CTA 06/10/24 09:27 IMPRESSION: Normal CTA Head and neck with contrast. N.B. : The above Results were Read Back by Tanvir Harris MD to Josiah Chow, DO, and understanding confirmed on 06/10/2024 10:01:54 (ET). Electronically Signed: Tanvir Harris MD at 10:02 EDT Reading Location ID and State: [facility] / [place] , Service support , ADDENDUM: 06/10/24 1009 IMPRESSION: Normal CTA Head and neck with contrast. N.B. : The above Results were Read Back by Tanvir Harris MD to Josiah Chow, DO, and understanding confirmed on 06/10/2024 10:01:54 (ET). Electronically Signed: Tanvir Harris MD at 10:02 EDT , Chest X-Ray 06/10/24 10:15 IMPRESSION: No acute pulmonary process Electronically Signed: Tanvir Harris MD at 10:46 EDT , EKG Initial EKG: Attestation: I personally reviewed and interpreted this EKG as follows: (Sinus bradycardia at 47 otherwise unremarkable)
[2024-06-11] MEDS: LORazepam 2 MG/ML Syringe 0.5 MG IV (10:11)
--- NOTE | 2024-06-11 11:09 | MRI_ITS ---
STUDY: MRI BRAIN WITHOUT CONTRAST REASON FOR EXAM: Male, 53 years old. CVA rule out tongue,mouth numb, difficulty ambulating TECHNIQUE: Standardized multiplanar fat and water weighted pulse sequences were obtained. COMPARISON: MRI of the brain dated April 03, 2024. Head CT dated June 10, 2024. FINDINGS: Redemonstration of multiple small demyelinating plaques in the bilateral periventricular white matter regions, chowdhury radiata, and extending up to the centrum semiovale. Mild central cystic change/vacuolization is present in the dominant plaque in the posterior superior aspect of the right frontal lobe measuring 7 mm in diameter. No active diffusion weighted signal is present in either plaque to suggest active demyelination. Multiple small plaques and conglomerate fashion are present in the left splenium of the corpus callosum as well. Scattered callosal body demyelinating plaques also noted. There is mild cerebral atrophy with widening of the extra-axial spaces and ventricular dilatation. Normal remaining white matter tracts of the supratentorial brain. There is no evidence for recent intracranial ischemia or other cause of cytotoxic edema on diffusion weighted imaging (DWI). Normal T2* images of the brain without demonstrated susceptibility artifact. There is no demonstrated hemosiderin stain. Normal bilateral basal ganglia. Normal thalami. There is no extra-axial fluid accumulation. Normal flow voids within the major intracranial circulation suggesting patency by spin echo criteria. Normal sella turcica, pituitary gland, infundibular stalk, optic chiasm and hypothalamus. Normal tectal plate and pineal gland. Normal midbrain, jakob and medulla. Normal cerebellum. Normal basal cisterns. Normal bilateral temporal bones. Normal bilateral internal auditory canals. No demonstrated orbital abnormality, within the constraints of a routine brain study. Normal visualized paranasal sinuses. Normal calvarium and skull base. Normal visualized soft tissue structures. Normal visualized upper cervical spine. MRI/Brain without Contrast IMPRESSION: 1. Demyelinating plaques consistent with multiple sclerosis 2. No demonstrated acute infarct or intracranial hemorrhage. Electronically Signed: Rufino Coffman MD at 11:16 EDT ,
--- NOTE | 2024-06-11 15:23 | CHAPLAIN ---
Type of Pastoral Visit ___ Initial Visit ___ Follow-up Visit ___ On-call Visit ___ General Patient Visit ___ Spiritual Assessment ___ Family Conference ___ Bereavement ___ Rapid Response ___ Code Blue ___ Other (describe below) Pastoral Care Referral From ___ Patient ___ Family ___ Nurse ___ Physician ___ Supervisor [facility] ___ Qa Tech ___ Other (describe below) Sacrament/Intervention ___ Active listening ___ Anointing ___ Quaker ___ Bereavement ___ Communion ___ Ruth exploration ___ ___ Life review ___ Prayer ___ Reconciliation ___ Sacrament of Sick ___ Supportive presence ___ Wedding ___ Other (describe below) Pastoral Comments patient was sleeping and thus not disturbed
--- NOTE | 2024-06-11 15:30 | CON.PCM.NE_ITS ---
Assessment and Plan: Stroke Assessment/Plan #Bilateral LE weakness, bilateral upper extremity paresthesia. Broad differential including stroke recrudescence, myelopathy (compressive, demyelinating), peripheral nerve disease (CIDP, AIDP, nutritional). Radiology read of brain MRI feels lesions are concerning for demylination, althout appears more consisstent with CSVD. Will obtain further work up with gadolinum enhanced imaging of brain and spinal cord. -MRI brain shows no evidence of acute infarct. Chronic changes currently being read as demyelinating but could be due to chronic small vessel disease. -recommend brain MRI with contrast and ?MRI spine (cervical, thoracici, lumbar) with/without contrast -send B12, folate, homocysteine, MMA, copper, cryoglobulin, SSA, SSB, TSH, T4, chronic hepatitis profile, HbA1c, HIV, symphillis, celiac disease, -may need to consider EMG/NCS as an outpatient if no other explanation found as PND may also explain previous autonomic complaints -may continue home ASA and statin. No need for additional stroke work up at this time. -general neruology will follow up -PT/OT HPI Consult Data Date of Consult: 06/11/24 HPI Narrative HPI Narrative: 53 M w PMH of ischemic stroke, tobacco abuse, obesity, HTN,? who is presenting with LE weakness. At baseline patient has paresthesia in finger tips and drags his RLE. He has noted over the past several days [employer] that this paresthesia were extending in the his hands. Awoke in the morning on 06/10 and tried to get up but couldn?t get up. His RLE>LLE felt weak and tongue was numb. Described numbness as a Novocaine feeling in the left. States the day before he was doing physical activity around the house and was walking normally. Did fall down the stairs last week. Denies bowel bladder dysfunction. Denies vision changes, difficulty speaking, back pain. On chart review, patient was hospitalized here for stroke rule outs in January and March of this year. MRI brain has been negative each time. In March, patient was noted to have persistent sinus bradycardia and there was concern that inappropriate chronotropic response could be contributing to his symptoms. Treadmill stress test was attempted but patient only completed 48 seconds of this and became very dizzy and lightheaded. He was found to have positive orthostatics at that time. He was given significant IV fluid resuscitation and orthostatic vitals the next day were negative. He did continue to have sinus bradycardia on discharge. Was discharged on lisinopril 20 mg daily at that time. [facility], [facility] Medical History Extensor tendon rupture of hand CVA (cerebral vascular accident) Right leg weakness Right shoulder pain Weakness of right arm Numbness in right leg Poor compliance with medication Diplopia Acute ischemic stroke Polysubstance abuse Obesity Tobacco use HTN (hypertension) History of CVA (cerebrovascular accident) Home Medications ?Medication ?Instructions ?Recorded ?Last Taken ?Type aspirin 81 mg tablet,delayed 81 mg PO DAILY HEART HEALTH 01/25/24 06/10/24 History release buspirone 5 mg tablet 5 mg PO TID anxiety 04/02/24 06/10/24 History lisinopril 20 mg tablet 20 mg PO DAILY blood pressure 04/02/24 06/10/24 History atorvastatin 80 mg tablet 80 mg PO DAILY CHOLESTEROL 06/10/24 06/10/24 History omeprazole magnesium 20 mg 20 mg PO DAILY 06/10/24 06/10/24 History tablet,delayed release (Prilosec OTC) Allergy/AdvReac Type Severity Reaction Status Date / Time erythromycin base Allergy Hives Verified 06/10/24 09:12 Family History Mother CVA (cerebral vascular accident) Hypertension Diabetes Father COVID-19 following COVID-19 illness. Surgical History S/P nasal surgery Social History household members: friend(s) Smoking Status: Current every day smoker tobacco type: cigarettes alcohol intake: former details: Sober x 5 years. substance use type: marijuana and amphetamines Vital Signs Vital Signs Vital Signs: 06/10/24 15:34 06/10/24 18:00 06/10/24 18:00 Temperature 98.2 F Temperature Source Temporal Pulse Rate 55 L Pulse Rate [Lying] Pulse Rate [Sitting (for 1 minute prior to obtaining)] Pulse Rate [Standing (for 1 minute prior to obtaining)] Respiratory Rate 16 Blood Pressure 109/65 Blood Pressure [Lying] Blood Pressure [Sitting (for 1 minute prior to obtaining)] Blood Pressure [Standing (for 1 minute prior to obtaining)] Blood Pressure Mean 79 Blood Pressure Mean [Lying] Blood Pressure Mean [Sitting (for 1 minute prior to obtaining)] Blood Pressure Mean [Standing (for 1 minute prior to obtaining)] Blood Pressure Source Monitor Blood Pressure Position Supine Blood Pressure Location Left Arm Pulse Ox 96 96 Oxygen Delivery Method Room Air Room Air Room Air 06/10/24 22:00 06/11/24 02:00 06/11/24 05:59 Temperature 98.3 F 97.7 F L 97.6 F L Temperature Source Oral Oral Oral Pulse Rate 56 L 52 L 50 L Pulse Rate [Lying] Pulse Rate [Sitting (for 1 minute prior to obtaining)] Pulse Rate [Standing (for 1 minute prior to obtaining)] Respiratory Rate 16 16 16 Blood Pressure 115/80 108/78 101/73 Blood Pressure [Lying] Blood Pressure [Sitting (for 1 minute prior to obtaining)] Blood Pressure [Standing (for 1 minute prior to obtaining)] Blood Pressure Mean 91 88 82 Blood Pressure Mean [Lying] Blood Pressure Mean [Sitting (for 1 minute prior to obtaining)] Blood Pressure Mean [Standing (for 1 minute prior to obtaining)] Blood Pressure Source Monitor Monitor Monitor Blood Pressure Position Semi-Fowlers Semi-Fowlers Supine Blood Pressure Location Right Arm Right Forearm Left Arm Pulse Ox 97 98 97 Oxygen Delivery Method Room Air Room Air Room Air 06/11/24 09:58 06/11/24 10:00 06/11/24 10:00 Temperature 97.7 F L Temperature Source Oral Pulse Rate 50 L Pulse Rate [Lying] 50 L Pulse Rate [Sitting (for 1 minute prior to obtaining)] 59 L Pulse Rate [Standing (for 1 minute prior to obtaining)] 55 L Respiratory Rate 16 Blood Pressure 109/76 Blood Pressure [Lying] 109/76 Blood Pressure [Sitting (for 1 minute prior to obtaining)] 109/79 Blood Pressure [Standing (for 1 minute prior to obtaining)] 98/68 Blood Pressure Mean 87 Blood Pressure Mean [Lying] 87 Blood Pressure Mean [Sitting (for 1 minute prior to obtaining)] 89 Blood Pressure Mean [Standing (for 1 minute prior to obtaining)] 78 Blood Pressure Source Monitor Blood Pressure Position Supine Blood Pressure Location Left Arm Pulse Ox 96 Oxygen Delivery Method Room Air Room Air 06/11/24 10:14 06/11/24 10:30 06/11/24 10:35 Temperature Temperature Source Pulse Rate 48 L 48 L Pulse Rate [Lying] Pulse Rate [Sitting (for 1 minute prior to obtaining)] Pulse Rate [Standing (for 1 minute prior to obtaining)] Respiratory Rate 16 13 Blood Pressure 107/64 113/71 Blood Pressure [Lying] Blood Pressure [Sitting (for 1 minute prior to obtaining)] Blood Pressure [Standing (for 1 minute prior to obtaining)] Blood Pressure Mean 78 85 Blood Pressure Mean [Lying] Blood Pressure Mean [Sitting (for 1 minute prior to obtaining)] Blood Pressure Mean [Standing (for 1 minute prior to obtaining)] Blood Pressure Source Monitor Monitor Blood Pressure Position Supine Supine Blood Pressure Location Left Arm Left Arm Pulse Ox 96 94 97 Oxygen Delivery Method Room Air Room Air Room Air 06/11/24 10:45 Temperature Temperature Source Pulse Rate 53 L Pulse Rate [Lying] Pulse Rate [Sitting (for 1 minute prior to obtaining)] Pulse Rate [Standing (for 1 minute prior to obtaining)] Respiratory Rate 16 Blood Pressure 117/78 Blood Pressure [Lying] Blood Pressure [Sitting (for 1 minute prior to obtaining)] Blood Pressure [Standing (for 1 minute prior to obtaining)] Blood Pressure Mean 91 Blood Pressure Mean [Lying] Blood Pressure Mean [Sitting (for 1 minute prior to obtaining)] Blood Pressure Mean [Standing (for 1 minute prior to obtaining)] Blood Pressure Source Monitor Blood Pressure Position Supine Blood Pressure Location Left Arm Pulse Ox 93 Oxygen Delivery Method Room Air Weight Weight: 99.337 kg Body Mass Index (BMI) 34.2 EEG Results Procedure Details EEG Procedure Details: PALOMO CRAWLEY is a 53 year old M with a past medical history of , who presents for evaluation of Electroencephalogram on DATE at TIME NIHSS NIHSS Nursing Documentation NIHSS Nursing Documentation: NIHSS: Ischemic Stroke/TIA Start: 06/10/24 12:02 Text: For PCU Patients: NIH and Neuro Check every 4 Status: Active hours, PRN and with change in RN caregiver. Freq: [id number] Protocol: Activity Type Activity Date Activity User E-sign Co-sign Detail Recorded Client Recorded Date Recorded By Document 06/11/24 10:00 NB desktop 06/11/24 10:28 NB 06/11/24 10:00 NIH Stroke Scale [NIHSS] A score of 0 is normal or asymptomatic . Total possible score is 42. Inpatient: RN or Physician to activate a stroke alert for onset of new stroke symptoms or with NIHSS increase >/= 3 points. Following change in neurological status, NIHSS will be performed per physician order or more frequently PRN. -1a. Level of Consciousness Alert; keenly responsive -1b. LOC Questions Answers BOTH questions correctly. -1c. LOC Commands Performs both tasks correctly . -2. Best Gaze Normal -3. Visual No visual loss -4. Facial Palsy Normal symmetrical movements -5a. Left Arm No drift; arm holds 90 (or 45 ) degrees for full 10 seconds -5b. Right Arm No drift; arm holds 90 (or 45 ) degrees for full 10 seconds -6a. Left Leg No drift; leg holds 30-degree position for full 5 seconds -6b. Right Leg Drift; leg falls by the end of 5- seconds, but does not hit bed -7. Limb Ataxia Absent -8. Sensory Mild-to- moderate sensory loss; -9. Best Language No aphasia; normal -10. Dysarthria Normal -11. Extinction and Inattention No abnormality -Total 2 Query Text:A score of 0 is normal or asymptomatic. Total possible score is 42 . ED: Notify Physician for NIHSS increase by > / = 3 points. Inpatient: RN or Physician to activate a stroke alert for NIHSS increase of > / = 3 points. Coma Scale [Assess] -Eye Opening Spontaneous -Motor Obeys Commands -Verbal Oriented [Total] -Coma Scale Total 15 Physical Exam Narrative MS: awake, alert, oriented x 3, follows commands, able to name, no aphasia, no dysarthria CN: VFF, EOMI , no facial weakness, nml facial sensation M:? Antigravity in all extremities, no drift. Subjectively feels LEs are weak S: nml to LT in all extremities Subjective paresthesia in b/l hands C: ?No gross ataxia Lab / Micro Data 06/11/24 05:20 06/11/24 05:20 Labs: Laboratory Results - last 24 hr 06/11/24 05:20: WBC 8.0, RBC 4.78, Hgb 15.6, Hct 46.3, MCV 96.9 H, MCH 32.6 H, MCHC 33.7, RDW Std Deviation 45.7 H, RDW Coeff of Shayy 12.6, Plt Count 278, MPV 9.1, Sodium 141, Potassium 4.2, Chloride 109 H, Carbon Dioxide 24.0, Anion Gap 8, BUN 10, Creatinine 0.95, Estim Creat Clear Calc 100.98, Est GFR (MDRD) Af Amer 106, Est GFR (MDRD) Non-Af 88, BUN/Creatinine Ratio 10.5, Glucose 102, Calcium 8.9, Triglycerides 88, Cholesterol 113, LDL Cholesterol 45, VLDL Cholesterol 18, HDL Cholesterol 50 Rhythm Strip Rhythm Strip: Sinus Rhythm Rate: 45 Imaging Radiology Impression Brain MRI 06/11/24 11:09 IMPRESSION: 1. Demyelinating plaques consistent with multiple sclerosis 2. No demonstrated acute infarct or intracranial hemorrhage. Electronically Signed: Rufino Coffman MD at 11:16 EDT , Active Medications Active Medications Active Medications: Current Medications Generic Name Dose Route Start Last Admin Trade Name Freq PRN Reason Stop Dose Admin Acetaminophen 650 mg 06/10/24 12:02 Acetaminophen 325 Mg Tablet PO Q6H PRN PRN Pain 1-10 Or Fever>100.7 Aspirin 81 mg 06/11/24 08:00 06/11/24 06:12 Aspirin E.C. 81 Mg Tablet PO 81 mg DAILYCM RAYA Administration Atorvastatin Calcium 80 mg 06/10/24 22:00 06/10/24 22:12 Atorvastatin Calcium 80 Mg Tablet PO 80 mg QHS RAYA Administration Buspirone HCl 5 mg 06/10/24 14:00 06/11/24 15:05 Buspirone 5 Mg Tablet PO 5 mg TID RAYA Administration Melatonin 3 mg 06/10/24 12:02 Melatonin 3 Mg Tablet PO QHS PRN PRN INSOMNIA Nicotine 21 mg 06/10/24 12:35 06/11/24 13:19 Nicotine 21 Mg Patch TD 21 mg DAILY RAYA Administration Ondansetron HCl 4 mg 06/10/24 12:02 Ondansetron 4 Mg/2 Ml Vial IV Q8H PRN PRN NAUSEA/VOMITING Sodium Chloride 10 - 40 ml 06/10/24 12:12 06/10/24 22:13 0.9% Saline Lock 10 Ml Syringe IV 10 ml UD PRN Administration SALINE FLUSH
--- NOTE | 2024-06-11 15:47 | MRI_ITS ---
STUDY: MRI CERVICAL SPINE WITHOUT CONTRAST REASON FOR EXAM: Male, 53 years old. Multiple sclerosis TECHNIQUE: Standardized fat and water weighted pulse sequences were obtained in the sagittal and axial planes. Technologist Notes: patient ordered w/wo complete spine/brain but unable to do entire scan with meds given,,, claustrophobic. Mild motion artifact is present on several sequences. COMPARISON: MRI of the thoracic and lumbar spine dated June 11, 2024. FINDINGS: Normal foramen magnum and brainstem-cervical cord junction. Normal craniovertebral junction. Normal anterior atlantoaxial articulation. Normal odontoid process. Small cystic area of bright signal in the central jakob is either related to an old pontine infarct, demyelinating plaque, or chronic ischemic signal; referred MRI of the brain dated June 11, 2024. There is reversal of the normal cervical lordosis. No marrow edema or fracture or compression deformity is present. C2-3: Normal endplates. Diffuse disc desiccation. Normal disc height and morphology. Normal central canal. Moderate to severe right foraminal stenosis with nerve root compression due to significant facet joint and mild uncovertebral hypertrophy. Mild left foraminal stenosis. C3-4: Normal endplates. Diffuse disc desiccation with mild posterior disc space narrowing and annular bulging in addition to a superimposed midline disc protrusion causing compression anterior aspect of the cord and mild central canal stenosis. Mild left foraminal stenosis secondary to uncovertebral facet joint hypertrophy. Normal right neural foramen. C4-5: Normal endplates. Diffuse disc desiccation with mild disc space narrowing in addition to a shallow midline disc protrusion causing compression anterior aspect of the cord and mild central canal stenosis. Moderate bilateral foraminal stenosis with nerve root compression due to combined uncovertebral facet joint hypertrophy. C5-6: Normal endplates. Diffuse disc desiccation with mild disc space narrowing and posterior annular bulging causing mild central canal stenosis and compression on anterior aspect of the cord. Normal intervertebral neural foramina. C6-7: Moderate disc space narrowing with a diffuse disc bulge/disc osteophyte complex causing compression on the anterior aspect of the cord and [id number] central canal stenosis. Moderate bilateral foraminal stenosis with nerve root compression due to uncovertebral and facet joint hypertrophy, right greater than left. C7-T1: Severe disc space narrowing with a diffuse disc spur complex causing mild central canal stenosis. Superimposed right paracentral shallow disc protrusion with compression of the exiting nerve root. Severe right foraminal stenosis with nerve root compression due to uncovertebral hypertrophy. Mild to moderate left foraminal stenosis with nerve root compression due to uncovertebral hypertrophy. Normal cervical cord. There is no demonstrated cervical cord demyelinating process or syrinx formation or edema or expansion of the cord. No intrathecal or intramedullary lesions are seen. Normal visualized soft tissue structures. MRI/Spine Cervical (Routine) IMPRESSION: 1. Multilevel degenerative changes, as described above. Electronically Signed: Rufino Coffman MD at 11:01 EDT Reading Location ID and State: [facility] / [place] , Service support ,
--- NOTE | 2024-06-11 15:47 | MRI_ITS ---
STUDY: MRI THORACIC SPINE WITHOUT CONTRAST REASON FOR EXAM: Male, 53 years old. [place] TECHNIQUE: Standardized fat and water weighted pulse sequences were obtained in the sagittal and axial planes. Technologist note: patient ordered w/wo complete spine/brain but unable to do entire scan with meds given,,, claustrophobic. Mild motion artifact is present on several sequences. COMPARISON: None. FINDINGS: Normal kyphosis of the thoracic spine. There is no substantial scoliosis. Small posterior simple cortical based cyst of the midpole of the right kidney measures 3.58 cm and does not requiring additional imaging or assessment. No marrow edema or fracture or compression deformity is present. No aggressive abnormalities are seen. T1-2, T2-3, T3-4, T4-5, T5-6, T6-7, T7-8, T8-9, T9-10, T10-11, T11-12: Normal endplates. Mild disc desiccation at all visualized levels. Mild endplate spurring and small Schmorl''s nodes throughout the thoracic spine. No posterior disc herniation or significant bulging or disc extrusions. No cord compression is present. Mild asymmetric levoscoliosis is present. Normal central canal and intervertebral neural foramina at the remaining corresponding levels. Mild central canal stenosis is present at T10-T11 and T11-T12 due to hypertrophy of the ligamenta flava and facet joints. Normal visualized thoracic cord. No demyelinating lesions or syrinx formation or edema is seen in the spinal cord. No demonstrated cord atrophy or enlargement. No intrathecal lesions are present. Normal conus medullaris that terminates below T12. The soft tissue structures are unremarkable. MRI/Spine Thoracic (Routine) IMPRESSION: 1. Mild degenerative changes of the thoracic spine. 2. Normal visualized thoracic cord. No demyelinating lesions or syrinx formation or edema is seen in the spinal cord. No demonstrated cord atrophy or enlargement. No intrathecal lesions are present. Electronically Signed: Rufino Coffman MD at 10:42 EDT ,
--- NOTE | 2024-06-11 16:34 | CASEMGMT ---
SW did not complete a PHQ 9 as per physician patient did not have a Stroke or TIA. KAREN Alex
[2024-06-11] MEDS: LORazepam 1 MG Tablet PO (17:14)
[2024-06-11 17:19] LABS: HIV - WCH Non-Reactive (Nonreactive); Hepatitis B Surface Antigen Non-Reactive (Nonreactive); Syphilis Antibodies Non-reactive; Vitamin B12 301 pg/mL (211-911)
[2024-06-11 17:30] LABS: Hepatitis B Surface Antibody Non-Reactive; Hepatitis C Antibody Non-Reactive (Nonreactive)
--- NOTE | 2024-06-11 17:30 | CASEMGMT ---
Social Work SW met with pt to complete SDOH assessment. Pt admits to depression and feeling like he wishes his heart would stop beating. Pt does state he thinks about harming himself but has no plans, no lethal means and no prior attempts. SW explored pt's stressors with pt and pt repeating same stressors as reported on hospital visit on 04/04/24 (see SW note for that date). Pt states he does have a counselor at [facility], but indicates he does not talk to him often and that it is not helpful. SALVADOR collaberated with bedside nurse who confirms pt has made states to her today about being better off . Nursing to notify physician for possible need for evaluation by Crisis. KAREN Cox
[2024-06-11] MEDS: Atorvastatin Calcium 80 MG Tablet PO (20:39)
--- NOTE | 2024-06-11 20:41 | PN.HOSP_ITS ---
Reason for Visit Reason for Visit: Diagnoses Bradycardia, unspecified (06/10/24) Other symptoms and signs involving the musculoskeletal system (06/10/24) Syncope and collapse (06/10/24) Subjective Subjective Patient states that he is unclear on why his legs are weak. It has been happening more frequently and he reports marked fatigue. He states he pushes himself but feels like he is just not able to do as much as he used to do. 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 It does seem that he is a bit surprised by this and he has expressed suicidal ideation to nursing. Objective Data Objective Data Vital Signs: Vital Signs Temp Pulse Resp BP Pulse Ox O2 Del Method 97.6 F L 51 L 19 H 111/66 98 Room Air 06/11/24 14:00 06/11/24 14:00 06/11/24 14:00 06/11/24 14:00 06/11/24 14:00 06/11/24 14:00 Oxygen Delivery Method Room Air Weight: 99.337 kg Body Mass Index (BMI) 34.2 Intake & Output: Intake and Output for Last 24 Hours 06/09/24 06/10/24 06/11/24 23:59 23:59 23:59 Intake Total 1000 / 1250 1050 / 1050 Balance 1000 / 1250 1050 / 1050 Lab / Micro Data 06/11/24 05:20 06/11/24 05:20 Labs: Laboratory Results - last 24 hr 06/11/24 05:20: WBC 8.0, RBC 4.78, Hgb 15.6, Hct 46.3, MCV 96.9 H, MCH 32.6 H, MCHC 33.7, RDW Std Deviation 45.7 H, RDW Coeff of Shayy 12.6, Plt Count 278, MPV 9.1, Sodium 141, Potassium 4.2, Chloride 109 H, Carbon Dioxide 24.0, Anion Gap 8, BUN 10, Creatinine 0.95, Estim Creat Clear Calc 100.98, Est GFR (MDRD) Af Amer 106, Est GFR (MDRD) Non-Af 88, BUN/Creatinine Ratio 10.5, Glucose 102, Calcium 8.9, Triglycerides 88, Cholesterol 113, LDL Cholesterol 45, VLDL Cholesterol 18, HDL Cholesterol 50, Folate 8.20, TSH 1.190 06/11/24 16:17: Vitamin B12 301, Syphilis Total Ab Non-reactive, Hep Bs Antigen Non-Reactive, Hep Bs Antibody Non-Reactive, Hepatitis C Antibody Non-Reactive, HIV 1&2 Antibody Non-Reactive Micro: Microbiology 06/10/24 09:51 Mucosa - Nose SARS-CoV-2, Influenza & RSV (PCR) - Final Radiography Diagnostic Testing: Radiology Impression Brain MRI 06/11/24 11:09 IMPRESSION: 1. Demyelinating plaques consistent with multiple sclerosis 2. No demonstrated acute infarct or intracranial hemorrhage. Electronically Signed: Rufino Coffman MD at 11:16 EDT Reading Location ID and State: [facility] / [place] , Service support , Rhythm Strip Rhythm Strip: Sinus Rhythm Rate: 45 Physical Exam Const alert, oriented x3, no apparent distress and well nourished; Negative for healthy appearing Constitutional Narrative: Obese, very pleasant, middle-aged, white male, appears older than stated age, sitting up in bed watching television, does not appear toxic HEENT head/scalp atraumatic and moist oral mucous membranes HEENT Narrative: Dentition is poor, Mallampati is 3, no thrush Head and Scalp: normocephalic Resp normal respiratory effort, no retractions, no use of accessory muscles and clear to auscultation bilaterally Auscultation: Negative for rales, rhonchi or wheezes Cardio regular rhythm, S1 normal heart sound, S2 normal heart sound, no murmurs, no rub, no gallops and no clicks Cardio Narrative: Bradycardic GI normal to inspection, nondistended, normoactive bowel sounds, soft to palpation and non-tender Extremity no clubbing, cyanosis or edema Extremity Narrative: Pedal and radial pulses are 2+ Neuro oriented x3 and moves all extremities Neuro Narrative: Does seem weaker on left lower extremity than right, no significant upper extremity involvement noted at this time Speech: speech normal Psych Psych Narrative: Affect is slightly flat however patient makes good eye contact and interacts appropriately Assessment & Plan Assessment/Plan (1) Right leg weakness: (2) Sinus bradycardia: (3) Near syncope: PLAN: Plan Worsening right lower extremity weakness/tongue numbness -Previous history of stroke TIA which has been ruled out -MRI without contrast shows possible demyelinating lesions -Neuro has evaluated the patient and recommended MRI of the brain, cervical spine, thoracic spine, and lumbar spine with and without contrast -ordered and pending -Also recommended B12, folate, homocysteine level, MMA, copper level, cryoglobulins, SSA, SSB, TSH, T4 if TSH abnormal, chronic hepatitis profile, HIV, syphilis panel, and celiac disease panel -May need outpatient EMG nerve conduction studies -Continue aspirin and statin -Appreciate general neurology assistance -PT is following Bradycardia/near syncope -Patient is not on any heart rate modulating medications -We do need to assess response to exercise -Patient did not tolerate treadmill stress test -Nursing has been asked to ambulate and monitor heart rates in the hallway -If we are unable to document bradycardia induced symptoms may need loop recorder prior to discharge -If we are able to correlate bradycardia with symptoms he may need pacemaker -Cardiology is following-appreciate input History of stroke/TIA -Continue aspirin -Continue atorvastatin -Risk factor modification Essential hypertension -Hold home lisinopril due to intermittent orthostatic hypotension -PRNs available -Will likely not reinitiate lisinopril at discharge unless pacemaker is placed and blood pressure stable Hyperlipidemia -Continue home atorvastatin Anxiety/depression -Continue home buspirone -Patient has expressed suicidal ideation with no specific plan -Will place in suicide precautions -Will need crisis clearance prior to discharge once medically stable Tobacco abuse -Patient still smoking -Encourage cessation -Nicotine patch available History of methamphetamine abuse/alcohol abuse -Patient has been sober from alcohol for 5 years and methamphetamines for at least 1 year -Toxicology and alcohol negative at his last hospitalization and patient denies any ongoing use DVT prophylaxis -Start subcu Lovenox CODE STATUS -Full code as verified at admission Charges/Coding Visit Charges Inpatient E&M: 86070 Subs Hosp L2
[2024-06-12 02:55] VITALS: BP 92/71; PULSE 42; RESP 16; TEMP 36.4; O2SAT 97
[2024-06-12] MEDS: Enoxaparin 40 MG/0.4 ML Syringe SC (05:16)
[2024-06-12] MEDS: busPIRone 5 MG Tablet PO ×2 (05:16→20:04)
[2024-06-12 07:10] VITALS: O2SAT 97
[2024-06-12 07:26] LABS: Hematocrit 47.7 % (40-54); Mean Corp Hgb Conc 33.5 g/dL (32-36); Mean Corpuscular Hgb 32.5 pg (27.0-32.0); Mean Platelet Vol. 9.1 fl (6.2-12.0); Platelet Count 289 K/mm3 (150-450); RBC Distribution Width CV 12.5 % (11.6-14.6); RBC Distribution Width SD 45.1 fl (35.1-43.9); Red Blood Count 4.92 M/mm3 (4.6-6.2); White Blood Count 8.5 K/mm3 (4.4-11.0)
[2024-06-12 08:06] LABS: Anion Gap 7 (5-15); BUN 11 mg/dL (7-18); BUN/Creat Ratio 10.6 RATIO (10-20); Calcium,Total 9.2 mg/dL (8.5-10.1); Chloride 106 mmol/L (98-107); Creatinine, Serum 1.04 mg/dL (0.70-1.30); EST Glomerular Filtration Rate 79 mL/min (>60); Est Glom Filt Rate - Afr Amer 96 mL/min (>60); Estimated Creatinine Clearance 92.25 ml/min; Glucose 118 mg/dL (74-106); Potassium 3.9 mmol/L (3.5-5.1); Sodium Level 138 mmol/L (136-145)
[2024-06-12] MEDS: Aspirin E.C. 81 MG Tablet PO (08:13)
[2024-06-12 08:15] VITALS: BP 102/75; PULSE 51; RESP 12; TEMP 36.6; O2SAT 96
--- NOTE | 2024-06-12 08:46 | PN.CARD_ITS ---
Subjective Subjective The patient reports he continues to be weak but not as bad as when he was in his home environment yesterday. The patient was able to walk a few steps into the [place] and turn around and come back and sit down. We did not get a heart rate response to that ambulation documented. The patient's MRI preliminarily suggest the possibility of multiple sclerosis. This being evaluated by the primary service. Objective Data Vital Signs: Vital Signs Temp Pulse Resp BP Pulse Ox O2 Del Method 97.9 F 51 L 12 102/75 96 Room Air 06/12/24 08:15 06/12/24 08:15 06/12/24 08:15 06/12/24 08:15 06/12/24 08:15 06/12/24 08:15 Oxygen Delivery Method Room Air Weight: 219 lb 0.009 oz Body Mass Index (BMI) 34.2 Intake & Output: Intake and Output for Last 24 Hours 06/10/24 06/11/24 06/12/24 23:59 23:59 23:59 Intake Total 1000 / 1250 1050 / 1050 Balance 1000 / 1250 1050 / 1050 Lab / Micro Data Attestation: I reviewed the patient's lab results. 06/12/24 06:22 06/12/24 06:22 Labs: Laboratory Results - last 24 hr 06/11/24 05:20: Folate 8.20, TSH 1.190 06/11/24 16:17: Vitamin B12 301, Syphilis Total Ab Non-reactive, Hep Bs Antigen Non-Reactive, Hep Bs Antibody Non-Reactive, Hepatitis C Antibody Non-Reactive, HIV 1&2 Antibody Non-Reactive 06/12/24 06:22: WBC 8.5, RBC 4.92, Hgb 16.0, Hct 47.7, MCV 97.0 H, MCH 32.5 H, MCHC 33.5, RDW Std Deviation 45.1 H, RDW Coeff of Shayy 12.5, Plt Count 289, MPV 9.1, Sodium 138, Potassium 3.9, Chloride 106, Carbon Dioxide 25.0, Anion Gap 7, BUN 11, Creatinine 1.04, Estim Creat Clear Calc 92.25, Est GFR (MDRD) Af Amer 96, Est GFR (MDRD) Non-Af 79, BUN/Creatinine Ratio 10.6, Glucose 118 H, Calcium 9.2 Rhythm Strip Rhythm Strip: Sinus Rhythm Rate: 60 Cardiology Labs/Tests 06/12/24 06:22: WBC 8.5, RBC 4.92, Hgb 16.0, Hct 47.7, MCV 97.0 H, MCH 32.5 H, MCHC 33.5, Plt Count 289, MPV 9.1, Sodium 138, Potassium 3.9, Chloride 106, Carbon Dioxide 25.0, Anion Gap 7, BUN 11, Creatinine 1.04, Est GFR (MDRD) Af Amer 96, Est GFR (MDRD) Non-Af 79, BUN/Creatinine Ratio 10.6, Glucose 118 H, Calcium 9.2 Rhythm: EKG: ECHO: Stress Test: Cardiac Cath: PCI: CT Surgery: Holter monitor: EPS: PPM: CXR: Chest CT Scan: Radiography Diagnostic Testing: Radiology Impression Brain MRI 06/11/24 11:09 IMPRESSION: 1. Demyelinating plaques consistent with multiple sclerosis 2. No demonstrated acute infarct or intracranial hemorrhage. Electronically Signed: Rufino Coffman MD at 11:16 EDT Reading Location ID and State: [facility] / [place] , Service support , Physical Exam Const alert and oriented x3 HEENT normocephalic Neck no JVD Resp normal respiratory effort and clear to auscultation bilaterally Cardio regular rate, regular rhythm, S1 normal heart sound, S2 normal heart sound, no murmurs, no rub and no gallops Extremity no pedal edema Neuro Neuro Narrative: Generalized weakness Psych mental status grossly normal Assessment & Plan Assessment/Plan (1) Sinus bradycardia: PLAN: Given the findings on the MRI consistent with multiple sclerosis I do not feel that further evaluation for permanent pacemaker is indicated at this time. The patient's heart rate is in the 60 bpm in sinus rhythm on telemetry. He has had no samir syncope documented with heart rates in the 45 to 50 bpm range. Should the patient continue to have issues thought to be consistent with bradycardia arrhythmias after further evaluation and treatment for this presumed multiple sclerosis then reevaluation with cardiology would be indicated. PLAN: Plan 1. Cardiology will sign off at this time if further assistance is needed please reconsult. Charges/Coding Visit Charges Inpatient E&M: 11667 Subs Hosp L2
--- NOTE | 2024-06-12 13:47 | CHAPLAIN ---
Type of Pastoral Visit _x__ Initial Visit ___ Follow-up Visit ___ On-call Visit ___ General Patient Visit ___ Spiritual Assessment ___ Family Conference ___ Bereavement ___ Rapid Response ___ Code Blue ___ Other (describe below) Pastoral Care Referral From _x__ Patient ___ Family ___ Nurse ___ Physician ___ Mannequin Molder ___ Dater Assembler ___ Other (describe below) Sacrament/Intervention _x__ Active listening ___ Anointing ___ Evangelical ___ Bereavement ___ Communion ___ Ruth exploration ___ _x__ Life review _x_ Prayer ___ Reconciliation ___ Sacrament of Sick __x_ Supportive presence ___ Wedding ___ Other (describe below) Pastoral Comments significant time given to listen to patient who believes that he is being unfairly treated as he is a suicidal threat; pt makes statements that no one could stop him if they wanted to but that he isn't going to be stupid and do anything; pt admits that he is angry; pt speaks of a very difficult living situation with many other men and that all his life savings is in a truck that is for sale; pt has no real family in this area at all' pt does welcome a prayer and is encouraged to think of the more positive things of life
--- NOTE | 2024-06-12 14:57 | PN.NEURO_ITS ---
Assessment and Plan: Neuro Assessment/Plan PALOMO CRAWLEY is a 53 M with a past medical history of ischemic stroke, tobacco abuse, obesity, HTN,? who is presenting with LE weakness. History suggestive of a chronic progressive prossess more characterized by falls and parasthesias. Exam is largely nonfocal but difficult to assess without reflexes. However no clear signs of UMN noted but some signs of neuropathy. On motor evaluation, there is giveway weakness in the proximal LE muscles but unclear why - may be from sensory or deconditioning. 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 Plan: - agree with holland scan of spine - initial images not clearly remarkable but pending contrasted imaging and final report - reviewed labs: folate, TSH, hepatitis panel, A1C, HIV, sypholis normal. Vit B12 low normal, recommend replacement with 500mcg daily given his +rhomber. Pending, copper, cryoglobulin, SSA, SSB. Please add DARELL panel to this Likely will need outpatient EMG and patient has a neurologist. Recommended he call his neurologist and assess whether he can get EMG there - if not can consider transfer for inpatient EMG given his primary reason for admission is his falls. Nothing clearly on history to suggest syncope/presyncope however. I personally attended this patient and spent a total time of 60 minutes evaluating this patient including clinical assessment, review of chart, medical history imaging, and determining appropriate treatment and workup. Subject: Neurology Subjective 53 M w PMH of ischemic stroke, tobacco abuse, obesity, HTN,? who is presenting with LE weakness. At baseline patient has paresthesia in finger tips and drags his RLE. 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 Awoke in the morning on 06/10 and tried to get up but couldn?t get up. His RLE>LLE felt weak and tongue was numb. Described numbness as a Novocaine feeling in the left. States the day before he was doing physical activity around the house and was walking normally. Did fall down the stairs last week. Denies bowel bladder dysfunction. Denies vision changes, difficulty speaking, back pain. On chart review, patient was hospitalized here for stroke rule outs in January and March of this year. MRI brain has been negative each time. In March, patient was noted to have persistent sinus bradycardia and there was concern that inappropriate chronotropic response could be contributing to his symptoms. Treadmill stress test was attempted but patient only completed 48 seconds of this and became very dizzy and lightheaded. He was found to have positive orthostatics at that time. He was given significant IV fluid resuscitation and orthostatic vitals the next day were negative. He did continue to have sinus bradycardia on discharge. Was discharged on lisinopril 20 mg daily at that time. Updated history: Pt states he could not get out of bed and struggled to get down stairs. He is stumbled around a lot. Does not use a walker or cane. Last week fell down the stairs. He lost his balance. only hasnumbness both hands. Usually its the fingertips and this past weak it is his whole hands. Also noted tongue numbness but that is better. Used to smoke not anymore, denies recreational drug use and drinking Has a neurologist he is seeing for outpatient stroke followup. General Neurology asked to followup patient as the constellation of his presenting symptoms are not clearly consistent with cerebrovascular disease. MRI Brain with concern for demyelintating vs severe small vessel disease NIHSS NIHSS Nursing Documentation NIHSS Nursing Documentation: NIHSS: Ischemic Stroke/TIA Start: 06/10/24 12:02 Text: For PCU Patients: NIH and Neuro Check every 4 Status: Complete hours, PRN and with change in RN caregiver. Freq: [id number] Protocol: Activity Type Activity Date Activity User E-sign Co-sign Detail Recorded Client Recorded Date Recorded By Document 06/11/24 17:30 desktop 06/11/24 18:43 06/11/24 17:30 NIH Stroke Scale [NIHSS] A score of 0 is normal or asymptomatic . Total possible score is 42. Inpatient: RN or Physician to activate a stroke alert for onset of new stroke symptoms or with NIHSS increase >/= 3 points. Following change in neurological status, NIHSS will be performed per physician order or more frequently PRN. -1a. Level of Consciousness Alert; keenly responsive -1b. LOC Questions Answers BOTH questions correctly. -1c. LOC Commands Performs both tasks correctly . -2. Best Gaze Normal -3. Visual No visual loss -4. Facial Palsy Normal symmetrical movements -5a. Left Arm No drift; arm holds 90 (or 45 ) degrees for full 10 seconds -5b. Right Arm No drift; arm holds 90 (or 45 ) degrees for full 10 seconds -6a. Left Leg No drift; leg holds 30-degree position for full 5 seconds -6b. Right Leg No drift; leg holds 30-degree position for full 5 seconds -7. Limb Ataxia Absent -8. Sensory Mild-to- moderate sensory loss; -9. Best Language No aphasia; normal -10. Dysarthria Normal -11. Extinction and Inattention No abnormality -Total 1 Query Text:A score of 0 is normal or asymptomatic. Total possible score is 42 . ED: Notify Physician for NIHSS increase by > / = 3 points. Inpatient: RN or Physician to activate a stroke alert for NIHSS increase of > / = 3 points. Coma Scale [Assess] -Eye Opening Spontaneous -Motor Obeys Commands -Verbal Oriented [Total] -Coma Scale Total 15 EEG Results Procedure Details EEG Procedure Details: PALOMO CRAWLEY is a 53 year old M with a past medical history of , who presents for evaluation of Electroencephalogram on DATE at TIME Objective Data Objective Data Vital Signs: Vital Signs Temp Pulse Resp BP Pulse Ox O2 Del Method 97.9 F 51 L 12 102/75 96 Room Air 06/12/24 08:15 06/12/24 08:15 06/12/24 08:15 06/12/24 08:15 06/12/24 08:15 06/12/24 10:00 Oxygen Delivery Method Room Air Weight: 99.337 kg Body Mass Index (BMI) 34.2 Intake & Output: Intake and Output for Last 24 Hours 06/10/24 06/11/24 06/12/24 23:59 23:59 23:59 Intake Total 1000 / 1250 1050 / 1050 Balance 1000 / 1250 1050 / 1050 Lab / Micro Data 06/12/24 06:22 06/12/24 06:22 Labs: Laboratory Results - last 24 hr 06/11/24 05:20: Folate 8.20, TSH 1.190 06/11/24 16:17: Vitamin B12 301, Syphilis Total Ab Non-reactive, Hep Bs Antigen Non-Reactive, Hep Bs Antibody Non-Reactive, Hepatitis C Antibody Non-Reactive, HIV 1&2 Antibody Non-Reactive 06/12/24 06:22: WBC 8.5, RBC 4.92, Hgb 16.0, Hct 47.7, MCV 97.0 H, MCH 32.5 H, MCHC 33.5, RDW Std Deviation 45.1 H, RDW Coeff of Shayy 12.5, Plt Count 289, MPV 9.1, Sodium 138, Potassium 3.9, Chloride 106, Carbon Dioxide 25.0, Anion Gap 7, BUN 11, Creatinine 1.04, Estim Creat Clear Calc 92.25, Est GFR (MDRD) Af Amer 96, Est GFR (MDRD) Non-Af 79, BUN/Creatinine Ratio 10.6, Glucose 118 H, Calcium 9.2 Micro: Microbiology 06/10/24 09:51 Mucosa - Nose SARS-CoV-2, Influenza & RSV (PCR) - Final Rhythm Strip Rhythm Strip: Sinus Rhythm Rate: 60 Physical Exam Narrative -? General: Laying comfortably in bed; in no acute distress. -? HENT: Normal oropharynx and mucosa. Normal external appearance of ears and nose. Exophthalmos. -? Neck: Supple, no pain or tenderness -? CV:? No peripheral edema. -? Pulmonary:? Normal respiratory effort. -? Ext: No cyanosis, edema, or deformity -? Skin: No rash. Normal palpation of skin.? -? Musculoskeletal: full range of motion; no joint tenderness. Normal digits and nails by inspection. No clubbing. -? NEURO: -? Mental Status: The patient was alert and oriented to time, place, and person. Normal recent/remote memory, concentration, and general fund of knowledge. -? Language: speech is clear.? Naming, repetition, fluency, and comprehension intact. -? Cranial Nerves: PERRL 3 mm/brisk. EOMI, visual jay full, no facial asymmetry, facial sensation diminished on the L, hearing intact, tongue midline, no evidence of atrophy or fibrillations. -? Motor: normal bulk, tone, and strength throughout. No pronator drift or satelliting. Upper and lower extremities equal bilaterally. -? Detailed strength exam as performed by the nurse/JOSE and witnessed by the physician: l R L SA 5 5 EE 5 5 EF 5 5 WE WF Patient Resource Coordinator 5 5 HF 4 4 KE 3 3 KF 3 4 DF 4 4 PF 5 5 giveway weakness noted on exam -?Detailed reflex exam as performed by the nurse/JOSE and witnessed by the physician: benjie R L Biceps Patellar Ankle Babinski down down -? Tone: is normal and bulk is normal -? Sensation- Intact to light touch bilaterally. Proprioception intact b/l -? Coordination: No dysmetria on [id number], finger follow finger or [id number]. -? Gait- able to stand on his own, did not have him walk as he seemed unsteady. + jeane
--- NOTE | 2024-06-12 15:47 | MRI_ITS ---
STUDY: MRI LUMBAR SPINE WITHOUT CONTRAST REASON FOR EXAM: Male, 53 years old. MS TECHNIQUE: Standardized fat and water weighted pulse sequences were obtained in the sagittal and axial planes. Technologist Notes: patient ordered w/wo complete spine/brain but unable to do entire scan with meds given,,, claustrophobic COMPARISON: None FINDINGS: No marrow edema or fracture or compression deformity is present. No aggressive abnormalities are seen. Normal distal spinal cord without evidence of edema or demyelinating lesions. No syrinx formation of the distal cord is present. Normal lumbar lordosis. There is no substantial scoliosis. Normal conus medullaris that terminates at the L1-L2 level. L1-2: Normal endplates. Normal disc height, hydration and morphology. Normal bilateral facet joints. Normal central canal and bilateral lateral recesses. Normal bilateral intervertebral neural foramina. L2-3: Normal endplates. Diffuse disc desiccation with mild posterior annular bulging of the disc. Mild facet joint hypertrophy. Mild fluid distention of the right facet joint. Normal central canal and bilateral lateral recesses. Normal bilateral intervertebral neural foramina. L3-4: Diffuse disc desiccation with mild disc space narrowing and diffuse disc bulging and endplate spurring. Mild facet joint hypertrophy. Mild central canal stenosis. Normal bilateral intervertebral neural foramina. L4-5: Diffuse disc desiccation with moderate to severe disc space narrowing and a diffuse disc bulge/disc osteophyte complex. Slight retrolisthesis of 2 to 3 mm. Bilateral lateral recess stenosis with nerve root compression and mild central canal stenosis. Moderate facet joint hypertrophy with moderate bilateral foraminal stenosis and nerve root compression, right greater than the left. L5-S1: Chronic bilateral L5 pars interarticularis defects with anterolisthesis of L5 on S1 of 1 cm and severe bilateral foraminal stenosis with nerve root compression. Severe disc space narrowing and moderate Modic endplate degenerative signal and changes. Diffuse disc bulge. Moderate to significant facet joint hypertrophy and degeneration. Normal visualized sacral ala. Normal visualized paraspinous soft tissue structures. MRI/Spine Lumbar (Routine) IMPRESSION: Multilevel degenerative changes, as described above. Electronically Signed: Rufino Coffman MD at 10:49 EDT ,
[2024-06-12 17:00] VITALS: BP 112/87; PULSE 61; RESP 16; TEMP 36.6; O2SAT 100
--- NOTE | 2024-06-12 17:48 | PCM.PN.HOSP ---
Reason for Visit Reason for Visit: Weakness Subjective Subjective Patient states today both of his hands are numb. States his leg feels a little bit better but he just still feels so fatigued. I discussed with him the preliminary results of his MRIs are unremarkable however brain is still pending. There is a significant metabolic workup pending however what has been completed thus far is normal. Objective Data Objective Data Vital Signs: Vital Signs Temp Pulse Resp BP Pulse Ox O2 Del Method 97.9 F 51 L 12 102/75 96 Room Air 06/12/24 08:15 06/12/24 08:15 06/12/24 08:15 06/12/24 08:15 06/12/24 08:15 06/12/24 10:00 Oxygen Delivery Method Room Air Weight: 99.337 kg Body Mass Index (BMI) 34.2 Intake & Output: Intake and Output for Last 24 Hours 06/10/24 06/11/24 06/12/24 23:59 23:59 23:59 Intake Total 1000 / 1250 1050 / 1050 Balance 1000 / 1250 1050 / 1050 Lab / Micro Data 06/12/24 06:22 06/12/24 06:22 Labs: Laboratory Results - last 24 hr 06/12/24 06:22: WBC 8.5, RBC 4.92, Hgb 16.0, Hct 47.7, MCV 97.0 H, MCH 32.5 H, MCHC 33.5, RDW Std Deviation 45.1 H, RDW Coeff of Shayy 12.5, Plt Count 289, MPV 9.1, Sodium 138, Potassium 3.9, Chloride 106, Carbon Dioxide 25.0, Anion Gap 7, BUN 11, Creatinine 1.04, Estim Creat Clear Calc 92.25, Est GFR (MDRD) Af Amer 96, Est GFR (MDRD) Non-Af 79, BUN/Creatinine Ratio 10.6, Glucose 118 H, Calcium 9.2 Micro: Microbiology 06/10/24 09:51 Mucosa - Nose SARS-CoV-2, Influenza & RSV (PCR) - Final Rhythm Strip Rhythm Strip: Sinus Rhythm Rate: 60 Physical Exam Const alert, oriented x3, no apparent distress and well nourished; Negative for healthy appearing Constitutional Narrative: Obese, very pleasant, middle-aged, white male, appears older than stated age, sitting up in bed watching television, does not appear toxic, sitter at the bedside HEENT normocephalic, head/scalp atraumatic and moist oral mucous membranes HEENT Narrative: Dentition is poor with several missing teeth Resp normal respiratory effort, normal air movement, no retractions, no use of accessory muscles and clear to auscultation bilaterally Auscultation: Negative for rales, rhonchi or wheezes Cardio regular rhythm, S1 normal heart sound, S2 normal heart sound, no murmurs, no rub, no gallops and no clicks Cardio Narrative: Bradycardic GI normal to inspection, nondistended, normoactive bowel sounds, soft to palpation and non-tender Extremity no clubbing, cyanosis or edema Extremity Narrative: Pedal and radial pulses are 2+ Neuro oriented x3 and moves all extremities Neuro Narrative: No marked focal deficits at this time Speech: speech normal Psych mental status grossly normal and affect normal Assessment & Plan Assessment/Plan (1) Right leg weakness: (2) Sinus bradycardia: (3) Near syncope: PLAN: Plan Worsening right lower extremity weakness/tongue numbness -Previous history of stroke TIA which has been ruled out -MRI without contrast shows possible demyelinating lesions -MRI of the cervical spine, thoracic spine, and lumbar spine thus far are on telling and inconsistent with MS--> MRI of the brain is pending -ordered and pending -B12, folate, TSH, hepatitis panel, HIV were all unremarkable -homocysteine level, MMA, copper level, cryoglobulins, SSA, SSB, TSH, DARELL, JACKELIN, syphilis panel, and celiac disease panel are still pending -Check cortisol level -Will need outpatient EMG and nerve conduction studies -Continue aspirin and statin -Appreciate general neurology assistance -PT is following Bradycardia/near syncope -Patient is not on any heart rate modulating medications -Per discussion with cardiology they do not think this is etiology is a seem to have improved response to exertion with ambulating in the hallway -Cardiology has signed off History of stroke/TIA -Continue aspirin -Continue atorvastatin -Risk factor modification Essential hypertension -Hold home lisinopril due to intermittent orthostatic hypotension -PRNs available -Will likely not reinitiate lisinopril at discharge unless pacemaker is placed and blood pressure stable Hyperlipidemia -Continue home atorvastatin Anxiety/depression -Continue home buspirone -Patient has expressed suicidal ideation with no specific plan -Will place in suicide precautions -Will need crisis clearance prior to discharge once medically stable -Likely tomorrow Tobacco abuse -Patient still smoking -Encourage cessation -Nicotine patch available History of methamphetamine abuse/alcohol abuse -Patient has been sober from alcohol for 5 years and methamphetamines for at least 1 year -Toxicology and alcohol negative at his last hospitalization and patient denies any ongoing use DVT prophylaxis -Continue subcu Lovenox CODE STATUS -Full code as verified at admission Charges/Coding Visit Charges Inpatient E&M: 09122 Subs Hosp L2
[2024-06-12] MEDS: LORazepam 1 MG Tablet PO (17:50)
[2024-06-12] MEDS: Pantoprazole Sodium 20 MG Tablet PO (17:50)
[2024-06-12] MEDS: Atorvastatin Calcium 80 MG Tablet PO (20:04)
[2024-06-12 22:08] VITALS: BP 115/79; PULSE 58; RESP 16; TEMP 36.5; O2SAT 95
[2024-06-13 03:00] VITALS: BP 109/68; PULSE 58; RESP 14; TEMP 36.6; O2SAT 96
[2024-06-13 09:00] VITALS: BP 107/77; PULSE 69; RESP 16; TEMP 36.5; O2SAT 96
[2024-06-13] MEDS: Aspirin E.C. 81 MG Tablet PO (09:18)
[2024-06-13] MEDS: Cyanocobalamin 500 MCG Tablet PO (09:18)
[2024-06-13] MEDS: Pantoprazole Sodium 20 MG Tablet PO (09:19)
--- NOTE | 2024-06-13 09:20 | CASEMGMT ---
Physician asked SW to have crisis see patient as he is medically cleared. SW called crisis and spoke with April. Someone from crisis will be in to see patient. SW also faxed information. SALVADOR updated RN. Manju Blunt MANAGER COMMERCIAL REAL ESTATEChloe POTTER
--- NOTE | 2024-06-13 12:58 | CASEMGMT ---
Jillian from crisis is at [facility] to talk with patient. Manju Blunt CRUSHER AND BLENDER OPERATOR ASSEMBLY CLEANER
[2024-06-13] MEDS: busPIRone 5 MG Tablet PO (13:58)
--- NOTE | 2024-06-13 14:00 | CM.UR ---
[facility] in to discuss needs at discharge with patient. [facility] reviewed progress with therapy. Patient states he still feels weak. [facility] discuss outpatient therapy with patient and utilizing [facility] Van at [facility]. Patient agreeable to referral to [facility]. Patient denied further needs or concerns. [facility] received script for outpatient therapy and referral sent to [facility] with request to arrange hospital van for transport and to call patient to schedule. [facility] updated SW.
--- NOTE | 2024-06-13 14:33 | CASEMGMT ---
SW called patient's insurance and made a referral for their Care Coordination Program. They did try and call patient in Oct of this year, but there was no response. Manju Blunt CERTIFIED HOME HEALTH AIDEChloe POTTER
[2024-06-13 15:00] VITALS: BP 113/86; PULSE 56; RESP 16; TEMP 36.6; O2SAT 95
--- NOTE | 2024-06-13 16:23 | DS.PCM_ITS ---
Providers Date of Admission: 06/10/24 Date of Discharge: 06/13/24 Primary Care Physician: Dr. Scottie Yusuf MD Consultations 06/10/24 12:02 Consult: Tele-Neurology Routine Consulting Provider: [facility] Reason for Consult: Acute Ischemic Stroke/TIA EMERGENT Consult: No Notified: Yes Date Notified: 06/10/24 Time Notified: 12:53 Method of Notification: Answering Service Nursing Unit Staff Notify [facility] of Tele-Neurology Consult: Yes 06/11/24 09:13 Consult: Cardiology Routine Consulting Provider: Burak Landers Reason for Consult: bradycardia EMERGENT Consult: No Notified: Yes Date Notified: 06/11/24 Time Notified: 09:28 Method of Notification: Text Reason For Visit: CVA RULE OUT Diagnosis Discharge Diagnosis (1) Right leg weakness: Status: Acute Code(s): R29.898 - Other symptoms and signs involving the musculoskeletal system (2) Sinus bradycardia: Status: Acute Code(s): R00.1 - Bradycardia, unspecified (3) Near syncope: Status: Acute Code(s): R55 - Syncope and collapse Medications at Discharge Home Medications aspirin 81 mg tablet,delayed release 81 mg PO DAILY HEART HEALTH 01/25/24 buspirone 5 mg tablet 5 mg PO TID anxiety 04/02/24 atorvastatin 80 mg tablet 80 mg PO DAILY CHOLESTEROL 06/10/24 omeprazole magnesium 20 mg tablet,delayed release (Prilosec OTC) 20 mg PO DAILY 06/10/24 cyanocobalamin (vitamin B-12) 500 mcg tablet 500 mcg PO BREAKFAST #30 tabs 06/13/24 Hospital Course Operations None Procedures EKG and - (MRI brain/cervical spine/thoracic spine/lumbar spine/CT brain/CTA head and neck) Summary of Care Provided Minutes Spent on Discharge: 41 Hospital Course: Patient is a 53-year-old male who presented to the emergency department at [facility] on 06/10/2024 with right leg weakness and tongue numbness. Patient does have remote history of TIA/stroke and stated he typically walks with a limp but had noted that his limp was worse on the day of presentation. He stated that he has been markedly fatigued with significant weakness and had been moving things up 3 flights of stairs independently. He indicated after doing so he was so tired that he fell back in bed. He stated that help arrived to move his boxes and furniture after he was significantly fatigued. Patient continues to smoke but denies any ongoing use of alcohol or drug. He does have a previous polysubstance abuse history. With his symptoms on presentation a CT of the brain and CTA of the head and neck were performed and found to be unremarkable. He did appear mildly dehydrated on admission with borderline blood pressures and orthostasis so he was given IV fluids with improvement. He has chronic bradycardia for which a stress test via treadmill has been recommended previously however he is not yet been able to tolerate it due to lightheadedness. We did try to repeat this during this hospitalization he was not however he was able to walk around the unit without any difficulty and he did have an appropriate response to his heart rate. We did consult cardiology and they felt that this was not likely primary cardiac in nature and were concerned about some underlying neurological abnormality. Neurology was also consulted during his hospitalization. Initial MRI of the brain was concerning for demyelinating lesions so MRI of the brain with contrast as well as MRI of the cervical spine, thoracic spine, and lumbar spine with and without contrast are recommended. Patient was was not able to tolerate being complete imaging due to anxiety despite Ativan administration and we have no ability to sedate him for imaging here so we were unable to complete the contrasted imaging however his noncontrasted imaging did not show any demyelinating lesions and neurology feels that this is likely related to chronic ischemia in the microvasculature however they did recommend outpatient EMGs and nerve conduction studies. Considerable metabolic workup was pursued some of which is still pending at the time of discharge however HIV and chronic hepatitis were negative. Serology for syphilis was nonreactive. DARELL with autoimmune panel were still pending at the time of discharge. SSA and SSB were unremarkable. DARELL was pending at discharge as well as TTG antibody to look for celiac's disease. His B12 level was normal however low normal so we did start oral B12 supplementation. Folic acid was normal. Spinal imaging did show some degenerative disease but it was doubtful that any of this is responsible for his symptoms. The patient did threaten self-harm during his hospital stay and was seen by crisis after being placed in suicide precautions. Once he was medically stable for discharge crisis did evaluate the patient and deemed him appropriate for discharge home with outpatient plan in place. We have referred the patient to [facility] neurology. He is concerned that he will not be able to get a ride however we did ask him to attempt to get transportation down there as there are no available appointments to be seen by neurology close are within the next 12 months. Patient was agreeable to rehab at the time of discharge and referral was made. We did make an appointment for him to see his primary care physician on 04/26/2025 encouraged him to keep the appointment. EMG and nerve conduction studies need to be ordered at that time as an outpatient. Patient was discharged home in stable condition on 06/13/2024. Only medication change was discontinuation of his lisinopril and addition of B12 as noted above. Discharge diagnoses: Right lower extremity weakness Tongue numbness-resolved Bradycardia History of stroke/TIA Essential hypertension Hyperlipidemia Anxiety Depression Degenerative disc disease Tobacco abuse History of methamphetamine abuse History of alcohol abuse Physical Exam Const alert, oriented x3, no apparent distress, no limitations and well nourished; Negative for average body habitus or healthy appearing Constitutional Narrative: Obese, very angry appears quite frustrated, uses multiple obscenities during his conversation even after being asked to stop, middle-aged, white male, appears older than stated age, lying in bed with a dark room, does not appear toxic, sitter at the bedside General Appearance: cooperative, comfortable, well kempt and well developed Orientation / Consciousness: awake, oriented to person, oriented to place and oriented to time Exam Limitations: no limitations Nutritional Appearance: obese HEENT normocephalic, head/scalp atraumatic, hearing grossly normal bilaterally and moist oral mucous membranes Eyes EOMs intact bilaterally Eyes Narrative: No scleral icterus Resp normal respiratory effort, normal air movement, no retractions, no use of accessory muscles and clear to auscultation bilaterally Auscultation: Negative for rales, rhonchi or wheezes Cardio regular rhythm, S1 normal heart sound, S2 normal heart sound, no murmurs, no rub, no gallops and no clicks Cardio Narrative: Bradycardic GI normal to inspection, nondistended, normoactive bowel sounds, soft to palpation and non-tender Extremity no clubbing, cyanosis or edema Extremity Narrative: Pedal and radial pulses are 2+ Skin no rashes or lesions noted, skin turgor normal and no jaundice Neuro oriented x3 and moves all extremities Neuro Narrative: No marked focal deficits at this time Speech: speech normal Psych Psych Narrative: Angry and aggressive with conversation Weight / BMI Weight Weight: 99.337 kg Body Mass Index (BMI) 34.2 ABG / Lab / Microbiology Data 06/12/24 06:22 06/12/24 06:22 Laboratory: Laboratory Results - last 24 hr 06/12/24 06:22: Cortisol 19.00 Microbiology: Microbiology 06/10/24 09:51 Mucosa - Nose SARS-CoV-2, Influenza & RSV (PCR) - Final Radiography Diagnostic Testing: Radiology Impression Cervical Spine MRI 06/11/24 15:47 IMPRESSION: 1. Multilevel degenerative changes, as described above. Electronically Signed: Rufino Coffman MD at 11:01 EDT , Thoracic Spine MRI 06/11/24 15:47 IMPRESSION: 1. Mild degenerative changes of the thoracic spine. 2. Normal visualized thoracic cord. No demyelinating lesions or syrinx formation or edema is seen in the spinal cord. No demonstrated cord atrophy or enlargement. No intrathecal lesions are present. Electronically Signed: Rufino Coffman MD at 10:42 EDT , Lumbar Spine MRI 06/12/24 15:47 IMPRESSION: Multilevel degenerative changes, as described above. Electronically Signed: Rufino Coffman MD at 10:49 EDT , D/C Instructions Discharge Diet: Low fat / Low cholesterol Discharge Activity: Return to Normal Activity Meaningful Use Info Meaningful Use Meaningful Use Diagnoses (Choose all that apply): None applicable Ischemic Stroke Statin Dosing Therapy Reference: STATIN DOSE THERAPY REFERENCE: * Patients > 75 years receive moderate or high dose statin therapy. * Patients 75 years or YOUNGER should receive HIGH intensity statin dose unless contraindicated. You will be required to document reason for non-treatment if statin daily dose does not meet guidelines. HIGH DOSE STATIN THERAPY DAILY Atorvastatin > than or = to 40 mg Rosuvastatin > than or = to 20 mg Amlodipine + Atorvastatin > than or = to 2.5/40 mg Ezetimibe + Simvastatin 10/80 mg Simvastatin 80mg Discharge Plan Admission Admit Date/Time: 06/10/24 11:05 Primary Reason for Your Visit: Weakness Attending Provider: Polina Santos Primary Care Provider: Scottie Yusuf Consulting Providers: Wander Jamil; Nathanael Wilson; Kimberly Kauffman; Andria Zarate; Kimberlee Cox; Moshe Bragg; Olivia Palmer; Froy Penaloza; Nasir Webb; Yeison Kearns; Hyun Schmitz; Adis Duffy; Petrona Tillman; Irene See; Genevieve Bajwa; Markus Polanco; Radha Lugo; Ayo Deluca; Amy Santos; Aj Tran; Augustus Buitrago; Burak Landers Instructions Additional Instructions / Restrictions: 1. Please try and follow-up at the neurology clinic in [place] if able 2. Please follow-up with your primary care physician as instructed below. I have sent my discharge summary to his office. Please remind him to order an EMG nerve conduction studies to be done as an outpatient. 3. Please follow-up with physical therapy and Occupational Therapy as ordered Discharge Orders/Prescriptions Prescriptions: New cyanocobalamin (vitamin B-12) 500 mcg Tablet 500 mcg PO BREAKFAST Qty: 30 1RF Continued buspirone 5 mg tablet 5 mg PO TID aspirin 81 mg tablet,delayed release (DR/EC) 81 mg PO DAILY omeprazole magnesium [Prilosec OTC] 20 mg tablet,delayed release (DR/EC) 20 mg PO DAILY atorvastatin 80 mg Tablet 80 mg PO DAILY Patient Comments: PT TAKES IN THE MORNING Discontinued lisinopril 20 mg tablet 20 mg PO DAILY Referrals / Follow Up: Scottie Yusuf MD [Primary Care Provider] - 06/26/24 10:00 am Disposition Disposition (needs filled in before D/C Order can be placed): Home, Self Care Charges/Coding Visit Charges Inpatient E&M: 83243 Disch Hosp >30min
[2024-06-13 17:14] VITALS: BP 123/83; PULSE 56; RESP 16; O2SAT 97
--- NOTE | 2024-06-13 18:18 | PN.NEURO_ITS ---
Assessment and Plan: Neuro Assessment/Plan Assessment/Plan PALOMO CRAWLEY is a 53 M with a past medical history of ischemic stroke, tobacco abuse, obesity, HTN,? who is presenting with LE weakness. History suggestive of a chronic progressive prossess more characterized by falls and parasthesias. Exam is largely nonfocal but difficult to assess without reflexes. However no clear signs of UMN noted but some signs of neuropathy. On motor evaluation, there is giveway weakness in the proximal LE muscles but unclear why - may be from sensory or deconditioning. At this time, imaging without clear SENIOR SAFETY SUPPORT MANAGER pathology. MRI Lspine with severe L5-S1 severe foraminal stenosis however no evidence of pain subjectively and on exam, with weakness more in L3-4 distribution. On further history, it seems that patient has more severe fatigue and that pt has some likely depression. He admitted that his neurologist attempted placing him on some medications for depression in the past. Currently ddx includes some radiculopathy vs peripheral neuropathy vs depression. Plan: - reviewed labs: folate, TSH, hepatitis panel, A1C, HIV, sypholis normal. Vit B12 low normal, recommend replacement with 500mcg daily given his +rhomberg. Pending, copper, cryoglobulin, SSA, SSB. Please add DARELL panel to this Likely will need outpatient EMG to assess if radiculopathy is causing his weakness vs neuropathy. Also patient should be considered to be placed on a anti-depressant that could also help with neuropathy. I personally attended this patient and spent a total time of 45 minutes evaluating this patient including clinical assessment, review of chart, medical history imaging, and determining appropriate treatment and workup. Subject: Neurology Subjective Pt still endorses weakness, endorses numbness in the UE. Denies pain in the LE NIHSS NIHSS Nursing Documentation NIHSS Nursing Documentation: NIHSS: Ischemic Stroke/TIA Start: 06/10/24 12:02 Text: For PCU Patients: NIH and Neuro Check every 4 Status: Complete hours, PRN and with change in RN caregiver. Freq: [id number] Protocol: Activity Type Activity Date Activity User E-sign Co-sign Detail Recorded Client Recorded Date Recorded By Document 06/11/24 17:30 NB desktop 06/11/24 18:43 NB 06/11/24 17:30 NIH Stroke Scale [NIHSS] A score of 0 is normal or asymptomatic . Total possible score is 42. Inpatient: RN or Physician to activate a stroke alert for onset of new stroke symptoms or with NIHSS increase >/= 3 points. Following change in neurological status, NIHSS will be performed per physician order or more frequently PRN. -1a. Level of Consciousness Alert; keenly responsive -1b. LOC Questions Answers BOTH questions correctly. -1c. LOC Commands Performs both tasks correctly . -2. Best Gaze Normal -3. Visual No visual loss -4. Facial Palsy Normal symmetrical movements -5a. Left Arm No drift; arm holds 90 (or 45 ) degrees for full 10 seconds -5b. Right Arm No drift; arm holds 90 (or 45 ) degrees for full 10 seconds -6a. Left Leg No drift; leg holds 30-degree position for full 5 seconds -6b. Right Leg No drift; leg holds 30-degree position for full 5 seconds -7. Limb Ataxia Absent -8. Sensory Mild-to- moderate sensory loss; -9. Best Language No aphasia; normal -10. Dysarthria Normal -11. Extinction and Inattention No abnormality -Total 1 Query Text:A score of 0 is normal or asymptomatic. Total possible score is 42 . ED: Notify Physician for NIHSS increase by > / = 3 points. Inpatient: RN or Physician to activate a stroke alert for NIHSS increase of > / = 3 points. Coma Scale [Assess] -Eye Opening Spontaneous -Motor Obeys Commands -Verbal Oriented [Total] -Coma Scale Total 15 EEG Results Procedure Details EEG Procedure Details: PALOMO CRAWLEY is a 53 year old M with a past medical history of , who presents for evaluation of Electroencephalogram on DATE at TIME Objective Data Objective Data Vital Signs: Vital Signs Temp Pulse Resp BP Pulse Ox O2 Del Method 97.8 F 56 L 16 123/83 H 97 Room Air 06/13/24 15:00 06/13/24 17:14 06/13/24 17:14 06/13/24 17:14 06/13/24 17:14 06/13/24 17:14 Oxygen Delivery Method Room Air Weight: 99.337 kg Body Mass Index (BMI) 34.2 Intake & Output: Intake and Output for Last 24 Hours 06/11/24 06/12/24 06/13/24 23:59 23:59 23:59 Intake Total 1050 / 1050 Balance 1050 / 1050 Lab / Micro Data 06/12/24 06:22 06/12/24 06:22 Labs: Laboratory Results - last 24 hr 06/11/24 16:17: Miscellaneous Test 06/12/24 06:22: Cortisol 19.00 Micro: Microbiology 06/10/24 09:51 Mucosa - Nose SARS-CoV-2, Influenza & RSV (PCR) - Final Radiography Diagnostic Testing: Radiology Impression Cervical Spine MRI 06/11/24 15:47 IMPRESSION: 1. Multilevel degenerative changes, as described above. Electronically Signed: Rufino Coffman MD at 11:01 EDT , Thoracic Spine MRI 06/11/24 15:47 IMPRESSION: 1. Mild degenerative changes of the thoracic spine. 2. Normal visualized thoracic cord. No demyelinating lesions or syrinx formation or edema is seen in the spinal cord. No demonstrated cord atrophy or enlargement. No intrathecal lesions are present. Electronically Signed: Rufino Coffman MD at 10:42 EDT , Lumbar Spine MRI 06/12/24 15:47 IMPRESSION: Multilevel degenerative changes, as described above. Electronically Signed: Rufino Coffman MD at 10:49 EDT , Rhythm Strip Rhythm Strip: Sinus Rhythm Rate: 60 Physical Exam Narrative NEURO: -? Mental Status: The patient was alert and oriented to time, place, and person. Normal recent/remote memory, concentration, and general fund of knowledge. -? Language: speech is clear.? Naming, repetition, fluency, and comprehension intact. -? Cranial Nerves: PERRL 3 mm/brisk. EOMI, visual jay full, no facial asymmetry -? Motor: normal bulk, tone, and strength throughout. No pronator drift or satelliting. Upper and lower extremities equal bilaterally. -? Detailed strength exam as performed by the nurse/JOSE and witnessed by the physician: l R L SA 5 5 EE EF WE WF Rotor Coil Taper 5 5 HF 4 4 KE 3 4 KF 4 4 DF 4 4 PF 5 5 giveway weakness noted on exam -? Gait- able to stand on his own and walk, turns were in stride,. + rhomberg
[2024-06-14 05:07] LABS: Copper, Serum or Plasma 77 ug/dL (69-132)
[2024-06-14 13:08] LABS: Anti-Centromere B Ab <0.2 AI (0.0-0.9); Anti-Chromatin <0.2 AI (0.0-0.9); Anti-Jo <0.2 AI (0.0-0.9); Anti-Scleroderma-70 AB <0.2 AI (0.0-0.9); Anti-dsDNA Ab 4 IU/mL (0-9); RNP Ab <0.2 AI (0.0-0.9); SJOGREN'S Anti-SS-A test < 0.2 AI (0.0-0.9); SJOGREN'S Anti-SS-B test < 0.2 AI (0.0-0.9); Smith Ab <0.2 AI (0.0-0.9)
[2024-06-16 00:07] LABS: Methylmalonic Acid Bld 302 nmol/L (0-378)
== END 2024-06-13 16:25 | disposition home or self-care (01) ==
LOC: ED 11:02 → PCU 11:17
PROVIDERS: Admitting Provider Hospitalist; Emergency Provider Emergency Medicine; PCP Family Medicine; Visit Provider Internal Medicine
DX: R29.898 Other symptoms and signs involving the musculoskeletal system (principal); G37.9 Demyelinating disease of central nervous system, unspecified; Z79.82 Long term (current) use of aspirin; R26.2 Difficulty in walking, not elsewhere classified; R45.851 Suicidal ideations; M48.07 Spinal stenosis, lumbosacral region; F41.9 Anxiety disorder, unspecified; E66.9 Obesity, unspecified; I10 Essential (primary) hypertension; F17.210 Nicotine dependence, cigarettes, uncomplicated; E78.5 Hyperlipidemia, unspecified; Z68.34 Body mass index [BMI] 34.0-34.9, adult; R00.1 Bradycardia, unspecified; R20.0 Anesthesia of skin; Z79.899 Other long term (current) drug therapy; F32.A Depression, unspecified; R73.9 Hyperglycemia, unspecified
CPT/HCPCS: 36415; 70450; 70496; 70498; 70551; 71045; 72141; 72146; 72148; 80048; 80061; 81001; 82525; 82533; 82607; 82746; 83921; 84443; 84484; 85025; 85027; 85610; 85730; 86225; 86235; 86703; 86706; 86780; 86803; 87340; 87631; 92610; 93005; 94762; 96361; 96372; 96374; 97110; 97116; 97162; 97166; 97530; 97535; 97802; 99221; 99285; J7030; Q9967; A4216; G0378

== ENCOUNTER → 2024-09-07 | Outpatient (CLI) | payer MEDICAID, SELFPAY | END | disposition home or self-care (01) | LOC: PSN 07:47 | PROVIDERS: PCP Family Medicine; Referring Provider Internal Medicine Cardiovascular Disease; Visit Provider Internal Medicine Cardiovascular Disease | DX: R00.1 Bradycardia, unspecified (principal); R53.1 Weakness | CPT/HCPCS: 93225; 93226 ==

== ENCOUNTER 2024-09-11 10:00 | Outpatient (RCR) | payer MEDICAID, SELFPAY ==
--- NOTE | 2024-07-10 16:09 | HP.OTEVAL ---
Patient's Visit Information Visit Information Visit Information: PALOMO CRAWLEY is a 53 year old M, referred to Occupational Therapy by Dr. Polina Santos DO, with a diagnosis of CVA, fainting, musculoskeletal. Date of Evaluation: 07/10/24 Occupational Therapist: Shira Aaron Subjective Subjective: This 53 year old male dx with CVA, fainting as well as musculoskeletal issues. Pt recently to hospital with R sided LE weakness as well as numbness in mouth as well as tingling of entire R arm. pt states in hospital approx 4x in past year from issues with low heart rate causing him to black out. pt states overall weakness from hx of leung in past. 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 pt is R hand dominant. reports increased difficulty in completing daily living tasks at this time and reccurent falls. Objective Objective/Observation: pt arrives able to walk from waiting room to OT section slow pace no AD needed occ need furniture to hold onto. ROM Shoulder: wfl Elbow: wfl Forearm: wfl Wrist: wfl Opposition: wfl ROM Comments: able to make fist with B hands L hand CMC hyperextend and johnathon with gripping task Strength Shoulder: shoulder flexion L 6.2# R 5.2# Elbow: bicep L 10.13 R 21.1# tricep L 12.3# R 13.1# Photographic Equipment Technician: L 45# R 85# Lateral Pinch: L 0# R 5# Tripod Pinch: L 0# R 8# Strength Comments: ER L 9.2# R 21.8# Sensation Sensation Comments: R hand MF 3.61 and all other fingers 3.22 L hand all 3.61 indicating diminished light touch Nine Hole Peg Left: 50 sec Comments: 43 sec Quick DASH-Disab of Arm,Shoulder& Hand Quick DASH Score: 54.5450 Goals Goal:: pt will improve B shoulder flexion strength by 3-5# in order to maximize I in day to day tasks pt will improve B UE ER by 3-5E# in order to maximize I in day to day tasks pt will improve B UE tricep strength by 5# in order to maximize I in day to day tasks pt will improve L hand upholstery department supervisor strength equal to R UE or greater in order to maximize I in day to day tasks pt will improve pinch strength LUE by 2# or more in order to maximize I in day to day tasks Goal:: pt will improve B hand 9 hole peg time by 5 sec or more (L hand 50 sec R hand 40 sec) in order to maximize I in day to day tasks Goal:: pt will improve sensation according to next semme sapna level in order to improve sensation and maximize day to day tasks Goal:: pt will demonstrate 100% accuracy in L thumb stabilization bracing for completion of pinching tasks day to day tasks Goal:: pt will improve quick dash score by 10 points or more (54.54) in order to improve overall use of UEs during day to day tasks Rehabilitation General Assessment: This 53 year old male arrives with dx of CVA, fainting, musculoskeletal impairments. pt demonstrates decreased strength of BUEs, as well as decreased in hand manipulation and coordination, decreased sensation of B hands diminished light touch as well as decreased overall aerobic capacity impacting performance in day to day activities. pt would benefit from OT services 1-2x a week for 4-6 weeks. Rehabilitation Potential: Good Anticipated Interventions Anticipated Interventions: A/AAROM/PROM, Strengthening, Modalities, Orthoses, Joint Protection/Energy Conservation, Fine Motor Coord/Cj, Neuro Reeducation, Visual/Perceptual Skills, Education re assistive Equipment, Education re Diagnosis and Home Program Visit Plan Frequency: 1-2x /Week Duration: 4-6 Weeks General Plan: AROM/AAROM/PROM strengthening coordination FMC aerobic capacity TEXT: Thank you for the opportunity to evaluate your patient. For Medicare and Medicare HMO plans, please review the plan of care and approve it. It will need to be FAXED BACK to us at [phone] for Medicare purposes. Please let me know if there are questions or concerns regarding this plan of care. Physician Signature: Date:
--- NOTE | 2024-07-10 16:47 | HP.PTEVAL_ITS ---
Patient's Visit Information Visit Information Visit Information: PALOMO CRAWLEY is a 53 year old M referred to Physical Therapy by Dr. Polina Santos DO with a diagnosis of CVA. Date of Evaluation: 07/10/24 Physical Therapist: Kristian De Luna, DPT, OCS, CSCS Visit Plan Frequency: 2x /Week Duration: 4-6 Weeks Plan: 2x/week for 4-6 weeks for 1. LE strenght balance and coordination to HEP and funcitonal strength steps and chair trasnfers.HS adn quad stretching 2. balance and coordination LE movemments for balance and walking/steps progress to I HEP IE: much time spent instructing in staying off ladders and taking time and using hands on steps and need to use cane at least at home, questionable whether he will be compliant. Subjective Subjective: Hospital recommended PT due to multiple strokes with the latest being a year ago. Was in hospital a month ago for 7 days due to numbness in R side and mouth. Still has R arm numbness. May get pacemaker. he feels like he stumbles alot and it embarasses him. This is not new to this hospital stay. Licensed Psychologist Director in hospital but no f/u. Family doc i Paramjit in [place]. Supposed to see him after hospital and scheduled for 07/16. Pain in neck as he helped a lot around the house working on garage door. Otherwise not painful. Sleep is not great but not sure why. Employment: not since stroke, was local company flatbed truck driver. Does not drive, ride service brought him Spends day: clean and cooks and stays busy. Lives with friend who is older. No regular exercise. Basic ADLs: dresses and bathroom adn shower self I. Hard to step into tub. Shuts R leg in car door and it lags behind L at times from previous strokes. No AD used , has walker or cane. Objective Objective: Walks slowly with wide TANA into PT from OT. 200 feet today without LOB but slow. Much better with cane in R UE or wh walker, recommended cane for long-term, questionable if he will be compliant. Trasnfers chair and bed I, requires UE. Steps are reciprocal but slow weight shifts and weak B LE obvious, hesitant. Stands romberg eo and ec 30 seconds but wobbly ec LE AROM i sslow and max tight in HS at -40 90/90 test and quad. WFL hip and knee ROM and ankle. reflexes 2/3 patella dna chilles B. Sensation WNL to gross lgiht touch in B LE. Slow movement and coordination in B LE. Balance/Special Test Scores Functional Gait Assessment Score: 20 % Disability: 33.3400 Lower Extremity Functional Score: 21 TUG Test Time Seconds: 15 30 Second Chair Rise Test Seconds: 5 Goals Goal 1:: I appropriate HEP for LE and core strength adn balance and funciton to HEP Goal Time Frame: 4-6 Weeks Goal 2:: FGA 25/30 to limit fall risk Goal Time Frame: 4-6 Weeks Goal 3:: 30 SSTS 12 or more to show improved funciton adn strength Goal Time Frame: 4-6 Weeks Goal 4:: Patient climb safely into tub at home without falling or assist Goal Time Frame: 4-6 Weeks Goal 5:: 40 on LEFS Goal Time Frame: 4-6 Weeks Rehabilitation Potential Physical Therapy Diagnosis: unsteadyness adn weakness after medical problems limiting safe funciton Rehabilitation Potential: Fair Anticipated Interventions Patient/Client Instruction: Educate patient on: Condition and Plan of Care For the Purpose of:: To improve nutrient delivery to tissue, To improve muscle performance and motor function, To increase tolerance to activity/condition/position, To improve ability of physical actions for home/community/work/leisure and To improve gait and locomotor functions Therapeutic Exercise to Include: Strength training, Postural training, Flexibilty training and Gait and locomotor training For the Purpose of:: To decrease pain, To increase ROM, To improve nutrient delivery to tissue, To improve muscle performance and motor function, To increase tolerance to activity/condition/position, To improve gait and locomotor functions and To improve safety Text: Thank you for the opportunity to evaluate your patient. For Medicare and Medicare HMO plans, please review the plan of care and approve it. It will need to be FAXED BACK to us at [phone] for Medicare purposes. For Medicare only, by signing this I certify the plan of care. Please let me know if there are questions or concerns regarding this plan of care. Physician Signa katia: Date:
--- NOTE | 2024-08-21 15:28 | HP.PTREVAL ---
Re-Evaluation Intro: Dr. Polina Santos, DO, It has been my pleasure to treat PALOMO CRAWLEY over the last 7 visits for CVA. Please see the progress note below for an update on the physical therapy plan of care! Subjective Subjective: HR keeps jumping around in OT. Feels a little better overall, Does not wish to use walker or cane so keeps arms out sometimes. No falls. Sleep is not great. Still working with switch foreman on HR and reason for stroke. 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 Doing some stretches at home. Gets some dizzyness in the am mostly. Objective Objective/Function: HR 60 bpm and spO2 97% similar after walk despite SOB today. steps reciprocal with one rail. Walks slow and wider TANA and worried about balance despite improving balance score. Objective improvements noted but subjectively still feeling similar, will see switch foreman on next week. Progressing toward all goals which are still appropriate for next 3-6 week POC. Fair prognosis Plan Plan Plan: 2x/week for 3-6 more weeks please focus on getting on HOME STRENGTH adn balance/weight shift ex as safety allows, work to I with pics.(currently just doing stretches. Balance/Gait/Functional tests Balance/Special Test Scores Functional Gait Assessment Score: 24 % Disability: 20.0000 Lower Extremity Functional Score: 27 TUG Test Time Seconds: 15 Tug Test: <20 sec.=mostly independent 30 Second Chair Rise Test Seconds: 8 Goals Goals Goal 1:: I appropriate HEP for LE and core strength adn balance and funciton to HEP Goal Time Frame: 4-6 Weeks Goal Progress: Progressing Goal 2:: FGA 25/30 to limit fall risk Goal Time Frame: 4-6 Weeks Goal Progress: Progressing Goal 3:: 30 SSTS 12 or more to show improved funciton adn strength Goal Time Frame: 4-6 Weeks Goal Progress: Progressing Goal 4:: Patient climb safely into tub at home without falling or assist Goal Time Frame: 4-6 Weeks Goal Progress: Goal Met Goal 5:: 40 on LEFS Goal Time Frame: 4-6 Weeks Goal Progress: Progressing Anticipated Interventions Anticipated Interventions Patient/Client Instruction: Educate patient on: Condition and Plan of Care For the Purpose of:: To improve nutrient delivery to tissue, To improve muscle performance and motor function, To increase tolerance to activity/condition/position, To improve ability of physical actions for home/community/work/leisure and To improve gait and locomotor functions Therapeutic Exercise to Include: Strength training, Postural training, Flexibilty training and Gait and locomotor training For the Purpose of:: To decrease pain, To increase ROM, To improve nutrient delivery to tissue, To improve muscle performance and motor function, To increase tolerance to activity/condition/position, To improve gait and locomotor functions and To improve safety Re-Evaluation Ending Re-evaluation ending: Please do not hesitate to contact me at [phone] by phone or if you have questions or concerns regarding this new plan of care! Sincerely, Kristian D eLuna, DPT, OCS, CSCS
--- NOTE | 2024-09-06 16:39 | OTREVAL_ITS ---
Re-Evaluation Intro: Dr. Polina Santos, DO, It has been my pleasure to treat PALOMO CRAWLEY over the last 10 visits for CVA, fainting, musculoskeletal. Please see the progress note below for an update on the occupational therapy plan of care! Subjective Subjective: pt arrives doing well states he fell coming out of shower this morning states he was not hurt. Objective Objective/Function: completion of re evaluation update in measurement this date for 10th visit. pt does demonstrate improved UB strength as well as fine motor control. L shoulder flexion 12.7# from 6.2# at eval R shoulder flexion 10.8# from 5.2# at eval L ER 17.2# R ER 21.8# L tricep 34.1 from 12.3# at eval R tricep 42.6 from 13.1# at eval L shredding machine knife changer 60 from 45# at eval R shredding machine knife changer 85 from 85# at eval L hand lateral and tripod pinch 0# from 0 at eval Plan Plan Frequency: 1-2x /Week Duration: 4-6 Weeks Plan: thumb stabilization L hand strengthening aerobic capacity training Goals Goals Patient Goals: Regain Strength, Improve Fine Motor Skills, Decrease Tingling/Numbness, Be More Independent in ADLS, Resume Former Household Responsibilities (Cooking,Cleaning,Yard, etc.) and Resume Hobbies Goal:: pt will improve B shoulder flexion strength by 3-5# in order to maximize I in day to day tasks L 12.7# R 10.8# pt will improve B UE ER by 3-5E# in order to maximize I in day to day tasks L17.2# R 21.8# pt will improve B UE tricep strength by 5# in order to maximize I in day to day tasks L 34.1 R 42.6 pt will improve L hand shredding machine knife changer strength equal to R UE or greater in order to maximize I in day to day tasks L 45# R 85# pt will improve pinch strength LUE by 2# or more in order to maximize I in day to day tasks L 0# Goal:: pt will improve B hand 9 hole peg time by 5 sec or more (L hand 50 sec R hand 40 sec) in order to maximize I in day to day tasks L 36 sec R 35 sec Goal:: pt will improve sensation according to next semme sapna level in order to improve sensation and maximize day to day tasks Goal:: pt will demonstrate 100% accuracy in L thumb stabilization bracing for completion of pinching tasks day to day tasks Goal:: pt will improve quick dash score by 10 points or more (54.54) in order to improve overall use of UEs during day to day tasks Anticipated Interventions Anticipated Interventions Anticipated Interventions: A/AAROM/PROM, Strengthening, Modalities, Orthoses, Joint Protection/Energy Conservation, Fine Motor Coord/Cj, Neuro Reeducation, Visual/Perceptual Skills, Education re assistive Equipment, Education re Diagnosis and Home Program Re-Evaluation Ending Re-evaluation ending: Please do not hesitate to contact me at [phone] by phone or if you have questions or concerns regarding this new plan of care! Sincerely, Shira Aaron
--- NOTE | 2024-09-11 10:56 | HP.PTREVAL_ITS ---
Re-Evaluation Intro: Dr. Polina Santos, DO, It has been my pleasure to treat PALOMO CRAWLEY over the last 12 visits for CVA. Please see the progress note below for an update on the physical therapy plan of care! Subjective Subjective: I am winded , past 2 days have been a little more winded. Salesperson Men'[employer] Hats is checking heart. Balance is better sometimes and worse in the am. No falls. Stumbled 1x. Getting in and out of tub himself, holds onto tub. Wants to rid ebike for ex but SOB limits and wants to work on car. Will continue to do exercises at home. Wants to wait on info from Dr. Tai on heart montior and what the next step is, will see Dr. Tai soon. Objective Objective/Function: 97% spO2, 55 HR after ex today. Mild SOB. Until resting.No change after FGA and steps. +4 overall 30 SSTS +5 on FGA improvnig but slowly and frustrated with heart situation and wants to continue via HEP and await heart doctor. Walking I without AD but very slow today.Everything is slow and lack confidence. Plan Plan Plan: f/u one month to check FGA and LEFS and 30 sSTS to ensure progress and montior improvement with heart doctor. Pt to call prior if needed and will continue with HEP in meantime. Balance/Gait/Functional tests Balance/Special Test Scores Functional Gait Assessment Score: 25 % Disability: 16.6700 Lower Extremity Functional Score: 27 TUG Test Time Seconds: 15 Tug Test: <20 sec.=mostly independent 30 Second Chair Rise Test Seconds: 9 Goals Goals Goal 1:: I appropriate HEP for LE and core strength adn balance and funciton to HEP Goal Time Frame: 4-6 Weeks Goal Progress: Goal Met Goal 2:: FGA 25/30 to limit fall risk Goal Time Frame: 4-6 Weeks Goal Progress: Goal Met Goal 3:: 30 SSTS 12 or more to show improved funciton adn strength Goal Time Frame: 4-6 Weeks Goal Progress: 9 Goal 4:: Patient climb safely into tub at home without falling or assist Goal Time Frame: 4-6 Weeks Goal Progress: Goal Met Goal 5:: 40 on LEFS Goal Time Frame: 4-6 Weeks Goal Progress: Not Progressing Anticipated Interventions Anticipated Interventions Patient/Client Instruction: Educate patient on: Condition and Plan of Care For the Purpose of:: To improve nutrient delivery to tissue, To improve muscle performance and motor function, To increase tolerance to activity/condition/position, To improve ability of physical actions for home/community/work/leisure and To improve gait and locomotor functions Therapeutic Exercise to Include: Strength training, Postural training, Flexibilty training and Gait and locomotor training For the Purpose of:: To decrease pain, To increase ROM, To improve nutrient delivery to tissue, To improve muscle performance and motor function, To increase tolerance to activity/condition/position, To improve gait and locomotor functions and To improve safety Re-Evaluation Ending Re-evaluation ending: Please do not hesitate to contact me at [phone] by phone or if you have questions or concerns regarding this new plan of care! Sincerely, Kristian De Luna, DPT, OCS, CSCS
--- NOTE | 2024-09-11 13:06 | HP.OTDCSUM_ITS ---
Discharge Summary D/C Summary: It has been my pleasure to treat PALOMO CRAWLEY under orders from Dr. Polina Santos DO, for the diagnosis of CVA, fainting, musculoskeletal for a total of 11 visit(s). Please see the following information for a summary of their discharge status. Overall Improvement % Improvement: 25 Objective Objective/Function: completion of re evaluation update in measurement this date for 10th visit. pt does demonstrate improved UB strength as well as fine motor control. L shoulder flexion 12.7# from 6.2# at eval R shoulder flexion 10.8# from 5.2# at eval L ER 17.2# R ER 21.8# L tricep 34.1 from 12.3# at eval R tricep 42.6 from 13.1# at eval L banking manager 60 from 45# at eval R banking manager 85 from 85# at eval L hand lateral and tripod pinch 0# from 0 at eval Goals Patient Goals: Regain Strength, Improve Fine Motor Skills, Decrease Tingling/Numbness, Be More Independent in ADLS, Resume Former Household Responsibilities (Cooking,Cleaning,Yard, etc.) and Resume Hobbies Goal:: pt will improve B shoulder flexion strength by 3-5# in order to maximize I in day to day tasks L 12.7# R 10.8# GOAL MET pt will improve B UE ER by 3-5E# in order to maximize I in day to day tasks L17.2# R 21.8# GOAL MET pt will improve B UE tricep strength by 5# in order to maximize I in day to day tasks L 34.1 R 42.6 GOAL MET pt will improve L hand banking manager strength equal to R UE or greater in order to maximize I in day to day tasks L 45# R 85# NOT MET pt will improve pinch strength LUE by 2# or more in order to maximize I in day to day tasks L 0# NOT MET Goal:: pt will improve B hand 9 hole peg time by 5 sec or more (L hand 50 sec R hand 40 sec) in order to maximize I in day to day tasks L 36 sec R 35 sec GOAL MET Goal:: pt will improve sensation according to next semme sapna level in order to improve sensation and maximize day to day tasks GOAL MET Goal:: pt will demonstrate 100% accuracy in L thumb stabilization bracing for completion of pinching tasks day to day tasks provided with stabilization brace -- does not wear Goal:: pt will improve quick dash score by 10 points or more (54.54) in order to improve overall use of UEs during day to day tasks now 36.36 GOAL MET Plan Plan: thumb stabilization L hand strengthening aerobic capacity training D/C Information Discharge Comments: this 54 year old male with dx of stroke with progress made in strength and coordination. max potential at this time pt to see software tools build engineer to follow up regarding HR with sustained activities. d/c sentence: If there are questions or concerns regarding this patient's occupational therapy, please fell free to call me at [phone]. Thank you for the referral of this patient. Sincerely, Shira Aaron
--- NOTE | 2024-09-11 13:06 | HP.OT.NRP ---
Patient Information Patient Information: PALOMO CRAWLEY was seen in my office for initial evaluation on 07/10/24. The following Plan of Care was established for this patient: POC Established Initial Frequency: 1-2x /Week Initial Duration: 4-6 Weeks Plan: thumb stabilization L hand strengthening aerobic capacity training Anticipated Interventions Anticipated Interventions: A/AAROM/PROM, Strengthening, Modalities, Orthoses, Joint Protection/Energy Conservation, Fine Motor Coord/Cj, Neuro Reeducation, Visual/Perceptual Skills, Education re assistive Equipment, Education re Diagnosis and Home Program Last Seen Last Seen: This patient was last seen in our office 09/11/24. Pertinent comments regarding their Occupational therapy will appear below: this 54 year old male with dx of stroke with progress made in strength and coordination. max potential at this time pt to see sales merchandising specialist to follow up regarding HR with sustained activities. At this point I will be discontinuing this patient from occupational therapy. I would be happy to see this patient again in the future if found appropriate by the physician. Thank you! Shira Aaron
--- NOTE | 2024-11-05 14:03 | HP.PT.NRP ---
Patient Information Patient Information: PALOMO CRAWLEY was seen in my office for initial evaluation on 07/10/24. The following Plan of Care was established for this patient: POC Established Initial Frequency: 2x /Week Initial Duration: 4-6 Weeks Anticipated Interventions Patient/Client Instruction: Educate patient on: Condition and Plan of Care For the Purpose of:: To improve nutrient delivery to tissue, To improve muscle performance and motor function, To increase tolerance to activity/condition/position, To improve ability of physical actions for home/community/work/leisure and To improve gait and locomotor functions Therapeutic Exercise to Include: Strength training, Postural training, Flexibilty training and Gait and locomotor training For the Purpose of:: To decrease pain, To increase ROM, To improve nutrient delivery to tissue, To improve muscle performance and motor function, To increase tolerance to activity/condition/position, To improve gait and locomotor functions and To improve safety Last Seen Last Seen: This patient was last seen in our office 09/11/24. Pertinent comments regarding their Physical therapy will appear below: Pt seen 12 visits of POC and was 25% better. He was to f/u a month later to ensure progress but did not schedule or attend that visit. At this point, it has been over 7 weeks and I will discontinue him from my care. At this point I will be discontinuing this patient from physical therapy. I would be happy to see this patient again in the future if found appropriate by the physician. Thank you! Kristian De Luna, DPT, OCS, CSCS Balance/Gait/Functional tests Balance/Special Test Scores Functional Gait Assessment Score: 25 % Disability: 16.6700 Lower Extremity Functional Score: 27 TUG Test Time Seconds: 15 Tug Test: <20 sec.=mostly independent 30 Second Chair Rise Test Seconds: 9
== END 2024-09-11 19:00 | disposition home or self-care (01) ==
LOC: PT 10:00
PROVIDERS: PCP Family Medicine; Referring Provider Internal Medicine; Visit Provider Internal Medicine
DX: Z86.73 Personal history of transient ischemic attack (TIA), and cerebral infarction without residual deficits (principal); R29.898 Other symptoms and signs involving the musculoskeletal system; R55 Syncope and collapse
CPT/HCPCS: 97110; 97161; 97165; 97530